=== PATIENT | female | born 1950 | race Caucasian/White ===

== ENCOUNTER 2017-02-09 13:35 | Emergency (ER) | payer MEDICARE, MEDICAID ==
[2017-02-09 14:51] LABS: Hematocrit 41 % (35-47); Hemoglobin 13.7 g/dl (12.0-16.0); Mean Corpuscular HGB Conc 33 g/dl (31-36); Mean Corpuscular Hemoglobin 30 pg (27-31); Mean Corpuscular Volume 89 fL (80-97); Mean Platelet Volume 9 um3 (7.4-10.4); Red Blood Count 4.64 10^6/ul (4.0-5.4); Red Cell Distribution Width 14 % (10.5-15); White Blood Count 6.3 10^3/ul (3.5-10.8)
[2017-02-09 15:12] LABS: Albumin 3.6 g/dL (3.2-5.2); Calcium 8.8 mg/dL (8.6-10.3); EGFR Non-African American 100.3 (>60); Globulin 3.2 g/dL (2-4); Potassium 3.9 mmol/L (3.5-5.0); Total Bilirubin 0.8 mg/dL (0.2-1.0); Total Protein 6.8 g/dL (6.4-8.9)
[2017-02-09 15:14] LABS: Troponin I 0.02 ng/mL (<0.04)
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
[2017-02-09 16:40] VITALS: BP 129/84
[2017-02-09] MEDS ORDERED: Iodixanol* (CONTRAST) 320 MG/ML 100 ML SDV IV ONE (16:47)
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
== END 2017-02-09 19:31 | disposition home or self-care (01) ==
LOC: ED 13:35
DX: R06.02 Shortness of breath (principal)
CPT/HCPCS: 36415; 71020; 71275; 80053; 83880; 84484; 85025; 85379; 87040; 93005; 99282; Q9967

== ENCOUNTER 2017-07-03 08:21 | Emergency (ER) | payer MEDICARE, MEDICAID ==
[2017-07-03] MEDS ORDERED: Aspirin Low Dose CHEW TAB* 81 MG PO ONE (08:34)
[2017-07-03 09:22] LABS: ABS Basophils 0 10^3/ul (0-0.2); ABS Eosinophils 0.3 10^3/ul (0-0.6); ABS Lymphocytes 2.5 10^3/ul (1.0-4.8); ABS Monocytes 0.6 10^3/ul (0-0.8); ABS Neutrophils 3.5 10^3/ul (1.5-7.7); ABS Nucleated RBC 0 10^3/ul; Eosinophil % 4.3 % (0-6); Hematocrit 42 % (35-47); Hemoglobin 13.9 g/dl (12.0-16.0); Lymphocyte % 36.4 % (25-47); Mean Corpuscular HGB Conc 34 g/dl (31-36); Mean Corpuscular Hemoglobin 30 pg (27-31); Mean Corpuscular Volume 88 fL (80-97); Mean Platelet Volume 9 um3 (7.4-10.4); Nucleated Red Blood Cells % 0; Platelet Count 213 10^3/ul (150-450); Red Blood Count 4.71 10^6/ul (4.0-5.4); Red Cell Distribution Width 14 % (10.5-15); White Blood Count 6.8 10^3/ul (3.5-10.8)
--- NOTE | 2017-07-03 09:59 | RAD ---
Indication: LEFT chest pain. Shortness of breath. Orthopnea. Comparison: February 09, 2017 CT pulmonary angiogram and chest radiograph. Technique: Sitting AP and lateral chest views. Report: Elevated lung volumes. Cardiomegaly. Prominent mildly ill-defined central pulmonary vasculature. Mild prominence of interstitial markings with subtle peripheral thickened intralobular septa. Grossly clear pleural spaces. 2 cm nodule at the lateral basal segment of the RIGHT lower lobe with suggestion of interval enlargement compared with the February 09, 2017 CT. Unremarkable mediastinal contours. IMPRESSION: 1. Mild pulmonary vascular congestion and interstitial edema. 2. Interval enlargement of solitary RIGHT basilar pulmonary nodule concerning for potential bronchogenic carcinoma. 3. Elevated lung volumes suggest potential obstructive lung disease.
[2017-07-03 10:02] LABS: EGFR Non-African American 91.5 (>60)
[2017-07-03] MEDS ORDERED: Ketorolac INJ* 30 MG/ML 1 ML VIAL IV PUSH ONE (10:34)
[2017-07-03 12:12] VITALS: BP 124/77
--- NOTE | 2017-07-04 18:35 | ED ---
Dwayne Pabon Angela, scribed for Renzo Monreal MD on 07/03/17 at 0850 . HPI Chest Pain - HPI Summary HPI Summary: This pt is a 66 y/o female, accompanied by her son, presenting to [facility] c/o left sided chest pain radiating to her back. Son is translating for the pt. Pt reports her pain began intermittently 2 weeks ago and 1 week ago her pain was more constant. She notes today her pain was worse. She reports cough. Denies fever, nausea, vomiting. - History of Current Complaint Chief Complaint: EDChestPainROMI Time Seen by Provider: 07/03/17 08:33 Hx Obtained From: Patient, Family/Care Transition Mgr - Son Onset/Duration: Started Days Ago, Still Present Timing: Lasting Days Current Severity: Moderate Pain Intensity: 6 Pain Scale Used: 0-10 Numeric Chest Pain Location: Left Anterior Chest Pain Radiates: Yes Chest Pain Radiates To:: Back Aggravating Factor(s): Nothing Alleviating Factor(s): Nothing Associated Signs and Symptoms: Positive: Cough. Negative: Fever, Chills, Nausea , Vomiting - Allergy/Home Medications Allergies/Adverse Reactions: Allergies Allergy/AdvReac Type Severity Reaction Status Date / Time hydrocortisone Allergy Mild Rash Verified 07/03/17 09:18 Home Medications: Home Medications Albuterol HFA INHALER* [Ventolin HFA Inhaler*] 2 puff INH Q4H PRN 07/03/17 [ History Confirmed 07/03/17] Atenolol TAB* [Tenormin TAB* 25 MG] 25 mg PO DAILY 07/03/17 [History Confirmed 07/03/17] Budesonide/Formote 160/4.5(NF) [Symbicort 160/4.5 (NF)] 1 puff INH BID PRN 07/03 [History Confirmed 07/03/17] Metoprolol Succinate XL TAB* [Toprol XL TAB*] 25 mg PO DAILY 07/03/17 [History Confirmed 07/03/17] traMADol TAB* [Ultram*] 50 mg PO Q8H PRN MDD 150mg 07/03/17 [History Confirmed 07/03/17] PMH/Surg Hx/FS Hx/Imm Hx Endocrine/Hematology History: Reports: Hx Diabetes - Borderline Cardiovascular History: Reports: Hx Hypercholesterolemia, Hx Hypertension Denies: Hx Congestive Heart Failure, Hx Myocardial Infarction Respiratory History: Reports: Other Respiratory Problems/Disorders - Being unable to tolerate layig flat without SOB - 1 year - Cancer History Cancer Type, Location and Year: Skin CA - Surgical History Surgery Procedure, Year, and Place: RT. SIDED FACIAL TUMOR REMOVED- BENIGN, TYROIDECTOMY Infectious Disease History: No Infectious Disease History: Denies: Traveled Outside the [place] in Last 30 Days - Family History Known Family History: Positive: Other - CHF, Gastric CA; NEGATIVE: PE - Social History Alcohol Use: None Substance Use Type: Reports: None Smoking Status (MU): Never Smoked Tobacco Review of Systems Negative: Fever Positive: Chest Pain Positive: Cough Negative: Vomiting, Nausea Musculoskeletal: Negative Skin: Negative Neurological: Negative All Other Systems Reviewed And Are Negative: Yes Physical Exam - Summary Physical Exam Summary: VITAL SIGNS: Reviewed. GENERAL: Patient is a well-developed and nourished female who is lying comfortable in the stretcher. Patient is not in any acute respiratory distress. HEAD AND FACE: No signs of trauma. No ecchymosis, hematomas or skull depressions. No sinus tenderness. EYES: PERRLA, EOMI x 2, No injected conjunctiva, no nystagmus. EARS: Hearing grossly intact. Ear canals and tympanic membranes are within normal limits. MOUTH: Oropharynx within normal limits. NECK: Supple, trachea is midline, no adenopathy, no JVD, no carotid bruit, no c- spine tenderness, neck with full ROM. CHEST: Symmetric, reproducible chest pain. LUNGS: Clear to auscultation bilaterally. No wheezing or crackles. CVS: Regular rate and rhythm, S1 and S2 present, no murmurs or gallops appreciated. ABDOMEN: Soft, non-tender. No signs of distention. No rebound no guarding, and no masses palpated. Bowel sounds are normal. EXTREMITIES: FROM in all major joints, no edema, no cyanosis or clubbing. NEURO: Alert and oriented x 3. No acute neurological deficits. Speech is normal and follows commands. SKIN: Dry and warm Triage Information Reviewed: Yes Vital Signs On Initial Exam: Initial Vitals Temp Pulse Resp BP Pulse Ox 98.4 F 73 18 162/93 93 07/03/17 08:22 07/03/17 08:22 07/03/17 08:22 07/03/17 08:22 07/03/17 08:22 Vital Signs Reviewed: Yes Diagnostics - Vital Signs Vital Signs Temp Pulse Resp BP Pulse Ox 07/03/17 08:22 98.4 F 73 18 162/93 93 - Laboratory Lab Results: Lab Results 07/03/17 07/03/17 07/03/17 Range/Units 08:55 08:55 08:55 WBC (3.5-10.8) 10^3/ul RBC (4.0-5.4) 10^6/ul Hgb (12.0-16.0) g/dl Hct (35-47) % MCV (80-97) fL MCH (27-31) pg MCHC (31-36) g/dl RDW (10.5-15) % Plt Count (150-450) 10^3/ul MPV (7.4-10.4) um3 Neut % (Auto) (38-83) % Lymph % (Auto) (25-47) % [place] % (Auto) (0-7) % Eos % (Auto) (0-6) % Baso % (Auto) (0-2) % Absolute Neuts (auto) (1.5-7.7) 10^3/ul Absolute Lymphs (auto) (1.0-4.8) 10^3/ul Absolute Monos (auto) (0-0.8) 10^3/ul Absolute Eos (auto) (0-0.6) 10^3/ul Absolute Basos (auto) (0-0.2) 10^3/ul Absolute Nucleated RBC 10^3/ul Nucleated RBC % APTT 31.6 (26.0-36.3) seconds Sodium 137 (133-145) mmol/L Potassium 3.5 (3.5-5.0) mmol/L Chloride 103 (101-111) mmol/L Carbon Dioxide 25 (22-32) mmol/L Anion Gap 9 (2-11) mmol/L BUN 13 (6-24) mg/dL Creatinine 0.65 (0.51-0.95) mg/dL Est GFR ( Amer) 117.6 (>60) Est GFR (Non-Af Amer) 91.5 (>60) BUN/Creatinine Ratio 20.0 (8-20) Glucose 163 H (70-100) mg/dL Lactic Acid (0.5-2.0) mmol/L Calcium 9.5 (8.6-10.3) mg/dL Magnesium 1.9 (1.9-2.7) mg/dL Total Bilirubin 0.70 (0.2-1.0) mg/dL AST 18 (13-39) U/L ALT 17 (7-52) U/L Alkaline Phosphatase 62 (34-104) U/L Total Creatine Kinase 35 (10-223) U/L CK-MB (CK-2) 0.8 (0.6-6.3) ng/mL Troponin I 0.01 (<0.04) ng/mL B-Natriuretic Peptide 11 ( - 100) pg/mL Total Protein 7.3 (6.4-8.9) g/dL Albumin 3.9 (3.2-5.2) g/dL Globulin 3.4 (2-4) g/dL Albumin/Globulin Ratio 1.1 (1-3) TSH (0.34-5.60) mcIU/mL 07/03/17 07/03/17 07/03/17 Range/Units 08:55 08:55 08:55 WBC 6.8 (3.5-10.8) 10^3/ul RBC 4.71 (4.0-5.4) 10^6/ul Hgb 13.9 (12.0-16.0) g/dl Hct 42 (35-47) % MCV 88 (80-97) fL MCH 30 (27-31) pg MCHC 34 (31-36) g/dl RDW 14 (10.5-15) % Plt Count 213 (150-450) 10^3/ul MPV 9 (7.4-10.4) um3 Neut % (Auto) 50.6 (38-83) % Lymph % (Auto) 36.4 (25-47) % [place] % (Auto) 8.1 H (0-7) % Eos % (Auto) 4.3 (0-6) % Baso % (Auto) 0.6 (0-2) % Absolute Neuts (auto) 3.5 (1.5-7.7) 10^3/ul Absolute Lymphs (auto) 2.5 (1.0-4.8) 10^3/ul Absolute Monos (auto) 0.6 (0-0.8) 10^3/ul Absolute Eos (auto) 0.3 (0-0.6) 10^3/ul Absolute Basos (auto) 0 (0-0.2) 10^3/ul Absolute Nucleated RBC 0 10^3/ul Nucleated RBC % 0 APTT (26.0-36.3) seconds Sodium (133-145) mmol/L Potassium (3.5-5.0) mmol/L Chloride (101-111) mmol/L Carbon Dioxide (22-32) mmol/L Anion Gap (2-11) mmol/L BUN (6-24) mg/dL Creatinine (0.51-0.95) mg/dL Est GFR ( Amer) (>60) Est GFR (Non-Af Amer) (>60) BUN/Creatinine Ratio (8-20) Glucose (70-100) mg/dL Lactic Acid 1.1 (0.5-2.0) mmol/L Calcium (8.6-10.3) mg/dL Magnesium (1.9-2.7) mg/dL Total Bilirubin (0.2-1.0) mg/dL AST (13-39) U/L ALT (7-52) U/L Alkaline Phosphatase (34-104) U/L Total Creatine Kinase (10-223) U/L CK-MB (CK-2) (0.6-6.3) ng/mL Troponin I (<0.04) ng/mL B-Natriuretic Peptide ( - 100) pg/mL Total Protein (6.4-8.9) g/dL Albumin (3.2-5.2) g/dL Globulin (2-4) g/dL Albumin/Globulin Ratio (1-3) TSH 2.90 (0.34-5.60) mcIU/mL 07/03/17 Range/Units 10:36 WBC (3.5-10.8) 10^3/ul RBC (4.0-5.4) 10^6/ul Hgb (12.0-16.0) g/dl Hct (35-47) % MCV (80-97) fL MCH (27-31) pg MCHC (31-36) g/dl RDW (10.5-15) % Plt Count (150-450) 10^3/ul MPV (7.4-10.4) um3 Neut % (Auto) (38-83) % Lymph % (Auto) (25-47) % [place] % (Auto) (0-7) % Eos % (Auto) (0-6) % Baso % (Auto) (0-2) % Absolute Neuts (auto) (1.5-7.7) 10^3/ul Absolute Lymphs (auto) (1.0-4.8) 10^3/ul Absolute Monos (auto) (0-0.8) 10^3/ul Absolute Eos (auto) (0-0.6) 10^3/ul Absolute Basos (auto) (0-0.2) 10^3/ul Absolute Nucleated RBC 10^3/ul Nucleated RBC % APTT (26.0-36.3) seconds Sodium (133-145) mmol/L Potassium (3.5-5.0) mmol/L Chloride (101-111) mmol/L Carbon Dioxide (22-32) mmol/L Anion Gap (2-11) mmol/L BUN (6-24) mg/dL Creatinine (0.51-0.95) mg/dL Est GFR ( Amer) (>60) Est GFR (Non-Af Amer) (>60) BUN/Creatinine Ratio (8-20) Glucose (70-100) mg/dL Lactic Acid (0.5-2.0) mmol/L Calcium (8.6-10.3) mg/dL Magnesium (1.9-2.7) mg/dL Total Bilirubin (0.2-1.0) mg/dL AST (13-39) U/L ALT (7-52) U/L Alkaline Phosphatase (34-104) U/L Total Creatine Kinase (10-223) U/L CK-MB (CK-2) (0.6-6.3) ng/mL Troponin I 0.00 (<0.04) ng/mL B-Natriuretic Peptide ( - 100) pg/mL Total Protein (6.4-8.9) g/dL Albumin (3.2-5.2) g/dL Globulin (2-4) g/dL Albumin/Globulin Ratio (1-3) TSH (0.34-5.60) mcIU/mL Result Diagrams: 07/03/17 08:55 07/03/17 08:55 Lab Statement: Any lab studies that have been ordered have been reviewed, and results considered in the medical decision making process. - Radiology Chest XR Xray Interpretation: Positive (See Comments) - IMPRESSION: 1. Mild pulmonary vascular congestion and interstitial edema. 2. Interval enlargement of solitary RIGHT basilar pulmonary nodule concerning for potential bronchogenic carcinoma. 3. Elevated lung volumes suggest potential obstructive lung disease. Dr. Monreal has reviewed this radiology report. Radiology Interpretation Completed By: Radiologist - EKG 08:42 Cardiac Rate: NL EKG Rhythm: Sinus Rhythm - at 78 bpm EKG Interpretation: No ST elevations. Re-Evaluation - Re-Evaluation First Eval Re-Evaluation Time: 12:09 Comment: I reviewed the lab and XR results with the pt and son. I explained the need to follow up with PCP for the pulmonary nodule seen today in XR. Chest Pain Course/Dx - Course Assessment/Plan: This pt is a 66 y/o female, accompanied by her son, presenting to [facility] c/o left sided chest pain radiating to her back. Son is translating for the pt. Pt reports her pain began intermittently 2 weeks ago and 1 week ago her pain was more constant. She notes today her pain was worse. She reports cough. Denies fever, nausea, vomiting. Test results without any significant abnormalities except for glucose of 163. Two troponins, 4 hours apart, are both negative. Chest XR: 1. Mild pulmonary vascular congestion and interstitial edema. 2. Interval enlargement of solitary RIGHT basilar pulmonary nodule concerning for potential bronchogenic carcinoma. 3. Elevated lung volumes suggest potential obstructive lung disease. EKG shows normal sinus rhythm without ST elevations. In the ED course the pt was given aspiring and toradol. After these medications the pt reports she is feeling better and her symptoms have resolved. No suspicion for PE since no hypoxia or tachycardia. Therefore the pt will be discharged to home with follow up from her PCP. I explained to the pt and son the need to follow up with her PCP for the pulmonary nodules seen in the chest XR today. Pt and son understand and agree. Pt is instructed to return to the ED for any worsening or new symptoms. Pt is hemodynamically stable, alert and oriented x3. - Chest Pain Differential Diagnosis/HQI/PQRI: Acute MN, ACS, Angina, CHF, Chest Wall, GI Disease, Lower Respiratory Infection - Diagnoses Provider Diagnoses: Atypical chest pain, Pulmonary nodule Discharge - Discharge Plan Condition: Stable Disposition: HOME Patient Education Materials: Chest Pain (ED), Pulmonary Nodules (ED) Referrals: Oneida Nieves MD [Primary Care Provider] - 3 Days Additional Instructions: Please follow up with your primary care provider in 3 days for the LUNG NODULE seen in your chest x-ray today. RETURN TO THE ED FOR ANY WORSENING SYMPTOMS. The documentation as recorded by the Dwayne benitez Angela accurately reflects the service I personally performed and the decisions made by Rah poon Walter, MD.
== END 2017-07-03 12:10 | disposition home or self-care (01) ==
LOC: ED 08:21
DX: R07.89 Other chest pain (principal); R91.1 Solitary pulmonary nodule; E78.00 Pure hypercholesterolemia, unspecified; I10 Essential (primary) hypertension; Z85.828 Personal history of other malignant neoplasm of skin
CPT/HCPCS: 36415; 71046; 80053; 82550; 82553; 83605; 83735; 83880; 84443; 84484; 85025; 85730; 93005; 96374; 99283; A9270-GY; J1885

== ENCOUNTER 2017-09-04 11:41 | Day surgery (SDC) | payer MEDICARE, MEDICAID ==
[~2017-09-04 11:41] MED LIST: Buffered Lidocaine 0.9% SYRIN* 5 ML/SYR SYRINGE INTRADERM ONE; Famotidine IV* 10 MG/ML 2 ML (20 mg) IV ONE
[2017-09-04] MEDS ORDERED: Famotidine IV* 10 MG/ML 2 ML (20 mg) ONE (12:02)
[2017-09-04] MEDS ORDERED: Buffered Lidocaine 0.9% SYRIN* 5 ML/SYR SYRINGE ONE (12:03)
[2017-09-04] MEDS ORDERED: fentaNYL* 50 MCG/ML 2 ML VIAL (100 MCG VIAL) IV PRN (13:05)
[2017-09-04] MEDS ORDERED: HYDROcodone/ACETAMIN 5-325 MG* 1 TAB PO PRN (13:05)
[2017-09-04] MEDS ORDERED: Ondansetron INJ* 2 MG/ML VIAL IV PRN (13:05)
[2017-09-04] MEDS ORDERED: Naloxone* 0.4 MG/ML 1 ML VIAL IV PRN (13:05)
[2017-09-04] MEDS ORDERED: oxyCODONE/Acetamin 5/325 MG* TAB PO PRN (13:05)
[2017-09-04] MEDS ORDERED: Propofol* 10 MG/ML 20 ML BTL IV PUSH ONE (13:14)
[2017-09-04] MEDS ORDERED: Mivacurium Chloride* 20 MG/10 ML VIAL IV ONE (13:14)
[2017-09-04] MEDS ORDERED: Midazolam* 1 MG/ML 5 ML VIAL (5 MG) ONE (13:14)
[2017-09-04] MEDS ORDERED: Lidocaine 2% PF * 5 ML VIAL ONE (13:14)
[2017-09-04] MEDS ORDERED: fentaNYL* 50 MCG/ML 2 ML VIAL (100 MCG VIAL) ONE ×2 (13:14→13:39)
[2017-09-04] MEDS ORDERED: Levalbuterol 0.63MG/3ML NEB* UNIT OF USE INH ONE ×2 (16:30→16:31)
[2017-09-04 16:59] VITALS: BP 164/95
--- NOTE | 2017-09-05 10:23 | PRO ---
BRONCHOSCOPY REPORT: DATE OF PROCEDURE: 09/04/17 - SDS SURGEON: Magda Claudio MD ANESTHESIA: General anesthesia. ANESTHESIOLOGIST: Dr. Luis. PROCEDURE PERFORMED: Endobronchial ultrasound-guided fine needle aspiration of station L4, R4, R10, R15 nodes. PREPROCEDURAL DIAGNOSIS: Recently diagnosed adenocarcinoma. INDICATION: Lung cancer staging. DESCRIPTION OF PROCEDURE: Informed consent was obtained from the patient prior to the procedure after all the risks and benefits were thoroughly explained. Appropriate time-out was agreed on by attending staff. The patient was lying supine on the operating table. A flexible Olympus bronchoscope was inserted through ET tube for airway inspection. No endobronchial lesions were noted. Thin secretions were noted and were suctioned out. Bronchoscope was then withdrawn and EBUS bronchoscope was inserted. The bronchoscope was then advanced into left main stem, L4 was localized and 4 passes were performed. Rapid on-site evaluation revealed lymphatic tissue with no malignant cells. R4 was then accessed with 4 passes. Both lymph nodes were very small measuring about 0.4 mm. Rapid on-site evaluation revealed lymphatic tissue, no malignant cells. R10 and R15 were then accessed with 4 passes. R15 was enlarged and measured 0.8 mm. Rapid on-site evaluation revealed lymphatic tissue, no malignant cells were noted. Rest of the specimen was placed in formalin.The patient tolerated the procedure well. Patient was extubated and seen in recovery in optimal condition. [id number]/CPS #: [id number] [facility]
== END 2017-09-04 17:05 | disposition home or self-care (01) ==
LOC: OR 11:41
PROVIDERS: ATTEND Internal Medicine
DX: C34.90 Malignant neoplasm of unspecified part of unspecified bronchus or lung (principal); I10 Essential (primary) hypertension; E11.9 Type 2 diabetes mellitus without complications; Z85.828 Personal history of other malignant neoplasm of skin; M19.90 Unspecified osteoarthritis, unspecified site; J45.909 Unspecified asthma, uncomplicated; K21.9 Gastro-esophageal reflux disease without esophagitis
CPT/HCPCS: 88172; 88173; 88177; 88305; J2250; J2704; J3010

== ENCOUNTER 2017-10-24 09:40 | Inpatient (IN) | payer MEDICARE, MEDICAID ==
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
[~2017-10-24 09:40] MED LIST changes: -Buffered Lidocaine 0.9% SYRIN* 5 ML/SYR SYRINGE INTRADERM ONE; +Levalbuterol 0.63MG/3ML NEB* UNIT OF USE INH ONE
[2017-10-24] MEDS ORDERED: Famotidine IV* 10 MG/ML 2 ML (20 mg) ONE (10:07)
[2017-10-24] MEDS ORDERED: Levalbuterol 0.63MG/3ML NEB* UNIT OF USE INH ONE ×2 (10:07→15:01)
[2017-10-24] MEDS ORDERED: Buffered Lidocaine 0.9% SYRIN* 5 ML/SYR SYRINGE ONE (10:07)
[2017-10-24] MEDS ORDERED: ceFAZolin 2 GM PREMIX (*) 2 GM/50 ML BAG IVPB ONE (10:08)
[2017-10-24] MEDS: Buffered Lidocaine 0.9% SYRIN* 5 ML/SYR SYRINGE INTRADERM ONE ×2 (10:47→17:07)
[2017-10-24] MEDS ORDERED: Dexamethasone IV* 4 MG/ML 1 ML (4 MG) ONE (10:49)
[2017-10-24] MEDS ORDERED: Bupivacaine 0.25% W/EPI* 10 ML SDV ONE (10:49)
[2017-10-24] MEDS ORDERED: Propofol* 10 MG/ML 20 ML BTL IV PUSH ONE (10:49)
[2017-10-24] MEDS ORDERED: Midazolam* 1 MG/ML 10 ML VIAL (10 MG) ONE (10:49)
[2017-10-24] MEDS ORDERED: Lidocaine 2% PF * 5 ML VIAL ONE (10:49)
[2017-10-24] MEDS ORDERED: Phenylephrine INJ* 10 MG/ML 1 ML VIAL (10 MG) ONE (10:49)
[2017-10-24] MEDS ORDERED: fentaNYL* 50 MCG/ML 2 ML VIAL (100 MCG VIAL) ONE ×2 (10:49→12:50)
[2017-10-24] MEDS ORDERED: KETAMINE HCL* 50 MG/ML 10 ML VIAL ONE (10:49)
[2017-10-24] MEDS ORDERED: Rocuronium* 10 MG/ML VIAL ONE (10:49)
[2017-10-24] MEDS ORDERED: Ondansetron ODT TAB* 4 MG ONE (10:49)
[2017-10-24] MEDS ORDERED: Heparin VIAL(*) 5000 UNITS/ML VIAL (FIVE THOUSAND) ONE (10:58)
[2017-10-24] MEDS ORDERED: Benzocaine/Butamben/Tetracain (CETACAINE - SINGLE USE) 5 gm TOPICAL ONE (11:40)
[2017-10-24] MEDS ORDERED: Bupivacaine 0.5% PF 10 ML VIAL INJ ONE (12:41)
[2017-10-24] MEDS ORDERED: HYDROmorphone INJ* 0.5 MG/0.5 ML SYRINGE ONE (14:16)
[2017-10-24] MEDS ORDERED: Ketorolac INJ* 30 MG/ML 1 ML VIAL ONE (14:19)
[2017-10-24] MEDS ORDERED: Levalbuterol 0.63MG/3ML NEB* UNIT OF USE INH PRN (14:23)
[2017-10-24] MEDS ORDERED: Ondansetron INJ* 2 MG/ML VIAL IV PRN ×3 (14:23→17:04)
[2017-10-24] MEDS ORDERED: DiMENhydriNATE IV* 50 MG/ML VIAL IV PUSH PRN (14:23)
[2017-10-24] MEDS ORDERED: Naloxone* 0.4 MG/ML 1 ML VIAL IV PRN (14:23)
[2017-10-24] MEDS ORDERED: HYDROmorphone INJ* 0.5 MG/0.5 ML SYRINGE IV PRN (14:23)
[2017-10-24] MEDS ORDERED: Acetaminophen IV 1GM/100ML * 1,000 MG/100 ML VIAL IVPB ONE (14:23)
[2017-10-24] MEDS ORDERED: fentaNYL* 50 MCG/ML 2 ML VIAL (100 MCG VIAL) IV PRN (14:23)
[2017-10-24] MEDS ORDERED: Acetaminophen TAB* 325 MG PO PRN (15:15)
[2017-10-24] MEDS ORDERED: Albuterol HFA INHALER* 8 gm MDI INH PRN (15:28)
[2017-10-24] MEDS ORDERED: Omeprazole CAP* 20 MG PO PRN (15:28)
[2017-10-24] MEDS ORDERED: Ketorolac INJ* 30 MG/ML 1 ML VIAL IV SCH (16:00)
--- NOTE | 2017-10-24 16:25 | RAD ---
INDICATION: Follow-up "chest surgery" COMPARISON: Most recent chest x-rays dated July 03, 2017 TECHNIQUE: Single AP portable view of the chest was obtained. FINDINGS: Image quality is compromised due to the relative inferiority of a portable chest x-ray. Postsurgical changes include skin guido overlying the right lateral chest and a chest tube overlying the right hemithorax with the tip terminating at the level of the right lung apex. The lung volumes are reduced bilaterally. There is a density obscuring the left lung base and left hemidiaphragm. There is no large pneumothorax or mediastinal shift. IMPRESSION: 1. Postsurgical changes as described above. 2. Density obscuring the left lung base and left hemidiaphragm consistent with either large pleural effusion or consolidation.
[2017-10-24] MEDS ORDERED: Ketorolac INJ* 15 MG/ML 1 ML VIAL IV PUSH PRN (17:07)
[2017-10-24] MEDS ORDERED: Dextrose 50% Syringe 50 ML* 25 GM/50 ML SYRINGE IV PUSH PRN (17:08)
[2017-10-24] MEDS: HYDROmorphone PCA* 20 MG/20 ML PCA.SYRING PCA SCH (17:16)
[2017-10-24] MEDS ORDERED: Atenolol TAB* 25 MG PO SCH (18:00)
[2017-10-24] MEDS: Heparin VIAL(*) 5000 UNITS/ML VIAL (FIVE THOUSAND) SUBCUT SCH (21:34)
[2017-10-24] MEDS: Montelukast Sodium TAB* 10 MG PO SCH (21:34)
[2017-10-24] MEDS: Docusate CAP* 100 MG PO SCH (21:34)
[2017-10-24] MEDS ORDERED: Heparin VIAL(*) 5000 UNITS/ML VIAL (FIVE THOUSAND) SUBCUT SCH (22:00)
--- NOTE | 2017-10-24 22:58 | CONS ---
CC: Dr. Oneida Nieves; Dr. Oscar* CONSULTATION REPORT: DATE OF CONSULT: 10/24/17 PRIMARY CARE PROVIDER: Dr. Oneida Nieves. ATTENDING PHYSICIAN WHILE IN THE HOSPITAL: Dr. Alex Mesa (report being dictated by Joe Garza NP). REQUESTING PHYSICIAN IN CONSULT: Dr. Oscar. REASON FOR MEDICAL CONSULTATION: Evaluation and medical management of comorbid medical problems. HISTORY OF PRESENT ILLNESS: Ms. Garcia is a 67-year-old female patient, who recently in the outpatient setting was diagnosed with lung CA. She sought care with Dr. Oscar, who felt that the patient would benefit from a thoracotomy and right lung lower lobe lobectomy, which she underwent today. She does carry a history of hypertension, diabetes, obesity, CVA in the past with no residual deficit, history of aortic and tricuspid insufficiencies, history of lung cancer, history of asthma, in addition to this, history of hyperlipidemia. She was evaluated in the ICU postoperatively. Her biggest complaint now is she is complaining of pain along the right side near the incision site where there are chest tubes in place. She said she feels a little short of breath. She denies having any nausea or abdominal pain. She said she feels thirsty. She denies any lightheadedness or dizziness. She says that her biggest complaint is pain on the right side where the surgery was performed. Because of her medical complexity, we were asked to evaluate in consult. PAST MEDICAL HISTORY: Significant for: 1. Hypertension. 2. Prediabetes, diet-controlled. 3. Obesity. 4. History of CVA. 5. Aortic insufficiency. 6. Tricuspid insufficiency. 7. History of lung cancer. 8. Asthma. 9. Hyperlipidemia. PAST SURGICAL HISTORY: 1. The patient has had tonsillectomy. 2. Lobectomy. HOME MEDICATIONS: Include: 1. Tramadol 50 mg every 4 hours. 2. Hydrochlorothiazide 12.5 mg p.o. daily as needed. 3. Omeprazole 20 mg p.o. daily as needed. 4. Nitro 0.3 mg sublingual q.5 minutes x3 p.r.n. chest pain. 5. Multivitamin 1 tablet daily. 6. Singulair 10 mg p.o. at bedtime. 7. Atenolol 25 mg at bedtime. 8. Aspirin 81 mg at bedtime. 9. Ventolin 2 puffs inhaled every 4 hours as needed. ALLERGIES TO MEDICATIONS: Include HYDROCORTISONE and TETANUS. FAMILY HISTORY: Mother's history was unknown. Father did have a history of esophageal cancer. SOCIAL HISTORY: She does not smoke. She does not drink. She lives alone. Her daughter lives in the same apartment building as her and a few doors down. Her surrogate decision maker is her daughter and her son, Elvin. REVIEW OF SYSTEMS: There is no documented fever. She is denying any significant weight change. There is no double vision. She denies having any ear discharge. She has no rhinorrhea. There is no sore throat. No thyroid enlargement. There is right-sided chest pain per my HPI. There is no orthopnea. She denies any nocturnal dyspnea. There is no abdominal pain. There is no nausea, no vomiting. There is no dysuria. There is no frequency. There is no seizure. No loss of consciousness. No pruritus and no skin ulcerations. Review of 14 systems was completed, all others negative. PHYSICAL EXAM: Vital Signs: Blood pressure 143/80 with a pulse of 73, respirations 16, O2 sat 95% on 4 L, temperature 98.4. General: At this time, Ms. Garcia is a 67-year-old female patient. She is sitting in the ICU bed. She does not appear to be in any acute distress. HEENT: Head: Atraumatic, normocephalic. Eyes: EOMs intact. Sclerae anicteric. Throat: Oral mucosa appears to be moist. No oropharyngeal erythema. Neck: Supple. Heart: Sounds S1, S2. Regular rate and rhythm. No murmurs, rubs, or gallops. Lungs: They were diminished on the right side, otherwise clear. No wheezes, rales, or rhonchi. Abdomen: Soft, flat, was nontender. Bowel sounds hypoactive. Extremities: Pulses 2+ throughout. She had 5/5 strength. No peripheral edema. Neurologically, she is awake. She is alert. She is oriented x3. She is drowsy, but again is appropriate. She had no gross focal deficits. Skin: Intact with the exception she has incision noted to the right chest wall with OLIVIA drains and chest tube, which is draining a serosanguineous fluid. Clean, dry , and intact. DIAGNOSTIC STUDIES/LAB DATA: Preoperatively, WBC 7.5, RBC of 4.61, hemoglobin of 13.9, hematocrit of 41, platelet count 190. Sodium 141, potassium of 4.1, chloride of 106, bicarb of 29, BUN 10, creatinine of 0.61, glucose of 113. AST 18, ALT 17. INR 0.91 that was preop. Postop chest x-ray is showing postsurgical changes as described densely obscuring the left lung base and left- sided hemidiaphragm consistent with either large pleural effusion or consolidation, no pneumothorax or mediastinal shift. She did have an EKG preoperatively showing sinus bradycardia with a PVC, no ST elevations or T-wave inversions with the exception of V1 and V2. Pathology showed lung adenocarcinoma. Old medical records reviewed. ASSESSMENT AND PLAN: Ms. Garcia is a 67-year-old female patient coming into the surgical service today for a right lower lobe lobectomy, which was performed by Dr. Oscar today. We were asked to evaluate and consult due to medical complexity. Recommendations at this point are: 1. Status post right lower lobe lobectomy. I will defer the management to Dr. Oscar and his team. 2. Hypertension. I recommend continuing with beta-keri. I would hold the hydrochlorothiazide. 3. Diabetes. Again, has prediabetes, normally controlled with diet; however, last fingerstick was 206, so I have ordered a sliding scale. I am checking an A1c. 4. History of cerebrovascular accident. Restart the aspirin tomorrow for secondary prevention. 5. History of aortic and tricuspid insufficiencies. At this point, can follow up with her primary oracle solutions architect. 6. History of lung cancer. Follow up with PCP. 7. History of asthma. P.r.n. albuterol has been ordered. 8. DVT prophylaxis: Defer to the primary team. 9. Code status: Full code. 10. Fluids, electrolytes and nutrition: I would recommend consistent carb diet. TIME SPENT: Time spent on the admission was 60 minutes, greater than half the time was spent bcbx-fb-same with the patient obtaining my history and physical, other half time was spent going over the plan of care with the patient and implementing plan of care. I did discuss the plan of care with my attending, Dr. Mesa, he is in agreement. JOE GARZA NP [id number]/[facility] #: [id number] NEVAEH
[2017-10-25] MEDS: Ketorolac INJ* 15 MG/ML 1 ML VIAL IV PUSH SCH ×4 (00:21→18:11)
[2017-10-25 03:07] LABS: ABS Basophils 0 10^3/ul (0-0.2); ABS Eosinophils 0 10^3/ul (0-0.6); ABS Lymphocytes 1.1 10^3/ul (1.0-4.8); ABS Neutrophils 11.9 10^3/ul (1.5-7.7); ABS Nucleated RBC 0 10^3/ul; Eosinophil % 0 % (0-6); Hematocrit 34 % (35-47); Hemoglobin 11.1 g/dl (12.0-16.0); Mean Corpuscular HGB Conc 33 g/dl (31-36); Mean Corpuscular Hemoglobin 30 pg (27-31); Mean Corpuscular Volume 89 fL (80-97); Mean Platelet Volume 9.1 um3 (7.4-10.4); Nucleated Red Blood Cells % 0.1; Platelet Count 192 10^3/ul (150-450); Red Blood Count 3.78 10^6/ul (4.00-5.40); Red Cell Distribution Width 14 % (10.5-15)
--- NOTE | 2017-10-25 03:10 | PN ---
Hospitalist Progress Note Date of Service: 10/25/17 RN reported pt complaining of right sided CP. CXR, troponins, and EKG ordered.
[2017-10-25 03:21] LABS: EGFR Non-African American 79.8 (>60)
[2017-10-25] MEDS ORDERED: NS 0.9% 500 ML* 500 ML IV ONE ×3 (04:16→15:29)
[2017-10-25] MEDS: Heparin VIAL(*) 5000 UNITS/ML VIAL (FIVE THOUSAND) SUBCUT SCH ×3 (05:49→21:56)
--- NOTE | 2017-10-25 06:37 | OP ---
CC: Dr. Oscar; Dr. Oneida Nieves; Dr. Marissa Stone; Dr. Magda Claudio; [facility] OPERATIVE REPORT: DATE OF OPERATION: 10/24/17 DATE OF : 52 SURGEON: Tung Oscar MD CHEMICAL DEPENDENCY NURSE: Sari Rodriges NP ANESTHESIOLOGIST: Dr. Maher. ANESTHESIA: General anesthetic, intercostal nerve block by the surgeon. PRE-OP DIAGNOSIS: Carcinoma of the right lower lobe of lung. POST-OP DIAGNOSIS: Carcinoma of the right lower lobe of lung. OPERATIVE PROCEDURE: Thoracotomy with right lower lobectomy and lymph node dissection. DESCRIPTION OF PROCEDURE: The patient was supine on the operating table after adequate double lumen intubation followed by bronchoscopy to confirm appropriate positioning of the tube. Arterial line wa s placed. Chandra catheter was placed. She was turned in the lateral decubitus position with the right chest upward. This had been previously marked for identification. She was appropriately padded and positioned and cushioned. An axillary roll was utilized, sand bag was utilized and she was appropri ately secured to the table. The right chest was prepped with antiseptic, draped in a sterile fashion . Approximately 20 cm incision was created and carried down to the muscle fascia, whereupon inferior and superior flaps were created and then the latissimus was entered along its anterior border and re flected posteriorly. The serratus was entered in the direction of its fibers. The 6th rib was ident ified and opened and the chest was entered. It was normal except for a palpable mass in the lower lo be. The inferior pulmonary ligament was taken off and inferior pulmonary lymph nodes retrieved and s ent for pathologic examination. Inferior pulmonary vein was stapled and ligated and divided in the us ual fashion. Middle lobe branch was left alone and there was a level 8 lymph node identified, which w as removed at this time. The fissure was entered and the pulmonary artery was identified, and the bennett perior segmental branch and the basilar branches were identified, clipped, ligated, and divided. The lower lobe bronchus was divided using a TIA 30 stapler of blue staple. This all created a good clos ure. 3-0 Vicryl suture was also placed on the bronchial stump to decrease leakage. Underwater test w as carried at 40 cm pressure and there was no air leak. Level 7 subcarinal nodes were dissected free and level 4 periazygous nodes were dissected free and these were each sent in formalin as well. Beba bates was in good condition. Intercostal nerve block was carried out over 6 levels using 0.25% Mar jadiel, a total of 20 mL and a 36-Welsh chest tube was placed through an inferior stab wound and up i nto the posterior chest. The ribs were approximated using #1 double looped PDS. The intercostal mus leonie was approximated with 3-0 Vicryl. The serratus closed with #1 Vicryl. Latissimus was tacked adam k down with #1 Vicryl. Adipose was reapproximated with 2-0 Vicryl. A OLIVIA drain was left in the subcu taneum and brought out through inferior stab wound, sutured to the skin with 3- 0 Prolene. The chest tube was sutured with 2-0 Prolene. Sterile dressings were utilized after staple closure of the skin . The patient was awakened and brought to recovery in good condition. There were no complications. Drain is Jd Nye and 36-Welsh chest tube. Sponge and instrument counts were correct. Estima sammi blood loss was 100 mL. No complications. [id number]/[facility] #: [id number]
--- NOTE | 2017-10-25 07:37 | RAD ---
INDICATION: Right-sided chest pain. COMPARISON: Comparison is made with a prior chest x-ray study from one day earlier. TECHNIQUE: A portable view of the chest was obtained. FINDINGS: Cardiac and mediastinal contours appear to be within normal limits. There is a chest tube present on the right side located medially, the catheter tip located toward the lung apex. There appears to be a small right apical pneumothorax measuring 2 mm from the lung apex which is unchanged. The lungs are underinflated. There are small infiltrates at both lung bases. IMPRESSION: 1. SMALL RIGHT APICAL PNEUMOTHORAX, UNCHANGED, CHEST TUBE IN PLACE. 2. SMALL BIBASILAR INFILTRATES, UNCHANGED.
--- NOTE | 2017-10-25 08:09 | PN ---
Progress Note - Progress Note Date of Service: 10/25/17 Note: POD#1 s/p RLL lobectomy Afeb, VS noted UO 400 ml OL[address] level 500 ml, sersang, no air leak Clementine po's no N/V Still has pain, but BANQUET STEWARDESS helps a lot. Hgb 11 lytes OK Color good, not diaphoretic appears comfortable lung good aeration bilat. Chest dressing w/ mod bloody drainage Impr: s/p lobectomy BP a little soft, cont IVF, cont to monitor in ICU d/c suction from chest tube incentive spirometry BP meds per hospitalist follow labs await path
--- NOTE | 2017-10-25 08:23 | PN ---
Subjective Date of Service: 10/25/17 Interval History: Patient seen and examined at bedside. Denies fever, chills, shortness of breath , N/V/D. Pt reports right sided chest discomfort and pain with deep breaths. Tele: Sinus rhythm, rate 70's Family History: Unchanged from Admission Social History: Unchanged from Admission Past Medical History: Unchanged from Admission Objective Active Medications: Acetaminophen (Tylenol Tab*) 650 mg PO Q4H PRN Reason: Pain Or Temperature > 101 F Albuterol (Ventolin Hfa Inhaler*) 2 puff INH Q4H PRN Reason: SOB/WHEEZING Aspirin (Aspirin 81 Mg Chew Tab*) 81 mg PO DAILY TEOFILO Atenolol (Tenormin Tab*) 25 mg PO QPM TEOFILO Dextrose (D50w Syringe 50 Ml*) 12.5 gm IV PUSH .FOR FS < 60 - SS PRN Reason: FS < 60 Docusate Sodium (Colace Cap*) 100 mg PO BID TEOFILO Heparin Sodium (Porcine) (Heparin Vial(*)) 5,000 units SUBCUT Q8HR TEOFILO Lactated Ringer's (Lactated Ringers 1000 Ml Bag*) 1,000 mls @ 100 mls/hr IV PER RATE TEOFILO Hydromorphone HCl (Dilaudid Graphic Arts Technician*) 20 mg in 20 mls @ 0 mls/hr EDUCATIONAL GUIDANCE COUNSELOR .Q24H TEOFILO; Protocol Sodium Chloride (Ns 0.9% 1000 Ml*) 1,000 mls @ 50 mls/hr IVPB .Q24H TEOFILO Insulin Human Lispro (Humalog*) 0 units SUBCUT AC TEOFILO; Protocol Ketorolac Tromethamine (Toradol Inj*) 15 mg IV PUSH Q6H PRN Stop: 10/26/17 17:06 Ketorolac Tromethamine (Toradol Inj*) 15 mg IV PUSH Q6HR TEOFILO Stop: 10/26/17 15:59 Montelukast Sodium (Singulair Tab*) 10 mg PO BEDTIME TEOFILO Omeprazole (Prilosec Cap*) 20 mg PO QAM PRN Reason: INDIGESTION Ondansetron HCl (Zofran Inj*) 4 mg IV Q4H PRN Reason: NAUSEA/VOMITING Oxycodone/Acetaminophen (Percocet 5/325 Tab*) 1 tab PO Q4H PRN Reason: PAIN Vital Signs - 8 hr 0710/25/17 10/25/17 00:36 01:00 01:46 Temperature Pulse Rate 71 70 Respiratory 16 17 Rate Blood Pressure 103/62 96/61 (mmHg) O2 Sat by Pulse 97 99 99 Oximetry 10/25/17 10/25/17 10/25/17 02:00 02:01 02:12 Temperature Pulse Rate 70 70 70 Respiratory 11 7 15 Rate Blood Pressure 90/63 93/63 95/55 (mmHg) O2 Sat by Pulse 99 99 98 Oximetry 10/25/17 10/25/17 10/25/17 02:24 02:56 03:00 Temperature Pulse Rate 68 69 70 Respiratory 15 14 14 Rate Blood Pressure 91/60 83/51 (mmHg) O2 Sat by Pulse 98 98 98 Oximetry 10/25/17 10/25/17 10/25/17 03:27 03:30 03:45 Temperature Pulse Rate 77 70 71 Respiratory 16 20 17 Rate Blood Pressure 84/55 90/59 79/51 (mmHg) O2 Sat by Pulse 98 98 99 Oximetry 10/25/17 10/25/17 10/25/17 03:53 04:00 04:01 Temperature 97.5 F Pulse Rate 70 71 Respiratory 16 18 Rate Blood Pressure 74/47 70/40 (mmHg) O2 Sat by Pulse 99 99 Oximetry 10/25/17 10/25/17 10/25/17 04:03 04:06 04:15 Temperature Pulse Rate 74 72 71 Respiratory 21 14 11 Rate Blood Pressure 73/53 81/51 72/46 (mmHg) O2 Sat by Pulse 99 98 98 Oximetry 10/25/17 10/25/17 10/25/17 04:30 04:45 05:00 Temperature Pulse Rate 72 71 70 Respiratory 29 21 20 Rate Blood Pressure 84/51 85/51 85/55 (mmHg) O2 Sat by Pulse 99 99 99 Oximetry 10/25/17 10/25/17 10/25/17 05:06 05:15 05:30 Temperature Pulse Rate 71 72 71 Respiratory 12 14 7 Rate Blood Pressure 78/53 78/52 88/52 (mmHg) O2 Sat by Pulse 99 98 98 Oximetry 10/25/17 10/25/17 10/25/17 05:45 06:00 06:15 Temperature Pulse Rate 71 70 72 Respiratory 13 14 19 Rate Blood Pressure 88/57 83/48 80/48 (mmHg) O2 Sat by Pulse 99 99 99 Oximetry 10/25/17 10/25/17 10/25/17 06:30 06:45 07:00 Temperature Pulse Rate 75 76 74 Respiratory 18 18 11 Rate Blood Pressure 94/53 84/56 83/52 (mmHg) O2 Sat by Pulse 98 97 98 Oximetry 10/25/17 10/25/17 10/25/17 07:15 07:25 07:30 Temperature 98 F Pulse Rate 74 76 Respiratory 13 23 Rate Blood Pressure 80/57 90/58 (mmHg) O2 Sat by Pulse 99 98 Oximetry 10/25/17 10/25/17 07:46 08:00 Temperature Pulse Rate 76 73 Respiratory 17 19 Rate Blood Pressure 85/56 79/52 (mmHg) O2 Sat by Pulse 98 98 Oximetry Oxygen Devices in Use Now: Nasal Cannula - 3L Appearance: NAD, sitting up in bed Ears/Nose/Mouth/Throat: Mucous Membranes Moist Respiratory: Symmetrical Chest Expansion and Respiratory Effort, Clear to Auscultation Cardiovascular: NL Sounds; No Murmurs; No JVD, RRR Abdominal: NL Sounds; No Tenderness; No Distention Extremities: No Edema Skin: No Rash or Ulcers Neurological: Alert and Oriented x 3, NL Muscle Strength and Tone Lines/Tubes/Other Access: Clean, Dry and Intact Chest Tube - patent, site benign , Clean, Dry and Intact Peripheral IV - site benign, Clean, Dry and Intact Other Access - OLIVIA drain to right side, draining bloody drainage Nutrition: Taking PO's Result Diagrams: 10/25/17 02:54 10/25/17 02:54 Microbiology and Other Data: Microbiology 10/24/17 16:20 Nasal Screen MRSA (PCR) - Final Nasal Mrsa Not Detected Assess/Plan/Problems-Billing Assessment: Ms. Hernandez is a 67 yo female with PMH significant for HTN, pre-DM, obesity , hx CVA, aortic and tricuspid valve insufficiency, asthma, HLD, and right lung CA who is status post a right lower lobectomy with Dr. Oscar. - Patient Problems (1) Lung cancer Code(s): C34.90 - MALIGNANT NEOPLASM OF UNSP PART OF UNSP BRONCHUS OR LUNG SNOMED Code(s): 541915158 Comment: - S/P right lower lobectomy, POD #1 - Management per General Surgery - Pt continues to have a chest tube in place - Continue pain management and bowel regimen (2) HTN (hypertension) Code(s): I10 - ESSENTIAL (PRIMARY) HYPERTENSION SNOMED Code(s): 46654242 Comment: - Hypotensive, SBP 80-90's and arterial BP 90-100's - Continue to hold HCTZ and continue atenolol with hold parameteres (3) Diabetes Code(s): E11.9 - TYPE 2 DIABETES MELLITUS WITHOUT COMPLICATIONS SNOMED Code(s) : 70317283 Comment: - Glucose 130-230's - HgA1C 7.3 - Continue Lispro SS (4) History of CVA (cerebrovascular accident) Code(s): Z86.73 - PRSNL HX OF TIA (TIA), AND CEREB INFRC W/O RESID DEFICITS SNOMED Code(s): 747471626 Comment: - Continue Aspirin (5) Asthma Code(s): J45.909 - UNSPECIFIED ASTHMA, UNCOMPLICATED SNOMED Code(s): 016099141 Comment: - No signs of acute exacerbation - Continue albuterol PRN (6) DVT prophylaxis Code(s): TYD8948 - SNOMED Code(s): 657719065 Comment: - SQ heparin (7) Full code status Code(s): Z78.9 - OTHER SPECIFIED HEALTH STATUS SNOMED Code(s): 347433707 Status and Disposition: Inpatient. Disposition per General Surgery.
[2017-10-25] MEDS: Aspirin 81 mg CHEW TAB* 81 MG TAB.CHEW PO SCH (08:46)
[2017-10-25] MEDS: Docusate CAP* 100 MG PO SCH ×2 (08:46→20:41)
[2017-10-25] MEDS: Insulin LISPRO* 1 UNITS UNIT SUBCUT SCH ×3 (08:46→18:12)
--- NOTE | 2017-10-25 09:45 | PN ---
Progress Note - Progress Note Date of Service: 10/25/17 SOAP: Subjective: Conchis is post op day 1 from a thoracotomy and RLL lobectomy. She reports doing well and her only complaint is difficulty/pain when taking a deep breath but otherwise she has no trouble breathing normally. She denies fevers, chills, nausea, and vomiting. She ate breakfast this morning but she has not passed flatus yet. Current Medications Acetaminophen (Tylenol Tab*) 650 mg PO Q4H PRN PRN Reason: Pain Or Temperature >101 F Albuterol (Ventolin Hfa Inhaler*) 2 puff INH Q4H PRN PRN Reason: SOB/WHEEZING Aspirin (Aspirin 81 Mg Chew Tab*) 81 mg PO DAILY [facility] Last Admin: 10/25/17 08:46 Dose: 81 mg Atenolol (Tenormin Tab*) 25 mg PO QPM [facility] Dextrose (D50w Syringe 50 Ml*) 12.5 gm IV PUSH .FOR FS < 60 - SS PRN PRN Reason: FS < 60 Docusate Sodium (Colace Cap*) 100 mg PO BID [facility] Last Admin: 10/25/17 08:46 Dose: 100 mg Heparin Sodium (Porcine) (Heparin Vial(*)) 5,000 units SUBCUT Q8HR [facility] Last Admin: 10/25/17 05:49 Dose: 5,000 units Lactated Ringer's (Lactated Ringers 1000 Ml Bag*) 1,000 mls @ 100 mls/hr IV PER RATE [facility] Last Admin: 10/25/17 03:04 Dose: 100 mls/hr Hydromorphone HCl (Dilaudid Wire Straightening Machine Operator*) 20 mg in 20 mls @ 0 mls/hr APPRENTICE COOK .Q24H [facility]; Protocol Last Admin: 10/24/17 17:16 Dose: 1 mls/hr Sodium Chloride (Ns 0.9% 1000 Ml*) 1,000 mls @ 50 mls/hr IVPB .Q24H [facility] Insulin Human Lispro (Humalog*) 0 units SUBCUT AC [facility]; Protocol Last Admin: 10/25/17 08:46 Dose: 2 units Ketorolac Tromethamine (Toradol Inj*) 15 mg IV PUSH Q6H PRN PRN Reason: . Stop: 10/26/17 17:06 Ketorolac Tromethamine (Toradol Inj*) 15 mg IV PUSH Q6HR [facility] Stop: 10/26/17 15:59 Last Admin: 10/25/17 05:48 Dose: 15 mg Montelukast Sodium (Singulair Tab*) 10 mg PO BEDTIME [facility] Last Admin: 10/24/17 21:34 Dose: 10 mg Omeprazole (Prilosec Cap*) 20 mg PO QAM PRN PRN Reason: INDIGESTION Ondansetron HCl (Zofran Inj*) 4 mg IV Q4H PRN PRN Reason: NAUSEA/VOMITING Oxycodone/Acetaminophen (Percocet 5/325 Tab*) 1 tab PO Q4H PRN PRN Reason: PAIN Objective: Vital Signs 10/25/17 10/25/17 10/25/17 01:46 02:00 02:01 Temperature Pulse Rate 70 70 70 Respiratory 17 11 7 Rate Blood Pressure 96/61 90/63 93/63 (mmHg) O2 Sat by Pulse 99 99 99 Oximetry 10/25/17 10/25/17 10/25/17 02:12 02:24 02:56 Temperature Pulse Rate 70 68 69 Respiratory 15 15 14 Rate Blood Pressure 95/55 91/60 83/51 (mmHg) O2 Sat by Pulse 98 98 98 Oximetry 10/25/17 10/25/17 10/25/17 03:00 03:27 03:30 Temperature Pulse Rate 70 77 70 Respiratory 14 16 20 Rate Blood Pressure 84/55 90/59 (mmHg) O2 Sat by Pulse 98 98 98 Oximetry 10/25/17 10/25/17 10/25/17 03:45 03:53 04:00 Temperature 97.5 F Pulse Rate 71 70 Respiratory 17 16 Rate Blood Pressure 79/51 74/47 (mmHg) O2 Sat by Pulse 99 99 Oximetry 10/25/17 10/25/17 10/25/17 04:01 04:03 04:06 Temperature Pulse Rate 71 74 72 Respiratory 18 21 14 Rate Blood Pressure 70/40 73/53 81/51 (mmHg) O2 Sat by Pulse 99 99 98 Oximetry 10/25/17 10/25/17 10/25/17 04:15 04:30 04:45 Temperature Pulse Rate 71 72 71 Respiratory 11 29 21 Rate Blood Pressure 72/46 84/51 85/51 (mmHg) O2 Sat by Pulse 98 99 99 Oximetry 10/25/17 10/25/1710/25/18 05:00 05:06 05:15 Temperature Pulse Rate 70 71 72 Respiratory 20 12 14 Rate Blood Pressure 85/55 78/53 78/52 (mmHg) O2 Sat by Pulse 99 99 98 Oximetry 10/25/17 10/25/17 10/25/17 05:30 05:45 06:00 Temperature Pulse Rate 71 71 70 Respiratory 7 13 14 Rate Blood Pressure 88/52 88/57 83/48 (mmHg) O2 Sat by Pulse 98 99 99 Oximetry 10/25/17 10/25/17 10/25/17 06:15 06:30 06:45 Temperature Pulse Rate 72 75 76 Respiratory 19 18 18 Rate Blood Pressure 80/48 94/53 84/56 (mmHg) O2 Sat by Pulse 99 98 97 Oximetry 10/25/17 10/25/17 10/25/17 07:00 07:15 07:25 Temperature 98 F Pulse Rate 74 74 Respiratory 11 13 Rate Blood Pressure 83/52 80/57 (mmHg) O2 Sat by Pulse 98 99 Oximetry 10/25/17 10/25/17 10/25/17 07:30 07:46 08:00 Temperature Pulse Rate 76 76 73 Respiratory 23 17 19 Rate Blood Pressure 90/58 85/56 79/52 (mmHg) O2 Sat by Pulse 98 98 98 Oximetry Intake & Output 10/24/17 10/25/17 10/25/17 22:59 06:59 14:59 Intake Total 2423 1713 480 Output Total 710 220 270 Balance 1713 1493 210 Weight 204 lb 2.369 oz 227 lb 15.327 oz Intake: IV Fluids 2363 1713 LR 2363 687 NS (0.9%) 1026 Oral 60 480 Output: OLIVIA #1 80 50 Chest Tube #1 35 200 Chandra 675 140 20 General: The patient appears well and in no acute distress. Heart: regular rate and rhythm lungs: clear to auscultation bilaterally. The dressing over the incision is bloody and at 9:20 when I saw the patient there was 550mls of bloody fluid in the drainage chest tube chamber. The OLIVIA drain had bloody fluid in it as well. Assessment: Conchis is status post RLL lobectomy who is doing well symptomatically. Her blood pressure is low (baseline hypertensive). Plan: Continue IV fluids to maintain a stable blood pressure and hold bp meds. Keep chest tube in place but discontinue suction. Begin incentive spirometry
[2017-10-25] MEDS: Atenolol TAB* 25 MG PO SCH (18:12)
[2017-10-25] MEDS: Montelukast Sodium TAB* 10 MG PO SCH (20:41)
[2017-10-26] MEDS: Ketorolac INJ* 15 MG/ML 1 ML VIAL IV PUSH SCH ×3 (00:32→12:10)
[2017-10-26] MEDS: Heparin VIAL(*) 5000 UNITS/ML VIAL (FIVE THOUSAND) SUBCUT SCH (05:34)
[2017-10-26 05:42] LABS: Hematocrit 23 % (35-47); Hemoglobin 7.6 g/dl (12.0-16.0); Mean Corpuscular HGB Conc 34 g/dl (31-36); Mean Corpuscular Hemoglobin 30 pg (27-31); Mean Corpuscular Volume 90 fL (80-97); Platelet Count 136 10^3/ul (150-450); Red Blood Count 2.51 10^6/ul (4.00-5.40); Red Cell Distribution Width 14 % (10.5-15); White Blood Count 7.9 10^3/ul (3.5-10.8)
[2017-10-26] MEDS: Aspirin 81 mg CHEW TAB* 81 MG TAB.CHEW PO SCH (08:40)
--- NOTE | 2017-10-26 08:51 | PN ---
Subjective Date of Service: 10/26/17 Interval History: Patient seen and examined at bedside. Denies fever, chills, shortness of breath , N/V/D. Pt has mild dizziness when going from laying to sitting/standing, this is a chronic issue per the Pt's son at bedside. Pt continues to have mild right sided chest pain secondary to her surgery. Pt's son is at bedside of interpretation as she speaks minimal Lao (speaks Tuvaluan) Tele: Sinus rhythm, rate 70-80's. Family History: Unchanged from Admission Social History: Unchanged from Admission Past Medical History: Unchanged from Admission Objective Active Medications: Acetaminophen (Tylenol Tab*) 650 mg PO Q4H PRN Reason: Pain Or Temperature > 101 F Albuterol (Ventolin Hfa Inhaler*) 2 puff INH Q4H PRN Reason: SOB/WHEEZING Aspirin (Aspirin 81 Mg Chew Tab*) 81 mg PO DAILY [facility] Atenolol (Tenormin Tab*) 25 mg PO QPM [facility] Dextrose (D50w Syringe 50 Ml*) 12.5 gm IV PUSH .FOR FS < 60 - SS PRN Reason: FS < 60 Docusate Sodium (Colace Cap*) 100 mg PO BID [facility] Lactated Ringer's (Lactated Ringers 1000 Ml Bag*) 1,000 mls @ 100 mls/hr IV PER RATE [facility] Hydromorphone HCl (Dilaudid Clinical Laboratory Director*) 20 mg in 20 mls @ 0 mls/hr CYTOLOGIST .Q24H [facility]; Protocol Sodium Chloride (Ns 0.9% 1000 Ml*) 1,000 mls @ 50 mls/hr IVPB .Q24H [facility] Insulin Human Lispro (Humalog*) 0 units SUBCUT AC [facility]; Protocol Ketorolac Tromethamine (Toradol Inj*) 15 mg IV PUSH Q6H PRN Stop: 10/26/17 17:06 Ketorolac Tromethamine (Toradol Inj*) 15 mg IV PUSH Q6HR [facility] Stop: 10/26/17 15:59 Montelukast Sodium (Singulair Tab*) 10 mg PO BEDTIME [facility] Omeprazole (Prilosec Cap*) 20 mg PO QAM PRN Reason: INDIGESTION Ondansetron HCl (Zofran Inj*) 4 mg IV Q4H PRN Reason: NAUSEA/VOMITING Oxycodone/Acetaminophen (Percocet 5/325 Tab*) 1 tab PO Q4H PRN Reason: PAIN Vital Signs - 8 hr 10/26/17 10/26/17 10/26/17 00:54 00:59 01:00 Temperature Pulse Rate 73 72 Respiratory 15 12 10 Rate Blood Pressure 87/54 86/50 (mmHg) O2 Sat by Pulse 96 96 Oximetry 10/26/17 10/26/17 10/26/17 01:15 01:21 01:30 Temperature Pulse Rate 72 71 73 Respiratory 9 9 10 Rate Blood Pressure 79/52 89/48 81/50 (mmHg) O2 Sat by Pulse 96 96 96 Oximetry 10/26/17 10/26/17 10/26/17 01:45 02:00 02:15 Temperature Pulse Rate 72 71 69 Respiratory 10 9 8 Rate Blood Pressure 90/50 90/48 86/49 (mmHg) O2 Sat by Pulse 96 95 97 Oximetry 10/26/17 10/26/17 10/26/17 02:23 02:30 02:45 Temperature Pulse Rate 71 69 Respiratory 10 11 9 Rate Blood Pressure 84/46 83/46 (mmHg) O2 Sat by Pulse 96 96 Oximetry 10/26/17 10/26/17 10/26/17 03:00 03:15 03:30 Temperature Pulse Rate 71 74 73 Respiratory 16 16 15 Rate Blood Pressure 79/42 94/50 89/48 (mmHg) O2 Sat by Pulse 97 96 95 Oximetry 10/26/17 10/26/17 10/26/17 03:45 04:00 04:20 Temperature 98.1 F Pulse Rate 74 77 Respiratory 21 21 20 Rate Blood Pressure 103/54 103/51 122/69 (mmHg) O2 Sat by Pulse 96 95 Oximetry 10/26/17 10/26/17 10/26/17 04:27 04:30 04:31 Temperature Pulse Rate Respiratory 20 19 Rate Blood Pressure 91/52 (mmHg) O2 Sat by Pulse 95 Oximetry 10/26/17 10/26/17 10/26/17 04:45 05:00 05:05 Temperature Pulse Rate Respiratory 15 12 12 Rate Blood Pressure 93/53 90/53 (mmHg) O2 Sat by Pulse Oximetry 10/26/17 10/26/17 10/26/17 05:15 05:30 05:40 Temperature Pulse Rate Respiratory 12 16 16 Rate Blood Pressure 95/54 96/59 (mmHg) O2 Sat by Pulse Oximetry 10/26/17 10/26/17 10/26/17 05:45 06:00 06:16 Temperature Pulse Rate Respiratory 14 13 26 Rate Blood Pressure 96/59 93/53 99/60 (mmHg) O2 Sat by Pulse Oximetry 10/26/17 08:00 Temperature 98.7 F Pulse Rate Respiratory Rate Blood Pressure (mmHg) O2 Sat by Pulse Oximetry Oxygen Devices in Use Now: Nasal Cannula - 2L Appearance: NAD, sitting up in bed eating breakfast Ears/Nose/Mouth/Throat: Mucous Membranes Moist Respiratory: Symmetrical Chest Expansion and Respiratory Effort, Clear to Auscultation Cardiovascular: NL Sounds; No Murmurs; No JVD, RRR Abdominal: NL Sounds; No Tenderness; No Distention Extremities: No Edema Skin: No Rash or Ulcers, - - Ecchymosis to right side. Dressing to right side with old bloody drainage, dry and intact. OLIVIA site benign Neurological: Alert and Oriented x 3, NL Muscle Strength and Tone Lines/Tubes/Other Access: Clean, Dry and Intact Chest Tube - site benign, Clean , Dry and Intact Peripheral IV - site benign, Clean, Dry and Intact Arterial Line - site benign, Clean, Dry and Intact Other Access - OLIVIA drain, site benign Nutrition: Taking PO's Result Diagrams: 10/26/17 13:40 10/26/17 05:30 Microbiology and Other Data: Microbiology 10/24/17 16:20 Nasal Screen MRSA (PCR) - Final Nasal Mrsa Not Detected Assess/Plan/Problems-Billing Assessment: Ms. Hernandez is a 67 yo female with PMH significant for HTN, pre-DM, obesity , hx CVA, aortic and tricuspid valve insufficiency, asthma, HLD, and right lung CA who is status post a right lower lobectomy with Dr. Oscar. - Patient Problems (1) Lung cancer Code(s): C34.90 - MALIGNANT NEOPLASM OF UNSP PART OF UNSP BRONCHUS OR LUNG SNOMED Code(s): 912646096 Comment: - S/P right lower lobectomy, POD #2 - Management per General Surgery - Pt continues to have a chest tube and OLIVIA drain in place - Continue pain management and bowel regimen (2) Anemia Code(s): D64.9 - ANEMIA, UNSPECIFIED SNOMED Code(s): 502161721 Comment: - Suspect acute blood loss anemia - Asymptomatic - Will recheck HH later today - Will consider transfusion if HH down later today and symptomatic (3) HTN (hypertension) Code(s): I10 - ESSENTIAL (PRIMARY) HYPERTENSION SNOMED Code(s): 64441743 Comment: - Hypotensive, SBP 90-120's and arterial BP 80-110's - Continue to hold HCTZ and continue atenolol with hold parameteres (4) Diabetes Code(s): E11.9 - TYPE 2 DIABETES MELLITUS WITHOUT COMPLICATIONS SNOMED Code(s) : 79617193 Comment: - Glucose 170-180's - HgA1C 7.3 - Continue Lispro SS (5) History of CVA (cerebrovascular accident) Code(s): Z86.73 - PRSNL HX OF TIA (TIA), AND CEREB INFRC W/O RESID DEFICITS SNOMED Code(s): 028656361 Comment: - Continue Aspirin (6) Asthma Code(s): J45.909 - UNSPECIFIED ASTHMA, UNCOMPLICATED SNOMED Code(s): 370865352 Comment: - No signs of acute exacerbation - Continue albuterol PRN (7) DVT prophylaxis Code(s): NEX4452 - SNOMED Code(s): 583150660 Comment: - Heparin D/C'd in setting of anemia - SCDs only per Surgery (8) Full code status Code(s): Z78.9 - OTHER SPECIFIED HEALTH STATUS SNOMED Code(s): 738620358 Status and Disposition: Inpatient. Disposition per General Surgery.
[2017-10-26] MEDS: Insulin LISPRO* 1 UNITS UNIT SUBCUT SCH ×3 (08:52→17:56)
[2017-10-26] MEDS: Docusate CAP* 100 MG PO SCH ×2 (08:53→20:35)
--- NOTE | 2017-10-26 09:04 | PN ---
Progress Note - Progress Note Date of Service: 10/26/17 SOAP: Subjective: Without complaint today although family not at bedside and patient does not speak [place] Appears comfortable, no respiratory issues Objective: Temp Pulse Resp BP Pulse Ox 98.7 F 77 26 99/60 95 10/26/17 08:00 10/26/17 04:00 10/26/17 06:16 10/26/17 06:16 10/26/17 04:31 Intake & Output 10/24/17 10/25/17 10/26/17 10/27/17 06:59 06:59 06:59 06:59 Intake Total 4186 4532 Output Total 930 1858 Balance 3256 2674 Weight 227 lb 15.327 oz 238 lb 12.17 oz Intake: IV Fluids 4126 1542 LR 3050 1542 NS (0.9%) 1026 NS 50ML, Cefazolin 2G 50 Oral 60 2990 Output: OLIVIA #1 80 110 Chest Tube #1 35 345 Urine 1075 Chandra 815 328 Chest tube 800 cc level(540 cc yesterday AM) No leak on water seal-- serosanguinous fluid in container. OLIVIA with some clot in tubing, small amount of sanguinous fluid in bulb PEX: Comfortable Lungs are clear-decreased breath sounds on right where dressing is. Large amount of ecchymosis and swelling along incision line chest wall. No active bleeding or drainage. Does not feel like hematoma. Cor is RRR Abd is soft and non-distended. Laboratory Results - last 24 hr 10/25/17 10/25/17 10/25/17 02:54 11:42 17:04 WBC RBC Hgb Hct MCV MCH MCHC RDW Plt Count MPV Sodium Potassium Chloride Carbon Dioxide Anion Gap BUN Creatinine Est GFR ( Amer) Est GFR (Non-Af Amer) BUN/Creatinine Ratio Glucose POC Glucose (mg/dL) 172 H 182 H Hemoglobin A1c 7.3 H Calcium 10/26/17 10/26/17 05:30 05:30 WBC 7.9 RBC 2.51 L Hgb 7.6 L Hct 23 L MCV 90 MCH 30 MCHC 34 RDW 14 Plt Count 136 L MPV 9.0 Sodium 134 L Potassium 4.0 Chloride 104 Carbon Dioxide 27 Anion Gap 3 BUN 23 Creatinine 0.77 Est GFR ( Amer) 90.8 Est GFR (Non-Af Amer) 75.0 BUN/Creatinine Ratio 29.9 H Glucose 171 H POC Glucose (mg/dL) Hemoglobin A1c Calcium 7.6 L Assessment: POD # 2 right thoracotomy Right lower lobe lobectomy H/H down-suspect blood loss in chest wall at site of incision-no active sign of hemorrhage-HR and BP are stable and renal function remains normal. Plan: Will repeat H/H at 1300 today-if Hgb lower will transfuse one unit PRBC Hold heparin for 24 hours D/C art line Increase po OOB/pulmonary toilet Keep in ICU for now Discussed with hospitalist
[2017-10-26 13:48] LABS: Hematocrit 24 % (35-47); Hemoglobin 8.1 g/dl (12.0-16.0)
[2017-10-26] MEDS: Atenolol TAB* 25 MG PO SCH (17:48)
[2017-10-26] MEDS: Montelukast Sodium TAB* 10 MG PO SCH (20:35)
[2017-10-27 06:07] LABS: ABS Basophils 0 10^3/ul (0-0.2); ABS Eosinophils 0.3 10^3/ul (0-0.6); ABS Lymphocytes 2.4 10^3/ul (1.0-4.8); ABS Monocytes 0.8 10^3/ul (0-0.8); ABS Neutrophils 4.3 10^3/ul (1.5-7.7); ABS Nucleated RBC 0 10^3/ul; Eosinophil % 3.6 % (0-6); Hematocrit 21 % (35-47); Lymphocyte % 30.7 % (25-47); Mean Corpuscular HGB Conc 34 g/dl (31-36); Mean Corpuscular Hemoglobin 30 pg (27-31); Mean Corpuscular Volume 89 fL (80-97); Mean Platelet Volume 8.7 um3 (7.4-10.4); Nucleated Red Blood Cells % 0; Platelet Count 137 10^3/ul (150-450); Red Cell Distribution Width 14 % (10.5-15); White Blood Count 7.7 10^3/ul (3.5-10.8)
[2017-10-27] MEDS: Insulin LISPRO* 1 UNITS UNIT SUBCUT SCH ×3 (09:07→17:47)
[2017-10-27] MEDS: Aspirin 81 mg CHEW TAB* 81 MG TAB.CHEW PO SCH (09:08)
[2017-10-27] MEDS: Docusate CAP* 100 MG PO SCH ×2 (09:08→22:11)
--- NOTE | 2017-10-27 09:51 | PN ---
Progress Note - Progress Note Date of Service: 10/27/17 SOAP: Subjective: She feels better this morning-her son and daughter are present OOB in chair Breathing well-pain is adequately controlled. Tolerating PO Objective: Temp Pulse Resp BP Pulse Ox 100.8 F 83 25 99/54 95 10/27/17 07:43 10/27/17 06:00 10/27/17 06:00 10/27/17 05:30 10/27/17 06:00 Intake & Output 10/25/17 10/26/17 10/27/17 10/28/17 06:59 06:59 06:59 06:59 Intake Total 4186 4532 1923 360 Output Total 930 1858 1480 Balance 3256 2674 443 360 Weight 227 lb 15.327 oz 238 lb 12.17 oz 227 lb 8.273 oz Intake: IV Fluids 4126 1542 373 LR 3050 1542 160 NS (0.9%) 1026 213 NS 50ML, Cefazolin 2G 50 Oral 60 2990 1550 360 Output: OLIVIA #1 80 110 Chest Tube #1 35 345 230 Urine 1075 1250 Chandra 815 328 Chest tube level 1070 cc-serosanguinous fluid--no air leak OLIVIA with minimal sanguinous output PEX: Comfortable Lungs on left clear Right dressing intact-large amount of ecchymosis around dressing and swelling, no obvious hematoma-no redness Decreased breath sounds at the base Abd is soft and slightly distended. Laboratory Results - last 24 hr 10/26/17 10/26/17 10/26/17 08:43 13:11 13:40 WBC RBC Hgb 8.1 L Hct 24 L MCV MCH MCHC RDW Plt Count MPV Neut % (Auto) Lymph % (Auto) [place] % (Auto) Eos % (Auto) Baso % (Auto) Absolute Neuts (auto) Absolute Lymphs (auto) Absolute Monos (auto) Absolute Eos (auto) Absolute Basos (auto) Absolute Nucleated RBC Nucleated RBC % Sodium Potassium Chloride Carbon Dioxide Anion Gap BUN Creatinine Est GFR ( Amer) Est GFR (Non-Af Amer) BUN/Creatinine Ratio Glucose POC Glucose (mg/dL) 167 H 145 H Calcium 10/26/17 10/27/17 10/27/17 17:47 05:55 05:55 WBC 7.7 RBC 2.30 L Hgb 7.0 L Hct 21 L MCV 89 MCH 30 MCHC 34 RDW 14 Plt Count 137 L MPV 8.7 Neut % (Auto) 55.3 Lymph % (Auto) 30.7 [place] % (Auto) 10.1 H Eos % (Auto) 3.6 Baso % (Auto) 0.3 Absolute Neuts (auto) 4.3 Absolute Lymphs (auto) 2.4 Absolute Monos (auto) 0.8 Absolute Eos (auto) 0.3 Absolute Basos (auto) 0 Absolute Nucleated RBC 0 Nucleated RBC % 0 Sodium 136 Potassium 4.0 Chloride 104 Carbon Dioxide 29 Anion Gap 3 BUN 15 Creatinine 0.54 Est GFR ( Amer) 136.7 Est GFR (Non-Af Amer) 113.0 BUN/Creatinine Ratio 27.8 H Glucose 150 H POC Glucose (mg/dL) 158 H Calcium 7.7 L Assessment: POD# 3 s/p right lower lobe lobectomy H/H down-no sign of active bleeding Plan: Will transfuse one unit of PRBC's today with Hgb at 7 Transfer to floor Continue chest tube and OLIVIA drainage Increase activity Recheck H/H in AM All above discussed with patient's son and daughter.
--- NOTE | 2017-10-27 10:53 | PN ---
Subjective Date of Service: 10/27/17 Interval History: Patient seen and examined at bedside. Denies fever, chills, shortness of breath , chest discomfort, N/V/D. Pt continues to have right sided pain secondary to surgery and a chest tube. Pain is mostly controlled. Tele: Sinus rhythm, rate 70-80's Family History: Unchanged from Admission Social History: Unchanged from Admission Past Medical History: Unchanged from Admission Objective Active Medications: Acetaminophen (Tylenol Tab*) 650 mg PO Q4H PRN Reason: Pain Or Temperature > 101 F Albuterol (Ventolin Hfa Inhaler*) 2 puff INH Q4H PRN Reason: SOB/WHEEZING Aspirin (Aspirin 81 Mg Chew Tab*) 81 mg PO DAILY [facility] Atenolol (Tenormin Tab*) 25 mg PO QPM [facility] Dextrose (D50w Syringe 50 Ml*) 12.5 gm IV PUSH .FOR FS < 60 - SS PRN Reason: FS < 60 Docusate Sodium (Colace Cap*) 100 mg PO BID [facility] Hydromorphone HCl (Dilaudid Roads Superintendent*) 20 mg in 20 mls @ 0 mls/hr SUPERVISOR [employer]ING [employer]ICATION .Q24H [facility]; Protocol Sodium Chloride (Ns 0.9% 1000 Ml*) 1,000 mls @ 50 mls/hr IVPB .Q24H [facility] Insulin Human Lispro (Humalog*) 0 units SUBCUT AC [facility]; Protocol Montelukast Sodium (Singulair Tab*) 10 mg PO BEDTIME [facility] Omeprazole (Prilosec Cap*) 20 mg PO QAM PRN Reason: INDIGESTION Ondansetron HCl (Zofran Inj*) 4 mg IV Q4H PRN Reason: NAUSEA/VOMITING Oxycodone/Acetaminophen (Percocet 5/325 Tab*) 1 tab PO Q4H PRN Reason: PAIN Vital Signs - 8 hr 10/27/17 10/27/17 10/27/17 03:00 03:47 04:00 Temperature 98.8 F Pulse Rate 94 80 Respiratory 20 14 16 Rate Blood Pressure 104/62 (mmHg) O2 Sat by Pulse 94 95 Oximetry 10/27/17 10/27/17 10/27/17 04:30 05:00 05:30 Temperature Pulse Rate 79 86 77 Respiratory 13 18 16 Rate Blood Pressure 99/59 108/61 99/54 (mmHg) O2 Sat by Pulse 96 96 97 Oximetry 10/27/17 10/27/17 10/27/17 05:40 06:00 07:43 Temperature 100.8 F Pulse Rate 83 Respiratory 26 25 Rate Blood Pressure (mmHg) O2 Sat by Pulse 95 Oximetry Oxygen Devices in Use Now: Nasal Cannula - 2L Appearance: NAD, laying in bed Ears/Nose/Mouth/Throat: Mucous Membranes Moist Respiratory: Clear to Auscultation - , diminished right upper lobe Cardiovascular: NL Sounds; No Murmurs; No JVD, RRR Extremities: - - Trace bilateral LE edema Skin: - - Dresssing to right side Neurological: Alert and Oriented x 3, NL Muscle Strength and Tone Lines/Tubes/Other Access: Clean, Dry and Intact Peripheral IV - site benign Nutrition: Taking PO's Result Diagrams: 10/27/17 05:55 10/27/17 05:55 Microbiology and Other Data: Microbiology 10/24/17 16:20 Nasal Screen MRSA (PCR) - Final Nasal Mrsa Not Detected Assess/Plan/Problems-Billing Assessment: Ms. Hernandez is a 67 yo female with PMH significant for HTN, pre-DM, obesity , hx CVA, aortic and tricuspid valve insufficiency, asthma, HLD, and right lung CA who is status post a right lower lobectomy with Dr. Oscar. - Patient Problems (1) Lung cancer Code(s): C34.90 - MALIGNANT NEOPLASM OF UNSP PART OF UNSP BRONCHUS OR LUNG SNOMED Code(s): 278936459 Comment: - S/P right lower lobectomy, POD #3 - Management per General Surgery - Pt continues to have a chest tube and OLIVIA drain in place - Continue pain management and bowel regimen (2) Anemia Code(s): D64.9 - ANEMIA, UNSPECIFIED SNOMED Code(s): 438345177 Comment: - Suspect acute blood loss anemia - Asymptomatic - HH continues to trend down - Plan for 1 unit RBCs today (3) HTN (hypertension) Code(s): I10 - ESSENTIAL (PRIMARY) HYPERTENSION SNOMED Code(s): 32673073 Comment: - Hypotensive, SBP 90-100's - Continue to hold HCTZ and continue atenolol with hold parameteres (4) Diabetes Code(s): E11.9 - TYPE 2 DIABETES MELLITUS WITHOUT COMPLICATIONS SNOMED Code(s) : 75892561 Comment: - Glucose 140-150's - HgA1C 7.3 - Continue Lispro SS (5) History of CVA (cerebrovascular accident) Code(s): Z86.73 - PRSNL HX OF TIA (TIA), AND CEREB INFRC W/O RESID DEFICITS SNOMED Code(s): 408248787 Comment: - Continue Aspirin (6) Asthma Code(s): J45.909 - UNSPECIFIED ASTHMA, UNCOMPLICATED SNOMED Code(s): 731918817 Comment: - No signs of acute exacerbation - Continue albuterol PRN (7) DVT prophylaxis Code(s): WRL6765 - SNOMED Code(s): 151001108 Comment: - Heparin D/C'd in setting of anemia - SCDs only per Surgery (8) Full code status Code(s): Z78.9 - OTHER SPECIFIED HEALTH STATUS SNOMED Code(s): 283012350 Status and Disposition: Inpatient. Disposition per General Surgery.
[2017-10-27] MEDS: HYDROmorphone PCA* 20 MG/20 ML PCA.SYRING PCA SCH (17:36)
[2017-10-27] MEDS: Atenolol TAB* 25 MG PO SCH (17:47)
[2017-10-27] MEDS: Montelukast Sodium TAB* 10 MG PO SCH (22:10)
[2017-10-27] MEDS: NS 0.9% 1000 ML* 1,000 ML IVPB SCH (22:25)
[2017-10-28 06:56] LABS: Hematocrit 24 % (35-47); Hemoglobin 8.1 g/dl (12.0-16.0); Mean Corpuscular HGB Conc 34 g/dl (31-36); Mean Corpuscular Hemoglobin 30 pg (27-31); Mean Corpuscular Volume 87 fL (80-97); Mean Platelet Volume 8.7 um3 (7.4-10.4); Platelet Count 156 10^3/ul (150-450); Red Blood Count 2.71 10^6/ul (4.00-5.40); Red Cell Distribution Width 15 % (10.5-15); White Blood Count 7.5 10^3/ul (3.5-10.8)
[2017-10-28] MEDS: Insulin LISPRO* 1 UNITS UNIT SUBCUT SCH ×3 (09:31→18:32)
[2017-10-28] MEDS: Aspirin 81 mg CHEW TAB* 81 MG TAB.CHEW PO SCH (09:32)
[2017-10-28] MEDS: Docusate CAP* 100 MG PO SCH ×2 (09:32→21:26)
--- NOTE | 2017-10-28 10:58 | PN ---
Progress Note - Progress Note Date of Service: 10/28/17 Note: POD#4 s/p RLL lobectomy Afeb, VS noted UO adeq. Clementine po's, no N/V Pain control OK CT level 1300, serous. No air leak OLIVIA clotted Right chest with large ecchymosis and hematoma. No infection. Breath sounds adequate aeration 3 Clips removed, wound prepped and probed sterilely. Large amt of clot evacuated. Irrigated w sterile saline. Re-dressed, Tab wraps placed. Impr: s/p lobectomy Chest wall bleed, hematoma evacuated H/H seems to have stablized after transfusion Resume DVT prophylaxis Await path Await decreased CT drainage.
[2017-10-28] MEDS: Heparin VIAL(*) 5000 UNITS/ML VIAL (FIVE THOUSAND) SUBCUT SCH ×2 (13:52→21:28)
--- NOTE | 2017-10-28 14:15 | PN ---
Subjective Date of Service: 10/28/17 Interval History: Patient seen and examined at bedside. Denies fever, chills, shortness of breath , chest discomfort, N/V/D. Pt states that she has some pain with breathing on her right chest and at surgical site. Pt states that pain is controlled. Family History: Unchanged from Admission Social History: Unchanged from Admission Past Medical History: Unchanged from Admission Objective Active Medications: Acetaminophen (Tylenol Tab*) 650 mg PO Q4H PRN Reason: Pain Or Temperature > 101 F Albuterol (Ventolin Hfa Inhaler*) 2 puff INH Q4H PRN Reason: SOB/WHEEZING Aspirin (Aspirin 81 Mg Chew Tab*) 81 mg PO DAILY [facility] Atenolol (Tenormin Tab*) 25 mg PO QPM [facility] Dextrose (D50w Syringe 50 Ml*) 12.5 gm IV PUSH .FOR FS < 60 - SS PRN Reason: FS < 60 Docusate Sodium (Colace Cap*) 100 mg PO BID [facility] Heparin Sodium (Porcine) (Heparin Vial(*)) 5,000 units SUBCUT Q8HR [facility] Hydromorphone HCl (Dilaudid Fuel Cell Builder*) 20 mg in 20 mls @ 0 mls/hr [employer]OR MAN .Q24H [facility]; Protocol Sodium Chloride (Ns 0.9% 1000 Ml*) 1,000 mls @ 50 mls/hr IVPB .Q24H [facility] Insulin Human Lispro (Humalog*) 0 units SUBCUT AC [facility]; Protocol Montelukast Sodium (Singulair Tab*) 10 mg PO BEDTIME [facility] Omeprazole (Prilosec Cap*) 20 mg PO QAM PRN Reason: INDIGESTION Ondansetron HCl (Zofran Inj*) 4 mg IV Q4H PRN Reason: NAUSEA/VOMITING Oxycodone/Acetaminophen (Percocet 5/325 Tab*) 1 tab PO Q4H PRN Reason: PAIN Vital Signs - 8 hr 10/28/17 10/28/17 10/28/17 07:00 07:43 08:00 Temperature 98.9 F Pulse Rate 88 Respiratory 16 20 18 Rate Blood Pressure 118/69 (mmHg) O2 Sat by Pulse 96 97 97 Oximetry 10/28/17 10/28/17 10/28/17 09:00 10:00 11:00 Temperature Pulse Rate Respiratory 18 18 18 Rate Blood Pressure (mmHg) O2 Sat by Pulse 97 96 96 Oximetry 10/28/17 10/28/17 11:30 11:34 Temperature 99.0 F Pulse Rate 81 Respiratory 18 16 Rate Blood Pressure 128/59 (mmHg) O2 Sat by Pulse 96 98 Oximetry Oxygen Devices in Use Now: Nasal Cannula - 2L Appearance: NAD, sitting up in bed Ears/Nose/Mouth/Throat: Mucous Membranes Moist Respiratory: Symmetrical Chest Expansion and Respiratory Effort, Clear to Auscultation Cardiovascular: NL Sounds; No Murmurs; No JVD, RRR Abdominal: NL Sounds; No Tenderness; No Distention Extremities: No Edema Skin: No Rash or Ulcers Neurological: Alert and Oriented x 3, NL Muscle Strength and Tone Lines/Tubes/Other Access: Clean, Dry and Intact Peripheral IV - site benign Nutrition: Taking PO's Result Diagrams: 10/28/17 06:46 10/27/17 05:55 Microbiology and Other Data: Microbiology 10/24/17 16:20 Nasal Screen MRSA (PCR) - Final Nasal Mrsa Not Detected Assess/Plan/Problems-Billing Assessment: Ms. Hernandez is a 67 yo female with PMH significant for HTN, pre-DM, obesity , hx CVA, aortic and tricuspid valve insufficiency, asthma, HLD, and right lung CA who is status post a right lower lobectomy with Dr. Oscar. - Patient Problems (1) Lung cancer Code(s): C34.90 - MALIGNANT NEOPLASM OF UNSP PART OF UNSP BRONCHUS OR LUNG SNOMED Code(s): 883706826 Comment: - S/P right lower lobectomy, POD #4 - Management per General Surgery - Pt continues to have a chest tube and OLIVIA drain in place - S/P bedside drainage of hematoma today - Continue pain management and bowel regimen (2) Anemia Code(s): D64.9 - ANEMIA, UNSPECIFIED SNOMED Code(s): 253771455 Comment: - Asymptomatic - Suspect acute blood loss anemia secondary to surgery and post-op hematoma - HH stable - Received 1 unit PRBCs 10/27 (3) HTN (hypertension) Code(s): I10 - ESSENTIAL (PRIMARY) HYPERTENSION SNOMED Code(s): 03684076 Comment: - Hypotensive, SBP 90-120's - Continue to hold HCTZ and continue atenolol with hold parameteres (4) Diabetes Code(s): E11.9 - TYPE 2 DIABETES MELLITUS WITHOUT COMPLICATIONS SNOMED Code(s) : 15042041 Comment: - Glucose 160-190's - HgA1C 7.3 - Diet controlled at home - Continue Lispro SS (5) History of CVA (cerebrovascular accident) Code(s): Z86.73 - PRSNL HX OF TIA (TIA), AND CEREB INFRC W/O RESID DEFICITS SNOMED Code(s): 217163583 Comment: - Continue Aspirin (6) Asthma Code(s): J45.909 - UNSPECIFIED ASTHMA, UNCOMPLICATED SNOMED Code(s): 825688346 Comment: - No signs of acute exacerbation - Continue albuterol PRN (7) DVT prophylaxis Code(s): EYO1741 - SNOMED Code(s): 293253953 Comment: - Heparin D/C'd in setting of anemia - SCDs only per Surgery (8) Full code status Code(s): Z78.9 - OTHER SPECIFIED HEALTH STATUS SNOMED Code(s): 408183954 Status and Disposition: Inpatient. Disposition per General Surgery.
[2017-10-28] MEDS: Atenolol TAB* 25 MG PO SCH (18:30)
[2017-10-28] MEDS: NS 0.9% 1000 ML* 1,000 ML IVPB SCH (20:07)
[2017-10-28] MEDS: Montelukast Sodium TAB* 10 MG PO SCH (21:26)
[2017-10-29] MEDS: Heparin VIAL(*) 5000 UNITS/ML VIAL (FIVE THOUSAND) SUBCUT SCH ×3 (05:30→21:42)
[2017-10-29 06:30] LABS: Hematocrit 23 % (35-47); Hemoglobin 7.8 g/dl (12.0-16.0); Mean Corpuscular HGB Conc 35 g/dl (31-36); Mean Corpuscular Hemoglobin 31 pg (27-31); Mean Corpuscular Volume 88 fL (80-97); Mean Platelet Volume 8.7 um3 (7.4-10.4); Platelet Count 178 10^3/ul (150-450); Red Blood Count 2.56 10^6/ul (4.00-5.40); Red Cell Distribution Width 15 % (10.5-15); White Blood Count 7.3 10^3/ul (3.5-10.8)
[2017-10-29] MEDS: Aspirin 81 mg CHEW TAB* 81 MG TAB.CHEW PO SCH (09:46)
[2017-10-29] MEDS: Docusate CAP* 100 MG PO SCH ×2 (09:46→21:41)
[2017-10-29] MEDS: Insulin LISPRO* 1 UNITS UNIT SUBCUT SCH ×3 (09:47→17:48)
[2017-10-29] MEDS ORDERED: Senna TAB PO ONE (10:04)
[2017-10-29] MEDS: oxyCODONE/Acetamin 5/325 MG* TAB PO PRN ×3 (12:04→21:42)
--- NOTE | 2017-10-29 12:06 | PN ---
Progress Note - Progress Note Date of Service: 10/29/17 Note: POD#5 s/p LLL lobectomy VS noted Voiding well Clementine po's, no N/V No BM Pain control OK CT level 1600 (300 since yest) Breathing OK, adeq aeration. 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 await decreased drainage from CT
[2017-10-29] MEDS: Magnesium Hydroxide LIQ* 30 ML UDC PO SCH ×2 (14:55→21:40)
--- NOTE | 2017-10-29 15:36 | PN ---
Subjective Date of Service: 10/29/17 Interval History: . Patients son is at bedside interpreting. She reports some pain at chest tube site but states its manageable. She denies CP or SOB. She denies fever or chills. Reports good appetite. Son thinks she is doing a little better. She has been ambulating to the bathroom and back. Family History: Unchanged from Admission Social History: Unchanged from Admission Past Medical History: Unchanged from Admission Objective Active Medications: Acetaminophen (Tylenol Tab*) 650 mg PO Q4H PRN PRN Reason: Pain Or Temperature >101 F Albuterol (Ventolin Hfa Inhaler*) 2 puff INH Q4H PRN PRN Reason: SOB/WHEEZING Aspirin (Aspirin 81 Mg Chew Tab*) 81 mg PO DAILY [facility] Last Admin: 10/29/17 09:46 Dose: 81 mg Atenolol (Tenormin Tab*) 25 mg PO QPM [facility] Last Admin: 10/28/17 18:30 Dose: 25 mg Dextrose (D50w Syringe 50 Ml*) 12.5 gm IV PUSH .FOR FS < 60 - SS PRN PRN Reason: FS < 60 Docusate Sodium (Colace Cap*) 100 mg PO BID [facility] Last Admin: 10/29/17 09:46 Dose: 100 mg Heparin Sodium (Porcine) (Heparin Vial(*)) 5,000 units SUBCUT Q8HR [facility] Last Admin: 10/29/17 14:54 Dose: 5,000 units Hydromorphone HCl (Dilaudid Inj*) 0.5 mg IV SLOW PU Q1H PRN PRN Reason: PAIN Sodium Chloride (Ns 0.9% 1000 Ml*) 1,000 mls @ 50 mls/hr IVPB .Q24H [facility] Last Admin: 10/28/17 20:07 Dose: 50 mls/hr Insulin Human Lispro (Humalog*) 0 units SUBCUT AC [facility]; Protocol Last Admin: 10/29/17 13:03 Dose: Not Given Magnesium Hydroxide (Milk Of Magnesia Liq*) 30 ml PO BID [facility] Last Admin: 10/29/17 14:55 Dose: 30 ml Montelukast Sodium (Singulair Tab*) 10 mg PO BEDTIME [facility] Last Admin: 10/28/17 21:26 Dose: 10 mg Omeprazole (Prilosec Cap*) 20 mg PO QAM PRN PRN Reason: INDIGESTION Ondansetron HCl (Zofran Inj*) 4 mg IV Q4H PRN PRN Reason: NAUSEA/VOMITING Last Admin: 10/25/17 12:08 Dose: 4 mg Oxycodone/Acetaminophen (Percocet 5/325 Tab*) 1 tab PO Q4H PRN PRN Reason: PAIN Last Admin: 10/29/17 12:04 Dose: 1 tab Vital Signs - 8 hr 10/29/17 10/29/17 10/29/17 07:42 08:00 09:00 Temperature 98.2 F Pulse Rate 70 Respiratory 18 18 18 Rate Blood Pressure 130/65 (mmHg) O2 Sat by Pulse 98 96 Oximetry 10/29/17 10/29/17 10/29/17 11:00 11:50 12:04 Temperature 98 F Pulse Rate Respiratory 18 17 18 Rate Blood Pressure 118/57 (mmHg) O2 Sat by Pulse 96 98 Oximetry 10/29/17 14:56 Temperature Pulse Rate Respiratory 18 Rate Blood Pressure (mmHg) O2 Sat by Pulse Oximetry Oxygen Devices in Use Now: None Appearance: obese 67 yo female sitting up in bed in NAD, A+O x3 Eyes: No Scleral Icterus, PERRLA Ears/Nose/Mouth/Throat: Clear Oropharnyx, Mucous Membranes Moist Neck: NL Appearance and Movements; NL JVP Respiratory: Symmetrical Chest Expansion and Respiratory Effort, Clear to Auscultation, - - right-sided chest tube intact draininag serosangeous fluid Abdominal: NL Sounds; No Tenderness; No Distention Lymphatic: No Cervical Adenopathy Extremities: No Clubbing, Cyanosis Skin: No Nodules or Sclerosis Neurological: Alert and Oriented x 3, NL Sensation, NL Muscle Strength and Tone Lines/Tubes/Other Access: Clean, Dry and Intact Peripheral IV Result Diagrams: 10/29/17 05:47 10/27/17 05:55 Microbiology and Other Data: Microbiology 10/24/17 16:20 Nasal Screen MRSA (PCR) - Final Nasal Mrsa Not Detected Assess/Plan/Problems-Billing Assessment: Ms. Hernandez is a 67 yo female with PMH significant for HTN, pre-DM, obesity , hx CVA, aortic and tricuspid valve insufficiency, asthma, HLD, and right lung CA who is status post a right lower lobectomy with Dr. Oscar. - Patient Problems (1) Lung cancer Comment: - S/P right lower lobectomy, POD #5 - Management per General Surgery - Pt continues to have a chest tube - plan to await decreased drainage from CT - Continue pain management and bowel regimen (2) Anemia Comment: - Asymptomatic - Suspect acute blood loss anemia secondary to surgery and post-op hematoma - HH stable - Received 1 unit PRBCs 10/27 (3) Diabetes Code(s): E11.9 - TYPE 2 DIABETES MELLITUS WITHOUT COMPLICATIONS Comment: - Glucose 160-170's - HgA1C 7.3 - Diet controlled at home - Continue Lispro SS - add on lantus QHS (4) HTN (hypertension) Comment: - Hypotensive, SBP 90-120's - Continue to hold HCTZ and continue atenolol with hold parameteres (5) Asthma Comment: - No signs of acute exacerbation - Continue albuterol PRN (6) History of CVA (cerebrovascular accident) Comment: - Continue Aspirin (7) DVT prophylaxis Comment: - Heparin D/C'd in setting of anemia - SCDs only per Surgery (8) Full code status Status and Disposition: Inpatient. Disposition per General Surgery.
--- NOTE | 2017-10-29 16:38 | PN ---
Progress Note - Progress Note Date of Service: 10/29/17 SOAP: Subjective: Conchis is post op day 5 status post a left lower lobe lobectomy. Complains of 7/ 10 pain that is worse with movement but says that the Percocet is helping. She is eating and drinking well and today was able to walk today to go to the bathroom and back to bed and complained of some dizziness that resolved after getting back into bed. Denies fever, chills, nausea and vomiting. She has not yet passed flatus or had a bowel movement. Objective: Vital Signs - 8 hr 10/29/17 10/29/17 10/29/17 09:00 11:00 11:34 Temperature 98.0 F Pulse Rate 70 Respiratory 18 18 17 Rate Blood Pressure 118/57 (mmHg) O2 Sat by Pulse 96 96 98 Oximetry 10/29/17 10/29/17 10/29/17 11:50 12:04 14:56 Temperature 98 F Pulse Rate Respiratory 17 18 18 Rate Blood Pressure 118/57 (mmHg) O2 Sat by Pulse 98 Oximetry 10/29/17 10/29/17 15:12 16:12 Temperature 97.6 F Pulse Rate 68 Respiratory 16 18 Rate Blood Pressure 122/57 (mmHg) O2 Sat by Pulse 94 Oximetry Intake & Output 10/29/17 10/29/17 10/29/17 06:59 14:59 22:59 Intake Total 340 705 Output Total 2195 1552 Balance -0346 -241 Intake: Oral 340 705 Output: Chest Tube #1 1545 52 Urine 650 1500 Other: Estimated Void Large # Voids 1 At 4:22pm the chest tube level was 1650ml Heart: regular rate and rhythm Lungs: clear to auscultation bilaterally There is ecchymosis surrounding the incision site. Assessment: Status post LLL lobectomy the patient is improving. Plan: Continue to leave CT in place. Continue with percocet to manage pain and bowel stimulation to facilitate bowel movement.
[2017-10-29] MEDS: Atenolol TAB* 25 MG PO SCH (17:47)
[2017-10-29] MEDS: Insulin GLARGINE(*) 1 UNITS UNIT SUBCUT SCH (21:41)
[2017-10-29] MEDS: Montelukast Sodium TAB* 10 MG PO SCH (21:42)
[2017-10-30] MEDS: Heparin VIAL(*) 5000 UNITS/ML VIAL (FIVE THOUSAND) SUBCUT SCH ×3 (05:52→21:00)
[2017-10-30] MEDS: oxyCODONE/Acetamin 5/325 MG* TAB PO PRN ×4 (05:56→19:26)
[2017-10-30 06:16] LABS: EGFR Non-African American 115.4 (>60)
--- NOTE | 2017-10-30 07:57 | PN ---
Progress Note - Progress Note Date of Service: 10/30/17 Note: POD#6 s/p lobectomy Afeb, VS OK voiding well, passed BM Clementine po's Pain control OK w/ oral meds Chest tube level 1830 (230 ml past day.) No air leak Incis with large ecchymosis, small drainage, no infection Lungs clear Impr: s/p lobectomy path noted await decreased drainage check CXR
[2017-10-30] MEDS: Magnesium Hydroxide LIQ* 30 ML UDC PO SCH ×2 (08:59→19:45)
[2017-10-30] MEDS: Docusate CAP* 100 MG PO SCH ×2 (09:04→20:31)
[2017-10-30] MEDS: Aspirin 81 mg CHEW TAB* 81 MG TAB.CHEW PO SCH (09:04)
[2017-10-30] MEDS: Insulin LISPRO* 1 UNITS UNIT SUBCUT SCH ×3 (09:04→17:34)
--- NOTE | 2017-10-30 12:43 | RAD ---
HISTORY: post lobectomy COMPARISONS: October 25, 2017 VIEWS: 4: Frontal dual-energy and lateral views of the chest. FINDINGS: CARDIOMEDIASTINAL SILHOUETTE: The cardiomediastinal silhouette is normal. SANJAY: The sanjay are normal. PLEURA: The costophrenic angles are sharp. No pleural abnormalities are noted. There is no appreciable residual pneumothorax. LUNG PARENCHYMA: The lungs are clear. ABDOMEN: The upper abdomen is clear. There is no subphrenic gas. 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 There is post surgical change to the soft tissues of the right chest. OTHER: A right-sided chest tube is noted. IMPRESSION: RIGHT-SIDED CHEST TUBE. NO APPRECIABLE RESIDUAL PNEUMOTHORAX.
--- NOTE | 2017-10-30 15:12 | PN ---
Subjective Date of Service: 10/30/17 Interval History: reports pain is manageable. no fever or chills. denies SOB. good appetite Family History: Unchanged from Admission Social History: Unchanged from Admission Past Medical History: Unchanged from Admission Objective Active Medications: Acetaminophen (Tylenol Tab*) 650 mg PO Q4H PRN PRN Reason: Pain Or Temperature >101 F Albuterol (Ventolin Hfa Inhaler*) 2 puff INH Q4H PRN PRN Reason: SOB/WHEEZING Aspirin (Aspirin 81 Mg Chew Tab*) 81 mg PO DAILY [facility] Last Admin: 10/30/17 09:04 Dose: 81 mg Atenolol (Tenormin Tab*) 25 mg PO QPM [facility] Last Admin: 10/29/17 17:47 Dose: 25 mg Dextrose (D50w Syringe 50 Ml*) 12.5 gm IV PUSH .FOR FS < 60 - SS PRN PRN Reason: FS < 60 Docusate Sodium (Colace Cap*) 100 mg PO BID [facility] Last Admin: 10/30/17 09:04 Dose: 100 mg Heparin Sodium (Porcine) (Heparin Vial(*)) 5,000 units SUBCUT Q8HR [facility] Last Admin: 10/30/17 14:06 Dose: 5,000 units Hydromorphone HCl (Dilaudid Inj*) 0.5 mg IV SLOW PU Q1H PRN PRN Reason: PAIN Sodium Chloride (Ns 0.9% 1000 Ml*) 1,000 mls @ 50 mls/hr IVPB .Q24H [facility] Last Admin: 10/28/17 20:07 Dose: 50 mls/hr Insulin Glargine (Lantus(*)) 5 units SUBCUT Q24H [facility] Last Admin: 10/29/17 21:41 Dose: 5 units Insulin Human Lispro (Humalog*) 0 units SUBCUT AC [facility]; Protocol Last Admin: 10/30/17 12:48 Dose: 2 units Magnesium Hydroxide (Milk Of Magnesia Liq*) 30 ml PO BID [facility] Last Admin: 10/30/17 08:59 Dose: Not Given Montelukast Sodium (Singulair Tab*) 10 mg PO BEDTIME [facility] Last Admin: 10/29/17 21:42 Dose: 10 mg Omeprazole (Prilosec Cap*) 20 mg PO QAM PRN PRN Reason: INDIGESTION Ondansetron HCl (Zofran Inj*) 4 mg IV Q4H PRN PRN Reason: NAUSEA/VOMITING Last Admin: 10/25/17 12:08 Dose: 4 mg Oxycodone/Acetaminophen (Percocet 5/325 Tab*) 1 tab PO Q4H PRN PRN Reason: PAIN Last Admin: 10/30/17 14:35 Dose: 1 tab Vital Signs - 8 hr 10/30/17 10/30/17 10/30/17 07:24 08:00 09:06 Temperature 97.7 F Pulse Rate 62 Respiratory 18 18 18 Rate Blood Pressure 114/59 (mmHg) O2 Sat by Pulse 98 Oximetry 10/30/17 10/30/17 10/30/17 10:00 11:42 12:56 Temperature 97.8 F Pulse Rate 68 Respiratory 18 16 18 Rate Blood Pressure 106/53 (mmHg) O2 Sat by Pulse 98 Oximetry 10/30/17 14:35 Temperature Pulse Rate Respiratory 20 Rate Blood Pressure (mmHg) O2 Sat by Pulse Oximetry Oxygen Devices in Use Now: Nasal Cannula Appearance: obese female sitting up in bed in NAD, A+Ox3, does not speak yemeni Eyes: No Scleral Icterus, PERRLA Ears/Nose/Mouth/Throat: NL Teeth, Lips, Gums, Mucous Membranes Moist Respiratory: Symmetrical Chest Expansion and Respiratory Effort, Clear to Auscultation, - - right CT intact - minimal drainage - light pink - dry blood noted on dressing Cardiovascular: NL Sounds; No Murmurs; No JVD, RRR, No Edema Abdominal: NL Sounds; No Tenderness; No Distention, - - obese Extremities: No Edema, No Clubbing, Cyanosis Skin: No Rash or Ulcers, No Nodules or Sclerosis Neurological: Alert and Oriented x 3, NL Sensation, NL Muscle Strength and Tone Lines/Tubes/Other Access: Clean, Dry and Intact Peripheral IV Nutrition: Taking PO's Result Diagrams: 10/29/17 05:47 10/30/17 05:42 Microbiology and Other Data: Microbiology 10/24/17 16:20 Nasal Screen MRSA (PCR) - Final Nasal Mrsa Not Detected Assess/Plan/Problems-Billing Assessment: Ms. Hernandez is a 67 yo female with PMH significant for HTN, pre-DM, obesity , hx CVA, aortic and tricuspid valve insufficiency, asthma, HLD, and right lung CA who is status post a right lower lobectomy with Dr. Oscar. - Patient Problems (1) Lung cancer Comment: - S/P right lower lobectomy, POD #6 - Management per General Surgery - Pt continues to have a chest tube - plan to await decreased drainage from CT per surgery, plan to pull when < 200 mls - Continue pain management and bowel regimen - per pt and her son her lung ca has increases in size (2) Anemia Comment: - Asymptomatic - Suspect acute blood loss anemia secondary to surgery and post-op hematoma - HH stable - Received 1 unit PRBCs 10/27 (3) Diabetes Code(s): E11.9 - TYPE 2 DIABETES MELLITUS WITHOUT COMPLICATIONS Comment: - Glucose 160-170's - HgA1C 7.3 - Diet controlled at home - Continue Lispro SS - add on lantus QHS (4) HTN (hypertension) Comment: - Hypotensive, SBP 90-120's - Continue to hold HCTZ and continue atenolol with hold parameteres (5) Asthma Comment: - No signs of acute exacerbation - Continue albuterol PRN (6) History of CVA (cerebrovascular accident) Comment: - Continue Aspirin (7) DVT prophylaxis Comment: - Heparin D/C'd in setting of anemia - SCDs only per Surgery (8) Full code status Status and Disposition: Inpatient. Disposition per General Surgery.
--- NOTE | 2017-10-30 16:21 | PN ---
Progress Note - Progress Note Date of Service: 10/30/17 SOAP: Subjective: Conchis is post op day 6 status post a RLL lobectomy. She denies fevers, chills, nausea, and vomiting. She is eating, drinking, and voiding well. She complains of 7/10 pain even after administration of Percocet. The pain gets worse when she walks and is located on her right side near the incision site. Today she ambulated twice- once to the bathroom and once down the hernandez and back. She is inquiring when her drain will be able to come out as it is uncomfortable/ annoying. Objective: Vital Signs - 8 hr 10/30/17 10/30/17 10/30/17 09:06 10:00 11:42 Temperature 97.8 F Pulse Rate 68 Respiratory 18 18 16 Rate Blood Pressure 106/53 (mmHg) O2 Sat by Pulse 98 Oximetry 10/30/17 10/30/17 10/30/17 12:56 14:35 15:29 Temperature 98.0 F Pulse Rate 72 Respiratory 18 20 24 Rate Blood Pressure 110/60 (mmHg) O2 Sat by Pulse 99 Oximetry Intake & Output 10/30/17 10/30/17 10/30/17 06:59 14:59 22:59 Intake Total 500 600 Output Total 60 835 Balance 440 -235 Intake: Oral 500 600 Output: Chest Tube #1 60 135 Urine 700 Other: Estimated Void Large Date of Last Bowel 10/30/17 Movement # Bowel Movements 1 1 Estimated Stool Amount Large Medium # Voids 1 CT was about 1930ml at 3:51pm heart: RRR lungs: clear to auscultation bilaterally dressing not checked at this time because of the patient's pain Assessment: Status post RLL lobectomy the patient continues to have 7/10 pain and is slowly increasing ambulation. Plan: Continue to increase ambulation efforts. Remove tube when less than 200ml in 24 hours. Continue pain control and incentive spirometry
[2017-10-30] MEDS: Atenolol TAB* 25 MG PO SCH (17:34)
[2017-10-30] MEDS: Montelukast Sodium TAB* 10 MG PO SCH (20:30)
[2017-10-30] MEDS: Insulin GLARGINE(*) 1 UNITS UNIT SUBCUT SCH (20:31)
[2017-10-30] MEDS ORDERED: Magnesium Hydroxide LIQ* 30 ML UDC PO PRN (23:00)
[2017-10-31] MEDS: oxyCODONE/Acetamin 5/325 MG* TAB PO PRN ×4 (03:24→22:55)
[2017-10-31 05:29] LABS: ABS Basophils 0 10^3/ul (0-0.2); ABS Eosinophils 0.6 10^3/ul (0-0.6); ABS Lymphocytes 1.6 10^3/ul (1.0-4.8); ABS Monocytes 0.7 10^3/ul (0-0.8); ABS Neutrophils 4.7 10^3/ul (1.5-7.7); ABS Nucleated RBC 0 10^3/ul; Eosinophil % 7.8 % (0-6); Hematocrit 25 % (35-47); Hemoglobin 8.5 g/dl (12.0-16.0); Lymphocyte % 21.5 % (25-47); Mean Corpuscular HGB Conc 34 g/dl (31-36); Mean Corpuscular Hemoglobin 30 pg (27-31); Mean Corpuscular Volume 89 fL (80-97); Nucleated Red Blood Cells % 0.1; Platelet Count 215 10^3/ul (150-450); Red Blood Count 2.83 10^6/ul (4.00-5.40); Red Cell Distribution Width 15 % (10.5-15); White Blood Count 7.7 10^3/ul (3.5-10.8)
[2017-10-31] MEDS: Heparin VIAL(*) 5000 UNITS/ML VIAL (FIVE THOUSAND) SUBCUT SCH ×3 (05:42→21:09)
[2017-10-31 05:43] LABS: EGFR Non-African American 126.4 (>60)
[2017-10-31] MEDS: Docusate CAP* 100 MG PO SCH ×2 (07:16→21:08)
[2017-10-31] MEDS: Aspirin 81 mg CHEW TAB* 81 MG TAB.CHEW PO SCH (07:16)
--- NOTE | 2017-10-31 08:40 | PN ---
Progress Note - Progress Note Date of Service: 10/31/17 Note: POD#7 s/p lobectomy Afeb, VS noted UO large ty po's CT level 2130 (300 ml /24h), No air leak Still requiring pain medicine Lungs clear, good aeration Incis w/ bruising, no sign of infection, no further drainage Impr: s/p lobectomy await decreased drainage cont pain meds DVT prophylaxis Onc consult H/H stable
[2017-10-31] MEDS: Insulin LISPRO* 1 UNITS UNIT SUBCUT SCH ×3 (08:48→17:54)
[2017-10-31] MEDS: HYDROmorphone INJ* 0.5 MG/0.5 ML SYRINGE IV SLOW PU PRN (10:07)
--- NOTE | 2017-10-31 13:46 | PN ---
Subjective Date of Service: 10/31/17 Interval History: Pt reports she didnt sleep well last night. She reports pain at CT site but no worse than it has been. She feels that the pain medication is helping currently. She denies SOB/CP. No fever or chills. Reports good appetite. feels steady on her feet Children at bedside to translate. Family History: Unchanged from Admission Social History: Unchanged from Admission Past Medical History: Unchanged from Admission Objective Active Medications: Acetaminophen (Tylenol Tab*) 650 mg PO Q4H PRN PRN Reason: Pain Or Temperature >101 F Albuterol (Ventolin Hfa Inhaler*) 2 puff INH Q4H PRN PRN Reason: SOB/WHEEZING Aspirin (Aspirin 81 Mg Chew Tab*) 81 mg PO DAILY [facility] Last Admin: 10/31/17 07:16 Dose: 81 mg Atenolol (Tenormin Tab*) 25 mg PO QPM [facility] Last Admin: 10/30/17 17:34 Dose: 25 mg Dextrose (D50w Syringe 50 Ml*) 12.5 gm IV PUSH .FOR FS < 60 - SS PRN PRN Reason: FS < 60 Docusate Sodium (Colace Cap*) 100 mg PO BID [facility] Last Admin: 10/31/17 07:16 Dose: 100 mg Heparin Sodium (Porcine) (Heparin Vial(*)) 5,000 units SUBCUT Q8HR [facility] Last Admin: 10/31/17 05:42 Dose: 5,000 units Hydromorphone HCl (Dilaudid Inj*) 0.5 mg IV SLOW PU Q1H PRN PRN Reason: PAIN Last Admin: 10/31/17 10:07 Dose: 0.5 mg Insulin Glargine (Lantus(*)) 5 units SUBCUT Q24H [facility] Last Admin: 10/30/17 20:31 Dose: 5 units Insulin Human Lispro (Humalog*) 0 units SUBCUT AC [facility]; Protocol Last Admin: 10/31/17 12:48 Dose: 1 units Magnesium Hydroxide (Milk Of Magnesia Liq*) 30 ml PO BID PRN PRN Reason: CONSTIPATION Montelukast Sodium (Singulair Tab*) 10 mg PO BEDTIME [facility] Last Admin: 10/30/17 20:30 Dose: 10 mg Omeprazole (Prilosec Cap*) 20 mg PO QAM PRN PRN Reason: INDIGESTION Ondansetron HCl (Zofran Inj*) 4 mg IV Q4H PRN PRN Reason: NAUSEA/VOMITING Last Admin: 10/25/17 12:08 Dose: 4 mg Oxycodone/Acetaminophen (Percocet 5/325 Tab*) 1 tab PO Q4H PRN PRN Reason: PAIN Last Admin: 10/31/17 07:16 Dose: 1 tab Vital Signs - 8 hr 10/31/17 10/31/17 10/31/17 05:44 07:08 07:16 Temperature 99.0 F Pulse Rate 68 Respiratory 20 18 16 Rate Blood Pressure 140/66 (mmHg) O2 Sat by Pulse 97 Oximetry 10/31/17 10/31/17 10/31/17 09:16 10:07 11:07 Temperature Pulse Rate Respiratory 16 16 16 Rate Blood Pressure (mmHg) O2 Sat by Pulse Oximetry 10/31/17 11:13 Temperature 98.6 F Pulse Rate 71 Respiratory 16 Rate Blood Pressure 112/60 (mmHg) O2 Sat by Pulse 96 Oximetry Oxygen Devices in Use Now: Nasal Cannula Appearance: obese 67 yo female laying in bed in NAD, A+O x3 Eyes: No Scleral Icterus, PERRLA Ears/Nose/Mouth/Throat: NL Teeth, Lips, Gums, Mucous Membranes Moist Neck: NL Appearance and Movements; NL JVP Respiratory: Symmetrical Chest Expansion and Respiratory Effort, Clear to Auscultation Cardiovascular: NL Sounds; No Murmurs; No JVD, RRR, No Edema Abdominal: NL Sounds; No Tenderness; No Distention, - - obese Skin: - - right CT intact - small amount of dried bloody drainage on dressing Neurological: Alert and Oriented x 3, NL Sensation, NL Gait, NL Muscle Strength and Tone Lines/Tubes/Other Access: Clean, Dry and Intact Chest Tube Nutrition: Taking PO's Result Diagrams: 10/31/17 05:07 10/31/17 05:07 Microbiology and Other Data: Microbiology 10/24/17 16:20 Nasal Screen MRSA (PCR) - Final Nasal Mrsa Not Detected Assess/Plan/Problems-Billing Assessment: Ms. Hernandez is a 67 yo female with PMH significant for HTN, pre-DM, obesity , hx CVA, aortic and tricuspid valve insufficiency, asthma, HLD, and right lung CA who is status post a right lower lobectomy with Dr. Oscar. - Patient Problems (1) Lung cancer Comment: - S/P right lower lobectomy, POD #7 - Management per General Surgery - Pt continues to have a chest tube - plan to await decreased drainage from CT per surgery, plan to pull when < 200 mls - Continue pain management and bowel regimen - Path report showing - metastatic invasive adenocarcinoma - Dr. Newell is her primary oncologist. (2) Anemia Comment: - Asymptomatic - Suspect acute blood loss anemia secondary to surgery and post-op hematoma - HH stable - Received 1 unit PRBCs 10/27 (3) Diabetes Code(s): E11.9 - TYPE 2 DIABETES MELLITUS WITHOUT COMPLICATIONS Comment: - HgA1C 7.3 - Diet controlled at home - Continue Lispro SS - add on lantus QHS 10/30 - continue to monitor - blood sugars improving (4) HTN (hypertension) Comment: - BPs improving - Continue to hold HCTZ and continue atenolol with hold parameteres (5) Asthma Comment: - No signs of acute exacerbation - Continue albuterol PRN (6) History of CVA (cerebrovascular accident) Comment: - Continue Aspirin (7) DVT prophylaxis Comment: - Heparin SQ (8) Full code status Status and Disposition: Inpatient. Disposition per General Surgery.
[2017-10-31] MEDS: Atenolol TAB* 25 MG PO SCH (17:54)
[2017-10-31] MEDS: Montelukast Sodium TAB* 10 MG PO SCH (21:08)
[2017-10-31] MEDS: Insulin GLARGINE(*) 1 UNITS UNIT SUBCUT SCH (21:10)
[2017-10-31] MEDS ORDERED: Morphine VIAL* 4 MG/ML VIAL (1 ml vial) IV ONE (23:38)
[2017-11-01] MEDS ORDERED: Morphine VIAL* 4 MG/ML VIAL (1 ml vial) IV PRN (04:24)
[2017-11-01] MEDS: oxyCODONE/Acetamin 5/325 MG* TAB PO PRN ×4 (04:45→21:22)
[2017-11-01] MEDS ORDERED: Morphine VIAL* 4 MG/ML VIAL (1 ml vial) IV SCH (05:00)
[2017-11-01] MEDS: Heparin VIAL(*) 5000 UNITS/ML VIAL (FIVE THOUSAND) SUBCUT SCH ×3 (05:39→21:26)
[2017-11-01] MEDS ORDERED: Lidocaine 2% VISCOUS* 15 ML UDC PO ONE (09:10)
[2017-11-01] MEDS ORDERED: Al Hydrox/Mg Hydrox/Simet LIQ* 30 ML UDC PO ONE (09:10)
[2017-11-01] MEDS: HYDROmorphone INJ* 0.5 MG/0.5 ML SYRINGE IV SLOW PU PRN ×2 (09:23→19:43)
--- NOTE | 2017-11-01 09:33 | PN ---
Subjective Date of Service: 11/01/17 Interval History: Pt reports she didnt sleep well last night d/t right sided pain at the CT site as well as chest pain starting in her midsternal/epigastric area radiating to her right shoulder/back. She reports mild SOB but states that is not new. No diaphoresis/nausea. Daughter at bedside to translate Family History: Unchanged from Admission Social History: Unchanged from Admission Past Medical History: Unchanged from Admission Objective Active Medications: Acetaminophen (Tylenol Tab*) 650 mg PO Q4H PRN PRN Reason: Pain Or Temperature >101 F Albuterol (Ventolin Hfa Inhaler*) 2 puff INH Q4H PRN PRN Reason: SOB/WHEEZING Aspirin (Aspirin 81 Mg Chew Tab*) 81 mg PO DAILY [facility] Last Admin: 10/31/17 07:16 Dose: 81 mg Atenolol (Tenormin Tab*) 25 mg PO QPM [facility] Last Admin: 10/31/17 17:54 Dose: 25 mg Dextrose (D50w Syringe 50 Ml*) 12.5 gm IV PUSH .FOR FS < 60 - SS PRN PRN Reason: FS < 60 Docusate Sodium (Colace Cap*) 100 mg PO BID [facility] Last Admin: 10/31/17 21:08 Dose: 100 mg Heparin Sodium (Porcine) (Heparin Vial(*)) 5,000 units SUBCUT Q8HR [facility] Last Admin: 11/01/17 05:39 Dose: 5,000 units Hydromorphone HCl (Dilaudid Inj*) 0.5 mg IV SLOW PU Q1H PRN PRN Reason: PAIN Last Admin: 10/31/17 10:07 Dose: 0.5 mg Insulin Glargine (Lantus(*)) 5 units SUBCUT Q24H [facility] Last Admin: 10/31/17 21:10 Dose: 5 units Insulin Human Lispro (Humalog*) 0 units SUBCUT AC [facility]; Protocol Last Admin: 10/31/17 17:54 Dose: 2 units Magnesium Hydroxide (Milk Of Magnesia Liq*) 30 ml PO BID PRN PRN Reason: CONSTIPATION Montelukast Sodium (Singulair Tab*) 10 mg PO BEDTIME [facility] Last Admin: 10/31/17 21:08 Dose: 10 mg Morphine Sulfate (Morphine Vial*) 1 mg IV Q2H PRN PRN Reason: pain Last Admin: 11/01/17 06:24 Dose: 1 mg Omeprazole (Prilosec Cap*) 20 mg PO 0730 TEOFILO Omeprazole (Prilosec Cap*) 20 mg PO ONCE ONE Stop: 11/01/17 10:01 Ondansetron HCl (Zofran Inj*) 4 mg IV Q4H PRN PRN Reason: NAUSEA/VOMITING Last Admin: 10/25/17 12:08 Dose: 4 mg Oxycodone/Acetaminophen (Percocet 5/325 Tab*) 1 tab PO Q4H PRN PRN Reason: PAIN Last Admin: 11/01/17 04:45 Dose: 1 tab Vital Signs - 8 hr 11/01/17 11/01/17 11/01/17 02:10 02:14 03:56 Temperature 97.8 F Pulse Rate 69 Respiratory 16 16 22 Rate Blood Pressure 120/67 (mmHg) O2 Sat by Pulse 98 Oximetry 11/01/17 11/01/17 11/01/17 04:20 04:45 05:34 Temperature Pulse Rate Respiratory 18 16 16 Rate Blood Pressure (mmHg) O2 Sat by Pulse Oximetry 11/01/17 11/01/17 11/01/17 06:24 07:25 08:10 Temperature 97.8 F Pulse Rate 57 Respiratory 18 18 18 Rate Blood Pressure 128/56 (mmHg) O2 Sat by Pulse 98 Oximetry 11/01/17 08:11 Temperature Pulse Rate Respiratory 18 Rate Blood Pressure (mmHg) O2 Sat by Pulse Oximetry Oxygen Devices in Use Now: Nasal Cannula Appearance: A+O x3 67 yo female appears in mild discomfort Eyes: No Scleral Icterus, PERRLA Ears/Nose/Mouth/Throat: NL Teeth, Lips, Gums, Mucous Membranes Moist Neck: NL Appearance and Movements; NL JVP Respiratory: Symmetrical Chest Expansion and Respiratory Effort Cardiovascular: NL Sounds; No Murmurs; No JVD, RRR, No Edema, - - reproducible chest wall pain Abdominal: - - obese, epigastric tenderness Neurological: Alert and Oriented x 3, NL Sensation, NL Muscle Strength and Tone Lines/Tubes/Other Access: Clean, Dry and Intact Chest Tube, Clean, Dry and Intact Peripheral IV Nutrition: Taking PO's Result Diagrams: 10/31/17 05:07 10/31/17 05:07 Microbiology and Other Data: Microbiology 10/24/17 16:20 Nasal Screen MRSA (PCR) - Final Nasal Mrsa Not Detected Assess/Plan/Problems-Billing Assessment: Ms. Hernandez is a 67 yo female with PMH significant for HTN, pre-DM, obesity , hx CVA, aortic and tricuspid valve insufficiency, asthma, HLD, and right lung CA who is status post a right lower lobectomy with Dr. Oscar. - Patient Problems (1) Lung cancer Comment: - S/P right lower lobectomy, POD #8 - Management per General Surgery - Plan to DC CT this am - Continue pain management and bowel regimen - Path report showing - metastatic invasive adenocarcinoma - Dr. Newell is her primary oncologist. (2) Chest pain Comment: - unclear etiology. It is possible it is secondary to the Chest Tube and nerve irritation, she is also noted to have reproducible chest wall pain and epigastric tenderness. Plan to give GI cocktail, switch her PPI to scheduled ( it was only PRN as she takes at home), obtain Troponin and EKG now (3) Anemia Comment: - Asymptomatic - Suspect acute blood loss anemia secondary to surgery and post-op hematoma - HH stable - Received 1 unit PRBCs 10/27 (4) Diabetes Code(s): E11.9 - TYPE 2 DIABETES MELLITUS WITHOUT COMPLICATIONS Comment: - HgA1C 7.3 - Diet controlled at home - Continue Lispro SS - add on lantus QHS 10/30 - continue to monitor - blood sugars improving (5) HTN (hypertension) Comment: - BPs improving - Continue to hold HCTZ and continue atenolol with hold parameteres (6) Asthma Comment: - No signs of acute exacerbation - Continue albuterol PRN (7) History of CVA (cerebrovascular accident) Comment: - Continue Aspirin (8) DVT prophylaxis Comment: - Heparin SQ (9) Full code status Status and Disposition: Inpatient. Disposition per General Surgery.
[2017-11-01] MEDS: Docusate CAP* 100 MG PO SCH ×2 (09:58→21:23)
[2017-11-01] MEDS: Aspirin 81 mg CHEW TAB* 81 MG TAB.CHEW PO SCH (09:58)
[2017-11-01] MEDS: Insulin LISPRO* 1 UNITS UNIT SUBCUT SCH ×3 (09:59→17:16)
--- NOTE | 2017-11-01 09:59 | PN ---
Progress Note - Progress Note Date of Service: 11/01/17 Note: POD#8 s/p lobectomy Afeb, VS noted Ty po's, No N/V Voiding CT level 2320 (200 ml), no air leak C/O central chest pain today Chest ecchymosis subsiding slowly, no new drainage, no collection, no sign of infection aerates well, no sign of dermatomal nature of pain Impr: s/p lobectomy, T2N2 disease CT D/C'd; ty well. chest pain w/u, I disc, w/ A. Martinez, hospitalist oncol consult Home when able
[2017-11-01] MEDS ORDERED: Omeprazole CAP* 20 MG PO ONE (10:00)
[2017-11-01] MEDS: Atenolol TAB* 25 MG PO SCH (17:15)
[2017-11-01] MEDS: Insulin GLARGINE(*) 1 UNITS UNIT SUBCUT SCH (21:23)
[2017-11-01] MEDS: Montelukast Sodium TAB* 10 MG PO SCH (21:23)
[2017-11-02] MEDS: oxyCODONE/Acetamin 5/325 MG* TAB PO PRN (04:14)
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
[2017-11-02] MEDS: Heparin VIAL(*) 5000 UNITS/ML VIAL (FIVE THOUSAND) SUBCUT SCH (05:37)
[2017-11-02] MEDS ORDERED: Omeprazole CAP* 20 MG PO SCH (07:30)
[2017-11-02] MEDS ORDERED: oxyCODONE/Acetamin 5/325 MG* TAB PO PRN (09:52)
--- NOTE | 2017-11-02 09:58 | PN ---
Progress Note - Progress Note Date of Service: 11/02/17 Note: Surgery Ms. Garcia reports she has some shortness of breath, but says it is no different than yesterday. She is having some pain at the incision and CT site. Vital Signs 11/01/17 11/01/17 11/01/17 10:46 10:48 11:39 Temperature 98.3 F Pulse Rate 70 Respiratory 18 18 16 Rate Blood Pressure 122/67 (mmHg) O2 Sat by Pulse 95 Oximetry 11/01/17 11/01/17 11/01/17 13:20 15:35 17:16 Temperature 98.1 F Pulse Rate 71 Respiratory 18 18 16 Rate Blood Pressure 123/62 (mmHg) O2 Sat by Pulse 96 Oximetry 11/01/17 11/01/17 11/01/17 19:15 19:20 19:43 Temperature 98.3 F Pulse Rate 71 Respiratory 18 16 16 Rate Blood Pressure 120/61 (mmHg) O2 Sat by Pulse 94 Oximetry 11/01/17 11/01/17 11/01/17 19:46 21:22 23:46 Temperature 98.2 F Pulse Rate 72 Respiratory 16 16 16 Rate Blood Pressure 129/62 (mmHg) O2 Sat by Pulse 92 Oximetry 11/01/17 11/02/17 11/02/17 23:53 04:10 04:14 Temperature 98.9 F Pulse Rate 71 Respiratory 16 18 20 Rate Blood Pressure 122/59 (mmHg) O2 Sat by Pulse 94 Oximetry 11/02/17 11/02/17 06:20 07:35 Temperature 98.0 F Pulse Rate 66 Respiratory 18 16 Rate Blood Pressure 139/66 (mmHg) O2 Sat by Pulse 96 Oximetry lungs: coarse R>L chest: right breast with extensive ecchymosis incision: clean and dry; guido intact CT site: some min. fib.exudate, no signs infection Intake & Output 11/01/17 11/02/17 11/02/17 22:59 06:59 14:59 Intake Total 420 850 Balance 420 850 Intake: Oral 420 850 Other: Estimated Void Small Medium # Voids 1 3 Laboratory Results - last 24 hr 11/01/17 11/01/17 11/01/17 09:50 11:32 16:37 POC Glucose (mg/dL) 148 H 150 H Troponin I 0.00 07/14/18 07:48 POC Glucose (mg/dL) 139 H Troponin I A/P: Surgically doing well, I spent some time with pt. and family member who translated reviewing activities and limitations upon discharge. She has asked for pain medicine. She had no further questions and feels ready for discharge. Await input from Dr. Giraldo to decide about discharge.
[2017-11-02] MEDS ORDERED: oxyCODONE/Acetamin 5/325 MG* TAB ONE (10:08)
[2017-11-02] MEDS: Aspirin 81 mg CHEW TAB* 81 MG TAB.CHEW PO SCH (10:23)
[2017-11-02] MEDS: Docusate CAP* 100 MG PO SCH (10:23)
[2017-11-02] MEDS: Insulin LISPRO* 1 UNITS UNIT SUBCUT SCH ×2 (10:24→13:52)
[2017-11-02 10:54] LABS: ABS Basophils 0.1 10^3/ul (0-0.2); ABS Eosinophils 0.6 10^3/ul (0-0.6); ABS Lymphocytes 2.3 10^3/ul (1.0-4.8); ABS Monocytes 0.6 10^3/ul (0-0.8); ABS Neutrophils 4.5 10^3/ul (1.5-7.7); ABS Nucleated RBC 0 10^3/ul; Eosinophil % 7.7 % (0-6); Hematocrit 28 % (35-47); Hemoglobin 9.3 g/dl (12.0-16.0); Mean Corpuscular HGB Conc 33 g/dl (31-36); Mean Corpuscular Hemoglobin 30 pg (27-31); Mean Corpuscular Volume 90 fL (80-97); Mean Platelet Volume 7.7 um3 (7.4-10.4); Nucleated Red Blood Cells % 0; Platelet Count 290 10^3/ul (150-450); Red Blood Count 3.11 10^6/ul (4.00-5.40); Red Cell Distribution Width 15 % (10.5-15)
[2017-11-02 12:03] VITALS: BP 105/62
[2017-11-02] MEDS ORDERED: Magnesium Oxide TAB* 400 MG PO STA (13:13)
--- NOTE | 2017-11-02 13:19 | PN ---
Subjective Date of Service: 11/02/17 Interval History: Pt seen and examined. Meds and labs reviewed. Discussed case with Dr. Ingram this AM. Please see discussion below ROS: Denied REDD/dizziness, F/C, N/V, CP, SOB, increased cough, sputum production , abd pain, diarrhea, constipation, dysuria, myalgias, arthralgias, throat pain , and new skin lesions. The rest of the 14 point ROS are unremarkable. Pt's son at bedside to translate. PHYSICAL EXAM: GEN APPEARANCE: Awake, not in acute distress, Obese elderly HEENT: NC/AT, PERRLA, moist oral mucosa, (-) throat erythema NECK: Soft, supple, (-) cervical LAD, (-)JVD HEART: S1S2 WNL, RRR, No MRG CHEST: CTA, BL, GAE, No W/R/R ABD: Soft, ND/NT, NABS 4x Q EXT: No C/C/E SKIN: Warm to touch PSYCH: No active psychosis, hallucinations, depression, SI/HI Family History: Unchanged from Admission Social History: Unchanged from Admission Past Medical History: Unchanged from Admission Objective Active Medications: Acetaminophen (Tylenol Tab*) 650 mg PO Q4H PRN PRN Reason: Pain Or Temperature >101 F Albuterol (Ventolin Hfa Inhaler*) 2 puff INH Q4H PRN PRN Reason: SOB/WHEEZING Aspirin (Aspirin 81 Mg Chew Tab*) 81 mg PO DAILY [facility] Last Admin: 11/02/17 10:23 Dose: 81 mg Atenolol (Tenormin Tab*) 25 mg PO QPM [facility] Last Admin: 11/01/17 17:15 Dose: 25 mg Dextrose (D50w Syringe 50 Ml*) 12.5 gm IV PUSH .FOR FS < 60 - SS PRN PRN Reason: FS < 60 Docusate Sodium (Colace Cap*) 100 mg PO BID [facility] Last Admin: 11/02/17 10:23 Dose: 100 mg Heparin Sodium (Porcine) (Heparin Vial(*)) 5,000 units SUBCUT Q8HR [facility] Last Admin: 11/02/17 05:37 Dose: 5,000 units Hydromorphone HCl (Dilaudid Inj*) 0.5 mg IV SLOW PU Q1H PRN PRN Reason: PAIN Last Admin: 11/01/17 19:43 Dose: 0.5 mg Insulin Glargine (Lantus(*)) 5 units SUBCUT Q24H [facility] Last Admin: 11/01/17 21:23 Dose: 5 units Insulin Human Lispro (Humalog*) 0 units SUBCUT AC [facility]; Protocol Last Admin: 11/02/17 10:24 Dose: 1 units Magnesium Hydroxide (Milk Of Magnesia Liq*) 30 ml PO BID PRN PRN Reason: CONSTIPATION Magnesium Oxide (Magox 400 Tab*) 400 mg PO ONCE STA Stop: 11/02/17 13:14 Montelukast Sodium (Singulair Tab*) 10 mg PO BEDTIME [facility] Last Admin: 11/01/17 21:23 Dose: 10 mg Morphine Sulfate (Morphine Vial*) 1 mg IV Q2H PRN PRN Reason: pain Last Admin: 11/01/17 06:24 Dose: 1 mg Omeprazole (Prilosec Cap*) 20 mg PO 0730 [facility] Last Admin: 11/02/17 07:48 Dose: 20 mg Ondansetron HCl (Zofran Inj*) 4 mg IV Q4H PRN PRN Reason: NAUSEA/VOMITING Last Admin: 10/25/17 12:08 Dose: 4 mg Oxycodone/Acetaminophen (Percocet 5/325 Tab*) 1 tab PO Q4H PRN PRN Reason: PAIN Last Admin: 11/02/17 04:14 Dose: 1 tab Oxycodone/Acetaminophen (Percocet 5/325 Tab*) 2 tab PO Q4H PRN PRN Reason: PAIN Last Admin: 11/02/17 10:22 Dose: 2 tab Vital Signs - 8 hr 11/02/17 11/02/17 11/02/17 06:20 07:35 08:00 Temperature 98.0 F Pulse Rate 66 Respiratory 18 16 18 Rate Blood Pressure 139/66 (mmHg) O2 Sat by Pulse 96 Oximetry 11/02/17 11/02/17 10:22 11:48 Temperature 98.3 F Pulse Rate 62 Respiratory 18 16 Rate Blood Pressure 105/62 (mmHg) O2 Sat by Pulse 96 Oximetry Oxygen Devices in Use Now: Nasal Cannula Result Diagrams: 11/02/17 10:48 11/02/17 10:48 Microbiology and Other Data: Microbiology 10/24/17 16:20 Nasal Screen MRSA (PCR) - Final Nasal Mrsa Not Detected Assess/Plan/Problems-Billing Assessment: Ms. Hernandez is a 67 yo female with PMH significant for HTN, pre-DM, obesity , hx CVA, aortic and tricuspid valve insufficiency, asthma, HLD, and right lung CA who is status post a right lower lobectomy with Dr. Oscar. - Patient Problems (1) Lung cancer Current Visit: Yes Status: Acute Code(s): C34.90 - MALIGNANT NEOPLASM OF UNSP PART OF UNSP BRONCHUS OR LUNG SNOMED Code(s): 858009169 Comment: - S/P right lower lobectomy, POD #9 - Management per General Surgery - Continue pain management and bowel regimen - Path report showing - metastatic invasive adenocarcinoma - Dr. Newell is her primary oncologist. (2) Chest pain Current Visit: Yes Status: Acute Code(s): R07.9 - CHEST PAIN, UNSPECIFIED SNOMED Code(s): 11568624 Comment: - Resolved and repeat troponins after 24 hours from its initial draw was normal -EKG done yesterday showed no changes in ST segments -Pt clarified that pain was right parasternal and improved after CT was removed -Requested by Dr. Hayes to send some PRN pain meds to pharmacy---this was done , however, pt will need to ask PCP for refills on Saturday if subsequent pain meds needed (3) Anemia Current Visit: Yes Status: Acute Code(s): D64.9 - ANEMIA, UNSPECIFIED SNOMED Code(s): 174960404 Comment: - Asymptomatic - Suspect acute blood loss anemia secondary to surgery and post-op hematoma - HH stable - Received 1 unit PRBCs 10/27 (4) Diabetes Current Visit: Yes Status: Chronic Code(s): E11.9 - TYPE 2 DIABETES MELLITUS WITHOUT COMPLICATIONS SNOMED Code(s): 60438022 Comment: - HgA1C 7.3 - Diet controlled at home - Continue Lispro SS - add on lantus QHS 10/30 - continue to monitor - blood sugars improving (5) HTN (hypertension) Current Visit: No Status: Chronic Code(s): I10 - ESSENTIAL (PRIMARY) HYPERTENSION SNOMED Code(s): 19223827 Comment: - BPs improving - Continue to hold HCTZ and continue atenolol with hold parameteres (6) Asthma Current Visit: No Status: Chronic Code(s): J45.909 - UNSPECIFIED ASTHMA, UNCOMPLICATED SNOMED Code(s): 184985092 Comment: - No signs of acute exacerbation - Continue albuterol PRN (7) History of CVA (cerebrovascular accident) Current Visit: No Status: Chronic Code(s): Z86.73 - PRSNL HX OF TIA (TIA), AND CEREB INFRC W/O RESID DEFICITS SNOMED Code(s): 711391995 Comment: - Continue Aspirin (8) DVT prophylaxis Current Visit: Yes Status: Acute Code(s): WXY5153 - SNOMED Code(s): 667799842 Comment: - Defer with Sx on D/C Status and Disposition: Pt does not have any active ACS nor any medical condition at this time. Right parasternal CP is likely due to CT and has since resolved without any recurrence. Troponins and EKG were unremarkable. Discussed with Dr. Hayes and will defer on planned D/C today.
== END 2017-11-02 14:30 | disposition home health service (06) | DRG 164 ==
LOC: AA 09:40 → ICU 16:38 → SSU 10-27 09:41
PROVIDERS: ADMIT Surgery; ATTEND Student in an Organized Health Care Education/Training Program
PROC: 0BTF0ZZ Resection of Right Lower Lung Lobe, Open Approach (ICD-10-PCS; 2017-10-24)
PROC: 07B70ZZ Excision of Thorax Lymphatic, Open Approach (ICD-10-PCS; 2017-10-24)
PROC: 30233N1 Transfusion of Nonautologous Red Blood Cells into Peripheral Vein, Percutaneous Approach (ICD-10-PCS; principal; 2017-10-28)
PROC: 0JC60ZZ Extirpation of Matter from Chest Subcutaneous Tissue and Fascia, Open Approach (ICD-10-PCS; 2017-10-28)
DX: C34.31 Malignant neoplasm of lower lobe, right bronchus or lung (principal); Z68.41 Body mass index [BMI] 40.0-44.9, adult; L76.32 Postprocedural hematoma of skin and subcutaneous tissue following other procedure; C77.1 Secondary and unspecified malignant neoplasm of intrathoracic lymph nodes; I10 Essential (primary) hypertension; E11.9 Type 2 diabetes mellitus without complications; E66.9 Obesity, unspecified; E78.5 Hyperlipidemia, unspecified; I08.3 Combined rheumatic disorders of mitral, aortic and tricuspid valves; J45.909 Unspecified asthma, uncomplicated; K21.9 Gastro-esophageal reflux disease without esophagitis; M19.90 Unspecified osteoarthritis, unspecified site; G89.29 Other chronic pain; I95.9 Hypotension, unspecified; Y92.234 Operating room of hospital as the place of occurrence of the external cause; D64.9 Anemia, unspecified; Y83.6 Removal of other organ (partial) (total) as the cause of abnormal reaction of the patient, or of later complication, without mention of misadventure at the time of the procedure; R07.89 Other chest pain; Z86.73 Personal history of transient ischemic attack (TIA), and cerebral infarction without residual deficits; Z85.828 Personal history of other malignant neoplasm of skin; Z88.7 Allergy status to serum and vaccine; Z88.8 Allergy status to other drugs, medicaments and biological substances; Z80.9 Family history of malignant neoplasm, unspecified; Z82.49 Family history of ischemic heart disease and other diseases of the circulatory system; Z92.21 Personal history of antineoplastic chemotherapy; Z92.3 Personal history of irradiation; Z80.0 Family history of malignant neoplasm of digestive organs; Z87.820 Personal history of traumatic brain injury
CPT/HCPCS: 36415; 71045; 71046; 80048; 80053; 83036; 83735; 84100; 84484; 85014; 85018; 85025; 85027; 86850; 86900; 86901; 86922; 87641; 88305; 88309; 93005; 94640; 99223; A9270-GY; C1776; J0690; J1100; J1170; J1644; J1885; J2250; J2270; J2405; J2704; J3010; P9040

== ENCOUNTER 2017-11-06 13:54 | Inpatient (IN) | payer MEDICARE ==
--- NOTE | 2017-11-06 14:28 | ED ---
HPI Febrile Illness - HPI Summary HPI Summary: This is Lea benitez, documenting for attending Ramin Pineda MD. This patient is a 67 year old F presenting to [facility] accompanied by her son, who is translating for her, with a chief complaint of fever and SOB for the past three days. Report nausea yesterday. SOB aggravated by supine position. He states the fever has been manageable for the past three days, but today is elevated. Patient was given Advil at 0600 and again at 1000 with oxycodone. Patient had right lower lung lobectomy roughly two weeks ago due to lung cancer. Son reports she will start chemotherapy in a couple weeks since cancer has metastasized. He states that the saw Dr. Oscar yesterday who drained the incision area. Patient reports current pain at incision site. - History of Current Complaint Chief Complaint: EDFever Time Seen by Provider: 11/06/17 14:20 Hx Obtained From: Patient Onset/Duration: Started Days Ago Timing: Constant Initial Severity: Mild Current Severity: Moderate Pain Intensity: 4 Pain Scale Used: 0-10 Numeric Associated Signs and Symptoms: Nausea, Recent Surgery, SOB - Additional Pertinent History Primary Care Physician: [id number] - Allergy/Home Medications Allergies/Adverse Reactions: Allergies Allergy/AdvReac Type Severity Reaction Status Date / Time hydrocortisone Allergy Mild Rash Verified 11/06/17 16:02 oxycodone Allergy See Comment Verified 11/06/17 16:02 tetanus immune globulin Allergy See Comment Verified 11/06/17 16:02 Tetanus Vaccines and Toxoid Allergy See Comment Verified 11/06/17 16:02 Home Medications: Home Medications Aspirin EC TAB* [Ecotrin EC Low Dose 81 MG*] 81 mg PO QPM 11/06/17 [History Confirmed 11/06/17] Atenolol TAB* [Tenormin TAB* 25 MG] 25 mg PO QPM 11/06/17 [History Confirmed ] Hydrochlorothiazide TAB* [Hydrodiuril TAB*] 12.5 mg PO QAM PRN 11/06/17 [ History Confirmed 11/06/17] Multivitamins/Minerals TAB* [Theragran/minerals TAB*] 1 tab PO QAM 11/06/17 [ History Confirmed 11/06/17] Nitroglycerin TAB 0.3 MG* 0.3 mg SL Q5M PRN 11/06/17 [History Confirmed 11/06/17 ] PMH/Surg Hx/FS Hx/Imm Hx Endocrine/Hematology History: Reports: Hx Diabetes Denies: Hx Thyroid Disease Cardiovascular History: Reports: Hx Angina, Hx Hypercholesterolemia, Hx Hypertension, Hx Valvular Heart Disease - WAS NOTED BY IN [facility] Other Cardiovascular Problems/Disorders - aortic, trisucpid, mitral insuficiancy Denies: Hx Congestive Heart Failure, Hx Myocardial Infarction, Hx Pacemaker/ ICD Respiratory History: Reports: Hx Asthma - USES AN INHALER, Other Respiratory Problems/Disorders - Being unable to tolerate layig flat without SOB - 1 year Denies: Hx Sleep Apnea GI History: Reports: Hx Gastroesophageal Reflux Disease - on medication Denies: Hx Ulcer, Other GI Disorders History: Denies: Hx Renal Disease, Other Problems/Disorders Musculoskeletal History: Reports: Hx Arthritis - GENERAL, Other Musculoskeletal History - L Shoulder injury Sensory History: Reports: Hx Contacts or Glasses Denies: Hx Hearing Aid Opthamlomology History: Reports: Hx Contacts or Glasses Neurological History: Reports: Hx Migraine, Other Neuro Impairments/Disorders - 2012 & 2014 Psychiatric History: Denies: Hx Panic Disorder - Cancer History Cancer Type, Location and Year: skin - Surgical History Surgery Procedure, Year, and Place: RT. SIDED FACIAL TUMOR REMOVED- BENIGN, TYROIDECTOMY Hx Anesthesia Reactions: No - denies per daughter Infectious Disease History: No Infectious Disease History: Denies: Hx Clostridium Difficile, Hx Hepatitis, Hx Human Immunodeficiency Virus (HIV), Hx of Known/Suspected MRSA, Hx Shingles, Hx Tuberculosis, History Other Infectious Disease, Traveled Outside the [place] in Last 30 Days - Family History Known Family History: Positive: Other - CHF, Gastric CA; NEGATIVE: PE - Social History Alcohol Use: None Substance Use Type: Reports: None Smoking Status (MU): Never Smoked Tobacco Have You Smoked in the Last Year: No Review of Systems Positive: Fever Positive: Shortness Of Breath Positive: Nausea Positive: Myalgia - pain at incision site of R lower lobectomy All Other Systems Reviewed And Are Negative: Yes Physical Exam - Summary Physical Exam Summary: Appearance: ill-appearing, Well-nourished Skin: Warm Eyes: Normal ENT: Normal Neck: Supple, nontender Respiratory: Clear to auscultation Cardiovascular: Regular rate, regular rhythm. Normal S1, S2. Abdomen: Soft, nontender Musculoskeletal: Strength/ROM Intact Right mid axilla horizontal surgical site size 5cm; site appears clean with no discharge Neurological: Normal, A&Ox3 Psychiatric: Normal General: No acute distress Triage Information Reviewed: Yes Vital Signs On Initial Exam: Initial Vitals Temp Pulse Resp BP Pulse Ox 103 F 110 24 150/74 95 11/06/17 13:58 11/06/17 13:58 11/06/17 13:58 11/06/17 13:58 11/06/17 13:58 Vital Signs Reviewed: Yes Diagnostics - Vital Signs Vital Signs Temp Pulse Resp BP Pulse Ox 11/06/17 14:17 106 33 149/82 93 11/06/17 14:14 113 92 11/06/17 13:58 103 F 110 24 150/74 95 - Laboratory Result Diagrams: 11/08/17 04:58 11/08/17 04:58 Lab Statement: Any lab studies that have been ordered have been reviewed, and results considered in the medical decision making process. - Radiology CXR Radiology Interpretation Completed By: Radiologist - PLEUROPARENCHYMAL SCARRING. NO ACTIVE CARDIOPULMONARY DISEASE. ED Physician has reviewed this report. - CT Chest CTA CT Interpretation Completed By: Radiologist - 1. FILLING DEFECTS OF THE SEGMENTAL BRANCHES OF THE LEFT LOWER LOBE CONSISTENT WITH PULMONARY BLEBS. 2. SMALL LOCULATED RIGHT PLEURAL EFFUSION VERSUS LOBULATED PLEURAL THICKENING. 3. RIGHT HILAR LYMPHADENOPATHY. 4. FLUID WITH A SMALL AMOUNT OF GAS ALONG THE RIGHT CHEST WALL, LIKELY POSTSURGICAL GIVEN THE HISTORY OF RECENT RIGHT-SIDED CHEST TUBE, THOUGH EARLY ABSCESS MAY GIVE A SIMILAR APPEARANCE IN THE CORRECT CLINICAL SETTING. PRELIMINARY FINDINGS WERE DISCUSSED WITH DR. PINEDA IN THE EMERGENCY DEPARTMENT AT APPROXIMATELY 3:35 PM ON NOVEMBER 06, 2017. ED Physician has reviewed this report. - Additional Comments Diagnostic Additional Comments: An Abdomen US reveals: SMALL RIGHT SUBPLEURAL EFFUSION. NORMAL GALLBLADDER. as per radiologist. Course/Dx - Course Course Of Treatment: CTA chest- Left small subsegmental PE, Pt has loculated pleural effusion under surgical site on CTA per radiologist. Given pt's febrile state, new PE and possible infectious collection in right lung(recent surgical/ chest tube site) will admit pt under surgeon Dr Moy for IV abx and anticoagulation - Diagnoses Provider Diagnoses: Pulmonary embolus, left, Loculated pleural effusion, Fever - Provider Notifications Discussed Care Of Patient With: Apolinar Gutierrez - oncology Time Discussed With Above Provider: 15:37 Instructed by Provider To: Admit As Inpatient Discharge - Sign-Out/Discharge Documenting (check all that apply): Patient Departure - Discharge Plan Condition: Stable Disposition: ADMITTED TO [facility] - Billing Disposition and Condition Condition: STABLE Disposition: Admitted to [facility] Consult Consult: At 04:26, Dr. Moy, agrees to admit this patient, instead of Dr. Gutierrez.
[2017-11-06] MEDS ORDERED: Ibuprofen TAB* 400 MG PO ONE (14:36)
[2017-11-06] MEDS ORDERED: Cefepime(*) 1 GM in NS 0.9% 50 ML* 50 ML IVPB ONE (14:38)
[2017-11-06 14:40] LABS: ABS Basophils 0.1 10^3/ul (0-0.2); ABS Eosinophils 0.1 10^3/ul (0-0.6); ABS Lymphocytes 1.2 10^3/ul (1.0-4.8); ABS Monocytes 1.2 10^3/ul (0-0.8); ABS Neutrophils 14.8 10^3/ul (1.5-7.7); ABS Nucleated RBC 0 10^3/ul; Eosinophil % 0.3 % (0-6); Hematocrit 28 % (35-47); Hemoglobin 9.1 g/dl (12.0-16.0); Lymphocyte % 7.2 % (25-47); Mean Corpuscular HGB Conc 33 g/dl (31-36); Mean Corpuscular Hemoglobin 29 pg (27-31); Mean Corpuscular Volume 89 fL (80-97); Mean Platelet Volume 7.9 um3 (7.4-10.4); Nucleated Red Blood Cells % 0.1; Platelet Count 376 10^3/ul (150-450); Red Blood Count 3.17 10^6/ul (4.00-5.40); Red Cell Distribution Width 15 % (10.5-15); White Blood Count 17.3 10^3/ul (3.5-10.8)
[2017-11-06] MEDS ORDERED: NS 0.9% 1000 ML* 1,000 ML IV SCH (14:45)
[2017-11-06 14:49] LABS: EGFR Non-African American 71.8 (>60)
[2017-11-06] MEDS ORDERED: Cefepime 1 GM in Dextrose(*) 1 GM/50 ML BAG IV ONE (15:00)
[2017-11-06] MEDS ORDERED: Iodixanol* (CONTRAST) 320 MG/ML 100 ML SDV IV ONE (15:05)
--- NOTE | 2017-11-06 15:06 | RAD ---
HISTORY: fever COMPARISONS: October 31, 2015 VIEWS: 2: Frontal and lateral views of the chest. FINDINGS: CARDIOMEDIASTINAL SILHOUETTE: The cardiomediastinal silhouette is normal. SANJAY: The sanjay are normal. PLEURA: The costophrenic angles are sharp. No pleural abnormalities are noted. LUNG PARENCHYMA: There is linear opacification lung bases bilaterally. This is stable from previous examinations, suggestive of pleuroparenchymal scarring. ABDOMEN: The upper abdomen is clear. There is no subphrenic gas. BONES AND SOFT TISSUES: No bone or soft tissue abnormalities are noted. OTHER: None. IMPRESSION: PLEUROPARENCHYMAL SCARRING. NO ACTIVE CARDIOPULMONARY DISEASE.
--- OUTSIDE RECORDS SUMMARY | 2017-11-06 15:15 | XMS REPORT ---
:1950 External Reference #:[id number] Author Organization [facility] Address [address] [place] [address] [place] [address] Phone [phone] Care Team Providers Name Role Phone Oneida Nieves MD Primary Care Physician Unavailable Payers Type Date Identification Numbers Payment Provider Subscriber Commercial Effective: Policy Number: [id number] [employer] Conchis Garcia 2008 Medicaid Expires: 2016 PayID: [id number] [address] [address] [place] [address] Medigap Part B Policy Number: [id number] Medicare Conchis Garcia PayID: [id number] [address] [place] [address] Medigap Part B Policy Number: [id number] Medicaid Conchis Garcia Group Name: 1 1 [address] PayID: [id number] [place] [address] Problems Description No Information Family History Date Family Member(s) Problem(s) Comments General Cancer General Heart Disease Father Cancer Father due to Cancer () - Throat Mother Heart Disease Mother due to cardiac issues, specifics () unknown Siblings 4 Social History Type Date Description Comments Marital Status Lives With Alone Occupation Disabled Cigarette Use Never Smoked Cigarettes ETOH Use Denies alcohol use Smoking Patient has never smoked Recreational Drug Use Denies Drug Use Daily Caffeine Consumes on average 1 cup of hot tea per day Exercise Type/Frequency Exercises rarely Allergies, Adverse Reactions, Alerts Date Description Reaction Status Severity Comments 07/12/2014 Tetanus Immune Globulin active 07/12/2014 Tetanus Toxoids active redness,swelling, hives 08/21/2016 Cortizone Injection Anaphylaxis active Severe per pt Medications Medication Date Status Form Strength Qnty SIG Indications Ordering Provider Hydrocodone-Acetami 11/05 Active Tablets 5-325mg 20tab 1 by C34.31 Tung florez s mouth Schwed, every 4 M.D. hours prn. Percocet 11/04 Active Tablets 7.5-325mg 10tab Take 1 Doreen s Tab PO B. 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 Tramadol HCL Active Tablets 50mg four Unknown /0000 times a day as needed Atenolol Active Tablets 25mg 1 by Unknown /0000 mouth every day Omeprazole Active Capsules 20mg 1 by Unknown /0000 DR mouth every day Aspirin Adult Low Active Tablets 81mg 1 by Unknown Dose /0000 DR mouth every day Multivitamin Adult Active Tablets 1 by Unknown /0000 mouth every day Nitrostat Active Tablets 0.3mg dissolve Unknown /0000 Sub 1 tablet under the tongue every 5 minutes up to 3 doses as needed replace every 12 months Ventolin HFA Active Aerosol 108(90Bas 2 puffs Unknown /0000 e) by mouth mcg/Act four times a day as needed Hydrochlorothiazide Active Tablets 12.5mg 1 by Unknown /0000 mouth every day Pulmicort Flexhaler Active Aerosol 180mcg/Ac 2 puffs Unknown /0000 t twice daily Vitamin C 09/02 Hx Capsules 1 by mouth - every day 08/07 Hyoscyamine Sulfate Hx Tablets 0.125mg by mouth /0000 three - times a 08/19 day needed Ibuprofen Hx Tablets 600mg prn Unknown /0000 - 08/07 Vitamin D-1000 Hx Tablets 1000Unit 2 by Unknown Maximum Strength /0000 mouth - every day 08/19 Nitroglycerin Hx Patches 0.4mg/HR place one Unknown /0000 24HR patch in - the 08/19 and remove at night after 12 hours Symbicort 00/00 Hx Aerosol 160-4.5mc 2 puff Unknown /0000 g/Act twice a day Medications Administered in Office Medication Date Status Form Strength Qnty SIG Indications Ordering Provider Inj, Administered Injection You DPepe Regadenoson, 017 Christine Mullins 0.1 MG Technetium TC Administered Injection You DPepe 99M 017 Christine Mullins Tetrofosmin, Per Unit Dose Up To 40 Millicuries Vital Signs Date Vital Result Comment 11/05/2017 Heart Rate 60 /min BP Systolic 120 mmHg BP Diastolic 86 mmHg Respiratory Rate 16 /min Body Temperature 99.4 F 10/09/2017 Height 62 inches 5'2" Weight 207.00 lb Heart Rate 78 /min BP Systolic Sitting 140 mmHg BP Diastolic Sitting 86 mmHg Respiratory Rate 18 /min Body Temperature 97.8 F BMI (Body Mass Index) 37.9 kg/m2 09/27/2017 Height 62 inches 5'2" Weight 207.00 lb Heart Rate 80 /min BP Systolic 130 mmHg BP Diastolic 88 mmHg Respiratory Rate 16 /min Body Temperature 97.6 F BMI (Body Mass Index) 37.9 kg/m2 09/13/2017 Height 62 inches 5'2" Weight 208.38 lb Heart Rate 92 /min BP Systolic Sitting 128 mmHg Lue large cuff BP Diastolic Sitting 80 mmHg Lue large cuff Respiratory Rate 26 /min O2 % BldC Oximetry 94 % On Ra BMI (Body Mass Index) 38.1 kg/m2 08/23/2017 Height 62 inches 5'2" Weight 210.00 lb Heart Rate 70 /min BP Systolic Sitting 138 mmHg Lue large cuff BP Diastolic Sitting 98 mmHg Lue large cuff Respiratory Rate 20 /min O2 % BldC Oximetry 95 % BMI (Body Mass Index) 38.4 kg/m2 08/08/2017 Height 62 inches 5'2" Weight 208.00 lb Heart Rate 72 /min BP Systolic Sitting 122 mmHg BP Diastolic Sitting 78 mmHg Respiratory Rate 14 /min O2 % BldC Oximetry 93 % BMI (Body Mass Index) 38.0 kg/m2 Neck Circumference in inches 15.5 09/03/2016 Height 62 inches 5'2" Weight 203.75 lb w/o shoes Heart Rate 80 /min BP Systolic Sitting 130 mmHg LA lrg cuff BP Diastolic Sitting 84 mmHg LA lrg cuff BMI (Body Mass Index) 37.3 kg/m2 Ejection Fraction 55% - 60% echo 08/23/16 08/20/2016 Height 62 inches 5'2" Weight 205.00 lb with shoes Heart Rate 70 /min BP Systolic Sitting 130 mmHg LA lrg cuff BP Diastolic Sitting 82 mmHg LA lrg cuff BMI (Body Mass Index) 37.5 kg/m2 Ejection Fraction 55% - 65% 09/08/08 echo 07/12/2014 Height 62 inches 5'2" Weight 190.00 lb Heart Rate 69 /min BP Systolic 140 mmHg BP Diastolic 93 mmHg BMI (Body Mass Index) 34.7 kg/m2 Results Test Date Test Result H/L Range Note CBC Auto Diff 10/09/2017 White Blood Count 7.5 10^3/uL 3.5-10.8 Red Blood Count 4.61 10^6/uL 4.00-5.40 Hemoglobin 13.9 g/dL 12.0-16.0 Hematocrit 41 % 35-47 Mean Corpuscular Volume 89 fL 80-97 Mean Corpuscular Hemoglobin 30 pg 27-31 Mean Corpuscular HGB Conc 34 g/dL 31-36 Red Cell Distribution Width 14 % 10.5-15 Platelet Count 190 10^3/uL 150-450 Mean Platelet Volume 8.9 um3 7.4-10.4 Abs Neutrophils 3.9 10^3/uL 1.5-7.7 Abs Lymphocytes 2.7 10^3/uL 1.0-4.8 Abs Monocytes 0.6 10^3/uL 0-0.8 Abs Eosinophils 0.3 10^3/uL 0-0.6 Abs Basophils 0 10^3/uL 0-0.2 Abs Nucleated RBC 0 10^3/uL Granulocyte % 51.7 % 38-83 Lymphocyte % 36.4 % 25-47 Monocyte % 8.0 % High 0-7 Eosinophil % 3.4 % 0-6 Basophil % 0.5 % 0-2 Nucleated Red Blood Cells % 0 Basic Metabolic Panel 10/09/2017 Sodium 141 mmol/L 135-145 Potassium 4.1 mmol/L 3.5-5.0 Chloride 106 mmol/L 101-111 Co2 Carbon Dioxide 29 mmol/L 22-32 Anion Gap 6 mmol/L 2-11 Glucose 113 mg/dL High 70-100 Blood Urea Nitrogen 10 mg/dL 6-24 Creatinine 0.61 mg/dL 0.51-0.95 BUN/Creatinine Ratio 16.4 8-20 Calcium 9.3 mg/dL 8.6-10.3 Egfr Non- 98.1 >60 Egfr 118.7 >60 1 Type & Screen 10/09/2017 Patient Blood Type A Positive Antibody Screen NEGATIVE Laboratory test 09/04/2017 Cytology Non-Diamond Sizer SEE RESULT BELOW 2 finding Laboratory test 08/28/2017 Point of Care 139 mg/dL High 70-100 3 finding Glucose Laboratory test 08/20/2017 Cytology Non-Diamond Sizer SEE RESULT BELOW 4 finding Lung Cancer Targeted 08/20/2017 LNGPR Result FUSION IDENTIFIE 5 Gene Panel Summary <SEE NOTE> LNGPR Result See Comment 6 LNGPR Interpretation See Comment 7 LNGPR Additional Information See Comment 8 LNGPR Specimen Cells LNGPR Tissue Id [id number] LNGPR Released By See Comment 9 Platelet Count 08/20/2017 Platelet Count 200 10^3/uL 150-450 Mean Platelet Volume 9.0 um3 7.4-10.4 Inr/Protime 08/20/2017 Inr 0.91 0.77-1.02 Laboratory test finding 08/20/2017 Partial Thrombo Time 31.6 seconds 26.0 -36.3 PTT Platelet Count 08/09/2017 Platelet Count 241 10^3/uL 150-450 Mean Platelet Volume 9.2 um3 7.4-10.4 Inr/Protime 08/09/2017 Inr 0.95 0.77-1.02 1 Because ethnic data is not always readily available, this report includes an eGFR for both -Americans and non- Americans. The National Kidney Disease Education Program (NKDEP) does not endorse the use of the MDRD equation for patients that are not between the ages of 18 and 70, are , have extremes of body size, muscle mass, or nutritional status, or are non- or non-. According to the National Kidney Foundation, irrespective of diagnosis, the stage of the disease is based on the level of kidney function: Stage Description GFR(mL/min/1.73 m(2)) 1 Kidney damage with normal or decreased GFR 90 2 Kidney damage with mild decrease in GFR 60-89 3 Moderate decrease in GFR 30-59 4 Severe decrease in GFR 15-29 5 Kidney failure <15 (or dialysis) 2 SEE RESULT BELOW Name: CONCHIS GARCIA : [address]: Magda Claudio MD Acct: [id number] Unit: [id number] AGE: 67 Location: OR Re09/04/17 SEX: F Status: [facility] SPEC: [id number] BECCA: 09/04/17-[address]: Magda Claudio MD REQ: [id number] RECD: 09/04/17-1620 STATUS: SOUT _ ORDERED: FNA-IMG GUID BX/4, CY ADEQ-ADDL P/7, LEVEL 4/4, CYTO ADEQ-1ST P/4 FINAL DIAGNOSIS 1. Lymph node, L4, Endobronchial ultrasound-guided fine needle aspiration: --Benign bronchial epithelium and lymphoid tissue. --No evidence of metastatic malignancy identified. 2. Lymph node, R4, Endobronchial ultrasound-guided fine needle aspiration: --Benign bronchial epithelium and lymphoid tissue. --No evidence of metastatic malignancy identified. 3. Lymph node, R10, Endobronchial ultrasound-guided fine needle aspiration: --Benign bronchial epithelium and lymphoid tissue. --No evidence of metastatic malignancy identified. 4. Lymph node, R15, Endobronchial ultrasound-guided fine needle aspiration: --Benign bronchial epithelium and lymphoid tissue. --No evidence of metastatic malignancy identified. For parts 1-4, a cell block was prepared in the evaluation of this specimen. Smears and cell block reveal similar findings. #1. LYMPH NODE - L4, ENDOBRONCHIAL US GUIDED FINE NEEDLE ASPIRATION, #2. LYMPH NODE - R4, ENDOBRONCHIAL US GUIDED FINE NEEDLE ASPIRATION, #3. LYMPH NODE - R10, ENDOBRONCHIAL US GUIDED FINE NEEDLE ASPIRATION, #4. LYMPH NODE - R15, ENDOBRONCHIAL US GUIDED FINE NEEDLE ASPIRATION CONTINUED ON NEXT PAGE DEPARTMENT OF PATHOLOGY, [address] [place] [address] Jeramy De Guzman M.D. Director [facility] # [id number] RUN DATE: 09/05/17 [facility] LAB LIVE PAGE 2 Patient: CONCHIS GARCIA [id number] (Continued) CLINICAL HISTORY (Continued) CLINICAL HISTORY Recently dx with lung adenocarcinoma. 1. L4 lymph node. 2. R4 lymph node. 3. R10 lymph node. 4. R15 lymph node. IMMEDIATE INTERPRETATION 1. Pass 1-3 inadequate, pass 4-adequate. 2. Pass 1-adequate, pass 2-inadequate. 3. Pass 1 2-inadequate, pass 3-adequate. 4. Pass 1 4-inadequate, pass 2, 3 5-adequate. 1. GROSS DESCRIPTION 1. Endobronchial ultrasound-guided fine needle aspiration x 4 passes, 7 alcohol fixed slides and needle rinse in formalin for cell block. 2. Endobronchial ultrasound-guided fine needle aspiration x 2 passes, 5 alcohol fixed slides and needle rinse in formalin for cell block. 3. Endobronchial ultrasound-guided fine needle aspiration x 3 passes, 10 alcohol fixed slides, 2 air dried slides and needle rinse in formalin for cell block. 4. Endobronchial ultrasound-guided fine needle aspiration x 5 passes, 14 alcohol fixed slides and needle rinse in formalin for cell block. Signed by and Reported on: Jennifer Davis MD 09/05/17 1544 END OF REPORT DEPARTMENT OF PATHOLOGY, [address] [place] [address] Jeramy De Guzman M.D. Director [facility] # [id number] 3 Hand Expansion Envelope Maker: [id number] 4 SEE RESULT BELOW Name: CONCHIS GARCIA : [address]: Magda Claudio MD Acct: [id number] Unit: [id number] AGE: 67 Location: SP Re08/20/17 SEX: F Status: REG REF SPEC: [id number] BECCA: 08/20/[address] [facility] [address]: Magda Claudio MD REQ: [id number] RECD: 08/20/172 STATUS: ANIL OSBORNE DR: Brayden Mckeon MD _ ORDERED: FNA-IMG GUID BX, LEVEL 4, CYTO ADEQ-1ST P, IMMUNO-FIRST, IMMUNO- ADDL/4, IMMUNO-QUANT Lung Panel with Rearrangement Tumor has been performed at [place], [place]. The testing reveals: Received: 23 Aug 2017 10:37 Reported: 04 Sep 2017 16:30 Result Summary: FUSION IDENTIFIED Result: Provided diagnosis: Lung adenocarcinoma The following fusion was identified: EML4-ALK No additional reportable alterations were identified within the tested genes. Interpretation: See note [1] below. ASSOCIATIONS BETWEEN ALK REARRANGEMENTS AND LUNG CANCER Approximately 5% of patients with non-small cell lung cancer (NSCLC) harbor a somatic EML4-ALK fusion (1). Fusions involving EML4-ALK result in constitutive activation of the ALK oncogene. Current data suggests that NSCLC patients with this gene fusion may respond to ALK tyrosine kinase inhibitor therapies (e.g. Crizotinib or Alectinib) (2,3). REFERENCES 1. [email or web address] 2. N Engl J Med. 2009Feb 16;363(18):1693-703 (PMID 67579491) 3. J Clin Oncol. 2015 Mar 14 (PMID 97770527) ADDITIONAL INFORMATION Microscopic examination was performed by a pathologist to identify areas of tumor for enrichment by macrodissection. Next generation sequencing was performed to test for the presence of a mutation within targeted regions of the following genes: EGFR , BRAF, KRAS, HRAS, NRAS, ALK, ERBB2, and MET (exon 14 skipping mutations only). Next generation sequencing was performed to test for the presence of a rearrangement/fusion involving the ALK, RET, ROS1 or NTRK1 genes. CONTINUED ON NEXT PAGE DEPARTMENT OF PATHOLOGY, [address] [place] [address] Jeramy De Guzman M.D. Director [facility] # [id number] RUN DATE: 09/05/17 [facility] LAB LIVE PAGE 2 Patient: CONCHIS GARCIA [id number] (Continued) ADDENDUM (Continued) Mutation nomenclature is based on build GRCh37 (hg19). Rearrangement nomenclature is based on a custom reference sequence using GRCh37 (hg19). For details about gene reference transcripts (GenBank accession numbers) and additional information about this test, see [email or web address] (Test ID LNGPR). CLINICAL CORRELATIONS Test results should be interpreted in context of clinical findings, tumor sampling, histopathology, and other laboratory data. If results obtained do not match other clinical or laboratory findings, please contact the laboratory for possible interpretation. Misinterpretation of results may occur if the information provided is inaccurate or incomplete. This test cannot differentiate between somatic and germline alterations. Additional testing may be necessary to clarify the significance of results if there is a potential hereditary risk. The presence or absence of a mutation or fusion may not be predictive of response to therapy in all patients. TECHNICAL LIMITATIONS This test does not detect large insertions, deletions, or duplications or genomic copy number variants (such as amplification). This assay has been shown to detect >99% of single base substitutions and >99 % of deletions/insertions (up to 50 bp) at >5% allele frequency, respectively. A negative (wild type) result does not rule out the presence of a mutation or rearrangement resulting in a targeted fusion that may be present but below the limits of detection of this assay. The analytical sensitivity of this assay is 5% with a minimum coverage of 100X for mutations and 5% with a minimum of 30 targeted fusion reads for fusions. Rare polymorphisms may be present that could lead to false negative or false positive results. Additional Information: CLINICAL TRIALS Possible clinical trials of benefit for this patient can befound at the following sites: 1) ClinicalTrials.gov: www.clinicaltrials.gov/ct2/search/advanced 2) [facility]: www.[facility]/research/clinical-trials/ 3) National Cancer Langtry: www.cancer.gov/clinicaltrials/search Specimen: Cells CONTINUED ON NEXT PAGE DEPARTMENT OF PATHOLOGY, [address] [place] [address] Jeramy De Guzman M.D. Director [facility] # [id number] RUN DATE: 09/05/17 [facility] LAB LIVE PAGE 3 Patient: CONCHIS GARCIA [id number] (Continued) ADDENDUM (Continued) Tissue ID: [id number] Released By: Dimitri Jimenez, Ph.D. [id number] Laboratory Notes: 1. This test was developed and its performance characteristics determined by [facility] in a manner consistent with CLIA requirements. This test has not been cleared or approved by the U.S. Food and Drug Administration. [address] [address] Addendum Signed (signature on file) Jennifer Davis MD 0934 Addendum: The following immunochemical stains were performed with appropriate controls on formalin fixed cell block material CK7 positive CK20 weak focal positive TTF-1 strong positive Napsin A positive PDL 1 negative (0+ tumor, less than 10% lymphocytes ALK strong positive Gene sequencing studies for additional genetic abnormalities on air dried material is pending and will be reported in a separate addendum. Addendum Signed (signature on file) Jeramy De Guzman MD 1032 FINAL DIAGNOSIS Lung, right lower lobe, ultrasound-guided fine needle aspiration: -- Adenocarcinoma, well to moderately CONTINUED ON NEXT PAGE DEPARTMENT OF PATHOLOGY, [address] [place] [address] Jeramy De Guzman M.D. Director [facility] # [id number] RUN DATE: 09/05/17 [facility] LAB LIVE PAGE 4 Patient: CONCHIS GARCIA [id number] (Continued) FINAL DIAGNOSIS (Continued) differentiated; see comment. COMMENT: Immunohistochemical stains and molecular studies are pending and the results will be reported in addenda. Dr. De Guzman reviewed this case in intradepartmental consultation and agrees with the diagnosis. LUNG RIGHT - US GUIDED RIGHT LUNG FINE NEEDLE ASPIRATION CLINICAL HISTORY Right lower lobe lung nodule. IMMEDIATE INTERPRETATION Pass 1, and 2-adequate GROSS DESCRIPTION Ultrasound guided, fine needle aspiration x 2 passes with 1 Alcohol fixed slide(s), 6 Air dried slide(s) and needle rinse in formalin for cell block. Signed by and Reported on: Jennifer Davis MD 08/21/17 1109 END OF REPORT DEPARTMENT OF PATHOLOGY, [address] [place] [address] Jeramy De Guzman M.D. Director [facility] # [id number] 5 FUSION IDENTIFIED 6 Provided diagnosis: Lung adenocarcinoma The following fusion was identified: EML4-ALK No additional reportable alterations were identified within the tested genes. 7 ASSOCIATIONS BETWEEN ALK REARRANGEMENTS AND LUNG CANCER Approximately 5% of patients with non-small cell lung cancer (NSCLC) harbor a somatic EML4-ALK fusion (1). Fusions involving EML4-ALK result in constitutive activation of the ALK oncogene. Current data suggests that NSCLC patients with this gene fusion may respond to ALK tyrosine kinase inhibitor therapies (e.g. Crizotinib or Alectinib) (2,3). REFERENCES 1. [email or web address] 2. N Engl J Med. 2010 Feb 16;363(18):1693-703 (PMID 58580161) 3. J Clin Oncol. 2015 Mar 14 (PMID 20358578) ADDITIONAL INFORMATION Microscopic examination was performed by a pathologist to identify areas of tumor for enrichment by macrodissection. Next generation sequencing was performed to test for the presence of a mutation within targeted regions of the following genes: EGFR, BRAF, KRAS, HRAS, NRAS, ALK, ERBB2, and MET (exon 14 skipping mutations only). Next generation sequencing was performed to test for the presence of a rearrangement/fusion involving the ALK, RET, ROS1 or NTRK1 genes. Mutation nomenclature is based on build GRCh37 (hg19). Rearrangement nomenclature is based on a custom reference sequence using GRCh37 (hg19). For details about gene reference transcripts (GenBank accession numbers) and additional information about this test, see [email or web address] (Test ID LNGPR). CLINICAL CORRELATIONS Test results should be interpreted in context of clinical findings, tumor sampling, histopathology, and other laboratory data. If results obtained do not match other clinical or laboratory findings, please contact the laboratory for possible interpretation. Misinterpretation of results may occur if the information provided is inaccurate or incomplete. This test cannot differentiate between somatic and germline alterations. Additional testing may be necessary to clarify the significance of results if there is a potential hereditary risk. The presence or absence of a mutation or fusion may not be predictive of response to therapy in all patients. TECHNICAL LIMITATIONS This test does not detect large insertions, deletions, or duplications or genomic copy number variants (such as amplification). This assay has been shown to detect >99% of single base substitutions and >99% of deletions/insertions (up to 50 bp) at >5% allele frequency, respectively. A negative (wild type) result does not rule out the presence of a mutation or rearrangement resulting in a targeted fusion that may be present but below the limits of detection of this assay. The analytical sensitivity of this assay is 5% with a minimum coverage of 100X for mutations and 5% with a minimum of 30 targeted fusion reads for fusions. Rare polymorphisms may be present that could lead to false negative or false positive results. TEST CLASSIFICATION This test was developed and its performance characteristics determined by [facility] in a manner consistent with CLIA requirements. This test has not been cleared or approved by the U.S. Food and Drug Administration. 8 CLINICAL TRIALS Possible clinical trials of benefit for this patient can be found at the following sites: 1) ClinicalTrials.gov: www.clinicaltrials.gov/ct2/search/advanced 2) [facility]: www.[facility]/research/clinical-trials/ 3) National Cancer Langtry: www.cancer.gov/clinicaltrials/search 9 RESULT: Dimitri Jimenez, Ph.D. [phone] Test Performed by: [address] [address] Procedures Date CPT Code Description Status 10/24/2017 29545 Lymphadenectomy Thoracic Regional Completed 10/24/2017 19295 Lymphadenectomy Thoracic Regional Completed 10/24/2017 54226 Tube,Thoracostomy,Incl Water S Completed 10/24/2017 51566 Remove Lung, Lobectomy Completed 10/24/2017 92807 Remove Lung, Lobectomy Completed 10/24/2017 11843 bronchoscopy (hospital service) Completed 09/20/2017 65622 Diffusing Capacity Completed 09/20/2017 54185 Plethysmography Determination Lung Volumes & Per Airway Completed Resist 09/20/2017 96812 Pulmonary Function><Bronchodil Completed 09/04/2017 57201 Endobronchial Ultrasound=>3 Completed 08/30/2016 82754 Stress Test Completed 08/30/2016 36324 Myocardial Perfusion Imaging Tomographic (Spect) Completed Multiple Studies 08/23/2016 83918 ECHO Transthoracic, Real-Time 2D With Doppler And Color Completed Flow 08/20/2016 97230 EKG Tracing & Interpretation Completed Encounters Type Date Location Provider CPT E/M Dx Office Visit 09/27/2017 [facility], [address] C34.90 10:00a Health Science Specialist M.Salud Office Visit 09/13/2017 [facility] [place] [address] C34.90 11:45a [facility] E66.09 Office Visit 08/23/2017 7:15a [facility] [place] [address] [facility] Office Visit 08/08/2017 8:30a [facility] [place] [address] [facility] J98.4 E66.09 Z68.38 Office Visit 09/03/2016 1:00p [facility] Mukulmarielena Stone, [address] I10 M.DPepe E66.9 I35.1 I34.0 Office Visit 08/20/2016 10:20a [facility] Mukulmarielena Stone, [address]1885 R07.9 M.D. I10 E66.9 R60.9 Z86.73 E11.9 R94.31 Z68.37 Office Visit 07/12/2014 10:00a [facility], [address]76 715.16 C.MVel King Office Visit 09/08/2008 2:30a [facility], Adarsh Leblanc [address]84 786.50 Hospitalists Christine Office Visit 09/07/2008 3:30a [facility], Adarsh Leblanc [address]23 786.50 Hospitalists Christine Plan of Care Future Appointment(s):11/12/2017 10:15 am - Tung Oscar M.D. at [facility]11/05/2017 - Tung Oscar M.D.C34.31 Malignant neoplasm of lower lobe, right bronchus or lungNew Medication:Hydrocodone-Acetaminophen 5- 325 mgNew Labs:Wound Culture/SensiFollow up:7-10 days
--- OUTSIDE RECORDS SUMMARY | 2017-11-06 15:15 | XMS REPORT ---
:1950 External Reference #:[id number] Author Organization [facility] Address [address] [place] [address] [place] [address] Phone [phone] Care Team Providers Name Role Phone Oneida Nieves MD Primary Care Physician Unavailable Payers Type Date Identification Numbers Payment Provider Subscriber Commercial Effective: Policy Number: [id number] [employer] Conchis Garcia 2008 Medicaid Expires: 2016 PayID: [id number] [address] [address] [place] [address] Medigap Part B Policy Number: [id number] Medicare Conchis Garcia PayID: [id number] [address] [place] [address] Medigap Part B Policy Number: [id number] Medicaid Conchis Garcia Group Name: 1 1 [address] PayID: [id number] [place] [address] Problems Description No Information Family History Date [...] Form Strength Qnty SIG Indications Ordering Provider Tramadol HCL Active Tablets 50mg four Unknown [...] Hyoscyamine Sulfate Hx Tablets 0.125mg by mouth Unknown /0000 three - times a 08/19 day needed Ibuprofen Hx Tablets 600mg prn /0000 - 08/07 Vitamin D-1000 Hx Tablets 1000Unit 2 by Unknown Maximum Strength /0000 mouth - every day 08/19 Nitroglycerin Hx Patches 0.4mg/HR place one Unknown /0000 24HR patch in - the 08/19 and remove at night after 12 hours Symbicort Hx Aerosol 160-4.5mc 2 puff Unknown /0000 g/Act twice a day Medications Administered in Office Medication Date Status Form Strength Qnty SIG Indications Ordering Provider Inj, Administered Injection Frankie Mays M.D. 0.1 MG Technetium TC Administered Injection You Ace 017 Christine Mullins Tetrofosmin, Per Unit Dose Up To 40 Millicuries Vital Signs Date Vital Result Comment 10/09/2017 Height 62 inches 5'2" Weight 207.00 [...] Test Date Test Result H/L Range Note Laboratory test 09/04/2017 Cytology Non-Low Pressure Boiler Operator SEE RESULT BELOW 1 finding Laboratory test 08/28/2017 Point of Care 139 mg/dL High 70-100 2 finding Glucose Laboratory test 08/20/2017 Cytology Non-Low Pressure Boiler Operator SEE RESULT BELOW 3 finding Lung Cancer Targeted 08/20/2017 LNGPR Result FUSION IDENTIFIE 4 Gene Panel Summary <SEE NOTE> LNGPR Result See Comment 5 LNGPR Interpretation See Comment 6 LNGPR Additional Information See Comment 7 LNGPR Specimen Cells LNGPR Tissue Id [id number] LNGPR Released By See Comment 8 Platelet Count 08/20/2017 Platelet Count 200 10^3/uL 150-450 Mean Platelet Volume 9.0 um3 7.4-10.4 Inr/Protime 08/20/2017 Inr 0.91 0.77-1.02 Laboratory test finding 08/20/2017 Partial Thrombo Time 31.6 seconds 26.0 -36.3 PTT Platelet Count 08/09/2017 Platelet Count 241 10^3/uL 150-450 Mean Platelet Volume 9.2 um3 7.4-10.4 Inr/Protime 08/09/2017 Inr 0.95 0.77-1.02 1 SEE RESULT BELOW Name: CONCHIS GARCIA : [address]: Magda Claudio MD Acct: [id number] Unit: [id number] AGE: 67 Location: OR Re09/04/17 SEX: F Status: [facility] SPEC: [id number] BECCA: 09/04/17-1350 [facility] DR: Magda Claudio MD REQ: [id number] RECD: 09/04/17-1621 STATUS: SOUT _ ORDERED: FNA-IMG GUID BX/4, [...] CONTINUED ON NEXT PAGE DEPARTMENT OF PATHOLOGY, [address] [place] [address] Jeramy De Guzman M.D. Director [place] # [id number] RUN DATE: 09/05/17 [facility] LAB LIVE PAGE 2 Patient: CONCHIS GARCIA [id number] (Continued) CLINICAL HISTORY (Continued) CLINICAL HISTORY Recently [...] 1544 END OF REPORT DEPARTMENT OF PATHOLOGY, [address] [place] [address] Jeramy De Guzman M.D. Director [place] # [id number] 2 Marine Welder: [id number] 3 SEE RESULT BELOW Name: CONCHIS GARCIA : [address]: Magda Claudio MD Acct: [id number] Unit: [id number] AGE: 67 Location: Re08/20/17 SEX: F Status: REG REF SPEC: [id number] BECCA: 08/20/17-1320 [facility] DR: Magda Claudio MD REQ: [id number] RECD: 08/20/173017 STATUS: ANIL OSBORNE DR: Brayden Mckeon MD _ ORDERED: FNA-IMG GUID BX, LEVEL 4, CYTO ADEQ-1ST P, IMMUNO-FIRST, IMMUNO- ADDL/4, IMMUNO-QUANT Lung Panel with Rearrangement Tumor has been performed at [facility], [place], [place]. The testing reveals: Received: 23 Aug [...] N Engl J Med. 2009Feb 16;363(18):1693-703 (PMID 25818432) 3. J Clin Oncol. 2015 Mar 14 (PMID 31370605) ADDITIONAL INFORMATION Microscopic examination was performed by [...] CONTINUED ON NEXT PAGE DEPARTMENT OF PATHOLOGY, [address] [place] [address] Jeramy De Guzman M.D. Director [facility] # [id number] RUN DATE: 09/05/17 [facility] LAB LIVE PAGE 2 Patient: CONCHIS GARCIA [id number] (Continued) ADDENDUM (Continued) Mutation nomenclature is based on build GRCh37 (hg19). Rearrangement nomenclature is based on a custom reference sequence using GRCh37 (hg19). For details about gene reference transcripts (GenBank accession numbers) and additional information about this test, see [email or web address] (Test ID LNGPR). CLINICAL CORRELATIONS Test results [...] the following sites: 1) ClinicalTrials.gov: www.clinicaltrials.gov/ct2/search/advanced 2) [facility]: www.[facility]/research/clinical-trials/ 3) National Cancer [place]: www.cancer.gov/clinicaltrials/search Specimen: Cells CONTINUED ON NEXT PAGE DEPARTMENT OF PATHOLOGY, [address] [place] [address] Jeramy De Guzman M.D. Director [place] # [id number] RUN DATE: 09/05/17 [facility] LAB LIVE PAGE 3 Patient: JOHNCONCHIS [id number] (Continued) ADDENDUM (Continued) Tissue ID: [id number] Released By: Dimitri Jimenez, Ph.D. [id number] Laboratory Notes: 1. This test was developed and its performance characteristics determined by [facility] in a manner consistent with CLIA requirements. This test has not been cleared or approved by the U.S. Food and Drug Administration. [facility] - [address] [address] Addendum Signed (signature on file) Jennifer Davis [...] CONTINUED ON NEXT PAGE DEPARTMENT OF PATHOLOGY, [address] [place] [address] Jeramy De Guzman M.D. Director CLIA # [id number] RUN DATE: 09/05/17 [facility] LAB LIVE PAGE 4 Patient: CONCHIS GARCIA [id number] (Continued) FINAL DIAGNOSIS (Continued) differentiated; see comment. [...] 1109 END OF REPORT DEPARTMENT OF PATHOLOGY, [address] [place] [address] Jeramy De Guzman M.D. Director [facility] # [id number] 4 FUSION IDENTIFIED 5 Provided diagnosis: Lung adenocarcinoma The following fusion was identified: EML4-ALK No additional reportable alterations were identified within the tested genes. 6 ASSOCIATIONS BETWEEN ALK REARRANGEMENTS AND LUNG CANCER [...] N Engl J Med. 2009Feb 16;363(18):1693-703 (PMID 20189355) 3. J Clin Oncol. 2015 Mar 14 (PMID 05147456) ADDITIONAL INFORMATION Microscopic examination was performed by [...] and additional information about this test, see www.[email or web address] (Test ID LNGPR). CLINICAL CORRELATIONS Test results [...] developed and its performance characteristics determined by [facility] in a manner consistent with CLIA requirements. This test has not been cleared or approved by the U.S. Food and Drug Administration. 7 CLINICAL TRIALS Possible clinical trials of benefit for this patient can be found at the following sites: 1) ClinicalTrials.gov: www.clinicaltrials.gov/ct2/search/advanced 2) [facility]: www.[facility]/research/clinical-trials/ 3) National Cancer [place]: www.cancer.gov/clinicaltrials/search 8 RESULT: Dimitri Jimenez, Ph.D. [id number] Test Performed by: [address] [address] Procedures Date CPT Code Description Status 09/20/2017 16983 Diffusing Capacity Completed 09/20/2017 91788 Plethysmography Determination Lung Volumes & Per Airway Completed Resist 09/20/2017 25975 Pulmonary Function><Bronchodil Completed 09/04/2017 40471 Endobronchial Ultrasound=>3 Completed 08/30/2016 68244 Stress Test Completed 08/30/2016 57744 Myocardial Perfusion Imaging Tomographic (Spect) Completed Multiple Studies 08/23/2016 70654 ECHO Transthoracic, Real-Time 2D With Doppler And Color Completed Flow 08/20/2016 66557 EKG Tracing & Interpretation Completed Encounters Type Date Location Provider CPT E/M Dx Office Visit 09/27/2017 [facility], [address] C34.90 10:00a Ganga King Office Visit 09/13/2017 [facility] [address] C34.90 11:45a [facility] It Network Architect E66.09 Office Visit 08/23/2017 7:15a [facility] [place] [address] C34.90 [facility] Architect Office Visit 08/08/2017 8:30a [facility] [address] R05 [facility] [address] J98.4 E66.09 Z68.38 Office Visit 09/03/2016 1:00p [facility] Marissa Stone, [address] I10 M.D. E66.9 I35.1 I34.0 Office Visit 08/20/2016 10:20a [facility] Marissa Stone, [address] R07.9 M.D. I10 E66.9 R60.9 Z86.73 E11.9 R94.31 Z68.37 Office Visit 07/12/2014 10:00a [facility], [address] 715.16 CVeronica King Office Visit 09/08/2008 2:30a [facility], Adarsh Leblanc, [address] 786.50 Hospitalists Christine Office Visit 09/07/2008 3:30a [facility], Adarsh Leblanc, [address] 786.50 Hospitalists Christine Plan of Care Future Appointment(s):10/24/2017 12:30 pm - Doreen Rodriges NP at [facility] [address]10/24/2017 12:30 pm - Tung Oscar M.D. at [facility] [address]10/09/2017 - Doreen Rodriges, NPC34.90 Malignant neoplasm of unsp part of unsp bronchus or lungFollow up:AFTER DISCH FROM [facility].818 Encounter for other preprocedural examination
--- OUTSIDE RECORDS SUMMARY | 2017-11-06 15:15 | XMS REPORT ---
:1950 External Reference #:[id number] Author Organization [facility] Address [address] [place] [address] [place] [address] Phone [phone] Care Team Providers Name Role Phone Oneida Nieves MD Primary Care Physician Unavailable Payers Type Date Identification Numbers Payment Provider Subscriber Commercial Effective: Policy Number: [id number] [employer] Conchis Garcia 2008 Medicaid Expires: 2016 PayID: [id number] [address] [address] [place] [address] Medigap Part B Policy Number: [id number] Medicare Conchis Garcia PayID: [id number] [address] [place] [address] Medigap Part B Policy Number: [id number] Medicaid Conchis Garcia Group Name: 1 1 [address] PayID: [id number] [place] [address] Problems Description No Information Family History Date [...] Antibody Screen NEGATIVE Laboratory test 09/04/2017 Cytology Non-Hospital Wellness Coordinator SEE RESULT BELOW 2 finding Laboratory test 08/28/2017 Point of Care 139 mg/dL High 70-100 3 finding Glucose Laboratory test 08/20/2017 Cytology Non-Hospital Wellness Coordinator SEE RESULT BELOW 4 finding Lung Cancer Targeted 08/20/2017 LNGPR Result FUSION IDENTIFIE 5 Gene Panel Summary <SEE NOTE> LNGPR Result See Comment 6 LNGPR Interpretation See Comment 7 LNGPR Additional Information See Comment 8 LNGPR Specimen Cells LNGPR Tissue Id [id number] LNGPR Released By See Comment 9 Platelet [...] [address]: Magda Claudio MD Acct: [id number] Unit: [id number] AGE: 67 Location: OR Re09/04/17 SEX: F Status: [facility] SPEC: [id number] BECCA: 09/04/17-[address]: Magda Claudio MD REQ: [id number] RECD: 09/04/17-1621 STATUS: SOUT _ ORDERED: FNA-IMG [...] CONTINUED ON NEXT PAGE DEPARTMENT OF PATHOLOGY, [address] [place] [address] Jeramy De Guzman M.D. Director [place] # [id number] RUN DATE: 09/05/17 [facility] LAB LIVE PAGE 2 Patient: CONCHIS GARCIA [id number] (Continued) CLINICAL HISTORY (Continued) CLINICAL HISTORY Recently [...] and Reported on: Jennifer Davis MD 09/05/17 0080 END OF REPORT DEPARTMENT OF PATHOLOGY, [address] [place] [address] Jeramy De Guzman M.D. Director [facility] # [id number] 3 Manager Fleet: [id number] 4 SEE RESULT BELOW Name: CONCHIS GARCIA : [address]: Magda Claudio MD Acct: [id number] Unit: [id number] AGE: 67 Location: Re08/20/17 SEX: F Status: REG REF SPEC: [id number] BECCA: 08/20/17-[address]: Magda Claudio MD REQ: [id number] RECD: 08/20/17-4948 STATUS: ANIL OSBORNE DR: Brayden Mckeon MD _ ORDERED: FNA-IMG GUID BX, LEVEL 4, CYTO ADEQ-1ST P, IMMUNO-FIRST, IMMUNO- ADDL/4, IMMUNO-QUANT Lung Panel with Rearrangement Tumor has been performed at [place], [place]. The testing reveals: Received: 23 Aug [...] N Engl J Med. 2009Feb 16;363(18):1693-703 (PMID 14885014) 3. J Clin Oncol. 2015 Mar 14 (PMID 16865010) ADDITIONAL INFORMATION Microscopic examination was performed by [...] CONTINUED ON NEXT PAGE DEPARTMENT OF PATHOLOGY, [address] [place] [address] Jeramy De Guzman M.D. Director [facility] # [id number] RUN DATE: 09/05/17 [facility] LAB LIVE PAGE 2 Patient: CONCHIS GARCIA [id number] (Continued) ADDENDUM (Continued) Mutation nomenclature is based on build GRCh37 (hg19). Rearrangement nomenclature is based on a custom reference sequence using GRCh37 (hg19). For details about gene reference transcripts (GenBank accession numbers) and additional information about this test, see www.north country [email or web address].[employer]heuresavant (Test ID LNGPR). CLINICAL CORRELATIONS Test results [...] the following sites: 1) ClinicalTrials.gov: www.clinicaltrials.gov/ct2/search/advanced 2) [facility]: www.[place].[facility]/research/clinical-trials/ 3) National Cancer [place]: www.cancer.gov/clinicaltrials/search Specimen: Cells CONTINUED ON NEXT PAGE DEPARTMENT OF PATHOLOGY, [address] [place] [address] Jeramy De Guzman M.D. Director [facility] # [id number] RUN DATE: 09/05/17 [facility] LAB LIVE PAGE 3 Patient: CONCHIS GARCIA [id number] (Continued) ADDENDUM (Continued) Tissue ID: [id number] Released By: Dimitri Jimenez, Ph.D. [id number] Laboratory Notes: 1. This test was developed and its performance characteristics determined by [facility] in a manner consistent with CLIA requirements. This test has not been cleared or approved by the U.S. Food and Drug Administration. [address] [address] Addendum Signed (signature on file) Jennifer Davis [...] CONTINUED ON NEXT PAGE DEPARTMENT OF PATHOLOGY, [address] [place] [address] Jeramy De Guzman M.D. Director [facility] # [id number] RUN DATE: 09/05/17 [facility] LAB LIVE PAGE 4 Patient: CONCHIS GARCIA [id number] (Continued) FINAL DIAGNOSIS (Continued) differentiated; see comment. [...] 1109 END OF REPORT DEPARTMENT OF PATHOLOGY, [address] [place] [address] Jeramy De Guzman M.D. Director [facility] # [id number] 5 FUSION IDENTIFIED 6 Provided diagnosis: Lung [...] cancer.anisha.ac.uk/cancergenome/[email or web address]/[email or web address]/ 2. N Engl J Med. 2009Feb 16;363(80):7395-852 (PMID 56721893) 3. J Clin Oncol. 2015 Mar 14 (PMID 29006199) ADDITIONAL INFORMATION Microscopic examination was performed by [...] and additional information about this test, see www.[email or web address] [email or web address].[employer]heuresavant (Test ID LNGPR). CLINICAL CORRELATIONS Test results [...] developed and its performance characteristics determined by [facility] in a manner consistent with CLIA requirements. This test has not been cleared or approved by the U.S. Food and Drug Administration. 8 CLINICAL TRIALS Possible clinical trials of benefit for this patient can be found at the following sites: 1) ClinicalTrials.gov: www.clinicaltrials.gov/ct2/search/advanced 2) [facility]: www.[facility]/research/clinical-trials/ 3) National Cancer [place]: www.cancer.gov/clinicaltrials/search 9 RESULT: Dimitri Jimenez, Ph.D. [phone] Test Performed by: [address] [address] Procedures Date CPT Code Description Status 09/20/2017 92961 Diffusing Capacity Completed 09/20/2017 92568 Plethysmography Determination Lung Volumes & Per Airway Completed Resist 09/20/2017 45234 Pulmonary Function><Bronchodil Completed 09/04/2017 36881 Endobronchial Ultrasound=>3 Completed 08/30/2016 05682 Stress Test Completed 08/30/2016 32887 Myocardial Perfusion Imaging Tomographic (Spect) Completed Multiple Studies 08/23/2016 87018 ECHO Transthoracic, Real-Time 2D With Doppler And Color Completed Flow 08/20/2016 69917 EKG Tracing & Interpretation Completed Encounters Type Date Location Provider CPT E/M Dx Office Visit 09/27/2017 [facility], [address] C34.90 10:00a Ganga M.Salud Office Visit 09/13/2017 [facility] [place] [address] C34.90 11:45a [facility] Home Service Advisor E66.09 Office Visit 08/23/2017 7:15a [facility] [place] [address] C34.90 [facility] Home Service Advisor Office Visit 08/08/2017 8:30a [facility] [place] [address] R05 [facility] J98.4 E66.09 Z68.38 Office Visit 09/03/2016 1:00p [facility] M[facility] Jennifer, [address] I10 M.D. E66.9 I35.1 I34.0 Office Visit 08/20/2016 10:20a [facility] MookiePepe Garciastasmartha, [address] R07.9 M.D. I10 E66.9 R60.9 Z86.73 E11.9 R94.31 Z68.37 Office Visit 07/12/2014 10:00a [facility] Luc[facility], [address] 715.16 C.M.APepe King Office Visit 09/08/2008 2:30a [facility] Adarsh Leblanc, [address] 786.50 Hospitalists MShaw Office Visit 09/07/2008 3:30a [facility], Adarsh Leblanc, [address] 786.50 Hospitalists MPepeDPepe Plan of Care Future Appointment(s):10/24/2017 12:30 pm - Doreen Rodriges NP at [facility]10/24/2017 12:30 pm - Tung Oscar M.D. at [facility]10/09/2017 - Doreen Rodriges, NPC34.90 Malignant neoplasm of unsp part of unsp bronchus or lungFollow up:AFTER DISCH FROM [facility].818 Encounter for other preprocedural examination
--- OUTSIDE RECORDS SUMMARY | 2017-11-06 15:15 | XMS REPORT ---
:1950 External Reference #:[id number] Author Organization [facility] Address [address] [place] [address] [place] [address] Phone [phone] Care Team Providers Name Role Phone Oneida Nieves MD Primary Care Physician Unavailable Payers Type Date Identification Numbers Payment Provider Subscriber Commercial Effective: Policy Number: [id number] [employer] Conchis Garcia 2008 Medicaid Expires: 2016 PayID: [id number] [address] [address] [place] [address] Medigap Part B Policy Number: [id number] Medicare Conchis Garcia PayID: [id number] [address] [place] [address] Medigap Part B Policy Number: [id number] Medicaid Conchis Garcia Group Name: 1 1 [address] PayID: [id number] [place] [address] Problems Description No Information Family History Date [...] Antibody Screen NEGATIVE Laboratory test 09/04/2017 Cytology Non-Citrix Lead SEE RESULT BELOW 2 finding Laboratory test 08/28/2017 Point of Care 139 mg/dL High 70-100 3 finding Glucose Laboratory test 08/20/2017 Cytology Non-Citrix Lead SEE RESULT BELOW 4 finding Lung Cancer Targeted 08/20/2017 LNGPR Result FUSION IDENTIFIE 5 Gene Panel Summary <SEE NOTE> LNGPR Result See Comment 6 LNGPR Interpretation See Comment 7 LNGPR Additional Information See Comment 8 LNGPR Specimen Cells LNGPR Tissue Id [id number] LNGPR Released By See Comment 9 Platelet [...] [address]: Magda Claudio MD Acct: [id number] Unit: [id number] AGE: 67 Location: OR Re09/04/17 SEX: F Status: DEP [facility] SPEC: [id number] BECCA: 09/04/17-[address]: Magda Claudio MD REQ: [id number] RECD: 09/04/17-1621 STATUS: SOUT _ ORDERED: FNA-IMG [...] CONTINUED ON NEXT PAGE DEPARTMENT OF PATHOLOGY, [address] [place] [address] Jeramy De Guzman M.D. Director [facility] # [id number] RUN DATE: 09/05/17 [facility] LAB LIVE PAGE 2 Patient: CONCHIS GARCIA [id number] (Continued) CLINICAL HISTORY (Continued) CLINICAL HISTORY Recently [...] and Reported on: Jennifer Davis MD 09/05/17 0487 END OF REPORT DEPARTMENT OF PATHOLOGY, [address] [place] [address] Jeramy De Guzman M.D. Director [facility] # [id number] 3 Dialysis Biomed Technician: [id number] SEE RESULT BELOW Name: CONCHIS GARCIA : [address]: Magda Claudio MD Acct: [id number] Unit: [id number] AGE: 67 Location: Re08/20/17 SEX: F Status: REG REF SPEC: [id number] BECCA: 08/20/17-[address]: Magda Claudio MD REQ: [id number] RECD: 08/20/17-8118 STATUS: ANIL OSBORNE DR: Brayden Mckeon MD _ ORDERED: FNA-IMG GUID BX, LEVEL 4, CYTO ADEQ-1ST P, IMMUNO-FIRST, IMMUNO- ADDL/4, IMMUNO-QUANT Lung Panel with Rearrangement Tumor has been performed at [place], [place]. The testing reveals: Received: 23 Aug [...] N Engl J Med. 2009Feb 16;363(18):1693-703 (PMID [id number]) 3. J Clin Oncol. 2015 Mar 14 (PMID [id number]) ADDITIONAL INFORMATION Microscopic examination was performed by [...] CONTINUED ON NEXT PAGE DEPARTMENT OF PATHOLOGY, [address] [place] [address] Jeramy De Guzman M.D. Director [facility] # [id number] RUN DATE: 09/05/17 [facility] LAB LIVE PAGE 2 Patient: CONCHIS GARCIA [id number] (Continued) ADDENDUM (Continued) Mutation nomenclature is based on build GRCh37 (hg19). Rearrangement nomenclature is based on a custom reference sequence using GRCh37 (hg19). For details about gene reference transcripts (GenBank accession numbers) and additional information about this test, see [email or web address] [email or web address] (Test ID LNGPR). CLINICAL CORRELATIONS Test results [...] the following sites: 1) ClinicalTrials.gov: www.clinicaltrials.gov/ct2/search/advanced 2) [facility]: www.[email or web address]/research/clinical-trials/ 3) [facility] [place]: www.cancer.gov/clinicaltrials/search Specimen: Cells CONTINUED ON NEXT PAGE DEPARTMENT OF PATHOLOGY, [address] [place] [address] Jeramy De Guzman M.D. Director [facility] # [id number] RUN DATE: 09/05/17 [facility] LAB LIVE PAGE 3 Patient: CONCHIS GARCIA [id number] (Continued) ADDENDUM (Continued) Tissue ID: [id number] Released By: Dimitri Jimenez, Ph.D. [id number] Laboratory Notes: 1. This test was developed and its performance characteristics determined by [facility] in a manner consistent with CLIA requirements. This test has not been cleared or approved by the U.S. Food and Drug Administration. [address] [address] Addendum Signed (signature on file) Jennifer Davis [...] separate addendum. 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 Director [facility] # [id number] RUN DATE: 09/05/17 [facility] LAB LIVE PAGE 4 Patient: CONCHIS GARCIA [id number] (Continued) FINAL DIAGNOSIS (Continued) differentiated; see comment. [...] 1109 END OF REPORT DEPARTMENT OF PATHOLOGY, [address] [place] [address] Jeramy De Guzman M.D. Director [facility] # [id number] 5 FUSION IDENTIFIED 6 Provided diagnosis: Lung [...] [email or web address]/ 2. N Engl J Med. 2009Feb 16;363(26):1081-421 (PMID [id number]) 3. J Clin Oncol. 2015 Mar 14 (PMID [id number]) ADDITIONAL INFORMATION Microscopic examination was performed by [...] and additional information about this test, see www.[email or web address] (Test ID LNGPR). CLINICAL CORRELATIONS Test results [...] developed and its performance characteristics determined by [facility] in a manner consistent with CLIA requirements. This test has not been cleared or approved by the U.S. Food and Drug Administration. 8 CLINICAL TRIALS Possible clinical trials of benefit for this patient can be found at the following sites: 1) ClinicalTrials.gov: www.clinicaltrials.gov/ct2/search/advanced 2) [facility]: www.[facility]/research/clinical-trials/ 3) [facility] [place]: www.cancer.gov/clinicaltrials/search 9 RESULT: Dimitri Jimenez, Ph.D. [phone] Test Performed by: [address] [address] Procedures Date CPT Code Description Status 09/20/2017 49605 Diffusing Capacity Completed 09/20/2017 20853 Plethysmography Determination Lung Volumes & Per Airway Completed Resist 09/20/2017 19055 Pulmonary Function><Bronchodil Completed 09/04/2017 88487 Endobronchial Ultrasound=>3 Completed 08/30/2016 84920 Stress Test Completed 08/30/2016 74292 Myocardial Perfusion Imaging Tomographic (Spect) Completed Multiple Studies 08/23/2016 75587 ECHO Transthoracic, Real-Time 2D With Doppler And Color Completed Flow 08/20/2016 51430 EKG Tracing & Interpretation Completed Encounters Type Date Location Provider CPT E/M Dx Office Visit 09/27/2017 [facility], [address] C34.90 10:00a [facility] M.Salud Office Visit 09/13/2017 [facility] [place] [address] C34.90 11:45a [facility] E66.09 Office Visit 08/23/2017 7:15a [facility] [place] [address] C34.90 [facility] Office Visit 08/08/2017 8:30a [facility] [place] [address] R05 [facility] J98.4 E66.09 Z68.38 Office Visit 09/03/2016 1:00p [facility] Mukulmarielena Stone, [address] I10 M.D. E66.9 I35.1 I34.0 Office Visit 08/20/2016 10:20a [facility] Mukulmarielena Stone, [address]001 R07.9 M.D. I10 E66.9 R60.9 Z86.73 E11.9 R94.31 Z68.37 Office Visit 07/12/2014 10:00a [facility], [address] 715.16 C.M.APepe King Office Visit 09/08/2008 2:30a [facility], Adarsh Leblanc, [address] 786.50 Hospitalists M.D. Office Visit 09/07/2008 3:30a [facility], Adarsh Leblanc, [address] 786.50 Hospitalists M.DPepe Plan of Care 10/09/2017 - Doreen Rodriges, NPC34.90 Malignant neoplasm of unsp part of unsp bronchus or lungFollow up:AFTER DISCH FROM [facility]01.818 Encounter for other preprocedural examination
[2017-11-06] MEDS ORDERED: Enoxaparin(*) 100 MG/ML SYR SUBCUT ONE (15:37)
--- NOTE | 2017-11-06 15:41 | RAD ---
HISTORY: R/O PE, fever, chills, shortness of breath COMPARISONS: July 11, 2017 TECHNIQUE: Multiple contiguous axial CT scans of the chest were obtained after the administration of nonionic intravenous contrast, timed to the pulmonary arterial phase of contrast enhancement.. Coronal and sagittal multiplanar reformations are also submitted for review. FINDINGS: Evaluation is limited by suboptimal contrast opacification. The study is considered borderline but diagnostic for the detection of pulmonary embolism. NECK AND THYROID: The lower neck and thyroid are unremarkable. CHEST WALL: There is no lower cervical, axillary, or supraclavicular lymphadenopathy by size criteria. HEART AND PERICARDIUM: The heart is unremarkable. AORTA AND PULMONARY VASCULATURE: There are filling defects to the pulmonary arterial segmental branches to the left lower lobe. MEDIASTINUM: There is no mediastinal lymphadenopathy by size criteria. SANJAY: There are mildly enlarged right hilar lymph nodes measuring up to 1.3 cm in short axis. AIRWAY AND ESOPHAGUS: The airway is unremarkable, without endobronchial filling defect. The esophagus is grossly normal. LUNG PARENCHYMA: The lungs are clear. PLEURA: There is a small, loculated right pleural effusion versus lobulated pleural thickening. UPPER ABDOMEN: The upper abdomen is unremarkable. BONES AND SOFT TISSUES: Mild degenerative changes are noted. There is a free-flowing fluid collection with small amount of gas along the right chest wall measuring approximately 7.9 x 2.9 x 10 cm in size. There is no well-defined wall or appreciable enhancement. OTHER: None. IMPRESSION: 1. FILLING DEFECTS OF THE SEGMENTAL BRANCHES OF THE LEFT LOWER LOBE CONSISTENT WITH PULMONARY BLEBS. 2. SMALL LOCULATED RIGHT PLEURAL EFFUSION VERSUS LOBULATED PLEURAL THICKENING. 3. RIGHT HILAR LYMPHADENOPATHY. 4. FLUID WITH A SMALL AMOUNT OF GAS ALONG THE RIGHT CHEST WALL, LIKELY POSTSURGICAL GIVEN THE HISTORY OF RECENT RIGHT-SIDED CHEST TUBE, THOUGH EARLY ABSCESS MAY GIVE A SIMILAR APPEARANCE IN THE CORRECT CLINICAL SETTING. PRELIMINARY FINDINGS WERE DISCUSSED WITH DR. PINEDA IN THE EMERGENCY DEPARTMENT AT APPROXIMATELY 3:35 PM ON NOVEMBER 06, 2017.
--- NOTE | 2017-11-06 16:14 | RAD ---
INDICATION: Fever. Pain. COMPARISON: CTA chest same day TECHNIQUE: Longitudinal and transverse scans of the right upper quadrant were obtained. Doppler interrogation of the hepatic and portal venous system was performed. FINDINGS: Liver: The liver is normal in size and echogenicity. There are no focal masses. The liver measures 17.3 cm in cephalocaudal dimension. Vessels: There is normal hepatic and portal venous flow. Bile ducts: There is no evidence of intrahepatic or extrahepatic ductal dilatation. The common duct measures 0.4 cm. Gallbladder: The sonographic appearance of the gallbladder is normal. There is no evidence of cholelithiasis, thickening of the gallbladder wall, or pericholecystic fluid. Pancreas: The visualized pancreas appears normal Right kidney: The right kidney is normal in size and echogenicity. There are no masses or calculi. There is no evidence of hydronephrosis. The right kidney measures 10.3 x 5.3 x 4.5 cm. IVC and aorta: The aorta and superior vena cava appear normal. Fluid: There is no ascites. Other: Small right subpleural effusion. IMPRESSION: SMALL RIGHT SUBPLEURAL EFFUSION. NORMAL GALLBLADDER.
[2017-11-06] MEDS ORDERED: Piperacillin/Tazobac ADVAN(*) 3.375 GM in NS 0.9% 100 ML* 100 ML IVPB ONE (16:47)
[2017-11-06] MEDS ORDERED: Vancomycin(*) 1,500 MG in NS 0.9% 250 ML* 250 ML IVPB ONE (16:47)
[2017-11-06] MEDS ORDERED: Acetaminophen TAB* 325 MG PO ONE (16:48)
[2017-11-06] MEDS ORDERED: NS 0.9% 1000 ML* 1,000 ML IV ONE (16:49)
[2017-11-06] MEDS ORDERED: Piperacillin/Tazobac (*) 3.375 GM BAG ONE (16:53)
[2017-11-06] MEDS ORDERED: NS 0.9% 250 ML* 250 ML ONE (17:04)
[2017-11-06] MEDS ORDERED: Dextrose 50% Syringe 50 ML* 25 GM/50 ML SYRINGE IV PUSH PRN (17:18)
[2017-11-06] MEDS ORDERED: Ondansetron INJ* 2 MG/ML VIAL IV PRN (17:21)
--- NOTE | 2017-11-06 17:46 | HP ---
History of Present Illness - History of Present Illness Reason for Visit: fever History of Present Illness: 67F with htn, hld, dm, recent diagnosis of metastic lung ca s/p wedge resection presents with fever. The patient had her surgery 13 days ago. She was discharged and over the past several days she had fever. She went to her surgeons office where they drained an abscess at the surgical site of the chest tube. The then came to the emergency room today with fever and shortness of breath. A CT scan was done showing a small loculated pleural effusion on the right vs pleural thickening, possible early abscess at the surgical site, and small left sided pulmonary embolism. The patient was given lovenox and antibiotics. She was admitted to the ICU for monitoring. - Past Medical History Cardiac: HTN, Hyperlipidemia ROOFER GYPSUM: CVA Heme/Onc: Cancer Endocrine: Diabetes - Past Family History Family History: Cancer - Past Social History Smoke: No Alcohol: None Drugs: None Lives: With Family Domestic Violence: Negative Review of Systems - Review of Systems Constitutional: Positive: Fever, Chills Eyes: Positive: Pain ENT: Negative: Throat Pain, Throat Swelling Respiratory: Positive: Shortness of Breath, SOB with Excertion. Negative: Hemoptysis, Wheezing Cardiovascular: Positive: Palpitations. Negative: Chest Pain Gastrointestinal: Negative: Nausea, Vomiting, Abdominal Pain Genitourinary: Negative: Dysuria, Frequency Musculoskeletal: Positive: Back Pain. Negative: Neck Pain, Shoulder Pain Skin: Positive: Bruising Neurological: Negative: Weakness, Numbness - Medications/Allergies Allergies/Adverse Reactions: Allergies Allergy/AdvReac Type Severity Reaction Status Date / Time hydrocortisone Allergy Mild Rash Verified 11/06/17 16:02 oxycodone Allergy See Comment Verified 11/06/17 16:02 tetanus immune globulin Allergy See Comment Verified 11/06/17 16:02 Tetanus Vaccines and Toxoid Allergy See Comment Verified 11/06/17 16:02 Medications: Current Medications Acetaminophen (Tylenol Tab*) 650 mg PO Q6H PRN PRN Reason: FEVER Dextrose (D50w Syringe 50 Ml*) 12.5 gm IV PUSH .FOR FS < 60 - SS PRN PRN Reason: FS < 60 Enoxaparin Sodium (Lovenox(*)) 100 mg SUBCUT Q12H TEOFILO Vancomycin HCl 1,500 mg/ (Sodium Chloride) 250 mls @ 166.667 mls/hr IVPB ONCE ONE Stop: 11/06/17 18:16 Sodium Chloride (Ns 0.9% 1000 Ml*) 1,000 mls @ 1,000 mls/hr IV ED ONCE ONE Stop: 11/06/17 17:48 Last Admin: 11/06/17 17:02 Dose: 1,000 mls/hr Piperacillin Sod/Tazobactam (Sod 3.375 gm/ Sodium Chloride) 100 mls @ 25 mls/ hr IVPB Q8H COUNT INCLUDES THE [facility] Insulin Human Lispro (Humalog*) 0 units SUBCUT ACHS COUNT INCLUDES THE [facility]; Protocol Morphine Sulfate (Morphine Vial*) 2 mg IV Q4H PRN PRN Reason: SEVERE PAIN Ondansetron HCl (Zofran Inj*) 4 mg IV Q4H PRN PRN Reason: NAUSEA/VOMITING Pharmacy Consult (Zosyn Per Pharmacy*) 1 note FOLLOW UP .ZOSYN PER PHARMACY COUNT INCLUDES THE [facility] Pharmacy Consult (Vancomycin Per Pharmacy*) 1 note FOLLOW UP .VANC PER PHARMACY COUNT INCLUDES THE [facility] Exam - Exam Vital Signs: Vital Signs (72 hours) 11/06/17 11/06/17 11/06/17 13:58 14:14 14:17 Temperature 103 F Pulse Rate 110 113 106 Respiratory 24 33 Rate Blood Pressure 150/74 149/82 (mmHg) O2 Sat by Pulse 95 92 93 Oximetry 11/06/17 11/06/17 11/06/17 14:58 15:00 15:30 Temperature Pulse Rate 102 101 101 Respiratory 27 31 28 Rate Blood Pressure 138/93 130/69 (mmHg) O2 Sat by Pulse 92 92 92 Oximetry 11/06/17 11/06/17 11/06/17 15:48 16:00 16:19 Temperature Pulse Rate 99 97 104 Respiratory 21 36 29 Rate Blood Pressure 107/45 135/87 (mmHg) O2 Sat by Pulse 90 92 88 Oximetry 11/06/17 11/06/17 11/06/17 16:48 17:05 17:08 Temperature 103.9 F 103.9 F Pulse Rate 122 123 Respiratory 41 26 Rate Blood Pressure 157/104 157/104 (mmHg) O2 Sat by Pulse 100 100 Oximetry 11/06/17 17:25 Temperature 103.1 F Pulse Rate 112 Respiratory 34 Rate Blood Pressure 133/66 (mmHg) O2 Sat by Pulse 98 Oximetry General: Alert, Oriented x3, No acute distress HEENT: Atraumatic, PERRLA Lungs: Clear to auscultation - tenderness on right in mid axillary line, + bruising, no drainage, Other Cardiovascular: Regular rate, Normal S1 Abdomen: Normal bowel sounds, Soft, No tenderness Extremities: No clubbing, No cyanosis Skin: No rashes Neurological: Normal gait, Normal speech Psych/Mental Status: Mental status NL Assessment/Plan - Assessment/Plan Assessment: 67F with htn, hld, dm, recent diagnosis of lung cancer s/p resection presents with sepsis 2/2 wound infection and pulmonary embolism Plan: Neuro - - pain control CV - tachy, h/o diastolic dysfunction - 2/2 sepsis and PE - iv hydration - bp stable - start home antihypertensives as needed - repeat tte Pulm - PE - secondary to recent surgery/immobilization and malignancy - lovenox 100mg sq q12 - oxygenation ok on 2L nasal cannula - check LE dopplers for residual clot ID - sepsis - 2/2 wound infection - vanc/zosyn dosed by pharmacy - f/u cultures - serial lactates - iv hydration - surgery consult to evaluate need for abscess drainage GI - diet as tolerated Renal - monitor lytes Heme - lung cancer - to f/u outpatient with oncology Endo - dm - check fs, niss Lines - piv ppx - gi/dvt Full Code Admit to ICU Critical Care Time: 50 mins
[2017-11-06] MEDS ORDERED: Vancomycin per Pharmacy* NOTE FOLLOW UP SCH (18:00)
[2017-11-06] MEDS ORDERED: Zosyn per Pharmacy* NOTE FOLLOW UP SCH (18:00)
[2017-11-06] MEDS ORDERED: Insulin LISPRO* 1 UNITS UNIT SUBCUT SCH (21:00)
[2017-11-06] MEDS: ZOSYN 3.375 GM Q8H per EXTENDED INFUSION IVPB SCH ×2 (21:33)
--- NOTE | 2017-11-06 23:38 | CONS ---
CC: Dr. Oneida Nieves, [facility] * CONSULTATION REPORT: DATE OF CONSULT: 11/06/17 REFERRING PROVIDER: Ryan Cain DO, seat covers trimmer. REASON FOR ADMISSION: Sepsis, status post right lower lobe lobectomy. HISTORY OF PRESENT ILLNESS: Ms. Conchis Garcia is a 67-year-old woman who 13 days ago underwent an elective thoracotomy with right lower lobectomy and lymph node dissection. Pathology at this time returned as a stage IIIA non- small cell lung cancer. Postoperatively, her course was marked by a hematoma in the right chest wall at the operative site requiring drainage and transfusion of 1 unit of packed red blood cells. She otherwise did well and was discharged home this past Saturday after having the chest tube and OLIVIA drains removed. She was seen in the office by Dr. Oscar yesterday for followup. During the initial hospitalization, the wound had been opened and hematoma drained and cultures were taken of the open wound yesterday with some drainage of some serosanguineous fluid. Gram stain today has shown gram-positive cocci, cultures pending. Last night according to her son, she had a fever up to 102.5 with some shaking chills, but this resolved this morning. However, she developed fever once again later this morning and was feeling ill and was told to report to the emergency room. In the emergency room, she was noted to have a temperature of 103 and was tachycardic and tachypneic. Her blood pressure was slightly elevated. Laboratory workup included a white blood cell count of 17,000 with hemoglobin of 9. Electrolytes and BUN and creatinine were within normal limits. Lactic acid was 1.1. She had a blood sugar of 199. She underwent a chest x-ray, which essentially was relatively unremarkable; however, a chest CT scan was also obtained. I did review these images. This shows some filling defects in the segmental branch of the left lower lobe consistent with a new pulmonary embolism. There was a small loculated right pleural effusion and also some concern about fluid in the right lateral chest wall at the incision site with concern for possible fluid collection. An ultrasound of her gallbladder was unremarkable. In the emergency room, she was seen by both the hospitalist and the seat covers trimmer service and when she developed rigors with shaking chills, tachycardia and tachypnea, she was subsequently admitted to the intensive care unit after the sepsis protocol was instituted. PAST MEDICAL HISTORY: 1. Hypertension. 2. Prediabetes. 3. Obesity. 4. History of CVA. 5. Aortic and tricuspid insufficiency. 6. Lung cancer. 7. Asthma. 8. Hyperlipidemia. PAST SURGICAL HISTORY: 1. Lobectomy as per above. 2. Tonsillectomy. MEDICATIONS: Medicines on admission include: 1. Tramadol. 2. Percocet. 3. Omeprazole. 4. Nitroglycerin. 5. Singulair. 6. HydroDIURIL. 7. Tenormin. 8. Low-dose aspirin. 9. Ventolin inhaler. ALLERGIES: To HYDROCORTISONE, OXYCODONE, and TETANUS. SOCIAL HISTORY: She lives with her family. She does not use tobacco or alcohol. REVIEW OF SYSTEMS: Difficult to obtain due to the patient does not speak Indonesian. PHYSICAL EXAM: Temperature of 103, heart rate 112, blood pressure 133/66, oxygen saturation is 98%. In general, she is a well-developed elderly female, who appears to be comfortable, awake and alert and quite pleasant. She is in no acute distress. HEENT: Her sclerae are anicteric. The oral mucosa is slightly dry. Lungs: With diminished breath sounds in both bases, but no rhonchi or wheezing. Heart: Regular rate and rhythm, but slightly rapid. There was healing right lateral thoracotomy incision with opening towards the anterior portion with some healthy granulation tissue. There is minimal amount of ecchymosis, but there is no evidence of erythema, warmth, or fluctuance. She is minimally tender along the incision line. There is no odor. Her abdomen is soft and nondistended. She has no tenderness, rebound, or guarding. IMPRESSION: 1. Sepsis, status post right thoracotomy with lower lobe lobectomy for stage III lung cancer 13 days ago. Source at present is unknown, although Gram stain from the drainage from the open wound yesterday shows gram-positive cocci. Chest x-ray and CT scan showed no evidence of obvious pneumonia. Blood cultures and urine cultures are pending. Obvious other source is the postoperative wound. 2. New-onset left pulmonary embolism. She was started on therapeutic Lovenox and this will be continued. She will be continued on her oxygen and lower extremity ultrasound study will be performed tomorrow. 3. Multiple medical problems as above. PLAN: 1. The patient has been admitted to the intensive care unit on the seat covers trimmer service. 2. Broad-spectrum antibiotics including Zosyn and vancomycin have been instituted. 3. Cultures have been taken. 4. She is following the sepsis protocol with aggressive IV fluid resuscitation. 5. CT scan will be reviewed with Dr. Oscar. Decision will be made regarding possible further drainage or opening of the surgical wound to rule out infection , although clinically this does not appear to be a significant abscess at this point. [id number]/[facility] #: [id number] [facility]ITALTr[facility]
[2017-11-07] MEDS: Vancomycin(*) 1,000 MG in NS 0.9% 250 ML* 250 ML IVPB SCH ×2 (02:50→10:33)
[2017-11-07] MEDS: Morphine VIAL* 4 MG/ML VIAL (1 ml vial) IV PRN ×5 (03:52→17:14)
[2017-11-07] MEDS ORDERED: Albuterol 2.5 MG/3 ML NEB.SOL* (0.083%) INH PRN (04:26)
--- NOTE | 2017-11-07 04:28 | PN ---
Progress Note - Progress Note Date of Service: 11/07/17 Note: Paged for SOB - on exam, patient tachypneic, poor aeration with b/l expiratory wheezes. No c/o CP. Spoke with sonElvin on speaker phone to help translate. Plan: Duoneb, solumedrol, CXR, High flow - if no improvement with these measures, will contact gear technician. Improved after high flow and treatments.
[2017-11-07] MEDS ORDERED: methylPREDNISolone 125 MG* 2 ML VIAL IV ONE (04:29)
[2017-11-07] MEDS: Albuterol/Ipratropium NEB.SOL* Albuterol 2.5 MG/Ipratropium 0.5 MG 3 ML INH PRN (04:36)
[2017-11-07 05:15] LABS: ABS Basophils 0.1 10^3/ul (0-0.2); ABS Eosinophils 0.1 10^3/ul (0-0.6); ABS Lymphocytes 1.8 10^3/ul (1.0-4.8); ABS Monocytes 1.2 10^3/ul (0-0.8); ABS Neutrophils 15.6 10^3/ul (1.5-7.7); ABS Nucleated RBC 0 10^3/ul; Eosinophil % 0.3 % (0-6); Hematocrit 27 % (35-47); Hemoglobin 8.8 g/dl (12.0-16.0); Lymphocyte % 9.5 % (25-47); Mean Corpuscular HGB Conc 33 g/dl (31-36); Mean Corpuscular Hemoglobin 29 pg (27-31); Mean Corpuscular Volume 90 fL (80-97); Nucleated Red Blood Cells % 0; Platelet Count 360 10^3/ul (150-450); Red Blood Count 2.98 10^6/ul (4.00-5.40); Red Cell Distribution Width 16 % (10.5-15); White Blood Count 18.7 10^3/ul (3.5-10.8)
[2017-11-07 05:24] LABS: INR 1.18 (0.77-1.02)
[2017-11-07 05:33] LABS: EGFR Non-African American 79.8 (>60)
[2017-11-07] MEDS ORDERED: Furosemide IV* 10 MG/ML VIAL (40 MG) IV ONE (05:33)
[2017-11-07] MEDS: ZOSYN 3.375 GM Q8H per EXTENDED INFUSION IVPB SCH ×6 (05:43→21:51)
[2017-11-07] MEDS: Enoxaparin(*) 100 MG/ML SYR SUBCUT SCH ×2 (05:47→17:14)
[2017-11-07] MEDS: Acetaminophen TAB* 325 MG PO PRN (06:04)
[2017-11-07 07:22] LABS: Urine Appearance Cloudy; Urine Blood 2+ (Negative); Urine Color Yellow; Urine Ketones Trace (Negative); Urine Protein 1+(30 mg/dL) (Negative); Urine Red Blood Cell 2+(6-10/hpf) (Absent); Urine Specific Gravity 1.015 (1.010-1.030); Urine Urobilinogen Negative (Negative); Urine White Blood Cell 3+(>20/hpf) (Absent)
[2017-11-07] MEDS: Insulin LISPRO* 1 UNITS UNIT SUBCUT SCH ×3 (08:13→17:36)
[2017-11-07] MEDS: Potassium Chlor TAB* 20 MEQ TAB.ER PO SCH ×2 (08:15→12:17)
--- NOTE | 2017-11-07 08:22 | PN ---
Date of Service: 11/07/17 Critical Care Services: 67F with htn, hld, dm, recent diagnosis of lung cancer s/p resection presents with sepsis 2/2 wound infection and pulmonary embolism. 11/07: Pre-monae blood cultures with gram neg bacilli. Overnight patient with some wheezing and respiratory distress. Started on nebulizers by hospitalist. Vital Signs: Temp Pulse Resp BP SpO2 FiO2 98.3 F 90 20 117/65 96 30 11/07/17 07:54 11/07/17 07:00 11/07/17 07:35 11/07/17 07:00 11/07/17 07:00 11/07 07:35 Physical Exam: General: Alert, Oriented x3, No acute distress HEENT: Atraumatic, PERRLA Lungs: Clear to auscultation - tenderness on right in mid axillary line, + bruising, no drainage, Other Cardiovascular: Regular rate, Normal S1 Abdomen: Normal bowel sounds, Soft, No tenderness Extremities: No clubbing, No cyanosis Skin: No rashes Neurological: Normal gait, Normal speech Psych/Mental Status: Mental status NL Fluid Balance (Past 24 Hours): I= O= Net Intake & Output 11/05/17 11/06/17 11/07/17 11/08/17 06:59 06:59 06:59 06:59 Intake Total 2309 Output Total 1000 800 Balance 1309 -800 Weight 96 kg Intake: IV Fluids 636 NS (0.9%) 136 IVPB 633 ABX - VANCOMYCIN 504 ABX - ZOSYN 129 Oral 1040 Output: Urine 1000 800 Labs: Laboratory Results - last 24 hr 11/06/17 11/06/17 11/06/17 14:20 14:20 15:00 WBC 17.3 H RBC 3.17 L Hgb 9.1 L Hct 28 L MCV 89 MCH 29 MCHC 33 RDW 15 Plt Count 376 MPV 7.9 Neut % (Auto) 85.5 H Lymph % (Auto) 7.2 L Young % (Auto) 6.7 Eos % (Auto) 0.3 Baso % (Auto) 0.3 Absolute Neuts (auto) 14.8 H Absolute Lymphs (auto) 1.2 Absolute Monos (auto) 1.2 H Absolute Eos (auto) 0.1 Absolute Basos (auto) 0.1 Absolute Nucleated RBC 0 Nucleated RBC % 0.1 INR (Anticoag Therapy) APTT Sodium 134 L Potassium 3.7 Chloride 101 Carbon Dioxide 24 Anion Gap 9 BUN 16 Creatinine 0.80 Est GFR ( Amer) 86.8 Est GFR (Non-Af Amer) 71.8 BUN/Creatinine Ratio 20.0 Glucose 162 H POC Glucose (mg/dL) Lactic Acid Calcium 8.6 Magnesium Total Bilirubin 1.30 H AST 22 ALT 27 Alkaline Phosphatase 132 H B-Natriuretic Peptide 154 H Total Protein 6.9 Albumin 3.2 Globulin 3.7 Albumin/Globulin Ratio 0.9 L Urine Color Urine Appearance Urine pH Ur Specific [place] Urine Protein Urine Ketones Urine Blood Urine Nitrate Urine Bilirubin Urine Urobilinogen Ur Leukocyte Esterase Urine WBC (Auto) Urine RBC (Auto) Ur Squamous Epith Cells Urine Bacteria Urine Glucose Blood Type Antibody Screen 11/06/17 11/06/17 11/07/17 17:37 17:50 05:00 WBC RBC Hgb Hct MCV MCH MCHC RDW Plt Count MPV Neut % (Auto) Lymph % (Auto) Young % (Auto) Eos % (Auto) Baso % (Auto) Absolute Neuts (auto) Absolute Lymphs (auto) Absolute Monos (auto) Absolute Eos (auto) Absolute Basos (auto) Absolute Nucleated RBC Nucleated RBC % INR (Anticoag Therapy) 1.18 H APTT 32.1 Sodium Potassium Chloride Carbon Dioxide Anion Gap BUN Creatinine Est GFR ( Amer) Est GFR (Non-Af Amer) BUN/Creatinine Ratio Glucose POC Glucose (mg/dL) 199 H Lactic Acid 1.1 Calcium Magnesium Total Bilirubin AST ALT Alkaline Phosphatase B-Natriuretic Peptide Total Protein Albumin Globulin Albumin/Globulin Ratio Urine Color Urine Appearance Urine pH Ur Specific [place] Urine Protein Urine Ketones Urine Blood Urine Nitrate Urine Bilirubin Urine Urobilinogen Ur Leukocyte Esterase Urine WBC (Auto) Urine RBC (Auto) Ur Squamous Epith Cells Urine Bacteria Urine Glucose Blood Type Antibody Screen 11/07/17 11/07/17 11/07/17 05:00 05:00 05:00 WBC 18.7 H RBC 2.98 L Hgb 8.8 L Hct 27 L MCV 90 MCH 29 MCHC 33 RDW 16 H Plt Count 360 MPV 8.0 Neut % (Auto) 83.7 H Lymph % (Auto) 9.5 L Young % (Auto) 6.2 Eos % (Auto) 0.3 Baso % (Auto) 0.3 Absolute Neuts (auto) 15.6 H Absolute Lymphs (auto) 1.8 Absolute Monos (auto) 1.2 H Absolute Eos (auto) 0.1 Absolute Basos (auto) 0.1 Absolute Nucleated RBC 0 Nucleated RBC % 0 INR (Anticoag Therapy) APTT Sodium 138 Potassium 3.4 L Chloride 106 Carbon Dioxide 22 Anion Gap 10 BUN 16 Creatinine 0.73 Est GFR ( Amer) 96.5 Est GFR (Non-Af Amer) 79.8 BUN/Creatinine Ratio 21.9 H Glucose 141 H POC Glucose (mg/dL) Lactic Acid Calcium 7.8 L Magnesium 1.8 L Total Bilirubin 1.40 H AST 29 ALT 28 Alkaline Phosphatase 125 H B-Natriuretic Peptide Total Protein 6.3 L Albumin 2.9 L Globulin 3.4 Albumin/Globulin Ratio 0.9 L Urine Color Urine Appearance Urine pH Ur Specific [place] Urine Protein Urine Ketones Urine Blood Urine Nitrate Urine Bilirubin Urine Urobilinogen Ur Leukocyte Esterase Urine WBC (Auto) Urine RBC (Auto) Ur Squamous Epith Cells Urine Bacteria Urine Glucose Blood Type A Positive Antibody Screen Negative 11/07/17 06:56 WBC RBC Hgb Hct MCV MCH MCHC RDW Plt Count MPV Neut % (Auto) Lymph % (Auto) Young % (Auto) Eos % (Auto) Baso % (Auto) Absolute Neuts (auto) Absolute Lymphs (auto) Absolute Monos (auto) Absolute Eos (auto) Absolute Basos (auto) Absolute Nucleated RBC Nucleated RBC % INR (Anticoag Therapy) APTT Sodium Potassium Chloride Carbon Dioxide Anion Gap BUN Creatinine Est GFR ( Amer) Est GFR (Non-Af Amer) BUN/Creatinine Ratio Glucose POC Glucose (mg/dL) Lactic Acid Calcium Magnesium Total Bilirubin AST ALT Alkaline Phosphatase B-Natriuretic Peptide Total Protein Albumin Globulin Albumin/Globulin Ratio Urine Color Yellow Urine Appearance Cloudy Urine pH 5.0 Ur Specific [place] 1.015 Urine Protein 1+(30 mg/dl) A Urine Ketones Trace A Urine Blood 2+ A Urine Nitrate Negative Urine Bilirubin Negative Urine Urobilinogen Negative Ur Leukocyte Esterase 3+ A Urine WBC (Auto) 3+(>20/hpf) A Urine RBC (Auto) 2+(6-10/hpf) A Ur Squamous Epith Cells Present A Urine Bacteria 1+ A Urine Glucose Negative Blood Type Antibody Screen Studies: CTA Chest 11/06/17 IMPRESSION: 1. FILLING DEFECTS OF THE SEGMENTAL BRANCHES OF THE LEFT LOWER LOBE CONSISTENT WITH PULMONARY BLEBS. 2. SMALL LOCULATED RIGHT PLEURAL EFFUSION VERSUS LOBULATED PLEURAL THICKENING. 3. RIGHT HILAR LYMPHADENOPATHY. 4. FLUID WITH A SMALL AMOUNT OF GAS ALONG THE RIGHT CHEST WALL, LIKELY POSTSURGICAL GIVEN THE HISTORY OF RECENT RIGHT-SIDED CHEST TUBE, THOUGH EARLY ABSCESS MAY GIVE A SIMILAR APPEARANCE IN THE CORRECT CLINICAL SETTING. Abd Sono 11/06/17 IMPRESSION: SMALL RIGHT SUBPLEURAL EFFUSION. NORMAL GALLBLADDER. CXR 11/06/17 IMPRESSION: PLEUROPARENCHYMAL SCARRING. NO ACTIVE CARDIOPULMONARY DISEASE. Impression: 67F with htn, hld, dm, recent diagnosis of lung cancer s/p resection presents with sepsis 2/2 wound infection and pulmonary embolism. GNR bacteremia. Wheezing overnight. Plan: Neuro - - pain control CV - diastolic dysfuntion - tte ordered - bp stable - hr improved - restart home anti-hypertensives prn Pulm - PE, asthma? - secondary to recent surgery/immobilization and malignancy - check LE dopplers done and read pending - lovenox 100mg sq q12 - switched to HFNC last night, will wean back to nasal cannula today - no wheezing on exam today - c/w with duoneb q4 prn - hold steroids for now ID - sepsis, GNR bacteremia - 2/2 wound infection - vanc/zosyn dosed by pharmacy - f/u cultures - serial lactates - iv hydration - surgery consult to evaluate need for abscess drainage GI - diet as tolerated Renal - monitor lytes Heme - lung cancer - to f/u outpatient with oncology Endo - dm - check fs, niss Lines - piv ppx - gi/dvt Full Code Critical Care Time: 40 minutes
--- NOTE | 2017-11-07 08:41 | RAD ---
HISTORY: eval for dvt, pulmonary embolism COMPARISONS: None relevant TECHNIQUE: Multiple transverse and longitudinal ultrasound images were obtained of the bilateral lower extremities from the level of the common femoral vein inferiorly through to the infrapopliteal veins using grayscale, color Doppler, and spectral Doppler imaging with and without compression and with augmentation. FINDINGS: VEINS: The venous system of the bilateral lower extremities is compressible throughout its course, with normal flow on color Doppler imaging and normal response to augmentation on spectral Doppler imaging. SOFT TISSUES: Unremarkable. OTHER FINDINGS: None. IMPRESSION: NO RIGHT LOWER EXTREMITY DEEP VEIN THROMBOSIS. NO LEFT LOWER EXTREMITY DEEP VEIN THROMBOSIS R0
--- NOTE | 2017-11-07 09:11 | RAD ---
HISTORY: Shortness of breath COMPARISONS: November 06, 2017 at 2:58 PM VIEWS: 1: frontal portable view of the chest at 4:33 AM FINDINGS: LINES AND TUBES: None. CARDIOMEDIASTINAL SILHOUETTE: The cardiomediastinal silhouette is normal for portable technique. PLEURA: The costophrenic angles are sharp. No pleural abnormalities are noted. LUNG PARENCHYMA: There is stable linear opacification of the right lung base. ABDOMEN: The upper abdomen is clear. There is no subphrenic gas. BONES AND SOFT TISSUES: No bone or soft tissue abnormalities are noted. IMPRESSION: STABLE LINEAR OPACIFICATION OF THE RIGHT LUNG BASE. NO ACTIVE CARDIOPULMONARY DISEASE.
[2017-11-07] MEDS ORDERED: Perflutren Lipid Microsphere* 3 ML VIAL ONE (10:06)
--- NOTE | 2017-11-07 11:31 | ECHO ---
Patient: ELENA LOPEZ [facility] Rec#: [id number] : 1950 Date: 11/07/2017 Age: 67y Height: 157 cm / 61.8 in Weight: 95.3 kg / 210.0 lbs Sex: F BSA: 1.95 Room#: [facility]-9 Admit Date#: 11/06/2017 Type: Inpatient Referring: Ryan Cain DO Reading: Jeffrey Cole MD Citizenship Teacher: Stacy Ortega RDCS CC: Oneida Nieves Transthoracic Echocardiogram Indication: Congestive heart failure. BP: 140/65 HR: 71 Rhythm: NSR with PVCs Findings History: HTN, HLD, metastatic lung cancer s/p resection, pleural effusion. Technical Comments: The study is technically limited due to poor apical windows. Completed at 1105. Left Ventricle: The left ventricular chamber size is normal.There is borderline concentric LV hypertrophy. There is normal left ventricular systolic function. The estimated ejection fraction is 55-60%. Abnormal left ventricular diastolic function is observed. Abnormal left ventricular diastolic filling is observed, consistent with impaired relaxation. Left Atrium: The left atrium is mildly dilated. Right Ventricle: Moderator Band present. The right ventricular cavity size is normal. The right ventricular global systolic function is normal. Right Atrium: The right atrium appears normal. Aortic Valve: The aortic valve is trileaflet. The aortic valve leaflets are mildly thickened. There is a trace of aortic regurgitation. There is no evidence of aortic stenosis. Mitral Valve: There is mitral annular calcification. The mitral valve leaflets are mildly thickened. There is a trace of mitral regurgitation. There is no evidence of mitral stenosis. Tricuspid Valve: The tricuspid valve structure is not well visualized. The tricuspid valve leaflets are normal. There is trace tricuspid regurgitation. Unable to estimate the right ventricular systolic pressure. There is no tricuspid stenosis. Pulmonic Valve: The pulmonic valve appears normal. There is a trace pulmonic regurgitation. There is no pulmonic stenosis. Pericardium: There is no significant pericardial effusion. A pericardial fat pad is visualized. Aorta: There is no dilatation of the ascending aorta. There is no dilatation of the aortic arch. The aortic root is normal in size. Venous: The inferior vena cava appears normal in size. There is a greater than 50% respiratory change in the inferior vena cava dimension. Contrast: Definity was used to optimize study. Intravenous contrast was used to enhance endocardial border definition. Conclusions Borderline concentric left ventricular hypertrophy is observed. There is normal left ventricular systolic function. The estimated ejection fraction is 55-60%. Abnormal left ventricular diastolic filling is observed, consistent with impaired relaxation. The left atrium is mildly dilated. No significant valvular disease: There is a trace of aortic regurgitation. There is a trace of mitral regurgitation. There is trace tricuspid regurgitation. There is a trace pulmonic regurgitation. There is no signifcant change compared to report of study from 09/08/2008 Measurements Name Value Normal Range RVIDd (AP) 2D 2.9 cm (0.9 - 2.6) RVDdMajor (2D) 4.8 cm (2.2 - 4.4) RAd ISD 4CH 5.5 cm (3.4 - 4.9) RA (A4C)W 5.4 cm (2.9 - 4.6) IVSd (2D) 1 cm (0.6 - 1) LVPWd (2D) 1 cm (0.6 - 1) LVIDd (2D) 5.4 cm (3.6 - 5.4) LVIDs (2D) 3.3 cm - LV FS (2D) 20 % (25 - 45) Aortic Annulus 2.3 cm (1.4 - 2.6) Ao root diameter (2D) 3.4 cm (2.1 - 3.5) Ascending Ao 3.1 cm (2.1 - 3.4) Aortic arch 2.9 cm (1.8 - 3.4) LA dimension (AP) 2D 3.4 cm (2.3 - 3.8) LAd ISD 4CH 5.3 cm (2.9 - 5.3) LA ISD 4CH W 4.8 cm (2.5 - 4.5) Name Value Normal Range LA ESV BP (A/L) index 36 ml/m2 - Name Value Normal Range MV E-wave Vmax 0.81 m/sec - MV deceleration time 317 msec - MV A-wave Vmax 1 m/sec - MV E:A ratio 0.8 ratio - LV septal e' Vmax 0.08 m/sec - LV lateral e' Vmax 0.09 m/sec - LV E:e' septal ratio 10 ratio - LV E:e' lateral ratio 8.89 ratio - Name Value Normal Range AV Vmax 1.5 m/sec - AV VTI 30.6 cm - AV peak gradient 9 mmHg - AV mean gradient 5 mmHg - LVOT Vmax 1.1 m/sec - LVOT VTI 22.2 cm - LVOT peak gradient 5 mmHg - LVOT mean gradient 2 mmHg - GEETHA Vmax 0.9 m/sec - Name Value Normal Range IVC diameter 1.9 cm - Name Value Normal Range PV Vmax 1 m/sec - PV peak gradient 4 mmHg -
--- NOTE | 2017-11-07 15:32 | PN ---
Progress Note - Progress Note Date of Service: 11/07/17 Note: S/P lobectomy with sepsis likely secondary to wound infection. Fever down, VS noted Clementine po's, uo large Minimal pain No dyspnea Color good, seems comfortable Lungs w/ adeq aeration Incis w/ ecchymosis, no signif fluid collection, no erythema Wound C&S GPC Blood C&S GNR On Vanco and Zosyn pending cultures Likely wound infection, however microbiology divergent so far. Will cont to monitor incis Follow labs
[2017-11-07] MEDS ORDERED: Docusate CAP* 100 MG PO PRN (17:28)
[2017-11-07] MEDS ORDERED: Insulin GLARGINE(*) 1 UNITS UNIT ONE (17:34)
[2017-11-07] MEDS ORDERED: Insulin GLARGINE(*) 1 UNITS UNIT SUBCUT SCH (18:00)
[2017-11-07] MEDS ORDERED: Vancomycin Trough Check NOTE FOLLOW UP ONE (18:30)
[2017-11-07] MEDS ORDERED: Vancomycin(*) 1,250 MG in NS 0.9% 250 ML* 250 ML IVPB SCH (19:33)
[2017-11-07] MEDS: Montelukast Sodium TAB* 10 MG PO SCH (20:11)
[2017-11-07] MEDS: Vancomycin(*) 1,250 MG in NS 0.9% 250 ML* 250 ML IVPB SCH (20:11)
[2017-11-07] MEDS: Senna TAB PO SCH (20:11)
[2017-11-07] MEDS ORDERED: Insulin LISPRO* 1 UNITS UNIT SUBCUT ONE (22:00)
[2017-11-07] MEDS ORDERED: Dextrose 50% Syringe 50 ML* 25 GM/50 ML SYRINGE IV PUSH PRN (22:00)
[2017-11-07] MEDS: traMADol TAB* 50 MG PO PRN (23:48)
[2017-11-08] MEDS: Albuterol/Ipratropium NEB.SOL* Albuterol 2.5 MG/Ipratropium 0.5 MG 3 ML INH PRN ×2 (01:59→23:56)
[2017-11-08] MEDS: Vancomycin(*) 1,250 MG in NS 0.9% 250 ML* 250 ML IVPB SCH ×3 (04:21→21:36)
[2017-11-08 05:08] LABS: ABS Basophils 0 10^3/ul (0-0.2); ABS Eosinophils 0 10^3/ul (0-0.6); ABS Lymphocytes 0.5 10^3/ul (1.0-4.8); ABS Monocytes 0.9 10^3/ul (0-0.8); ABS Neutrophils 13.9 10^3/ul (1.5-7.7); ABS Nucleated RBC 0 10^3/ul; Eosinophil % 0 % (0-6); Hematocrit 23 % (35-47); Hemoglobin 7.6 g/dl (12.0-16.0); Lymphocyte % 3.5 % (25-47); Mean Corpuscular HGB Conc 33 g/dl (31-36); Mean Corpuscular Hemoglobin 29 pg (27-31); Mean Corpuscular Volume 89 fL (80-97); Mean Platelet Volume 8.1 um3 (7.4-10.4); Nucleated Red Blood Cells % 0; Platelet Count 331 10^3/ul (150-450); Red Blood Count 2.61 10^6/ul (4.00-5.40); Red Cell Distribution Width 16 % (10.5-15); White Blood Count 15.3 10^3/ul (3.5-10.8)
[2017-11-08 05:26] LABS: EGFR Non-African American 79.8 (>60)
[2017-11-08] MEDS: ZOSYN 3.375 GM Q8H per EXTENDED INFUSION IVPB SCH ×6 (05:46→22:18)
[2017-11-08] MEDS: Enoxaparin(*) 100 MG/ML SYR SUBCUT SCH ×2 (05:46→18:22)
--- NOTE | 2017-11-08 08:24 | PN ---
Date of Service: 11/08/17 Critical Care Services: 67F with htn, hld, dm, recent diagnosis of lung cancer s/p resection presents with sepsis 2/2 wound infection and pulmonary embolism. 11/07: Pre-monae blood cultures with gram neg bacilli. Overnight patient with some wheezing and respiratory distress. Started on nebulizers by hospitalist. 11/08: No further respiratory complaints. Vitalsigns stable overnight. Surgery performed drained wound and sent for culture this morning. Overall patient much improved. Vital Signs: Temp Pulse Resp BP SpO2 FiO2 98.3 F 73 21 135/64 99 30 11/08/17 07:47 11/08/17 07:00 11/08/17 07:00 11/08/17 07:00 11/08/17 07:00 11/07 07:35 Physical Exam: General: Alert, Oriented x3, No acute distress HEENT: Atraumatic, PERRLA Lungs: Clear to auscultation - tenderness on right in mid axillary line, + bruising, no drainage, Other Cardiovascular: Regular rate, Normal S1 Abdomen: Normal bowel sounds, Soft, No tenderness Extremities: No clubbing, No cyanosis Skin: No rashes Neurological: Normal gait, Normal speech Psych/Mental Status: Mental status NL Fluid Balance (Past 24 Hours): I= O= Net Intake & Output 11/06/17 11/07/17 11/08/17 11/09/17 06:59 06:59 06:59 06:59 Intake Total 2309 2669 100 Output Total 1000 2200 Balance 1309 469 100 Weight 96 kg 98.1 kg Intake: IV Fluids 636 389 ABX - VANCOMYCIN 255 NS (0.9%) 136 134 IVPB 633 800 ABX - VANCOMYCIN 504 ABX - ZOSYN 129 NS (0.9%) 800 Oral 1040 1480 100 Output: Urine 1000 2200 Other: Estimated Void Large # Voids 1 Labs: Laboratory Results - last 24 hr 11/07/17 11/07/17 11/07/17 08:06 12:12 18:10 WBC RBC Hgb Hct MCV MCH MCHC RDW Plt Count MPV Neut % (Auto) Lymph % (Auto) [place] % (Auto) Eos % (Auto) Baso % (Auto) Absolute Neuts (auto) Absolute Lymphs (auto) Absolute Monos (auto) Absolute Eos (auto) Absolute Basos (auto) Absolute Nucleated RBC Nucleated RBC % Sodium Potassium Chloride Carbon Dioxide Anion Gap BUN Creatinine Est GFR ( Amer) Est GFR (Non-Af Amer) BUN/Creatinine Ratio Glucose POC Glucose (mg/dL) 226 H 329 H Calcium Magnesium Vancomycin Trough 13.5 11/07/17 11/08/17 11/08/17 21:17 04:58 04:58 WBC 15.3 H RBC 2.61 L Hgb 7.6 L Hct 23 L MCV 89 MCH 29 MCHC 33 RDW 16 H Plt Count 331 MPV 8.1 Neut % (Auto) 90.8 H Lymph % (Auto) 3.5 L [place] % (Auto) 5.6 Eos % (Auto) 0 Baso % (Auto) 0.1 Absolute Neuts (auto) 13.9 H Absolute Lymphs (auto) 0.5 L Absolute Monos (auto) 0.9 H Absolute Eos (auto) 0 Absolute Basos (auto) 0 Absolute Nucleated RBC 0 Nucleated RBC % 0 Sodium 136 Potassium 3.7 Chloride 106 Carbon Dioxide 22 Anion Gap 8 BUN 24 Creatinine 0.73 Est GFR ( Amer) 96.5 Est GFR (Non-Af Amer) 79.8 BUN/Creatinine Ratio 32.9 H Glucose 242 H POC Glucose (mg/dL) 302 H Calcium 7.8 L Magnesium 2.0 Vancomycin Trough Studies: CTA Chest 11/06/17 IMPRESSION: 1. FILLING DEFECTS OF THE SEGMENTAL BRANCHES OF THE LEFT LOWER LOBE CONSISTENT WITH PULMONARY BLEBS. 2. SMALL LOCULATED RIGHT PLEURAL EFFUSION VERSUS LOBULATED PLEURAL THICKENING. 3. RIGHT HILAR LYMPHADENOPATHY. 4. FLUID WITH A SMALL AMOUNT OF GAS ALONG THE RIGHT CHEST WALL, LIKELY POSTSURGICAL GIVEN THE HISTORY OF RECENT RIGHT-SIDED CHEST TUBE, THOUGH EARLY ABSCESS MAY GIVE A SIMILAR APPEARANCE IN THE CORRECT CLINICAL SETTING. Abd Sono 11/06/17 IMPRESSION: SMALL RIGHT SUBPLEURAL EFFUSION. NORMAL GALLBLADDER. CXR 11/06/17 IMPRESSION: PLEUROPARENCHYMAL SCARRING. NO ACTIVE CARDIOPULMONARY DISEASE. Impression: 67F with htn, hld, dm, recent diagnosis of lung cancer s/p resection presents with sepsis 2/2 wound infection and pulmonary embolism. GNR bacteremia. Plan: Neuro - - pain control CV - diastolic dysfuntion - tte with normal ef, diastolic dysfunction - bp stable - hr improved - restart home anti-hypertensives prn Pulm - PE, asthma? - secondary to recent surgery/immobilization and malignancy - check LE dopplers done and read pending - lovenox 100mg sq q12 - no wheezing on exam today - c/w with duoneb q4 prn - hold steroids for now ID - sepsis, GNR bacteremia, GPC from wound culture as outpatient - / wound infection - vanc/zosyn dosed by pharmacy - f/u cultures - lactate negative - wound drained and sent for culture this am - repeat blood cultures send today - surgery following GI - diet as tolerated Renal - monitor lytes Heme - lung cancer, anemia - to f/u outpatient with oncology - hgb drifting down, no overt evidence of bleeding - type and screen active - will continue to monitor - hold off on transfusion at this time Endo - dm - check fs, niss - started lantus 10units last night Lines - piv ppx - gi/dvt Full Code Stable for transfer to Floor Critical Care Time: 45 mins
[2017-11-08] MEDS: Multivitamins/Minerals TAB PO SCH (12:11)
[2017-11-08] MEDS: Insulin LISPRO* 1 UNITS UNIT SUBCUT SCH ×3 (12:11→18:19)
[2017-11-08] MEDS: Aspirin EC TAB* 81 MG TAB.EC PO SCH (12:12)
--- NOTE | 2017-11-08 14:05 | PN ---
Progress Note - Progress Note Date of Service: 11/08/17 Note: Seen earlier today--0720. Here for bacteremia s/p lobectomy Afebrile, VS noted UO large, ty po's Denies pain Color good, does not appear ill Chest incision with build-up of fluid again Approx 100 ml bloody serous fluid drained. C&S sent again Breathing easy, unlabored On Zosyn and Vanco Blood and urine growing E coli Chest wound staph epi Cont anti-coag cont abx
[2017-11-08] MEDS: traMADol TAB* 50 MG PO PRN (15:51)
[2017-11-08] MEDS: Insulin GLARGINE(*) 1 UNITS UNIT SUBCUT SCH (18:21)
[2017-11-08] MEDS: Vancomycin(*) 1,000 MG in NS 0.9% 250 ML* 250 ML IVPB SCH (18:23)
[2017-11-08] MEDS: Senna TAB PO SCH (21:02)
[2017-11-08] MEDS: Montelukast Sodium TAB* 10 MG PO SCH (21:02)
[2017-11-09] MEDS: traMADol TAB* 50 MG PO PRN (05:00)
[2017-11-09] MEDS: Vancomycin(*) 1,250 MG in NS 0.9% 250 ML* 250 ML IVPB SCH (05:19)
[2017-11-09] MEDS: ZOSYN 3.375 GM Q8H per EXTENDED INFUSION IVPB SCH ×2 (05:20)
[2017-11-09 05:33] LABS: ABS Basophils 0 10^3/ul (0-0.2); ABS Eosinophils 0 10^3/ul (0-0.6); ABS Lymphocytes 1.3 10^3/ul (1.0-4.8); ABS Monocytes 0.9 10^3/ul (0-0.8); ABS Neutrophils 7.7 10^3/ul (1.5-7.7); ABS Nucleated RBC 0 10^3/ul; Eosinophil % 0.2 % (0-6); Hematocrit 25 % (35-47); Hemoglobin 8.4 g/dl (12.0-16.0); Lymphocyte % 12.9 % (25-47); Mean Corpuscular HGB Conc 33 g/dl (31-36); Mean Corpuscular Hemoglobin 29 pg (27-31); Mean Corpuscular Volume 88 fL (80-97); Mean Platelet Volume 8.1 um3 (7.4-10.4); Nucleated Red Blood Cells % 0; Platelet Count 366 10^3/ul (150-450); Red Blood Count 2.85 10^6/ul (4.00-5.40); Red Cell Distribution Width 16 % (10.5-15); White Blood Count 9.9 10^3/ul (3.5-10.8)
[2017-11-09] MEDS: Enoxaparin(*) 100 MG/ML SYR SUBCUT SCH ×2 (05:33→17:59)
[2017-11-09 05:49] LABS: EGFR Non-African American 60.3 (>60)
[2017-11-09] MEDS: Acetaminophen TAB* 325 MG PO PRN ×3 (08:01→22:28)
[2017-11-09] MEDS: Multivitamins/Minerals TAB PO SCH (08:02)
[2017-11-09] MEDS: Aspirin EC TAB* 81 MG TAB.EC PO SCH (08:02)
[2017-11-09] MEDS: Morphine VIAL* 4 MG/ML VIAL (1 ml vial) IV PRN (08:09)
[2017-11-09] MEDS: Insulin LISPRO* 1 UNITS UNIT SUBCUT SCH ×3 (08:23→16:47)
--- NOTE | 2017-11-09 08:28 | PN ---
Progress Note - Progress Note Date of Service: 11/09/17 Note: Infection s/p lobectomy, PE Afeb, VS noted Clementine po's, voiding, + BM More uncomfortable this AM Breathing easy, no dyspnea, aeration good Incis no infection, ecchymosis decreasing Final microbiology pending, but at present, seems to be E coli urosepsis. Will add motrin for additional pain relief Discussed with Dr Darin garcia Zosyn changed to ceftriaxone for better E coli coverage (Blood C&S yest still positive.)
[2017-11-09] MEDS ORDERED: cefTRIAXone(*) 1 GM in NS 0.9% 50 ML* 50 ML IVPB SCH (09:00)
[2017-11-09] MEDS: Ibuprofen TAB* 600 MG PO SCH ×2 (09:23→16:00)
[2017-11-09] MEDS: Meropenem 1 GM PREMIX(*) 1 GM/50 ML BAG IV SCH ×2 (10:32→18:03)
--- NOTE | 2017-11-09 10:59 | PN ---
Subjective Date of Service: 11/09/17 Interval History: Pt had an episode of wheezing last night , now resolved. Feels well. Used her son on the phone for translation. Objective Active Medications: Acetaminophen (Tylenol Tab*) 650 mg PO Q6H PRN PRN Reason: FEVER Last Admin: 11/09/17 08:01 Dose: 650 mg Albuterol (Ventolin 2.5 Mg/3 Ml Neb.Jessenia*) 2.5 mg INH Q2H PRN PRN Reason: SOB/WHEEZING Albuterol/Ipratropium (Duoneb (Albuterol 2.5 Mg/Ipratropium 0.5 Mg)) 1 neb INH Q4H PRN PRN Reason: SOB/WHEEZING Last Admin: 11/08/17 23:56 Dose: 1 neb Aspirin (Aspirin Ec Tab*) 81 mg PO DAILY REPLACED BY [facility] Last Admin: 11/09/17 08:02 Dose: 81 mg Dextrose (D50w Syringe 50 Ml*) 12.5 gm IV PUSH .FOR FS < 60 - SS PRN PRN Reason: FS < 60 Docusate Sodium (Colace Cap*) 100 mg PO BID PRN PRN Reason: CONSTIPATION Enoxaparin Sodium (Lovenox(*)) 100 mg SUBCUT Q12H REPLACED BY [facility] Last Admin: 11/09/17 05:33 Dose: 100 mg Meropenem (Merrem 1 Gm Premix(*)) 1 gm in 50 mls @ 100 mls/hr IV Q8H REPLACED BY [facility] Last Admin: 11/09/17 10:32 Dose: 100 mls/hr Ibuprofen (Motrin Tab*) 600 mg PO Q8H REPLACED BY [facility] Stop: 11/11/17 07:59 Last Admin: 11/09/17 09:23 Dose: 600 mg Insulin Glargine (Lantus(*)) 20 units SUBCUT Q24H REPLACED BY [facility] Last Admin: 11/08/17 18:21 Dose: 20 units Insulin Human Lispro (Humalog*) 0 units SUBCUT [facility]; Protocol Last Admin: 11/09/17 08:23 Dose: Not Given Montelukast Sodium (Singulair Tab*) 10 mg PO BEDTIME REPLACED BY [facility] Last Admin: 11/08/17 21:02 Dose: 10 mg Morphine Sulfate (Morphine Vial*) 2 mg IV Q4H PRN PRN Reason: SEVERE PAIN Last Admin: 11/09/17 08:09 Dose: 2 mg Multivitamins/Minerals (Theragran/Minerals Tab*) 1 tab PO DAILY [facility] Last Admin: 11/09/17 08:02 Dose: 1 tab Ondansetron HCl (Zofran Inj*) 4 mg IV Q4H PRN PRN Reason: NAUSEA/VOMITING Senna (Senokot Tab*) 1 tab PO BEDTIME [facility] Last Admin: 11/08/17 21:02 Dose: 1 tab Tramadol HCl (Ultram*) 50 mg PO Q6H PRN PRN Reason: PAIN Last Admin: 11/09/17 05:00 Dose: 50 mg Vital Signs - 8 hr 11/09/17 11/09/17 11/09/17 03:08 05:00 07:06 Temperature 99.4 F 98.1 F Pulse Rate 95 85 Respiratory 16 28 18 Rate Blood Pressure 148/68 145/66 (mmHg) O2 Sat by Pulse 92 92 Oximetry 11/09/17 11/09/17 11/09/17 08:09 08:24 09:26 Temperature Pulse Rate Respiratory 16 16 16 Rate Blood Pressure (mmHg) O2 Sat by Pulse Oximetry Oxygen Devices in Use Now: None Appearance: 67 yo f in nAD, aAOx3 Eyes: No Scleral Icterus, PERRLA Ears/Nose/Mouth/Throat: NL Teeth, Lips, Gums, Mucous Membranes Moist Neck: NL Appearance and Movements; NL JVP, Trachea Midline Respiratory: Symmetrical Chest Expansion and Respiratory Effort, - - crackles at b/l bases Cardiovascular: NL Sounds; No Murmurs; No JVD, RRR Abdominal: NL Sounds; No Tenderness; No Distention Lymphatic: No Cervical Adenopathy Extremities: No Clubbing, Cyanosis, - - trase pedal edema b/l Skin: No Nodules or Sclerosis, - - R breast ecchymosis, R chest incision under the breast with no dehiscence Neurological: Alert and Oriented x 3, NL Muscle Strength and Tone Result Diagrams: 11/09/17 05:19 11/09/17 05:19 Microbiology and Other Data: Microbiology 11/08/17 05:40 Aerobic Blood Culture - Preliminary Blood Venous Escherichia Coli Anaerobic Blood Culture - Preliminary Escherichia Coli 11/07/17 06:56 Urine Culture - Final Urine Esbl Escherichia Coli Normal Priti 11/06/17 15:00 Aerobic Blood Culture - Preliminary Blood Venous No Growth Day 2 Anaerobic Blood Culture - Preliminary Escherichia Coli 11/06/17 14:20 Aerobic Blood Culture - Preliminary Blood Venous Escherichia Coli Anaerobic Blood Culture - Preliminary No Growth Day 2 11/08/17 04:58 Aerobic Blood Culture - Preliminary Blood Venous No Growth Day 1 Anaerobic Blood Culture - Preliminary No Growth Day 1 11/08/17 07:25 Gram Stain - Final Chest Assess/Plan/Problems-Billing Assessment: 67 yo f with h/o CVA, DM(diet controlled), adenoca of lung resected on 10/24/[address] Oscar (10/11 LN positive, no mets), readmitted 13 days after surgery with fever and R chest pos op hematoma. Pt had post op chest wall hematoma evacuated as outpatient - Patient Problems (1) Sepsis Comment: Pt was septic at admission. UTI related U cx and blood Cx positive foe ESBL E Coli Repeat blood cx from 11/08/17 still positive d/c Vanc/Zosyn. Start meropenem repeat blood cx on 11/10/17 Renal US ordered (2) Pulmonary emboli Comment: in left lung. due to h/o cancer will cont Lovenox and d/w oncology, but likely pt will need to sty on lovenox at d/c (3) Lung cancer Comment: S/P right lower lobectomy on 10/25/27 Management per General Surgery Path report showing - metastatic invasive adenocarcinoma - Dr. Newell is her primary oncologist. (4) Diabetes Comment: - HgA1C 7.3 - Diet controlled at home - Continue Lispro SS and lantus (5) DVT prophylaxis Comment: Lovenox Status and Disposition: inpatient
[2017-11-09] MEDS ORDERED: Vancomycin Trough Check NOTE FOLLOW UP ONE (11:30)
--- NOTE | 2017-11-09 16:48 | RAD ---
Indication: Urinary tract infection. Sepsis. Assess for hydronephrosis. Comparison: November 06, 2017 RIGHT upper quadrant ultrasound. August 28, 2017 PET/CT. Technique: Renal ultrasound. Report: 11.5 x 4.9 x 5.8 cm RIGHT kidney. 11.7 x 6.4 x 10.0 cm LEFT kidney. No conspicuous stones or hydronephrosis. Normal bilateral renal cortical echogenicity. 6.8 x 6.5 x 5.9 cm sharply circumscribed simple cortical exophytic cyst at the anterolateral midpole of the LEFT kidney distorts the LEFT renal contour. No compelling suspicious focal lesion of the LEFT kidney based on correlation with recent PET/CT. IMPRESSION: #. Negative for obstructive uropathy. #. Large benign morphology cyst at the midpole the LEFT kidney without significant change.
[2017-11-09] MEDS: Insulin GLARGINE(*) 1 UNITS UNIT SUBCUT SCH (17:58)
[2017-11-09] MEDS: Senna TAB PO SCH (22:29)
[2017-11-09] MEDS: Montelukast Sodium TAB* 10 MG PO SCH (22:29)
[2017-11-10] MEDS: Meropenem 1 GM PREMIX(*) 1 GM/50 ML BAG IV SCH ×5 (02:00→20:16)
[2017-11-10] MEDS: Ibuprofen TAB* 600 MG PO SCH ×3 (02:19→16:41)
[2017-11-10 06:11] LABS: ABS Basophils 0 10^3/ul (0-0.2); ABS Eosinophils 0.1 10^3/ul (0-0.6); ABS Lymphocytes 1.1 10^3/ul (1.0-4.8); ABS Monocytes 0.4 10^3/ul (0-0.8); ABS Neutrophils 2.9 10^3/ul (1.5-7.7); ABS Nucleated RBC 0 10^3/ul; Eosinophil % 2.9 % (0-6); Hematocrit 25 % (35-47); Hemoglobin 8.3 g/dl (12.0-16.0); Lymphocyte % 24.4 % (25-47); Mean Corpuscular HGB Conc 33 g/dl (31-36); Mean Corpuscular Hemoglobin 29 pg (27-31); Mean Corpuscular Volume 88 fL (80-97); Mean Platelet Volume 7.6 um3 (7.4-10.4); Nucleated Red Blood Cells % 0.1; Platelet Count 364 10^3/ul (150-450); Red Blood Count 2.85 10^6/ul (4.00-5.40); Red Cell Distribution Width 16 % (10.5-15); White Blood Count 4.6 10^3/ul (3.5-10.8)
[2017-11-10 06:30] LABS: EGFR Non-African American 78.5 (>60)
[2017-11-10] MEDS: Enoxaparin(*) 100 MG/ML SYR SUBCUT SCH ×2 (07:15→17:48)
[2017-11-10] MEDS: Insulin LISPRO* 1 UNITS UNIT SUBCUT SCH ×3 (07:49→16:47)
[2017-11-10] MEDS: Aspirin EC TAB* 81 MG TAB.EC PO SCH (09:57)
[2017-11-10] MEDS: Multivitamins/Minerals TAB PO SCH (09:57)
[2017-11-10] MEDS: traMADol TAB* 50 MG PO PRN (09:57)
--- NOTE | 2017-11-10 10:49 | PN ---
Subjective Date of Service: 11/10/17 Interval History: pt had difficult to clear cough in AM. now no SPOB, cough resolved Objective Active Medications: Acetaminophen (Tylenol Tab*) 650 mg PO Q6H PRN PRN Reason: FEVER Last Admin: 11/09/17 22:28 Dose: 650 mg Albuterol (Ventolin 2.5 Mg/3 Ml Neb.Jessenia*) 2.5 mg INH Q2H PRN PRN Reason: SOB/WHEEZING Albuterol/Ipratropium (Duoneb (Albuterol 2.5 Mg/Ipratropium 0.5 Mg)) 1 neb INH Q4H PRN PRN Reason: SOB/WHEEZING Last Admin: 11/08/17 23:56 Dose: 1 neb Aspirin (Aspirin Ec Tab*) 81 mg PO DAILY [facility] Last Admin: 11/10/17 09:57 Dose: 81 mg Dextrose (D50w Syringe 50 Ml*) 12.5 gm IV PUSH .FOR FS < 60 - SS PRN PRN Reason: FS < 60 Docusate Sodium (Colace Cap*) 100 mg PO BID PRN PRN Reason: CONSTIPATION Enoxaparin Sodium (Lovenox(*)) 100 mg SUBCUT Q12H [facility] Last Admin: 11/10/17 07:15 Dose: 100 mg Meropenem (Merrem 1 Gm Premix(*)) 1 gm in 50 mls @ 100 mls/hr IV Q8H [facility] Last Admin: 11/10/17 10:05 Dose: 100 mls/hr Ibuprofen (Motrin Tab*) 600 mg PO Q8H [facility] Stop: 11/11/17 07:59 Last Admin: 11/10/17 07:49 Dose: 600 mg Insulin Glargine (Lantus(*)) 15 units SUBCUT Q24H [facility] Insulin Human Lispro (Humalog*) 0 units SUBCUT AC [facility]; Protocol Last Admin: 11/10/17 07:49 Dose: Not Given Montelukast Sodium (Singulair Tab*) 10 mg PO BEDTIME [facility] Last Admin: 11/09/17 22:29 Dose: 10 mg Morphine Sulfate (Morphine Vial*) 2 mg IV Q4H PRN PRN Reason: SEVERE PAIN Last Admin: 11/09/17 08:09 Dose: 2 mg Multivitamins/Minerals (Theragran/Minerals Tab*) 1 tab PO DAILY [facility] Last Admin: 11/10/17 09:57 Dose: 1 tab Ondansetron HCl (Zofran Inj*) 4 mg IV Q4H PRN PRN Reason: NAUSEA/VOMITING Senna (Senokot Tab*) 1 tab PO BEDTIME [facility] Last Admin: 11/09/17 22:29 Dose: Not Given Tramadol HCl (Ultram*) 50 mg PO Q6H PRN PRN Reason: PAIN Last Admin: 11/10/17 09:57 Dose: 50 mg Vital Signs - 8 hr 11/10/17 11/10/17 11/10/17 03:15 07:27 08:00 Temperature 99.9 F 98.7 F Pulse Rate 75 71 Respiratory 16 18 18 Rate Blood Pressure 147/67 137/68 (mmHg) O2 Sat by Pulse 93 92 Oximetry 11/10/17 09:57 Temperature Pulse Rate Respiratory 18 Rate Blood Pressure (mmHg) O2 Sat by Pulse Oximetry Oxygen Devices in Use Now: None Appearance: 67 yo F in nAD, aAOx3 Eyes: No Scleral Icterus, PERRLA Ears/Nose/Mouth/Throat: NL Teeth, Lips, Gums, Mucous Membranes Moist Neck: NL Appearance and Movements; NL JVP, Trachea Midline Respiratory: Symmetrical Chest Expansion and Respiratory Effort, - - crackles at b/l bases Cardiovascular: NL Sounds; No Murmurs; No JVD, RRR Abdominal: NL Sounds; No Tenderness; No Distention, No Hepatosplenomegaly, - - surgical incision in R chest with ecchymosis in R breast Extremities: No Clubbing, Cyanosis, - - trace pedal edema b/l Skin: No Nodules or Sclerosis Neurological: Alert and Oriented x 3, NL Muscle Strength and Tone Result Diagrams: 11/10/17 05:36 11/10/17 05:39 Microbiology and Other Data: Microbiology 11/08/17 05:40 Aerobic Blood Culture - Preliminary Blood Venous Escherichia Coli Anaerobic Blood Culture - Preliminary Escherichia Coli 11/07/17 06:56 Urine Culture - Final Urine Esbl Escherichia Coli Normal Priti 11/06/17 15:00 Aerobic Blood Culture - Preliminary Blood Venous No Growth Day 2 Anaerobic Blood Culture - Preliminary Escherichia Coli 11/06/17 14:20 Aerobic Blood Culture - Preliminary Blood Venous Escherichia Coli Anaerobic Blood Culture - Preliminary No Growth Day 2 11/08/17 04:58 Aerobic Blood Culture - Preliminary Blood Venous No Growth Day 1 Anaerobic Blood Culture - Preliminary No Growth Day 1 11/08/17 07:25 Gram Stain - Final Chest Assess/Plan/Problems-Billing Assessment: 67 yo f with h/o CVA, DM(diet controlled), adenoca of lung resected on 10/24/[address] Oscar (10/11 LN positive, no mets), readmitted 13 days after surgery with fever and R chest pos op hematoma. Pt had post op chest wall hematoma evacuated as outpatient - Patient Problems (1) Sepsis Comment: Pt was septic at admission. UTI related U cx and blood Cx positive for ESBL E Coli Repeat blood cx from 11/08/17 still positive d/c Vanc/Zosyn. Started meropenem on 11/09/17. Previoulsy on Vanc /Zosyn and blood cx still positive . repeat blood cx on 11/10/17 Renal US shows no marked abnormalities (large benign appearing cyst noted) (2) Pulmonary emboli Comment: in left lung. due to h/o cancer will cont Lovenox and d/w oncology, but likely pt will need to stay on lovenox at d/c (3) Lung cancer Comment: S/P right lower lobectomy on 10/25/27 Management per General Surgery Path report showing - metastatic invasive adenocarcinoma - Dr. Newell is her primary oncologist. (4) Diabetes Comment: - HgA1C 7.3 - Diet controlled at home - Continue Lispro SS and lantus (5) Anemia Comment: Asymptomatic Suspect acute blood loss anemia secondary to surgery and post-op hematoma HH stable Received 1 unit PRBCs 10/27 stool heme - on 11/09/17 (6) DVT prophylaxis Comment: Lovenox Status and Disposition: inpatient
--- NOTE | 2017-11-10 11:21 | PN ---
Progress Note - Progress Note Date of Service: 11/10/17 SOAP: Subjective: pt seen and examined. walked hernandez together. some cough-nonproductive with deep inspiration some chest and R breast pain Objective: Temp Pulse Resp BP Pulse Ox 98.7 F 71 18 137/68 92 11/10/17 07:27 11/10/17 07:27 11/10/17 09:57 11/10/17 07:27 11/10/17 07:27 Intake & Output 11/09/17 11/10/17 11/10/17 22:59 06:59 14:59 Intake Total 251 360 620 Output Total 200 0 0 Balance 51 360 620 lungs clear at apices; decrea at Right base ecchymosis without erythema along anterior incision and breast wound opened more and packed with moist gauze no IV access Laboratory Last Values WBC 4.6 10^3/ul (3.5-10.8) 11/10/17 05:36 RBC 2.85 10^6/ul (4.00-5.40) L 11/10/17 05:36 Hgb 8.3 g/dl (12.0-16.0) L 11/10/17 05:36 Hct 25 % (35-47) L 11/10/17 05:36 MCV 88 fL (80-97) 11/10/17 05:36 MCH 29 pg (27-31) 11/10/17 05:36 MCHC 33 g/dl (31-36) 11/10/17 05:36 RDW 16 % (10.5-15) H 11/10/17 05:36 Plt Count 364 10^3/ul (150-450) 11/10/17 05:36 MPV 7.6 um3 (7.4-10.4) 11/10/17 05:36 Neut % (Auto) 63.3 % (38-83) 11/10/17 05:36 Lymph % (Auto) 24.4 % (25-47) L 11/10/17 05:36 Pine % (Auto) 8.7 % (0-7) H 11/10/17 05:36 Eos % (Auto) 2.9 % (0-6) 11/10/17 05:36 Baso % (Auto) 0.7 % (0-2) 11/10/17 05:36 Absolute Neuts (auto) 2.9 10^3/ul (1.5-7.7) 11/10/17 05:36 Absolute Lymphs (auto) 1.1 10^3/ul (1.0-4.8) 11/10/17 05:36 Absolute Monos (auto) 0.4 10^3/ul (0-0.8) 11/10/17 05:36 Absolute Eos (auto) 0.1 10^3/ul (0-0.6) 11/10/17 05:36 Absolute Basos (auto) 0 10^3/ul (0-0.2) 11/10/17 05:36 Absolute Nucleated RBC 0 10^3/ul 11/10/17 05:36 Nucleated RBC % 0.1 11/10/17 05:36 Sickle Cell Screen Negative (Negative) 11/06/17 17:37 INR (Anticoag Therapy) 1.18 (0.77-1.02) H 11/07/17 05:00 APTT 32.1 seconds (26.0-36.3) 11/07/17 05:00 Sodium 141 mmol/L (135-145) 11/10/17 05:39 Potassium 3.3 mmol/L (3.5-5.0) L 11/10/17 05:39 Chloride 110 mmol/L (101-111) 11/10/17 05:39 Carbon Dioxide 25 mmol/L (22-32) 11/10/17 05:39 Anion Gap 6 mmol/L (2-11) 11/10/17 05:39 BUN 11 mg/dL (6-24) 11/10/17 05:39 Creatinine 0.74 mg/dL (0.51-0.95) 11/10/17 05:39 Est GFR ( Amer) 95.0 (>60) 11/10/17 05:39 Est GFR (Non-Af Amer) 78.5 (>60) 11/10/17 05:39 BUN/Creatinine Ratio 14.9 (8-20) 11/10/17 05:39 Glucose 78 mg/dL (70-100) 11/10/17 05:39 POC Glucose (mg/dL) 77 mg/dL (70-100) 11/10/17 07:48 Lactic Acid 1.1 mmol/L (0.5-2.0) 11/06/17 17:37 Calcium 7.9 mg/dL (8.6-10.3) L 11/10/17 05:39 Magnesium 2.0 mg/dL (1.9-2.7) 11/09/17 05:19 Total Bilirubin 1.40 mg/dL (0.2-1.0) H 11/07/17 05:00 AST 29 U/L (13-39) 11/07/17 05:00 ALT 28 U/L (7-52) 11/07/17 05:00 Alkaline Phosphatase 125 U/L (34-104) H 11/07/17 05:00 B-Natriuretic Peptide 154 pg/mL (-100) H 11/06/17 15:00 Total Protein 6.3 g/dL (6.4-8.9) L 11/07/17 05:00 Albumin 2.9 g/dL (3.2-5.2) L 11/07/17 05:00 Globulin 3.4 g/dL (2-4) 11/07/17 05:00 Albumin/Globulin Ratio 0.9 (1-3) L 11/07/17 05:00 Urine Color Yellow 11/07/17 06:56 Urine Appearance Cloudy 11/07/17 06:56 Urine pH 5.0 (5-9) 11/07/17 06:56 Ur Specific [place] 1.015 (1.010-1.030) 11/07/17 06:56 Urine Protein 1+(30 mg/dl) (Negative) A 11/07/17 06:56 Urine Ketones Trace (Negative) A 11/07/17 06:56 Urine Blood 2+ (Negative) A 11/07/17 06:56 Urine Nitrate Negative (Negative) 11/07/17 06:56 Urine Bilirubin Negative (Negative) 11/07/17 06:56 Urine Urobilinogen Negative (Negative) 11/07/17 06:56 Ur Leukocyte Esterase 3+ (Negative) A 11/07/17 06:56 Urine WBC (Auto) 3+(>20/hpf) (Absent) A 11/07/17 06:56 Urine RBC (Auto) 2+(6-10/hpf) (Absent) A 11/07/17 06:56 Ur Squamous Epith Cells Present (Absent) A 11/07/17 06:56 Urine Bacteria 1+ (Absent) A 11/07/17 06:56 Urine Glucose Negative (Negative) 11/07/17 06:56 Vancomycin Trough 24.5 mcg/mL 11/09/17 11:36 Blood Type A Positive 11/07/17 05:00 Antibody Screen Negative 11/07/17 05:00 Assessment: sepsis/ bacteremia resolving possibly 2ary to UTI; PE cough open wound Plan: abx- PICC line? wound care aliax
[2017-11-10] MEDS: Albuterol/Ipratropium NEB.SOL* Albuterol 2.5 MG/Ipratropium 0.5 MG 3 ML INH PRN (16:29)
[2017-11-10] MEDS ORDERED: Ondansetron TAB* 4 MG ONE (17:12)
[2017-11-10] MEDS: Ondansetron TAB* 4 MG PO PRN (17:15)
[2017-11-10] MEDS ORDERED: Insulin GLARGINE(*) 1 UNITS UNIT SUBCUT SCH (18:00)
[2017-11-10] MEDS: Senna TAB PO SCH (20:47)
[2017-11-10] MEDS: Acetaminophen TAB* 325 MG PO PRN (20:52)
[2017-11-10] MEDS: Montelukast Sodium TAB* 10 MG PO SCH (20:52)
[2017-11-11] MEDS: Ibuprofen TAB* 600 MG PO SCH (00:09)
[2017-11-11] MEDS: Meropenem 1 GM PREMIX(*) 1 GM/50 ML BAG IV SCH ×3 (04:32→19:54)
[2017-11-11] MEDS: Enoxaparin(*) 100 MG/ML SYR SUBCUT SCH ×2 (05:19→18:43)
[2017-11-11] MEDS ORDERED: Furosemide IV* 10 MG/ML 2 ML VIAL (20 MG) IV ONE (08:08)
--- NOTE | 2017-11-11 08:13 | PN ---
Subjective Date of Service: 11/11/17 Interval History: For the past 3 night pt had been SOB at night. Today "a little better". Yesterday PM she was coughing so ernesto she vomited. c/o pain at the incision site in R chest Objective Active Medications: Acetaminophen (Tylenol Tab*) 650 mg PO Q6H PRN PRN Reason: FEVER Last Admin: 11/10/17 20:52 Dose: 650 mg Albuterol (Ventolin 2.5 Mg/3 Ml Neb.Jessenia*) 2.5 mg INH Q2H PRN PRN Reason: SOB/WHEEZING Albuterol/Ipratropium (Duoneb (Albuterol 2.5 Mg/Ipratropium 0.5 Mg)) 1 neb INH Q4H PRN PRN Reason: SOB/WHEEZING Last Admin: 11/10/17 16:29 Dose: 1 neb Aspirin (Aspirin Ec Tab*) 81 mg PO DAILY [facility] Last Admin: 11/10/17 09:57 Dose: 81 mg Dextrose (D50w Syringe 50 Ml*) 12.5 gm IV PUSH .FOR FS < 60 - SS PRN PRN Reason: FS < 60 Docusate Sodium (Colace Cap*) 100 mg PO BID PRN PRN Reason: CONSTIPATION Enoxaparin Sodium (Lovenox(*)) 100 mg SUBCUT Q12H [facility] Last Admin: 11/11/17 05:19 Dose: 100 mg Meropenem (Merrem 1 Gm Premix(*)) 1 gm in 50 mls @ 100 mls/hr IV 0400,1200, 2000 [facility] Last Admin: 11/11/17 04:32 Dose: 100 mls/hr Insulin Glargine (Lantus(*)) 10 units SUBCUT Q24H [facility] Insulin Human Lispro (Humalog*) 0 units SUBCUT AC [facility]; Protocol Last Admin: 11/10/17 16:47 Dose: Not Given Montelukast Sodium (Singulair Tab*) 10 mg PO BEDTIME [facility] Last Admin: 11/10/17 20:52 Dose: 10 mg Morphine Sulfate (Morphine Vial*) 2 mg IV Q4H PRN PRN Reason: SEVERE PAIN Last Admin: 11/09/17 08:09 Dose: 2 mg Multivitamins/Minerals (Theragran/Minerals Tab*) 1 tab PO DAILY [facility] Last Admin: 11/10/17 09:57 Dose: 1 tab Ondansetron HCl (Zofran Inj*) 4 mg IV Q4H PRN PRN Reason: NAUSEA/VOMITING Ondansetron HCl (Zofran Tab*) 4 mg PO Q6H PRN PRN Reason: NAUSEA Last Admin: 11/10/17 17:15 Dose: 4 mg Senna (Senokot Tab*) 1 tab PO BEDTIME [facility] Last Admin: 11/10/17 20:47 Dose: Not Given Tramadol HCl (Ultram*) 50 mg PO Q6H PRN PRN Reason: PAIN Last Admin: 11/10/17 09:57 Dose: 50 mg Oxygen Devices in Use Now: None Appearance: 67 yo F in nAD, aAOx3 Eyes: No Scleral Icterus, PERRLA Ears/Nose/Mouth/Throat: NL Teeth, Lips, Gums, Mucous Membranes Moist Neck: NL Appearance and Movements; NL JVP Respiratory: Symmetrical Chest Expansion and Respiratory Effort, - - carckles b/ l bases Cardiovascular: NL Sounds; No Murmurs; No JVD, RRR Abdominal: NL Sounds; No Tenderness; No Distention, No Hepatosplenomegaly Lymphatic: No Cervical Adenopathy Extremities: No Clubbing, Cyanosis, - - trace pedal edema b/l Skin: No Rash or Ulcers, - - R chest wound s/p throracotomy not uncovered from surgical dressings Neurological: Alert and Oriented x 3, NL Muscle Strength and Tone Result Diagrams: 11/10/17 05:36 11/10/17 05:39 Microbiology and Other Data: Microbiology 11/08/17 05:40 Aerobic Blood Culture - Preliminary Blood Venous Escherichia Coli Anaerobic Blood Culture - Preliminary Escherichia Coli 11/07/17 06:56 Urine Culture - Final Urine Esbl Escherichia Coli Normal Priti 11/06/17 15:00 Aerobic Blood Culture - Preliminary Blood Venous No Growth Day 2 Anaerobic Blood Culture - Preliminary Escherichia Coli 11/06/17 14:20 Aerobic Blood Culture - Preliminary Blood Venous Escherichia Coli Anaerobic Blood Culture - Preliminary No Growth Day 2 11/08/17 04:58 Aerobic Blood Culture - Preliminary Blood Venous No Growth Day 1 Anaerobic Blood Culture - Preliminary No Growth Day 1 11/08/17 07:25 Gram Stain - Final Chest Assess/Plan/Problems-Billing Assessment: 67 yo f with h/o CVA, DM(diet controlled), adenoca of lung resected on 10/24/[address] Oscar (10/11 LN positive, no mets), readmitted 13 days after surgery with fever and R chest pos op hematoma. Pt had post op chest wall hematoma evacuated as outpatient - Patient Problems (1) Sepsis Comment: Pt was septic at admission. UTI related. Will ask for ID consult today U cx and blood Cx positive for ESBL E Coli Repeat blood cx from 11/08/17 still positive, but on 11/10/17 blood cx negative so far. Temp of 100.2 on 11/10/17 amador. Started meropenem on 11/09/17. Previously on Vanc /Zosyn and blood cx still positive . Renal US shows no marked abnormalities (large benign appearing cyst noted) (2) Pulmonary emboli Comment: in left lung. due to h/o cancer will cont Lovenox and d/w oncology, but likely pt will need to stay on lovenox at d/c (3) Lung cancer Comment: S/P right lower lobectomy on 10/25/27 Management per General Surgery Path report showing - metastatic invasive adenocarcinoma - Dr. Newell is her primary oncologist. (4) Diabetes Comment: - HgA1C 7.3 - Diet controlled at home - Continue Lispro SS and lantus (5) PND (paroxysmal nocturnal dyspnea) Comment: due to mild fluid overload-pt received siginificant amount of IVF with antibiotics and tx. will tx with a dose of Lasix 20 mg IV (6) Anemia Comment: Asymptomatic Suspect acute blood loss anemia secondary to surgery and post-op hematoma HH stable Received 1 unit PRBCs 10/27 stool heme - on 11/09/17 (7) DVT prophylaxis Comment: Lovenox Status and Disposition: inpatient
[2017-11-11] MEDS ORDERED: Potassium Chlor TAB* 20 MEQ TAB.ER PO ONE (08:16)
[2017-11-11] MEDS: Insulin LISPRO* 1 UNITS UNIT SUBCUT SCH ×3 (08:23→17:25)
[2017-11-11] MEDS: Aspirin EC TAB* 81 MG TAB.EC PO SCH (08:23)
[2017-11-11] MEDS: Multivitamins/Minerals TAB PO SCH (08:24)
--- NOTE | 2017-11-11 10:08 | PN ---
Progress Note - Progress Note Date of Service: 11/11/17 SOAP: Subjective: []Remains very SOB but did walk with PT today. Pain in chest, managed. She is eating well. No active bleeding Vital Signs Temp Pulse Resp BP Pulse Ox 98.7 F 69 27 128/61 90 11/10/17 22:54 11/10/17 22:54 11/10/17 22:54 11/10/17 22:54 11/10/17 22:54 HEENT - pale, no thrush Decreased BS, crackles on right, no wheezing. Chest wall lesion packed, serosanguinous fluid. RRR S1S2 +BS, obese, NT Ext: Tr edema Objective: [] Vital Signs Temp Pulse Resp BP Pulse Ox 98.7 F 69 27 128/61 90 11/10/17 22:54 11/10/17 22:54 11/10/17 22:54 11/10/17 22:54 11/10/17 22:54 Pathology: T2, N2 with 3 Level VII nodes positive. Assessment: []67 year old female with resected stage III lung cancer on 10/24/17. Now readmission with multiple complications. She has chest wall hematoma now drained, PE currently on Lovenox and sepsis and UTI with ESBL E. Coli. Plan: []1. Lung cancer. She has N2 disease at surgery in single station. Will be candidate for adjuvant chemotherapy once improves from current complications. She has long risk of relapse of > 50% but any adjuvant therapy will be pending full recovery from surgery. 2. PE. Will check Lovenox level but in meantime decrease to 90 sq bid. Will discharge on Lovenox but ultimately change to an oral agent. 3. E. Coli, ID consult pending. 4. Anemia. Transfuse for Hgb <8.0 and will check Iron and B12.
[2017-11-11] MEDS: traMADol TAB* 50 MG PO PRN ×2 (11:06→18:41)
--- NOTE | 2017-11-11 11:40 | PN ---
Progress Note - Progress Note Date of Service: 11/11/17 Note: Urosepsis s/p lobectomy Tm 100 VS noted Clementine po's, No N/V, appetite weak, BM OK Still using pain meds with relief Chest wound clean, no infection. Ecchymosis decreasing. Small drainage. Abx per Hosp/ID Anticoag per Hosp/Onc. Change chest dressing daily Disch per medicine
[2017-11-11] MEDS ORDERED: Enoxaparin(*) 100 MG/ML SYR SUBCUT SCH (12:00)
--- NOTE | 2017-11-11 12:27 | CONS ---
CONSULTATION REPORT: DATE OF CONSULT: 11/11/17 REQUESTING PHYSICIAN: Dr. Webster. CONSULTING SERVICE: Infectious Disease. REASON FOR CONSULT: ESBL producing E. coli infection. IMPRESSION: 1. Cystitis, Chandra catheter associated, complicated by bacteremia, which was persistent for about two days despite appropriate antibiotic therapy. Renal ultrasound showed no more complicated source of urinary tract infection including no hydronephrosis and no stone disease. She has no joint synovitis. No spine tenderness. No prosthetic material present to suggest alternative source of persistence. She did have a recent thoracotomy with right lower lobectomy and lymph node dissection, which was complicated by hematoma. The CT imaging here showed small right side pleural collection. The wound does not show erythema or purulent drainage. I think it is less likely related to the surgical site. 2. Pulmonary embolism. RECOMMENDATION: Agree with meropenem. She has had four days of effective antibiotic therapy. We will plan on another one or two days depending her clinical course here and then switch her to ciprofloxacin to complete a two- week course. HISTORY OF PRESENT ILLNESS: This is a 67-year-old woman with lung cancer, recent lobectomy as described above, which was complicated by hematoma, which was evacuated. Couple of days later, she developed fevers and dyspnea. She was admitted to the ICU. The CT scan showed small loculated effusion on the right versus pleural thickening and pulmonary embolism. She was started on broad- spectrum antibiotics and Lovenox, initially with vanco and cefepime, then vanco and Zosyn. Her blood cultures came back 2/4 bottles of ESBL producing E. coli. Followup blood cultures on the 11/08/17, 2/4 bottles ESBL E. coli. Followup cultures on the 11/10/17, are 4/4 no growth. Culture of the right chest surgical site, which is open is no growth. She had not noticed any urinary frequency or dysuria before she came to the hospital. Her main complaint was that she has had fever for few days before she came in with decreased appetite. Here she has been followed by the surgeon, who are packing the wound. She had ultrasound of her kidney, which was unremarkable. She had a CT of her chest, which showed pulmonary embolism with small loculated collection on the right adjacent to the wound. Abdominal ultrasound showed normal gallbladder. PAST MEDICAL HISTORY: 1. Hypertension. 2. Hyperlipidemia. 3. Diabetes. 4. Lung cancer, status post lobectomy and lymph node dissection October 2017. 5. History of stroke. MEDICATIONS: 1. Tylenol. 2. Albuterol as needed. 3. Docusate as needed. 4. Enoxaparin. 5. Insulin glargine. 6. Meropenem 1 g every 8 hours. 7. Singulair. 8. Zofran. 9. Tramadol. FAMILY HISTORY: No recurrent infections or tuberculosis. SOCIAL HISTORY: She lives in [place]. She is originally from [place], came to [place] 10 years ago. Nonsmoker. No injection of drugs. REVIEW OF SYSTEMS: All negative to a 14-point review of systems except as noted above in the history of present illness. PHYSICAL EXAM: Vital Signs: Temperature 37, heart rate 70, respiratory rate 20 , blood pressure 128/61, oxygen saturation 90% on room air. In general, she is awake, not in distress. Neurologic: She is oriented x3. Follows all commands. Moves all of her extremities. HEENT: There is no conjunctival hemorrhage. Oropharynx without lesions. Neck: Supple without mash. Lymph Nodes: There is no cervical, supraclavicular, inguinal, axillary, or epitrochlear lymphadenopathy. Heart is regular rate and rhythm without murmurs, rubs, or gallops. Lungs: Decreased breath sounds in bilateral bases without wheezes or rales. Chest: There is a right chest open incision with clean packing materials. No surrounding erythema. The right breast has ecchymosis. Abdomen: Soft, nontender, nondistended. There are bowel sounds present. Skin : There is no rash or splinter hemorrhage. Musculoskeletal: No spine tenderness to palpation. No joint synovitis. LABORATORY DATA: White blood cell count 4, down from 18; hemoglobin 8; platelets 364. Creatinine is 0.7. Please see impressions and recommendations as outlined above, which I have discussed with Dr. Webster and Dr. Newell. Thanks for asking me to see Ms. Garcia in consultation. [id number]/CPS #: [id number] MTDD
[2017-11-11] MEDS ORDERED: Insulin GLARGINE(*) 1 UNITS UNIT SUBCUT SCH (18:00)
[2017-11-11] MEDS: Acetaminophen TAB* 325 MG PO PRN (19:51)
[2017-11-11] MEDS: Montelukast Sodium TAB* 10 MG PO SCH (19:52)
[2017-11-11] MEDS: Senna TAB PO SCH (20:01)
[2017-11-12] MEDS: traMADol TAB* 50 MG PO PRN ×3 (04:12→20:56)
[2017-11-12] MEDS: Meropenem 1 GM PREMIX(*) 1 GM/50 ML BAG IV SCH ×3 (04:14→20:55)
[2017-11-12 05:14] LABS: Hematocrit 26 % (35-47); Hemoglobin 8.7 g/dl (12.0-16.0); Mean Corpuscular HGB Conc 34 g/dl (31-36); Mean Corpuscular Hemoglobin 29 pg (27-31); Mean Corpuscular Volume 87 fL (80-97); Mean Platelet Volume 7.6 um3 (7.4-10.4); Platelet Count 385 10^3/ul (150-450); Red Blood Count 2.96 10^6/ul (4.00-5.40); Red Cell Distribution Width 16 % (10.5-15); White Blood Count 10.5 10^3/ul (3.5-10.8)
[2017-11-12 05:33] LABS: EGFR Non-African American 66.9 (>60)
[2017-11-12 05:43] LABS: ABS Basophils 0 10^3/ul (0-0.2); ABS Eosinophils 0.5 10^3/ul (0-0.6); ABS Lymphocytes 2.6 10^3/ul (1.0-4.8); ABS Monocytes 1.7 10^3/ul (0-0.8); ABS Neutrophils 5.7 10^3/ul (1.5-7.7); ABS Nucleated RBC 0 10^3/ul; Eosinophil % 4.5 % (0-6); Lymphocyte % 24.7 % (25-47); Nucleated Red Blood Cells % 0
[2017-11-12] MEDS: Enoxaparin(*) 100 MG/ML SYR SUBCUT SCH ×2 (05:47→17:20)
[2017-11-12] MEDS: Ondansetron TAB* 4 MG PO PRN (07:36)
[2017-11-12] MEDS: Aspirin EC TAB* 81 MG TAB.EC PO SCH (07:38)
[2017-11-12] MEDS: Multivitamins/Minerals TAB PO SCH (07:39)
[2017-11-12] MEDS: Insulin LISPRO* 1 UNITS UNIT SUBCUT SCH ×3 (07:46→17:32)
[2017-11-12] MEDS ORDERED: Potassium Chlor TAB* 20 MEQ TAB.ER PO ONE (08:00)
[2017-11-12] MEDS: Magnesium Oxide TAB* 400 MG PO SCH (08:43)
--- NOTE | 2017-11-12 08:44 | PN ---
Subjective Date of Service: 11/12/17 Interval History: Pt still occasionally coughs-nonproductive. And gets DUARTE. Max temp 100.1 She stated that she feels "a little better every day". Spoke with pt's son who is concerned that pt is too weak to go home and both pt and son requested eval for STR/PMRU Objective Active Medications: Acetaminophen (Tylenol Tab*) 650 mg PO Q6H PRN PRN Reason: FEVER Last Admin: 11/11/17 19:51 Dose: 650 mg Albuterol (Ventolin 2.5 Mg/3 Ml Neb.Jessenia*) 2.5 mg INH Q2H PRN PRN Reason: SOB/WHEEZING Albuterol/Ipratropium (Duoneb (Albuterol 2.5 Mg/Ipratropium 0.5 Mg)) 1 neb INH Q4H PRN PRN Reason: SOB/WHEEZING Last Admin: 11/10/17 16:29 Dose: 1 neb Aspirin (Aspirin Ec Tab*) 81 mg PO DAILY [facility] Last Admin: 11/12/17 07:38 Dose: 81 mg Dextrose (D50w Syringe 50 Ml*) 12.5 gm IV PUSH .FOR FS < 60 - SS PRN PRN Reason: FS < 60 Docusate Sodium (Colace Cap*) 100 mg PO BID PRN PRN Reason: CONSTIPATION Enoxaparin Sodium (Lovenox(*)) 90 mg SUBCUT 0600,1800 [facility] Last Admin: 11/12/17 05:47 Dose: 90 mg Heparin Sodium (Porcine) (Heparin Flush Picc/Ml/Cvc(*)) 1 ml FLUSH 0600,1800 [facility]; Protocol Last Admin: 11/12/17 04:59 Dose: 1 ml Meropenem (Merrem 1 Gm Premix(*)) 1 gm in 50 mls @ 100 mls/hr IV 0400,1200, 2000 [facility] Last Admin: 11/12/17 04:14 Dose: 100 mls/hr Insulin Glargine (Lantus(*)) 10 units SUBCUT Q24H [facility] Last Admin: 11/11/17 18:42 Dose: 10 units Insulin Human Lispro (Humalog*) 0 units SUBCUT AC [facility]; Protocol Last Admin: 11/12/17 07:46 Dose: Not Given Magnesium Oxide (Magox 400 Tab*) 800 mg PO DAILY [facility] Montelukast Sodium (Singulair Tab*) 10 mg PO BEDTIME [facility] Last Admin: 11/11/17 19:52 Dose: 10 mg Morphine Sulfate (Morphine Vial*) 2 mg IV Q4H PRN PRN Reason: SEVERE PAIN Last Admin: 11/09/17 08:09 Dose: 2 mg Multivitamins/Minerals (Theragran/Minerals Tab*) 1 tab PO DAILY [facility] Last Admin: 11/12/17 07:39 Dose: 1 tab Ondansetron HCl (Zofran Inj*) 4 mg IV Q4H PRN PRN Reason: NAUSEA/VOMITING Ondansetron HCl (Zofran Tab*) 4 mg PO Q6H PRN PRN Reason: NAUSEA Last Admin: 11/12/17 07:36 Dose: 4 mg Senna (Senokot Tab*) 1 tab PO BEDTIME [facility] Last Admin: 11/11/17 20:01 Dose: Not Given Tramadol HCl (Ultram*) 50 mg PO Q6H PRN PRN Reason: PAIN Last Admin: 11/12/17 04:12 Dose: 50 mg Vital Signs - 8 hr 11/12/17 11/12/17 11/12/17 03:13 04:12 05:01 Temperature 98.3 F Pulse Rate 61 71 Respiratory 16 17 Rate Blood Pressure 146/74 (mmHg) O2 Sat by Pulse 91 94 Oximetry 11/12/17 06:13 Temperature Pulse Rate Respiratory 16 Rate Blood Pressure (mmHg) O2 Sat by Pulse Oximetry Oxygen Devices in Use Now: None Appearance: 67 yo F in nAD, aAOx3 Eyes: No Scleral Icterus, PERRLA Ears/Nose/Mouth/Throat: NL Teeth, Lips, Gums, Mucous Membranes Moist Neck: NL Appearance and Movements; NL JVP, Trachea Midline Respiratory: Symmetrical Chest Expansion and Respiratory Effort, - - scant crackles at b/l bases Cardiovascular: NL Sounds; No Murmurs; No JVD, RRR Abdominal: NL Sounds; No Tenderness; No Distention Lymphatic: No Cervical Adenopathy Extremities: No Clubbing, Cyanosis, - - trace pedal edema b/l Skin: No Nodules or Sclerosis, - - R chest incision wth area of dehiscence at 3 cm packed, draining serous fluid.Ecchymosis of R breast noted Neurological: Alert and Oriented x 3, NL Muscle Strength and Tone Result Diagrams: 11/12/17 05:00 11/12/17 05:00 Microbiology and Other Data: Microbiology 11/08/17 05:40 Aerobic Blood Culture - Preliminary Blood Venous Escherichia Coli Anaerobic Blood Culture - Preliminary Escherichia Coli 11/07/17 06:56 Urine Culture - Final Urine Esbl Escherichia Coli Normal Priti 11/06/17 15:00 Aerobic Blood Culture - Preliminary Blood Venous No Growth Day 2 Anaerobic Blood Culture - Preliminary Escherichia Coli 11/06/17 14:20 Aerobic Blood Culture - Preliminary Blood Venous Escherichia Coli Anaerobic Blood Culture - Preliminary No Growth Day 2 11/08/17 04:58 Aerobic Blood Culture - Preliminary Blood Venous No Growth Day 1 Anaerobic Blood Culture - Preliminary No Growth Day 1 11/08/17 07:25 Gram Stain - Final Chest Assess/Plan/Problems-Billing Assessment: 67 yo f with h/o CVA, DM(diet controlled), adenoca of lung resected on 10/24/[address] Oscar (10/11 LN positive, no mets), readmitted 13 days after surgery with fever and R chest post op hematoma. Pt had post op chest wall hematoma evacuated as outpatient - Patient Problems (1) Sepsis Comment: Pt was septic at admission. UTI related. appreciate ID consult .Meropenem x one day, then Cipro PO x 2 weeks. U cx and blood Cx positive for ESBL E Coli Temp of 100.1 on 11/11/17 amador. Started meropenem on 11/09/17. Previously on Vanc /Zosyn and blood cx still positive . Renal US shows no marked abnormalities (large benign appearing cyst noted) (2) Pulmonary emboli Comment: in left lung. due to h/o cancer will cont Lovenox at d/c as d/w oncology (3) Lung cancer Comment: S/P right lower lobectomy on 10/25/27 Management per General Surgery Path report showing - metastatic invasive adenocarcinoma - Dr. Newell is her primary oncologist. (4) Diabetes Comment: - HgA1C 7.3 - Diet controlled at home - Continue Lispro SS , will stop Lantus and monitor. May need metformin to be started at d/c (5) PND (paroxysmal nocturnal dyspnea) Comment: due to mild fluid overload-pt received siginificant amount of IVF with antibiotics and tx. Tx with a dose of Lasix 20 mg IV on 11/11/17 (6) Anemia Comment: Asymptomatic Suspect acute blood loss anemia secondary to surgery and post-op hematoma HH stable. Oncology recommendations appreciated-transfuse for Hb <8 Received 1 unit PRBCs 10/27 stool heme - on 11/09/17 (7) DVT prophylaxis Comment: Lovenox Status and Disposition: inpatient. Pt and family concerned that pt is too weak to go home. PMRU/STR eval ongoing
--- NOTE | 2017-11-12 10:48 | PN ---
Progress Note - Progress Note Date of Service: 11/12/17 Note: Surgery progress S: states pain is 4/10. See also hospitalist Darin note. O: Right chest wound clean; measures ~ 4.5 x 2 x 2.5 cm depth. Saline moistened packing (4x4) replaced w/ dry dsg cover. Clementine well. A/P: s/p R thoracotomy w/ lobectomy; readmission for urosepsis; PE cont local wound care (may need to downsize packing to 1/2" plain) poss tx to PMRU or SNF for short term rehab abx per ID
[2017-11-12] MEDS: Montelukast Sodium TAB* 10 MG PO SCH (20:57)
[2017-11-12] MEDS: Senna TAB PO SCH (20:57)
[2017-11-13] MEDS: Meropenem 1 GM PREMIX(*) 1 GM/50 ML BAG IV SCH (04:41)
[2017-11-13] MEDS: Enoxaparin(*) 100 MG/ML SYR SUBCUT SCH ×2 (05:17→17:50)
[2017-11-13] MEDS: Albuterol/Ipratropium NEB.SOL* Albuterol 2.5 MG/Ipratropium 0.5 MG 3 ML INH PRN (05:48)
[2017-11-13] MEDS: traMADol TAB* 50 MG PO PRN ×3 (08:41→20:48)
[2017-11-13] MEDS: Magnesium Oxide TAB* 400 MG PO SCH (08:41)
[2017-11-13] MEDS: Multivitamins/Minerals TAB PO SCH (08:41)
[2017-11-13] MEDS: Insulin LISPRO* 1 UNITS UNIT SUBCUT SCH ×4 (08:41→17:51)
[2017-11-13] MEDS: Aspirin EC TAB* 81 MG TAB.EC PO SCH (08:41)
--- NOTE | 2017-11-13 13:52 | PN ---
Subjective Date of Service: 11/13/17 Interval History: Pt is feeling ok. She rates her pain 4/10. Nursing just completed her dressing change prior to my evaluation of the patient. She denies any other complaints. The patient's family is considering STR before going home. Objective Active Medications: Acetaminophen (Tylenol Tab*) 650 mg PO Q6H PRN PRN Reason: FEVER Last Admin: 11/11/17 19:51 Dose: 650 mg Albuterol (Ventolin 2.5 Mg/3 Ml Neb.Jessenia*) 2.5 mg INH Q2H PRN PRN Reason: SOB/WHEEZING Last Admin: 11/12/17 19:15 Dose: 2.5 mg Albuterol/Ipratropium (Duoneb (Albuterol 2.5 Mg/Ipratropium 0.5 Mg)) 1 neb INH Q4H PRN PRN Reason: SOB/WHEEZING Last Admin: 11/13/17 05:48 Dose: 1 neb Aspirin (Aspirin Ec Tab*) [address] [facility] Last Admin: 11/13/17 08:41 Dose: 81 mg Ciprofloxacin (Cipro Tab*) [address] [facility] Dextrose (D50w Syringe 50 Ml*) 12.5 gm IV PUSH .FOR FS < 60 - SS PRN PRN Reason: FS < 60 Docusate Sodium (Colace Cap*) 100 mg PO BID PRN PRN Reason: CONSTIPATION Enoxaparin Sodium (Lovenox(*)) 90 mg SUBCUT 0600,1800 [facility] Last Admin: 11/13/17 05:17 Dose: 90 mg Heparin Sodium (Porcine) (Heparin Flush Picc/Ml/Cvc(*)) 1 ml FLUSH 0600,1800 [facility]; Protocol Last Admin: 11/13/17 05:16 Dose: 1 ml Insulin Human Lispro (Humalog*) [address] [facility]; Protocol Last Admin: 11/13/17 12:16 Dose: Not Given Magnesium Oxide (Magox 400 Tab*) [address] [facility] Last Admin: 11/13/17 08:41 Dose: 800 mg Montelukast Sodium (Singulair Tab*) [address] [facility] Last Admin: 11/12/17 20:57 Dose: 10 mg Morphine Sulfate (Morphine Vial*) 2 mg IV Q4H PRN PRN Reason: SEVERE PAIN Last Admin: 11/09/17 08:09 Dose: 2 mg Multivitamins/Minerals (Theragran/Minerals Tab*) 1 tab PO DAILY [facility] Last Admin: 11/13/17 08:41 Dose: 1 tab Ondansetron HCl (Zofran Inj*) 4 mg IV Q4H PRN PRN Reason: NAUSEA/VOMITING Ondansetron HCl (Zofran Tab*) 4 mg PO Q6H PRN PRN Reason: NAUSEA Last Admin: 11/12/17 07:36 Dose: 4 mg Senna (Senokot Tab*) 1 tab PO BEDTIME [facility] Last Admin: 11/12/17 20:57 Dose: 1 tab Tramadol HCl (Ultram*) 50 mg PO Q6H PRN PRN Reason: PAIN Last Admin: 11/13/17 08:41 Dose: 50 mg Vital Signs - 8 hr 11/13/17 11/13/17 11/13/17 05:50 07:32 08:32 Temperature Pulse Rate 85 86 83 Respiratory 20 18 Rate Blood Pressure 128/62 (mmHg) O2 Sat by Pulse 94 88 96 Oximetry 11/13/17 11/13/17 11/13/17 08:41 10:47 11:27 Temperature 98.1 F Pulse Rate 75 Respiratory 16 16 16 Rate Blood Pressure 123/64 (mmHg) O2 Sat by Pulse 95 Oximetry Oxygen Devices in Use Now: None Appearance: Middle aged obese (class II obesity) female, sitting up in bed, NAD Eyes: No Scleral Icterus Ears/Nose/Mouth/Throat: Mucous Membranes Moist Respiratory: Symmetrical Chest Expansion and Respiratory Effort, Clear to Auscultation - slight decrease in breath sounds R base, - - Skin torn from tape over chest tube/wound site. Per nursing wound without significant drainage, some eschar noted within the wound Cardiovascular: NL Sounds; No Murmurs; No JVD, RRR, No Edema Abdominal: NL Sounds; No Tenderness; No Distention Extremities: No Clubbing, Cyanosis Skin: No Nodules or Sclerosis Neurological: Alert and Oriented x 3 Result Diagrams: 11/12/17 05:00 11/12/17 05:00 Microbiology and Other Data: Microbiology 11/08/17 05:40 Aerobic Blood Culture - Preliminary Blood Venous Escherichia Coli Anaerobic Blood Culture - Preliminary Escherichia Coli 11/07/17 06:56 Urine Culture - Final Urine Esbl Escherichia Coli Normal Priti 11/06/17 15:00 Aerobic Blood Culture - Preliminary Blood Venous No Growth Day 2 Anaerobic Blood Culture - Preliminary Escherichia Coli 11/06/17 14:20 Aerobic Blood Culture - Preliminary Blood Venous Escherichia Coli Anaerobic Blood Culture - Preliminary No Growth Day 2 11/08/17 04:58 Aerobic Blood Culture - Preliminary Blood Venous No Growth Day 1 Anaerobic Blood Culture - Preliminary No Growth Day 1 11/08/17 07:25 Gram Stain - Final Chest Assess/Plan/Problems-Billing Ms Garcia is a 67 yo F with h/o CVA, DM(diet controlled), adenocarcinoma of lung resected on 10/24/[address] Oscar (10/11 LN positive, no mets), readmitted 13 days after surgery with fever and R chest post op hematoma. - Patient Problems (1) Pulmonary emboli Current Visit: Yes Status: Acute Code(s): I26.99 - OTHER PULMONARY EMBOLISM WITHOUT ACUTE COR PULMONALE SNOMED Code(s): 64272020 Comment: Related to underlying malignancy. Continue with lovenox 90mg SQ BID. (2) Sepsis Current Visit: Yes Status: Acute Comment: Pt was septic on admission secondary to ESBL Ecoli UTI. She was febrile, tachycardic, tachypnic, marked leukocytosis and mildly elevated bilirubin on admission. No normalized. Continue cipro 500mg BID x 2 weeks. (3) Anemia Current Visit: Yes Status: Acute Code(s): D64.9 - ANEMIA, UNSPECIFIED SNOMED Code(s): 362879423 Comment: Asymptomatic-H/H improving with conservative management. (4) HTN (hypertension) Current Visit: Yes Status: Chronic Code(s): I10 - ESSENTIAL (PRIMARY) HYPERTENSION SNOMED Code(s): 02246638 Comment: BP under good control. Will resume atenolol. Continue to hold HCTZ for now. (5) Diabetes Current Visit: Yes Status: Chronic Code(s): E11.9 - TYPE 2 DIABETES MELLITUS WITHOUT COMPLICATIONS SNOMED Code(s): 80521937 Comment: Type II DM-diet controlled. A1c mildly elevated at 7.3%. Will discuss starting metformin for optimal blood sugar control. (6) Lung cancer Current Visit: Yes Status: Acute Code(s): C34.90 - MALIGNANT NEOPLASM OF UNSP PART OF UNSP BRONCHUS OR LUNG SNOMED Code(s): 321991382 Comment: S/P right lower lobectomy on 10/25/27. Path report showing - metastatic invasive adenocarcinoma - Dr. Newell is her primary oncologist. (7) Full code status Current Visit: Yes Status: Acute Code(s): Z78.9 - OTHER SPECIFIED HEALTH STATUS SNOMED Code(s): 863755270 Status and Disposition: .
[2017-11-13] MEDS: Ciprofloxacin TAB* 500 MG PO SCH (20:49)
[2017-11-13] MEDS: Montelukast Sodium TAB* 10 MG PO SCH (20:49)
[2017-11-13] MEDS: Senna TAB PO SCH (20:49)
[2017-11-14] MEDS: traMADol TAB* 50 MG PO PRN (03:47)
[2017-11-14] MEDS: Enoxaparin(*) 100 MG/ML SYR SUBCUT SCH (05:45)
[2017-11-14] MEDS: Insulin LISPRO* 1 UNITS UNIT SUBCUT SCH ×2 (07:54→12:49)
[2017-11-14] MEDS: Multivitamins/Minerals TAB PO SCH (08:19)
[2017-11-14] MEDS: Magnesium Oxide TAB* 400 MG PO SCH (08:19)
[2017-11-14] MEDS: Aspirin EC TAB* 81 MG TAB.EC PO SCH (08:19)
[2017-11-14] MEDS: Ciprofloxacin TAB* 500 MG PO SCH (08:19)
--- NOTE | 2017-11-14 10:18 | PN ---
Subjective Date of Service: 11/14/17 Interval History: Pt is feeling well. She does c/o pain in her R upper arm where the midline is. She denies any significant pain in the R chest wall. No SOB. She is ready to go home. Objective Active Medications: Acetaminophen (Tylenol Tab*) 650 mg PO Q6H PRN PRN Reason: FEVER Last Admin: 11/11/17 19:51 Dose: 650 mg Albuterol (Ventolin 2.5 Mg/3 Ml Neb.Jessenia*) 2.5 mg INH Q2H PRN PRN Reason: SOB/WHEEZING Last Admin: 11/12/17 19:15 Dose: 2.5 mg Albuterol/Ipratropium (Duoneb (Albuterol 2.5 Mg/Ipratropium 0.5 Mg)) 1 neb INH Q4H PRN PRN Reason: SOB/WHEEZING Last Admin: 11/13/17 05:48 Dose: 1 neb Aspirin (Aspirin Ec Tab*) 81 mg PO DAILY [facility] Last Admin: 11/14/17 08:19 Dose: 81 mg Ciprofloxacin (Cipro Tab*) 500 mg PO Q12HR [facility] Last Admin: 11/14/17 08:19 Dose: 500 mg Dextrose (D50w Syringe 50 Ml*) 12.5 gm IV PUSH .FOR FS < 60 - SS PRN PRN Reason: FS < 60 Docusate Sodium (Colace Cap*) 100 mg PO BID PRN PRN Reason: CONSTIPATION Last Admin: 11/13/17 17:51 Dose: 100 mg Enoxaparin Sodium (Lovenox(*)) 90 mg SUBCUT 0600,1800 [facility] Last Admin: 11/14/17 05:45 Dose: 90 mg Heparin Sodium (Porcine) (Heparin Flush Picc/Ml/Cvc(*)) 1 ml FLUSH 0600,1800 [facility]; Protocol Last Admin: 11/14/17 05:46 Dose: 1 ml Insulin Human Lispro (Humalog*) 0 units SUBCUT [facility]; Protocol Last Admin: 11/14/17 07:54 Dose: Not Given Magnesium Oxide (Magox 400 Tab*) 800 mg PO DAILY [facility] Last Admin: 11/14/17 08:19 Dose: 800 mg Montelukast Sodium (Singulair Tab*) 10 mg PO BEDTIME [facility] Last Admin: 11/13/17 20:49 Dose: 10 mg Morphine Sulfate (Morphine Vial*) 2 mg IV Q4H PRN PRN Reason: SEVERE PAIN Last Admin: 11/09/17 08:09 Dose: 2 mg Multivitamins/Minerals (Theragran/Minerals Tab*) 1 tab PO DAILY [facility] Last Admin: 11/14/17 08:19 Dose: 1 tab Ondansetron HCl (Zofran Inj*) 4 mg IV Q4H PRN PRN Reason: NAUSEA/VOMITING Ondansetron HCl (Zofran Tab*) 4 mg PO Q6H PRN PRN Reason: NAUSEA Last Admin: 11/12/17 07:36 Dose: 4 mg Senna (Senokot Tab*) 1 tab PO BEDTIME [facility] Last Admin: 11/13/17 20:49 Dose: 1 tab Tramadol HCl (Ultram*) 50 mg PO Q6H PRN PRN Reason: PAIN Last Admin: 11/14/17 03:47 Dose: 50 mg Vital Signs - 8 hr 11/14/17 11/14/17 11/14/17 03:09 03:47 05:46 Temperature 98.2 F Pulse Rate 65 Respiratory 16 14 16 Rate Blood Pressure 128/73 (mmHg) O2 Sat by Pulse 94 Oximetry 11/14/17 11/14/17 11/14/17 07:47 07:51 07:52 Temperature 97.6 F 97.6 F Pulse Rate 71 71 Respiratory 18 20 18 Rate Blood Pressure 149/74 149/74 (mmHg) O2 Sat by Pulse 97 97 Oximetry Oxygen Devices in Use Now: None Appearance: Middle aged obese female sitting up in bed, NAD Eyes: No Scleral Icterus Ears/Nose/Mouth/Throat: Mucous Membranes Moist Respiratory: Symmetrical Chest Expansion and Respiratory Effort, Clear to Auscultation, - - R lateral chest wall wound not inspected Cardiovascular: NL Sounds; No Murmurs; No JVD, RRR, No Edema Abdominal: NL Sounds; No Tenderness; No Distention Extremities: No Clubbing, Cyanosis Skin: No Nodules or Sclerosis, - - blisters noted around midline dressing Neurological: Alert and Oriented x 3 Result Diagrams: 11/12/17 05:00 11/12/17 05:00 Microbiology and Other Data: Microbiology 11/08/17 05:40 Aerobic Blood Culture - Preliminary Blood Venous Escherichia Coli Anaerobic Blood Culture - Preliminary Escherichia Coli 11/07/17 06:56 Urine Culture - Final Urine Esbl Escherichia Coli Normal Priti 11/06/17 15:00 Aerobic Blood Culture - Preliminary Blood Venous No Growth Day 2 Anaerobic Blood Culture - Preliminary Escherichia Coli 11/06/17 14:20 Aerobic Blood Culture - Preliminary Blood Venous Escherichia Coli Anaerobic Blood Culture - Preliminary No Growth Day 2 11/08/17 04:58 Aerobic Blood Culture - Preliminary Blood Venous No Growth Day 1 Anaerobic Blood Culture - Preliminary No Growth Day 1 11/08/17 07:25 Gram Stain - Final Chest Assess/Plan/Problems-Billing Ms Garcia is a 67 yo F with h/o CVA, DM(diet controlled), adenocarcinoma of lung resected on 10/24/[address] Oscar (10/11 LN positive, no mets), readmitted 13 days after surgery with fever and R chest post op hematoma. - Patient Problems (1) Pulmonary emboli Current Visit: Yes Status: Acute Code(s): I26.99 - OTHER PULMONARY EMBOLISM WITHOUT ACUTE COR PULMONALE SNOMED Code(s): 85766721 Comment: Related to underlying malignancy. Continue with lovenox 90mg SQ BID. Will need oncology appt. (2) Sepsis Current Visit: Yes Status: Acute Comment: Pt was septic on admission secondary to ESBL Ecoli UTI. She was febrile, tachycardic, tachypnic, marked leukocytosis and mildly elevated bilirubin on admission. No normalized. Continue cipro 500mg BID x 2 weeks. (3) Chest wall hematoma Current Visit: Yes Status: Acute Code(s): S20.219A - CONTUSION OF UNSPECIFIED FRONT WALL OF THORAX, INIT ENCNTR SNOMED Code(s): 837036943 Comment: Pt found to have chest wall hematoma at prior CT site. Hematoma addressed by surgery with I&D. No signs of infection. She has an open wound that needs to be packed daily. Follow up with Dr. Oscar 11/19 at 11:15. (4) Anemia Current Visit: Yes Status: Acute Code(s): D64.9 - ANEMIA, UNSPECIFIED SNOMED Code(s): 550834746 Comment: Asymptomatic-H/H improving with conservative management. Monitor intermittently as outpatient. (5) HTN (hypertension) Current Visit: Yes Status: Chronic Code(s): I10 - ESSENTIAL (PRIMARY) HYPERTENSION SNOMED Code(s): 34464822 Comment: BP up some today. Add back HCTZ. (6) Diabetes Current Visit: Yes Status: Chronic Code(s): E11.9 - TYPE 2 DIABETES MELLITUS WITHOUT COMPLICATIONS SNOMED Code(s): 80047067 Comment: Type II DM-diet controlled. A1c mildly elevated at 7.3%. Will need to discuss with PCP about starting metformin (will try to talk to pt when family is here but currently due to language barrier will hold on the conversation). (7) Lung cancer Current Visit: Yes Status: Acute Code(s): C34.90 - MALIGNANT NEOPLASM OF UNSP PART OF UNSP BRONCHUS OR LUNG SNOMED Code(s): 010399912 Comment: S/P right lower lobectomy on 10/25/27. Path report showing - metastatic invasive adenocarcinoma - Dr. Newell is her primary oncologist. (8) Full code status Current Visit: Yes Status: Acute Code(s): Z78.9 - OTHER SPECIFIED HEALTH STATUS SNOMED Code(s): 579396604 Status and Disposition: d/c home today
--- NOTE | 2017-11-14 10:37 | PN ---
Progress Note - Progress Note Date of Service: 11/14/17 SOAP: Subjective:Surgical progress s/p R thoracotomy with lobectomy;readmission for urosepsis and PE minimal pain;feeling better;wants to go home [] Objective:afeb;R chest wound clean,measures [id number],no erythema;irrigated and repacked with 1/2"plain nugauze and covered with dry 4x4's [] Assessment:stable from surgical standpoint [] Plan:Disch home today by Dr Palmer;family will learn wound care and VNS will be involved;followup in our office Saturday11/19/17 for recheck wound []
[2017-11-14 11:53] VITALS: BP 124/65
--- NOTE | 2017-11-16 05:48 | DS ---
CC: Dr. Nieves; Dr. Oscar; Dr. Newell * DISCHARGE SUMMARY: DATE OF ADMISSION: 11/06/17 DATE OF DISCHARGE: 11/14/17 PRIMARY CARE PROVIDER: Dr. Nieves. SURGEON: Dr. Oscar. ONCOLOGIST: Dr. Newell. PRINCIPAL DIAGNOSES: 1. Sepsis secondary to ESBL E. coli urinary tract infection. 2. Right chest wall hematoma, status post I and D. 3. Left-sided pulmonary emboli. 4. Anemia. DISCHARGE MEDICATIONS: 1. Tramadol 50 mg p.o. q.4 hours p.r.n. pain. 2. Hydrochlorothiazide 12.5 mg p.o. daily p.r.n. elevated blood pressure. 3. Omeprazole 20 mg p.o. daily p.r.n. GERD. 4. Nitroglycerin 0.3 mg SL q.5 minutes p.r.n. chest pain. 5. Multivitamin 1 tab p.o. daily. 6. Singulair 10 mg p.o. q.h.s. 7. Atenolol 25 mg p.o. q.h.s. 8. Aspirin 81 mg p.o. q.h.s. 9. Albuterol 2 puffs inhale q.4 hours p.r.n. shortness of breath. 10. Lovenox 90 mg subcutaneous twice daily. 11. Cipro 500 mg p.o. q.12 hours x14 days. HOSPITAL COURSE: Ms. Garcia is a 67-year-old female, who was recently diagnosed with lung cancer and underwent wedge resection and presents back to the emergency room with complaints of fever. The patient's surgery was approximately 13 days ago. There was concern for abscess at the surgical site of the chest tube previously. Due to fever and shortness of breath, the patient was referred to the emergency room. A CT scan was done, which showed a small loculated pleural effusion on the right and possible early abscess of the chest tube site as well as a small left-sided pulmonary embolism. The patient was admitted to the intensive care unit for monitoring. She was started on Lovenox. In terms of the pulmonary embolism, the patient has done quite well from a respiratory standpoint. She has not required any supplemental oxygen. The patient has been recommended to remain on Lovenox 90 mg subcutaneous twice daily. Heparin Anti-XA level 0.97 was obtained on 11/11/17, which indicates good therapeutic range. The patient has been told how to give herself the Lovenox injections. The patient will need to follow up with Dr. Newell to determine if she can switch over to an oral anticoagulant in the near future. Ultimately, it was determined that the patient was likely septic on admission secondary to an ESBL E. coli urinary tract infection. The patient was seen in consultation by Dr. Park on 11/11/17, who recommended treating the patient with initially meropenem, but then she was subsequently switched to ciprofloxacin. The patient will have 14 more days of ciprofloxacin. The patient's urinary tract infection was Chandra catheter-associated. Additionally, the patient was bacteremic with the ESBL E. coli. Blood cultures cleared on . The patient was also identified to have a right chest wall hematoma. It was thought that this could possibly an abscess, however, it is felt to be more likely hematoma. Culture from this was negative. The patient does have a persistent wound therapy area, this is being packed with a small amount of half - inch packing gauze. The patient is tolerating the packing without any difficulty. The patient's family will be shown how to pack the wound prior to discharge. The patient will need to follow up with Dr. Oscar on 11/19/17, at 11:15 a.m. The patient does also have a history of diet-controlled diabetes. The patient' s hemoglobin A1c was mildly elevated at 7.3%. The patient should be considered for initiation of metformin. I have not started this during the hospitalization , however, discussion can occur between the patient and her primary care provider to determine if metformin would be a good fit. The patient will follow up with Dr. Newell on 11/21/17 at 03:40 p.m. to discuss her lung cancer and treatment moving forward. FOLLOWUP CONCERNS: The patient is being discharged home today, 11/14/17. ACTIVITY LEVEL: As tolerated. DIET: Diabetic. CONDITION ON DISCHARGE: Stable. TIME SPENT: Forty minutes were spent discharging this patient. Please see the complete medical record for further details of this prolonged and complex hospitalization. [id number]/[facility] #: [id number] MTDD
== END 2017-11-14 14:40 | disposition home health service (06) | DRG 871 ==
LOC: ED 13:54 → ICU 17:13 → SSU 11-08 08:30
PROVIDERS: ADMIT Internal Medicine; ATTEND Hospitalist
DX: A41.51 Sepsis due to Escherichia coli [E. coli] (principal); I26.99 Other pulmonary embolism without acute cor pulmonale; N39.0 Urinary tract infection, site not specified; C34.90 Malignant neoplasm of unspecified part of unspecified bronchus or lung; E89.0 Postprocedural hypothyroidism; E78.00 Pure hypercholesterolemia, unspecified; I10 Essential (primary) hypertension; I08.3 Combined rheumatic disorders of mitral, aortic and tricuspid valves; J45.909 Unspecified asthma, uncomplicated; K21.9 Gastro-esophageal reflux disease without esophagitis; M19.90 Unspecified osteoarthritis, unspecified site; G43.909 Migraine, unspecified, not intractable, without status migrainosus; E11.9 Type 2 diabetes mellitus without complications; D64.9 Anemia, unspecified; R06.00 Dyspnea, unspecified; E78.5 Hyperlipidemia, unspecified; E66.9 Obesity, unspecified; Z68.37 Body mass index [BMI] 37.0-37.9, adult; Z86.73 Personal history of transient ischemic attack (TIA), and cerebral infarction without residual deficits; Z88.6 Allergy status to analgesic agent; Z88.7 Allergy status to serum and vaccine; Z88.8 Allergy status to other drugs, medicaments and biological substances; Z85.828 Personal history of other malignant neoplasm of skin; Z90.2 Acquired absence of lung [part of]; Z79.82 Long term (current) use of aspirin; Z79.01 Long term (current) use of anticoagulants
CPT/HCPCS: 36415; 71045; 71046; 71275; 76705; 76775; 80048; 80053; 80202; 81003; 81015; 82272; 82607; 82728; 82947; 83540; 83550; 83605; 83735; 83880; 85025; 85520; 85610; 85660; 85730; 86850; 86900; 86901; 87040; 87070; 87077; 87086; 87186; 87205; 93005; 93306; 93970; 94640; 99285; A9270-GY; C8929; G8978-GP-CI; G8978-GP-CJ; G8979-GP-CH; G8979-GP-CI; G8980-GP-CI; G8987-GO-CI; G8988-GO-CI; G8989-GO-CI; J0692; J0696; J1650; J1940; J2185; J2270; J2543; J2930; J3370; Q9967

== ENCOUNTER → 2018-07-01 16:19 | Emergency (ER) | payer MEDICARE, MEDICAID ==
[~2018-07-01 16:19] MED LIST changes: -Famotidine IV* 10 MG/ML 2 ML (20 mg) IV ONE; +HYDROcodone/ACETAMIN 5-325 MG* 1 TAB PO ONE; -Levalbuterol 0.63MG/3ML NEB* UNIT OF USE INH ONE
--- NOTE | 2018-07-01 17:15 | ED ---
Lower Extremity - HPI Summary HPI Summary: Patient complains of sudden onset of swelling and pain to left calf and left knee starting yesterday. Patient states she cannot walk due to pain. Denies trauma, fever, cough, sore throat, CP, SOB, N/V/D, abdominal pain, change in urine, change in BM. History of lung cancer with lung surgery October 2017. History of DVT same leg. States she stopped blood thinners 3 months ago. 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 Of Injury: Unknown Onset of Pain: Hours Onset/Duration: Hours Severity Initially: Severe Severity Currently: Severe Pain Intensity: 9 Pain Scale Used: 0-10 Numeric Timing: Constant Location: Is Discrete @ Character Of Pain: Sharp Associated Signs And Symptoms: Positive: Swelling, Knee Pain Aggravating Factor(s): Standing, Ambulation, Weight Bearing Alleviating Factor(s): Rest Able to Bear Weight: No - Risk Factors DVT Risk Factors: Prior DVT, Malignancy - Allergies/Home Medications Allergies/Adverse Reactions: Allergies Allergy/AdvReac Type Severity Reaction Status Date / Time hydrocortisone Allergy Mild Rash Verified 11/06/17 16:02 oxycodone Allergy See Comment Verified 11/06/17 16:02 tetanus immune globulin Allergy See Comment Verified 11/06/17 16:02 Tetanus Vaccines and Toxoid Allergy See Comment Verified 11/06/17 16:02 PMH/Surg Hx/FS Hx/Imm Hx Endocrine/Hematology History: Reports: Hx Diabetes Denies: Hx Thyroid Disease Cardiovascular History: Reports: Hx Angina, Hx Hypercholesterolemia, Hx Hypertension, Hx Valvular Heart Disease - WAS NOTED BY IN THE [facility], Other Cardiovascular Problems/Disorders - aortic, trisucpid, mitral insuficiancy Denies: Hx Congestive Heart Failure, Hx Myocardial Infarction, Hx Pacemaker/ ICD Respiratory History: Reports: Hx Asthma - USES AN INHALER, Other Respiratory Problems/Disorders - Being unable to tolerate layig flat without SOB - 1 year Denies: Hx Sleep Apnea GI History: Reports: Hx Gastroesophageal Reflux Disease - on medication Denies: Hx Ulcer, Other GI Disorders History: Denies: Hx Renal Disease, Other Problems/Disorders Musculoskeletal History: Reports: Hx Arthritis - GENERAL, Other Musculoskeletal History - L Shoulder injury Sensory History: Reports: Hx Contacts or Glasses Denies: Hx Hearing Aid Opthamlomology History: Reports: Hx Contacts or Glasses Neurological History: Reports: Hx Migraine, Other Neuro Impairments/Disorders - 2013 & 2014 Psychiatric History: Denies: Hx Panic Disorder - Cancer History Cancer Type, Location and Year: lung - Surgical History Surgery Procedure, Year, and Place: RT. SIDED FACIAL TUMOR REMOVED- BENIGN, TYROIDECTOMY. rt lung lower lobe sx Hx Anesthesia Reactions: No - denies per daughter Infectious Disease History: No Infectious Disease History: Denies: Hx Clostridium Difficile, Hx Hepatitis, Hx Human Immunodeficiency Virus (HIV), Hx of Known/Suspected MRSA, Hx Shingles, Hx Tuberculosis, History Other Infectious Disease, Traveled Outside the [place] in Last 30 Days - Family History Known Family History: Positive: Other - CHF, Gastric CA; NEGATIVE: PE - Social History Alcohol Use: None Substance Use Type: Reports: None Smoking Status (MU): Never Smoked Tobacco Have You Smoked in the Last Year: No Review of Systems Constitutional: Negative Eyes: Negative ENT: Negative Cardiovascular: Negative Respiratory: Negative Gastrointestinal: Negative Genitourinary: Negative Musculoskeletal: Other Skin: Negative Neurological: Negative Psychological: Normal All Other Systems Reviewed And Are Negative: Yes Physical Exam - Summary Physical Exam Summary: Minimal swelling to left lower extremity. No erythema, ecchymosis, deformity or wound noted. Tenderness to palpation of left calf and left knee. PMS intact distally. Triage Information Reviewed: Yes Vital Signs On Initial Exam: Initial Vitals Temp Pulse Resp BP Pulse Ox 98.1 F 87 17 147/77 94 07/01/18 16:50 07/01/18 16:50 07/01/18 16:50 07/01/18 16:50 07/01/18 16:50 Vital Signs Reviewed: Yes Appearance: Positive: Well-Appearing Skin: Positive: Warm Head/Face: Positive: Normal Head/Face Inspection Eyes: Positive: Normal Neck: Positive: Supple Respiratory/Lung Sounds: Positive: Clear to Auscultation Cardiovascular: Positive: Normal Abdomen Description: Positive: Nontender Musculoskeletal: Positive: Normal Neurological: Positive: Normal Psychiatric: Positive: Normal AVPU Assessment: Alert - [place] Coma Scale Best Eye Response: 4 - Spontaneous Best Motor Response: 6 - Obeys Commands Best Verbal Response: 5 - Oriented Coma Scale Total: 15 Diagnostics - Vital Signs Vital Signs Temp Pulse Resp BP Pulse Ox 07/01/18 16:50 98.1 F 87 17 147/77 94 - Laboratory Lab Statement: Any lab studies that have been ordered have been reviewed, and results considered in the medical decision making process. Lower Extremity Course/Dx - Course Course Of Treatment: Patient complains of sudden onset of swelling and pain to left calf and left knee starting yesterday. Patient states she cannot walk due to pain. Denies trauma, fever, cough, sore throat, CP, SOB, N/V/D, abdominal pain, change in urine, change in BM. History of lung cancer with lung surgery October 2017. History of DVT same leg. States she stopped blood thinners 3 months ago. Medical history is asthma, HTN, lung cancer. Physical exam:Minimal swelling to left lower extremity. No erythema, ecchymosis, deformity or wound noted. Tenderness to palpation of left calf and left knee. PMS intact distally. Vital signs within normal limits. Ultrasound negative for DVT. X- ray left knee negative for acute process. - Diagnoses Provider Diagnoses: Left leg pain Discharge - Sign-Out/Discharge Documenting (check all that apply): Patient Departure Patient Received Moderate/Deep Sedation with Procedure: No - Discharge Plan Condition: Stable Disposition: HOME Patient Education Materials: Leg Pain (ED) Referrals: No Primary Care ANUJA Rojas [Medical Doctor] - Benji Dumont MD [Medical Doctor] - Additional Instructions: Ibuprofen and rest for left knee pain. If pain does not improve in 4-5 days follow-up with orthopedics Dr. Dumont for further evaluation. Return to the ED for any new or worsening symptoms. - Billing Disposition and Condition Condition: STABLE Disposition: Home
--- OUTSIDE RECORDS SUMMARY | 2018-07-01 17:22 | XMS REPORT | Continuity of Care Document ---
:1950 External Reference #:[id number] Author Name Jessica Arce Care Team Providers Name Role Phone Ila Raygoza M.D. Primary Care Physician Unavailable Payers Date Identification Numbers Payment Provider Subscriber Policy Number: [id number] Medicare Conchis Garcia PayID: [id number] [address] [place] [address] Policy Number: [id number] Medicaid Conchis Garcia Group Name: 1 1 [address] PayID: [id number] Advance Directives Description No Information Available Problems Date Description Provider Status Onset: 10/24/2017 Essential hypertension Catracho Garza NPili Active Onset: 10/24/2017 Asthma without status Catracho Garza NPili Active asthmaticus Onset: 10/25/2017 Anemia Stacy Pearson NP Active Onset: 10/25/2017 Malignant tumor of bronchus Stacy Pearson NP Active Onset: 10/25/2017 Type 2 diabetes mellitus Stacy Pearson NP Active Onset: 10/26/2017 Malignant neoplasm of lower Stacy Pearson NP Active lobe, bronchus or lung Onset: 11/02/2017 Chronic obstructive lung Emiliano Aaron Giraldo MD Active disease Onset: 11/02/2017 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 Active Onset: 11/11/2017 Acute cor pulmonale Karyn Webster M.D. Active Onset: 11/13/2017 Sepsis due to Escherichia coli Nancy Palmer D.O. Active [E. coli] Onset: 11/13/2017 Pulmonary embolism Nancy Palmer D.O. Active Onset: 11/14/2017 Contusion of chest Nancy Palmer D.O. Active Family History Date Family Member(s) Observation Comments General Cancer General Heart Disease Father Cancer Father due to Cancer () - Throat Mother Heart Disease Mother due to cardiac issues, specifics () unknown Siblings 4 Social History Type Date Description Comments Sex Unknown Marital Status Lives With Alone 2nd floor apartment. daughter lives 5 minutes away. has alert necklace at home but doesn'tg always use it. 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 [employer] Tobacco Use Start: Unknown Never Smoked Cigarettes Smoking Status Reviewed: 07/01/18 Never Smoked Cigarettes ETOH Use Denies alcohol use Tobacco Use Start: Unknown Patient has never smoked Recreational Drug Use Denies Drug Use Exercise Type/Frequency Exercises rarely Allergies, Adverse Reactions, Alerts Date Description Reaction Status Severity Comments 07/12/2014 Tetanus Immune Globulin Active 07/12/2014 Tetanus Toxoids Active redness,swelling, hives 08/21/2016 Cortizone Injection Anaphylaxis Active Severe per pt Medications Medication Date Status Form Strength Qnty SIG Indications Ordering Provider Omeprazole 07/02/19 Active Capsules 40mg 90cap take [address] bettencourt capsule MD Idalmis by mouth once a day Aerochamber Plus 06/03/19 Active Misc 1unit use with J45.901 Ila 19 s inhaler MD Idalmis as directed Losartan 06/03/19 Active Tablets 50mg 30tab 1 by I10 Ila Potassium 19 s mouth MD Idalmis every day Flovent HFA 06/03/19 Active Aerosol 110mcg/Ac 12gm 2 J45.901 Ila 19 t inhalati MD Idalmis on twice a day, rinse mouth out after each use Cetirizine HCL 04/04/20 Active Tablets 10mg 30tab 1 by J30.9 Ila 18 s mouth MD Idalmis every day Flonase Allergy 04/04/20 Active Suspension 50mcg/Act 9.900 2 sprays J30.9 Ila Relief 18 ml in each MD Idalmis nostril at bedtime Azelastine HCL 04/04/20 Active Solution 137mcg/Sp 30ml 2 sprays J30.9 Ila (Nasal) 18 ray in each MD Idalmis nostril 2x/day Nystatin 02/19/20 Active Ointment [id number] 15gm apply to B37.2 Ila 18 t/GM affected MD Idalmis area bid for 7 days Tramadol HCL 02/19/20 Active Tablets 50mg 90tab 1 po R07.82 Ila 18 s every MD Idalmis 6-8 hours as needed for pain Multivitamin Active Tablets 1 by Unknown Adult 00 mouth every day Nitrostat Active Tablets 0.3mg dissolve Unknown 00 Sub 1 tablet under the tongue every 5 minutes up to 3 doses as needed replace every 12 months Ventolin HFA Active Aerosol 108(90Bas 2 puffs Unknown 00 e) by mouth mcg/Act four times a day as needed Hydrochlorothiaz Active Tablets 12.5mg 1 by Unknown sohan 00 mouth every day Montelukast Active Tablets 10mg 1 by Unknown Sodium 00 mouth every day Nortriptyline 04/04/20 Hx Capsules 10mg 30cap one po M54.12 Ila HCL 18 - s at MD Idalmis 06/03/19 bedtime 19 Losartan 02/19/20 Hx Tablets 25mg 30tab 1 by I10 Ila Potassium 18 - s mouth MD Idalmis 06/03/19 daily 19 Ketorolac 02/19/20 Hx Gel 2% 120gm apply to M25.571 Ila Tromethamine 18 - right MD Idalmis 02/19/20 ankle 18 four times a day as needed for pain Diclofenac 02/19/20 Hx Gel 1% 200gm apply to M25.571 Ila Sodium 18 - R ankle MD Idalmis 07/02/19 four 19 times a day as needed for pain Tramadol HCL 11/20/19 Hx Tablets 50mg 30tab 1 po q 8 C34.31 Tung Mcclellan 18 - s hr Schwed, 02/19/20 M.D. 18 Hydrocodone-Acet 11/06/19 Hx Tablets 5-325mg 20tab 1 by C34.31 Tung Mcclellan aminophen 18 - s mouth Schwed, Unknown every 4 M.D. hours prn. Percocet 11/05/19 Hx Tablets 7.5-325mg 10tab Take 1 Doreen 18 - s Tab PO B. Unknown 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, Pain HAND BENDER Vitamin C 09/03/19 Hx Capsules 1 by Unknown 17 - mouth 08/08/19 every 18 day Tramadol HCL Hx Tablets 50mg four Unknown 00 - times a Unknown day as needed Atenolol Hx Tablets 25mg 1 by Unknown 00 - mouth 02/19/20 every 18 day Hyoscyamine Hx Tablets 0.125mg by mouth Unknown Sulfate 00 - three 08/20/19 times a 17 day as needed Ibuprofen Hx Tablets 600mg prn Unknown 00 - 08/08/19 18 Omeprazole Hx Capsules 20mg 1 by Unknown 00 - DR mouth 07/02/19 every 19 day Aspirin Adult Hx Tablets DR 81mg 1 by Unknown Low Dose 00 - mouth 12/20/19 every 18 day Vitamin D-1000 Hx Tablets 1000Unit 2 by Unknown Maximum Strength 00 - mouth 08/20/19 every 17 day Nitroglycerin Hx Patches 0.4mg/HR place Unknown 00 - 24HR one 08/20/19 patch in 17 the morning and remove at night after 12 hours Symbicort Hx Aerosol 160-4.5mc 2 puff Unknown 00 - g/Act twice a Unknown day Pulmicort Hx Aerosol 180mcg/Ac 2 puffs J45.901 Unknown Flexhaler 00 - t twice 06/03/19 daily 19 Eliquis Hx Tablets 5mg Take 1 Unknown 00 - Tablet 02/19/20 By Mouth 18 Two Times Daily Amoxicillin Hx Tablets 500mg t q 8 Unknown 00 - hrs for 06/03/19 7 days 19 Medications Administered in Office Medication Date Status Form Strength Qnty SIG Indications Ordering Provider Inj, Administered Injection You DPepe Regadenoson, 017 Christine Mullins 0.1 MG Technetium TC Administered Injection You DPepe 99M 017 Christine Mullins Tetrofosmin, Per Unit Dose Up To 40 Millicuries Immunizations Description No Information Available Vital Signs Date Vital Result Comment 07/01/2018 3:24pm Height 62 inches 5'2" Weight 202.12 lb Heart Rate 100 /min BP Systolic 148 mmHg BP Diastolic 92 mmHg Body Temperature 98.0 F O2 % BldC Oximetry 93 % BMI (Body Mass Index) 37.0 kg/m2 07/01/2018 2:59pm Height 62 inches 5'2" 06/03/2018 8:48am Height 62 inches 5'2" Weight 211.25 lb Heart Rate 63 /min BP Systolic 178 mmHg BP Diastolic 95 mmHg Body Temperature 97.7 F O2 % BldC Oximetry 93 % BMI (Body Mass Index) 38.6 kg/m2 04/04/2018 4:05pm Height 62 inches 5'2" Weight 207.00 lb Heart Rate 83 /min BP Systolic 124 mmHg BP Diastolic 90 mmHg Body Temperature 99.3 F O2 % BldC Oximetry 95 % BMI (Body Mass Index) 37.9 kg/m2 02/18/2018 9:47am Height 62 inches 5'2" Weight 208.50 lb Heart Rate 76 /min BP Systolic 164 mmHg BP Diastolic 90 mmHg Body Temperature 98.4 F O2 % BldC Oximetry 93 % BMI (Body Mass Index) 38.1 kg/m2 12/20/2017 8:38am Heart Rate 72 /min Respiratory Rate 18 /min Body Temperature 97.8 F 12/06/2017 2:38pm Heart Rate 78 /min Respiratory Rate 18 /min Body Temperature 99.6 F 11/27/2017 9:39am Heart Rate 74 /min BP Systolic 122 mmHg BP Diastolic 80 mmHg Respiratory Rate 18 /min Body Temperature 98.2 F 11/19/2017 11:13am Heart Rate 62 /min Respiratory Rate 18 /min Body Temperature 98.3 F 11/05/2017 10:29am Heart Rate 60 /min BP Systolic 120 mmHg BP Diastolic 86 mmHg Respiratory Rate 16 /min Body Temperature 99.4 F 10/09/2017 1:01pm Height 62 inches 5'2" Weight 207.00 lb Heart Rate 78 /min BP Systolic Sitting 140 mmHg BP Diastolic Sitting 86 mmHg Respiratory Rate 18 /min Body Temperature 97.8 F BMI (Body Mass Index) 37.9 kg/m2 09/27/2017 10:04am Height 62 inches 5'2" Weight 207.00 lb Heart Rate 80 /min BP Systolic 130 mmHg BP Diastolic 88 mmHg Respiratory Rate 16 /min Body Temperature 97.6 F BMI (Body Mass Index) 37.9 kg/m2 09/13/2017 11:22am Height 62 inches 5'2" Weight 208.38 lb Heart Rate 92 /min BP Systolic Sitting 128 mmHg Lue large cuff BP Diastolic Sitting 80 mmHg Lue large cuff Respiratory Rate 26 /min O2 % BldC Oximetry 94 % On Ra BMI (Body Mass Index) 38.1 kg/m2 08/23/2017 7:03am Height 62 inches 5'2" Weight 210.00 lb Heart Rate 70 /min BP Systolic Sitting 138 mmHg Lue large cuff BP Diastolic Sitting 98 mmHg Lue large cuff Respiratory Rate 20 /min O2 % BldC Oximetry 95 % BMI (Body Mass Index) 38.4 kg/m2 08/08/2017 8:20am Height 62 inches 5'2" Weight 208.00 lb Heart Rate 72 /min BP Systolic Sitting 122 mmHg BP Diastolic Sitting 78 mmHg Respiratory Rate 14 /min O2 % BldC Oximetry 93 % BMI (Body Mass Index) 38.0 kg/m2 Neck Circumference in inches 15.5 09/03/2016 12:34pm Height 62 inches 5'2" Weight 203.75 lb w/o shoes Heart Rate 80 /min BP Systolic Sitting 130 mmHg LA lrg cuff BP Diastolic Sitting 84 mmHg LA lrg cuff BMI (Body Mass Index) 37.3 kg/m2 Ejection Fraction 55% - 60% echo 08/23/16 08/20/2016 9:45am Height 62 inches 5'2" Weight 205.00 lb with shoes Heart Rate 70 /min BP Systolic Sitting 130 mmHg LA lrg cuff BP Diastolic Sitting 82 mmHg LA lrg cuff BMI (Body Mass Index) 37.5 kg/m2 Ejection Fraction 55% - 65% 09/08/08 echo 07/12/2014 10:25am Height 62 inches 5'2" Weight 190.00 lb Heart Rate 69 /min BP Systolic 140 mmHg BP Diastolic 93 mmHg BMI (Body Mass Index) 34.7 kg/m2 Results Test Date Facility Test Result H/L Range Note Order 06/12/2018 [facility] In-House Nebulizer <pending> 1 Treatment Laboratory test 06/03/2018 [facility] In House Hemoglobin A1c 7.2 High 5-7 finding Wound 11/05/2017 [facility] Wound/Misc SEE RESULT 2 Culture/Sensi [address] [place] [address] Stain [phone] Type & Screen 10/09/2017 [facility] Patient Blood A Positive [address] [place] [address] [phone] Antibody Screen NEGATIVE Basic Metabolic Panel 10/09/2017 [facility] Sodium 141 mmol/L N 135-[address] [place] [address] [phone] Potassium 4.1 mmol/L N 3.5-5.0 Chloride 106 mmol/L N 101-111 Co2 Carbon Dioxide 29 mmol/L N 22-32 Anion Gap 6 mmol/L N 2-11 Glucose 113 mg/dL High 70-100 Blood Urea Nitrogen 10 mg/dL N 6-24 Creatinine 0.61 mg/dL N 0.51-0.95 BUN/Creatinine Ratio 16.4 N 8-20 Calcium 9.3 mg/dL N 8.6-10.3 Egfr Non- 98.1 >60 Egfr 118.7 >60 3 CBC Auto Diff 10/09/2017 [facility] White Blood 7.5 10^3/uL N 3.5-10.[address] [place] [address] [phone] Red Blood Count 4.61 10^6/uL N 4.00-5.40 Hemoglobin 13.9 g/dL N 12.0-16.0 Hematocrit 41 % N 35-47 Mean Corpuscular Volume 89 fL N 80-97 Mean Corpuscular Hemoglobin 30 pg N 27-31 Mean Corpuscular HGB Conc 34 g/dL N 31-36 Red Cell Distribution Width 14 % N 10.5-15 Platelet Count 190 10^3/uL N 150-450 Mean Platelet Volume 8.9 um3 N 7.4-10.4 Abs Neutrophils 3.9 10^3/uL N 1.5-7.7 Abs Lymphocytes 2.7 10^3/uL N 1.0-4.8 Abs Monocytes 0.6 10^3/uL N 0-0.8 Abs Eosinophils 0.3 10^3/uL N 0-0.6 Abs Basophils 0 10^3/uL N 0-0.2 Abs Nucleated RBC 0 10^3/uL Granulocyte % 51.7 % N 38-83 Lymphocyte % 36.4 % N 25-47 Monocyte % 8.0 % High 0-7 Eosinophil % 3.4 % N 0-6 Basophil % 0.5 % N 0-2 Nucleated Red Blood Cells % 0 Laboratory test 09/04/2017 [facility] Cytology SEE RESULT [address] [employer] [place] [address] [phone] Laboratory test 08/28/2017 [facility] Point of Care 139 mg/dL High 70-[address] Glucose 0 [place], [place] [address] [phone] Laboratory test 08/20/2017 [facility] Cytology SEE RESULT [address] Non-Correspondence [employer] Teacher [place], [place] [address] [phone] Lung Cancer 08/20/2017 [facility] LNGPR Result FUSION [address] Summary IDENTIFIE <[place] [address] NOTE> [phone] LNGPR Result See Comment 8 LNGPR Interpretation See Comment 9 LNGPR Additional Information See Comment 10 LNGPR Specimen Cells LNGPR Tissue Id [id number] LNGPR Released By See Comment 11 Platelet Count 08/20/2017 [facility] Platelet Count 200 10^3/uL N 150-[address] [place], [place] [address] [phone] Mean Platelet Volume 9.0 um3 N 7.4-10.4 Inr/Protime 08/20/2017 [facility] Inr 0.91 N 0.77-1.[address] [place] [address] [phone] Laboratory test 08/20/2017 [facility] Partial 31.6 seconds N 26.0-36.[address] [place] [address] PTT [phone] Platelet Count 08/09/2017 [facility] Platelet 241 10^3/uL N 150-[address] [place] [address] [phone] Mean Platelet Volume 9.2 um3 N 7.4-10.4 Inr/Protime 08/09/2017 [facility] Inr 0.95 N 0.77-1.[address] [place] [address] [phone] 1 Patient's lungs were opened up and she could breath easier. 2 SEE RESULT BELOW Name: CONCHIS GARCIA : [address]: Tung Oscar MD Acct: [id number] Unit: [id number] AGE: 67 Location: [facility] Re11/05/17 SEX: F Status: REG REF SPEC: [id number] BECCA: 11/05/17-[address] [facility] [address]: Tung Oscar MD REQ: [id number] RECD: 11/05/17-1257 STATUS: COMP _ SOURCE: CHEST SPDESC: ORDERED: Culture Stain COMMENTS: [id number] Specimen Description right chest Procedure Result Reported Site Wound/Misc Gram Stain Final 11/06/17- 732 ML 2+ Neutrophils 1+ Epithelial Cells 1+ Gram Positive Cocci Intracellular Wound/Misc Culture Final 11/09/17- 1219 ML Organism 1 STAPHYLOCOCCUS EPIDERMIDIS Quantity 1+ Organism 2 NORMAL KIKI Quantity 1+ 1. STAPHYLOCOCCUS EPIDERMIDIS M.I.C. RX --------- ------ Penicillin >=0.5 R Clindamycin >=8 R Erythromycin >=8 R Gentamicin <=0.5 S Linezolid 1 S Oxacillin >=4 R * Quinupristin/Dalfopristin <=0.25 S Rifampin <=0.5 S Tetracycline <=1 S Doxycycline - Deduced S * Minocycline - Deduced S Tigecycline 0.25 S Vancomycin 1 S CONTINUED ON NEXT PAGE DEPARTMENT OF PATHOLOGY, [address] [place] [address] Jeramy De Guzman M.D. Director [place] # [id number] Patient: CONCHIS GARCIA [id number] (Continued) Specimen: [id number] Collected: 11/05/17-113 Received: 11/05/17-1257 (Continued) Procedure Result Reported Site Wound/Misc Culture Final (continued) 11/09/17- 1219 1. STAPHYLOCOCCUS EPIDERMIDIS (continued) M.I.C. RX --------- ------ Imipenem-Deduced R * Ampicillin/Sulbactam-Deduced R Cefazolin-Deduced R * These antibiotics are not available in the [facility] Formulary Contact the Microbiology Department for any additional antibiotic reporting. * ML - Main Lab . END OF REPORT DEPARTMENT OF PATHOLOGY, [address] [place] [address] Jeramy De Guzman M.D. Director [facility] # [id number] 3 Because ethnic data is not always readily [...] 15-29 5 Kidney failure <15 (or dialysis) 4 SEE RESULT BELOW Name: CONCHIS GARCIA : [address]: Magda Claudio MD Acct: [id number] Unit: [id number] AGE: 67 Location: [place] Re09/04/17 SEX: F Status: STEPHANIE HERNANDEZ SPEC: [id number] BECCA: 09/04/17-[address]: Magda Claudio MD REQ: [id number] RECD: 09/04/17 STATUS: SOUT _ ORDERED: FNA-IMG GUID BX/4, [...] CONTINUED ON NEXT PAGE DEPARTMENT OF PATHOLOGY, [address] [place] [address] Jeramy De Guzman M.D. Director [facility] # [id number] RUN DATE: 09/05/17 [facility] LAB LIVE PAGE 2 Patient: CONCHIS GARCIA [id number] (Continued) CLINICAL HISTORY (Continued) CLINICAL HISTORY Recently [...] 1544 END OF REPORT DEPARTMENT OF PATHOLOGY, [address] [place] [address] Jeramy De Guzman M.D. Director [place] # [id number] 5 Automobile Inspector: [id number] 6 SEE RESULT BELOW Name: CONCHIS GARCIA : [address]: Magda Claudio MD Acct: [id number] Unit: [id number] AGE: 67 Location: Re08/20/17 SEX: F Status: REG REF SPEC: [id number] BECCA: 08/20/17-[address]: Magda Claudio MD REQ: [id number] RECD: 08/20/172 STATUS: ANIL OSBORNE DR: Brayden Mckeon MD _ ORDERED: FNA-IMG GUID BX, LEVEL 4, CYTO ADEQ-1ST P, IMMUNO-FIRST, IMMUNO- ADDL/4, IMMUNO-QUANT Lung Panel with Rearrangement Tumor has been performed at [place], [place]. The testing reveals: Received: 23 Aug [...] [email or web address]/ 2. N Engl J Med. 2009Feb 16;363(18):6759-591 (PMID [id number]) 3. J Clin Oncol. 2015 Mar 14 (PMID 16118848) ADDITIONAL INFORMATION Microscopic examination was performed by [...] CONTINUED ON NEXT PAGE DEPARTMENT OF PATHOLOGY, [address] [place] [address] Jeramy De Guzman M.D. Director [facility] # [id number] RUN DATE: 09/05/17 [facility] LAB LIVE PAGE 2 Patient: CONCHIS GARCIA [id number] (Continued) ADDENDUM (Continued) Mutation nomenclature is based on build GRCh37 (hg19). Rearrangement nomenclature is based on a custom reference sequence using GRCh37 (hg19). For details about gene reference transcripts (GenBank accession numbers) and additional information about this test, see [email or web address] (Test ID LNGPR). CLINICAL CORRELATIONS Test results [...] the following sites: 1) ClinicalTrials.gov: www.clinicaltrials.gov/ct2/search/advanced 2) [facility]: www.[facility]/research/clinical-trials/ 3) National [facility] [place]: www.cancer.gov/clinicaltrials/search Specimen: Cells CONTINUED ON NEXT PAGE DEPARTMENT OF PATHOLOGY, [address] [place] [address] Jeramy De Guzman M.D. Director [facility] # [id number] RUN DATE: 09/05/17 [facility] LAB LIVE PAGE 3 Patient: CONCHIS GARCIA [id number] (Continued) ADDENDUM (Continued) Tissue ID: [id number] Released By: Dimitri Jimenez, Ph.D. [phone] Laboratory Notes: 1. This test was developed and its performance characteristics determined by [facility] in a manner consistent with CLIA requirements. This test has not been cleared or approved by the U.S. Food and Drug Administration. [facility] - [address] [address] Addendum Signed (signature on file) Jennifer Davis [...] CONTINUED ON NEXT PAGE DEPARTMENT OF PATHOLOGY, [address] [place] [address] Jeramy De Guzman M.D. Director [facility] # [id number] RUN DATE: 09/05/17 [facility] LAB LIVE PAGE 4 Patient: CONCHIS GARCIA [id number] (Continued) FINAL DIAGNOSIS (Continued) differentiated; see comment. [...] 1109 END OF REPORT DEPARTMENT OF PATHOLOGY, [address] [place] [address] Jeramy De Guzman M.D. Director [facility] # [id number] 7 FUSION IDENTIFIED 8 Provided diagnosis: Lung adenocarcinoma The following fusion was identified: EML4-ALK No additional reportable alterations were identified within the tested genes. 9 ASSOCIATIONS BETWEEN ALK REARRANGEMENTS AND LUNG CANCER [...] N Engl J Med. 2009Feb 16;363(18):1693-703 (PMID 27394009) 3. J Clin Oncol. 2015 Mar 14 (PMID [id number]) ADDITIONAL INFORMATION Microscopic examination was performed by [...] and additional information about this test, see [email or web address] (Test ID LNGPR). CLINICAL CORRELATIONS Test results [...] developed and its performance characteristics determined by [facility] in a manner consistent with CLIA requirements. This test has not been cleared or approved by the U.S. Food and Drug Administration. 10 CLINICAL TRIALS Possible clinical trials of benefit for this patient can be found at the following sites: 1) ClinicalTrials.gov: www.clinicaltrials.gov/ct2/search/advanced 2) [facility]: www.[facility]/research/clinical-trials/ 3) [facility] [place]: www.cancer.gov/clinicaltrials/search 11 RESULT: Dimitri Jimenez, Ph.D. [phone] Test Performed by: [address] [address] Procedures Date Code Description Status 06/03/2018 01288 Inhalation TX For Acute Airway Obstruction Completed W/Nebulizer/Inhaler 11/07/2017 56036 ECHO Transthorasic Realtime 2D W Doppler & Color Flow Hosp Completed 11/07/2017 30634 EKG, Interpretation Only Completed 11/01/2017 03146 EKG, Interpretation Only Completed 10/25/2017 73947 EKG, Interpretation Only Completed 10/24/2017 01347 bronchoscopy (hospital service) Completed 10/24/2017 39060 bronchoscopy (hospital service) Completed 10/24/2017 59366 Remove Lung, Lobectomy Completed 10/24/2017 85635 Remove Lung, Lobectomy Completed 10/24/2017 58421 Remove Lung, Lobectomy Completed 10/24/2017 87214 Remove Lung, Lobectomy Completed 10/24/2017 79526 Tube,Thoracostomy,Incl Water S Completed 10/24/2017 70110 Tube,Thoracostomy,Incl Water S Completed 10/24/2017 37832 Lymphadenectomy Thoracic Regional Completed 10/24/2017 21131 Lymphadenectomy Thoracic Regional Completed 10/24/2017 98215 Lymphadenectomy Thoracic Regional Completed 10/24/2017 92280 Lymphadenectomy Thoracic Regional Completed 10/24/2017 04406 Injection For Nerve Block, Intercostal Nerve Mult Region Completed Block 10/24/2017 92135 Injection For Nerve Block, Intercostal Nerve Mult Region Completed Block 09/20/2017 19178 Diffusing Capacity Completed 09/20/2017 29355 Plethysmography Determination Lung Volumes & Per Airway Completed Resist 09/20/2017 41072 Pulmonary Function><Bronchodil Completed 09/04/2017 91057 Endobronchial Ultrasound=>3 Completed 08/30/2016 61465 Stress Test Completed 08/30/2016 04204 Myocardial Perfusion Imaging Tomographic (Spect) Multiple Completed Studies 08/23/2016 94780 ECHO Transthoracic, Real-Time 2D With Doppler And Color Completed Flow 08/20/2016 77555 EKG Tracing & Interpretation Completed Encounters Type Date Location Provider Dx Diagnosis Office Visit 04/04/2018 [facility] Ila Raygoza MD J30.9 Allergic rhinitis, 4:00p Medicine - unspecified [facility] M54.12 Radiculopathy, cervical region Office Visit 02/18/2018 10:00a [facility] Internal Ila Raygoza MD I10 Essential (primary) Medicine - [address] R07.82 Intercostal pain J45.909 Unspecified asthma, uncomplicated M25.571 Pain in right ankle and joints of right foot B37.2 Candidiasis of skin and nail 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 Escherichia coli Hospitalists [E. 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 Escherichia coli Hospitalists [E. 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, C34.31 Malignant Assoc,johnny Kelly. 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 other urinary Diseases catheter, initial encounter N30.90 Cystitis, unspecified without hematuria R78.81 Bacteremia I26.09 Other pulmonary embolism with acute cor pulmonale Office Visit 11/10/2017 [facility] Karyn Webster, A41.9 Sepsis, 10:29a Assjohnny iglesias M.D. 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 C34.31 Malignant neoplasm of lower lobe, right bronchus or lung E11.9 Type 2 diabetes mellitus without complications Office Visit 11/08/2017 10:28a Intensivists Ryan Cain T81.4xxA Infection DO following a procedure, initial encounter A41.9 Sepsis, unspecified organism J90 Pleural effusion, not elsewhere classified 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] Office Visit 11/07/2017 10:28a Intens[facility]ists Ryan Cain T81.4xxA Infection DO following a procedure, initial encounter A41.9 Sepsis, unspecified organism J90 Pleural effusion, not elsewhere classified 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] Office Visit 11/06/2017 10:27a Intensivists Ryan Cain T81.4xxA Infection DO following a procedure, initial encounter A41.9 Sepsis, unspecified organism I26.99 Other pulmonary embolism without acute cor pulmonale J90 Pleural effusion, not elsewhere classified Office Visit 11/02/2017 7:00a Surgical Dorothy Meir R06.02 Shortness of [facility] MD breath Z48.89 Encounter for other specified surgical aftercare Office Visit 11/02/2017 3:33p [facility] Emiliano Walker I10 Essential Assoc,johnny Giraldo MD (primary) Hospitalists hypertension C34.31 Malignant neoplasm of lower lobe, right bronchus or lung 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 E11.9 Type 2 diabetes mellitus without complications J44.9 Chronic obstructive pulmonary disease, unspecified Office Visit 11/01/2017 [facility] E11.9 Type 2 diabetes 3:33p Assoc,johnny Henriquez, HAND BENDER mellitus without Hospitalists complications J45.909 Unspecified asthma, uncomplicated I10 Essential (primary) hypertension Office Visit 10/31/2017 [facility] D64.9 Anemia, 3:32p Assoc,pc Martinez, HAND BENDER unspecified Hospitalists C34.31 Malignant neoplasm of lower lobe, right bronchus or lung E11.9 Type 2 diabetes mellitus without complications J45.909 Unspecified asthma, uncomplicated I10 Essential (primary) hypertension Office Visit 10/30/2017 [facility] D64.9 Anemia, 3:32p Assoc,pc Martinez, HAND BENDER unspecified Hospitalists C34.31 Malignant neoplasm of lower lobe, right bronchus or lung E11.9 Type 2 diabetes mellitus without complications J45.909 Unspecified asthma, uncomplicated I10 Essential (primary) hypertension Office Visit 10/29/2017 [facility] D64.9 Anemia, 3:31p Assoc,pc Martinez, HAND BENDER unspecified Hospitalists C34.31 Malignant neoplasm of lower lobe, right bronchus or lung E11.9 Type 2 diabetes mellitus without complications J45.909 Unspecified asthma, uncomplicated I10 Essential (primary) hypertension Office Visit 10/28/2017 [facility] D64.9 Anemia, 3:30p Assoc,johnny Pearson, HAND BENDER unspecified Hospitalists C34.31 Malignant neoplasm of lower lobe, right bronchus or lung E11.9 Type 2 diabetes mellitus without complications J45.909 Unspecified asthma, uncomplicated I10 Essential (primary) hypertension Office Visit 10/27/2017 [facility] D64.9 Anemia, 3:30p Assoc,johnny Pearson, HAND BENDER unspecified Hospitalists C34.31 Malignant neoplasm of lower lobe, right bronchus or lung E11.9 Type 2 diabetes mellitus without complications J45.909 Unspecified asthma, uncomplicated I10 Essential (primary) hypertension Office Visit 10/26/2017 [facility] D64.9 Anemia, 3:29p Assoc,pc Lili, HAND BENDER unspecified Hospitalists C34.31 Malignant neoplasm of lower lobe, right bronchus or lung E11.9 Type 2 diabetes mellitus without complications J45.909 Unspecified asthma, uncomplicated Office Visit 10/25/2017 [facility] Stacy Carpenter D64.9 Anemia, 3:28p Assoc,johnny Pearson NP unspecified Hospitalists E11.9 Type 2 diabetes mellitus without complications I10 Essential (primary) hypertension C34.31 Malignant neoplasm of lower lobe, right bronchus or lung Office Visit 10/24/2017 3:28p [facility] Catracho I10 Essential Assoc,johnny Garza N.PPepe (primary) Hospitalists hypertension J45.909 Unspecified asthma, uncomplicated Office Visit 09/27/2017 10:00a Surgical Tung Mcclellan C34.90 [facility] M.D. neoplasm of unsp part of unsp bronchus or lung Office Visit 09/13/2017 11:45a Pulmonology And Magda C34.90 [facility] neoplasm of unsp Product Manufacturing Professional part of unsp bronchus or lung E66.09 Other obesity due to excess calories Office Visit 08/23/2017 7:15a [facility] Magda C34.90 [facility] neoplasm of unsp Product Manufacturing Professional part of unsp bronchus or lung Office Visit 08/08/2017 8:30a Pulmonology And Magda R05 [facility]ough [facility] Claudio J98.4 Other disorders of lung E66.09 Other obesity due to excess calories Z68.38 Body mass index (BMI) 38.0-38.9, adult Office Visit 09/03/2016 1:00p [facility] Qutaanika S. I10 Essential Christine Stone (primary) hypertension E66.9 Obesity, unspecified I35.1 Nonrheumatic aortic (valve) insufficiency I34.0 Nonrheumatic mitral (valve) insufficiency Office Visit 08/20/2016 10:20a [facility] Qutaybeh S. R07.9 Chest pain, Cardiology Christine Stone unspecified I10 Essential (primary) hypertension E66.9 Obesity, unspecified R60.9 Edema, unspecified Z86.73 Prsnl hx of TIA (TIA), and cereb infrc w/o resid deficits E11.9 Type 2 diabetes mellitus without complications R94.31 Abnormal electrocardiogram [ECG] [EKG] Z68.37 Body mass index (BMI) 37.0-37.9, adult Office Visit 07/12/2014 [facility] 715.16 Osteoarthrosis 10:00a [facility] Luciano M.D. Localized Prim Lower Leg Office Visit 09/08/2008 [facility] 786.50 Pain Chest Unspec 2:30a johnny Lopez M.D. Hospitalists Office Visit 09/07/2008 [facility] 786.50 Pain Chest Unspec 3:30a johnny Lopez M.D. Hospitalists Plan of Treatment Future Appointment(s):09/02/2018 11:00 am - Ila Raygoza MD at [facility] Internal Medicine - Dxysylaxx00/20/2019 8:20 am - Ila Raygoza MD at [facility] Internal Medicine - [address]07/01/2018 - Ila Raygoza, MDM79.605 Pain in left legComments: To further evaluate your leg pain I have sent you to the ER for an ultrasound to rule out a blood clot.K21.9 Gastro-esophageal reflux disease without esophagitisComments:I have increased the dose of anti acid medication from 20 to 40
--- OUTSIDE RECORDS SUMMARY | 2018-07-01 17:23 | XMS REPORT | Continuity of Care Document ---
:1950 External Reference #:[id number] Author Name Raisa Sam Care Team Providers Name Role Phone Ila Raygoza M.D. 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 [employer] Tobacco Use Start: Unknown Never Smoked Cigarettes Smoking Status Reviewed: 06/03/18 Never Smoked Cigarettes ETOH Use Denies alcohol [...] Form Strength Qnty SIG Indications Ordering Provider Aerochamber Plus 06/03/19 Active Misc 1unit use [...] Idalmis nostril 2x/day Nystatin 02/19/20 Active Ointment [id number] 15gm apply to B37.2 Ila 18 t/GM affected MD Idalmis area bid for 7 days Tramadol HCL 02/19/20 Active Tablets 50mg 90tab 1 po R07.82 Ila 18 s every MD Idalmis 6-8 hours as needed for pain Diclofenac 02/19/20 Active Gel 1% 200gm apply to M25.571 Ila Sodium 18 R ankle MD Idalmis four times a day as needed for pain Omeprazole Active Capsules 20mg [address] mouth every day Multivitamin Active Tablets 1 by Unknown Adult [...] PO B. 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 0.1 MG Technetium TC Administered Injection You Brannon 99M 017 Christine Mullins Tetrofosmin, Per Unit Dose Up To 40 Millicuries Immunizations Description No Information Available Vital Signs Date Vital Result Comment 06/03/2018 8:48am Height 62 inches 5'2" Weight [...] Date Facility Test Result H/L Range Note Laboratory test 06/03/2018 [facility] Hemoglobin A1c 7.2 High 5-7 finding Wound 11/05/2017 [facility] Wound/Misc SEE RESULT 1 Culture/Sensi [address] [place] [address] Stain [phone] CBC Auto Diff 10/09/2017 [facility] White Blood 7.5 10^3/uL N 3.5-10.[address] [place] [address] [phone] Red Blood Count 4.61 10^6/uL N 4.00-5.40 [...] Cells % 0 Basic Metabolic Panel 10/09/2017 [facility] Sodium 141 mmol/L N 135-[address] [place] [address] [phone] Potassium 4.1 mmol/L N 3.5-5.0 Chloride 106 mmol/L N 101-111 Co2 Carbon Dioxide 29 mmol/L N 22-32 Anion Gap 6 mmol/L N 2-11 Glucose 113 mg/dL High 70-100 Blood Urea Nitrogen 10 mg/dL N 6-24 Creatinine 0.61 mg/dL N 0.51-0.95 BUN/Creatinine Ratio 16.4 N 8-20 Calcium 9.3 mg/dL N 8.6-10.3 Egfr Non- 98.1 >60 Egfr 118.7 >60 2 Type & Screen 10/09/2017 [facility] Patient Blood Type A Positive [address] [place] [address] [phone] Antibody Screen NEGATIVE Laboratory test 09/04/2017 [facility] Cytology SEE RESULT [address] Non-Software Test [place] [address] [phone] Laboratory test 08/28/2017 [facility] Point of Care 139 mg/dL High 70-[address] Glucose 0 [place], [place] [address] [phone] Platelet Count 08/20/2017 [facility] Platelet Count 200 10^3/uL N 150-[address] [place], [place] [address] [phone] Mean Platelet Volume 9.0 um3 N 7.4-10.4 Inr/Protime 08/20/2017 [facility] Inr 0.91 N 0.77-1.[address] [place] [address] [phone] Laboratory test 08/20/2017 [facility] Partial 31.6 seconds N 26.0-36.[address] [place] [address] PTT [phone] Lung Cancer 08/20/2017 [facility] LNGPR Result FUSION [address] [address] <SEE NOTE> [phone] LNGPR Result See Comment 6 LNGPR Interpretation See Comment 7 LNGPR Additional Information See Comment 8 LNGPR Specimen Cells LNGPR Tissue Id [id number] LNGPR Released By See Comment 9 Laboratory test 08/20/2017 [facility] Cytology SEE RESULT [address] Non-Software [place] [address] [phone] Inr/Protime 08/09/2017 [facility] Inr 0.95 N 0.77-[address]02 [place] [address] [phone] Platelet Count 08/09/2017 [facility] Platelet Count 241 10^3/uL N 150-[address] [place] [address] [phone] Mean Platelet Volume 9.2 um3 N 7.4-10.4 1 SEE RESULT BELOW Name: CONCHIS GARCIA : [address]: Tung Oscar MD Acct: [id number] Unit: [id number] AGE: 67 Location: [facility] Re11/05/17 SEX: F Status: REG REF SPEC: [id number] BECCA: 11/05/17-1130 [facility] DR: Tung Oscar MD REQ: [id number] RECD: 11/05/17 STATUS: COMP _ SOURCE: CHEST SPDESC: ORDERED: Culture Stain COMMENTS: [id number] Specimen Description right chest Procedure Result Reported [...] CONTINUED ON NEXT PAGE DEPARTMENT OF PATHOLOGY, [address] [place] [address] Jeramy De Guzman M.D. Director [place] # [id number] Patient: CONCHIS GARCIA [id number] (Continued) Specimen: [id number] Collected: 11/05/17-1130 Received: 11/05/17-1257 (Continued) Procedure Result Reported Site Wound/Misc Culture Final (continued) 11/09/17- 1219 1. STAPHYLOCOCCUS EPIDERMIDIS (continued) M.I.C. RX --------- ------ Imipenem-Deduced R * Ampicillin/Sulbactam-Deduced R Cefazolin-Deduced R * These antibiotics are not available in the [facility] Formulary Contact the Microbiology Department for any additional antibiotic reporting. * ML - Main Lab . END OF REPORT DEPARTMENT OF PATHOLOGY, [address] [place] [address] Jeramy De Guzman M.D. Director [facility] # [id number] 2 Because ethnic data is not always readily [...] 15-29 5 Kidney failure <15 (or dialysis) 3 SEE RESULT BELOW Name: JOHNCONCHIS : [address]: Magda Claudio MD Acct: [id number] Unit: [id number] AGE: 67 Location: [place] Re09/04/17 SEX: F Status: DEP SDC SPEC: [id number] BECCA: 09/04/17-1350 [facility] DR: Magda Claudio MD REQ: [id number] RECD: 09/04/17632 STATUS: SOUT _ ORDERED: FNA-IMG GUID BX/4, [...] CONTINUED ON NEXT PAGE DEPARTMENT OF PATHOLOGY, [address] [place] [address] Jeramy De Guzman M.D. Director [place] # [id number] RUN DATE: 09/05/17 [facility] LAB LIVE PAGE 2 Patient: CONCHIS GARCIA [id number] (Continued) CLINICAL HISTORY (Continued) CLINICAL HISTORY Recently [...] 1544 END OF REPORT DEPARTMENT OF PATHOLOGY, [address] [place] [address] Jeramy De Guzman M.D. Director [facility] # [id number] 4 Carpet Measurer: [id number] 5 FUSION IDENTIFIED 6 Provided diagnosis: Lung [...] Engl J Med. 2010 Feb 16;363(18):1693-703 (PMID 76321406) 3. J Clin Oncol. 2015 Mar 14 (PMID 82884756) ADDITIONAL INFORMATION Microscopic examination was performed by [...] and additional information about this test, see [email or web address] (Test ID LNGPR). CLINICAL CORRELATIONS Test results [...] developed and its performance characteristics determined by [facility] in a manner consistent with CLIA requirements. This test has not been cleared or approved by the U.S. Food and Drug Administration. 8 CLINICAL TRIALS Possible clinical trials of benefit for this patient can be found at the following sites: 1) ClinicalTrials.gov: www.clinicaltrials.gov/ct2/search/advanced 2) [facility]: www.[facility]/research/clinical-trials/ 3) [employer]: www.cancer.gov/clinicaltrials/search 9 RESULT: Dimitri Jimenez, Ph.D. [phone] Test Performed by: [address] [address] 10 SEE RESULT BELOW Name: SINDY GARCIAYSA : [address]: Magda Claudio MD Acct: [id number] Unit: [id number] AGE: 67 Location: Re08/20/17 SEX: F Status: REG REF SPEC: [id number] BECCA: 08/20/171320 [facility] DR: Magda Claudio MD REQ: [id number] RECD: 08/20/173249 STATUS: ANIL OSBORNE DR: Brayden Mckeon MD _ ORDERED: FNA-IMG GUID BX, LEVEL 4, CYTO ADEQ-1ST P, IMMUNO-FIRST, IMMUNO- ADDL/4, IMMUNO-QUANT Lung Panel with Rearrangement Tumor has been performed at [place], [place]. The testing reveals: Received: 23 Aug [...] N Engl J Med. 2009Feb 16;363(18):1693-703 (PMID [id number]) 3. J Clin Oncol. 2015 Mar 14 (PMID 03385223) ADDITIONAL INFORMATION Microscopic examination was performed by [...] CONTINUED ON NEXT PAGE DEPARTMENT OF PATHOLOGY, [address] [place] [address] Jeramy De Guzman M.D. Director [place] # [id number] RUN DATE: 09/05/17 [facility] LAB LIVE PAGE 2 Patient: CONCHIS GARCIA [id number] (Continued) ADDENDUM (Continued) Mutation nomenclature is based on build GRCh37 (hg19). Rearrangement nomenclature is based on a custom reference sequence using GRCh37 (hg19). For details about gene reference transcripts (GenBank accession numbers) and additional information about this test, see www.[email or web address] (Test ID LNGPR). CLINICAL CORRELATIONS Test results [...] the following sites: 1) ClinicalTrials.gov: www.clinicaltrials.gov/ct2/search/advanced 2) [facility]: www.bryant.[facility]/research/clinical-trials/ 3) [employer]: www.cancer.gov/clinicaltrials/search Specimen: Cells CONTINUED ON NEXT PAGE DEPARTMENT OF PATHOLOGY, [address] [place] [address] Jeramy De Guzman M.D. Director [facility] # [id number] RUN DATE: 09/05/17 [facility] LAB LIVE PAGE 3 Patient: CONCHIS GARCIA [id number] (Continued) ADDENDUM (Continued) Tissue ID: [id number] Released By: Dimitri Jimenez, Ph.D. [phone] Laboratory Notes: 1. This test was developed and its performance characteristics determined by [facility] in a manner consistent with CLIA requirements. This test has not been cleared or approved by the U.S. Food and Drug Administration. [address] [address] Addendum Signed (signature on file) Jennifer Davis [...] CONTINUED ON NEXT PAGE DEPARTMENT OF PATHOLOGY, [address] [place] [address] Jeramy De Guzman M.D. Director [facility] # [id number] RUN DATE: 09/05/17 [facility] LAB LIVE PAGE 4 Patient: ÁNGEL GARCIAA [id number] (Continued) FINAL DIAGNOSIS (Continued) differentiated; see comment. [...] 1109 END OF REPORT DEPARTMENT OF PATHOLOGY, [address] [place] [address] Jeramy De Guzman M.D. Director [facility] # [id number] Procedures Date Code Description Status 06/03/2018 80783 Inhalation [place] For Acute Airway Obstruction Completed W/Nebulizer/Inhaler 11/07/2017 52976 ECHO Transthorasic Realtime 2D W Doppler & Color Flow Hosp Completed 11/07/2017 01981 EKG, Interpretation Only Completed 11/01/2017 21275 EKG, Interpretation Only Completed 10/25/2017 48204 EKG, Interpretation Only Completed 10/24/2017 09544 bronchoscopy (hospital service) Completed 10/24/2017 17994 bronchoscopy (hospital service) Completed 10/24/2017 21512 Remove Lung, Lobectomy Completed 10/24/2017 03531 Remove Lung, Lobectomy Completed 10/24/2017 71855 Remove Lung, Lobectomy Completed 10/24/2017 97226 Remove Lung, Lobectomy Completed 10/24/2017 19212 Tube,Thoracostomy,Incl Water S Completed 10/24/2017 69678 Tube,Thoracostomy,Incl Water S Completed 10/24/2017 62298 Lymphadenectomy Thoracic Regional Completed 10/24/2017 30077 Lymphadenectomy Thoracic Regional Completed 10/24/2017 36481 Lymphadenectomy Thoracic Regional Completed 10/24/2017 67815 Lymphadenectomy Thoracic Regional Completed 10/24/2017 99580 Injection For Nerve Block, Intercostal Nerve Mult Region Completed Block 10/24/2017 95058 Injection For Nerve Block, Intercostal Nerve Mult Region Completed Block 09/20/2017 69612 Diffusing Capacity Completed 09/20/2017 45859 Plethysmography Determination Lung Volumes & Per Airway Completed Resist 09/20/2017 03899 Pulmonary Function><Bronchodil Completed 09/04/2017 83199 Endobronchial Ultrasound=>3 Completed 08/30/2016 23322 Stress Test Completed 08/30/2016 77768 Myocardial Perfusion Imaging Tomographic (Spect) Multiple Completed Studies 08/23/2016 46887 ECHO Transthoracic, Real-Time 2D With Doppler And Color Completed Flow 08/20/2016 76430 EKG Tracing & Interpretation Completed Encounters Type Date Location Provider Dx Diagnosis Office Visit 04/04/2018 Ganga Raygoza MD J30.9 Allergic rhinitis, 4:00p Medicine - unspecified [place] M54.12 Radiculopathy, cervical region Office Visit 02/18/2018 10:00a Ganga Raygoza MD I10 Essential (primary) Medicine - [address] R07.82 Intercostal pain J45.909 Unspecified asthma, uncomplicated M25.571 Pain in right ankle and joints of right foot B37.2 Candidiasis of skin and nail 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 Escherichia coli Hospitalists [E. 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 Escherichia coli Hospitalists [E. 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 C34.31 Malignant neoplasm of lower lobe, right bronchus or lung E11.9 Type 2 diabetes mellitus without complications Office Visit 11/08/2017 10:28a [facility] Ryan Cain, T81.4xxA Infection DO following a procedure, initial encounter A41.9 Sepsis, unspecified organism J90 Pleural effusion, not elsewhere classified 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] Office Visit 11/07/2017 10:28a [facility] Ryan Cain T81.4xxA Infection DO following a procedure, initial encounter A41.9 Sepsis, unspecified organism J90 Pleural effusion, not elsewhere classified 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] Office Visit 11/06/2017 10:27a [facility] Ryan Cain, T81.4xxA Infection DO following a procedure, initial encounter A41.9 Sepsis, unspecified organism I26.99 Other pulmonary embolism without acute cor pulmonale J90 Pleural effusion, not elsewhere classified Office Visit 11/02/2017 7:00a Surgical Dorothy Meir R06.02 [facility] MD breath Z48.89 Encounter for other specified surgical aftercare Office Visit 11/02/2017 3:33p [facility] Emiliano Walker I10 Essential Assoc,johnny Giraldo MD (primary) Hospitalists hypertension C34.31 Malignant neoplasm of lower lobe, right bronchus or lung 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 E11.9 Type 2 diabetes mellitus without complications J44.9 Chronic obstructive pulmonary disease, unspecified Office Visit 11/01/2017 [facility] E11.9 Type 2 diabetes 3:33p Assoc,johnny Henriquez NP mellitus without Hospitalists complications J45.909 Unspecified asthma, uncomplicated I10 Essential (primary) hypertension Office Visit 10/31/2017 [facility] D64.9 Anemia, 3:32p Assoc,johnny Henriquez, 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 Hospitalists C34.31 Malignant neoplasm of lower lobe, right bronchus or lung E11.9 Type 2 diabetes mellitus without complications J45.909 Unspecified asthma, uncomplicated I10 Essential (primary) hypertension Office Visit 10/30/2017 [facility] D64.9 Anemia, 3:32p Assoc,johnny Henriquez, 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 Hospitalists C34.31 Malignant neoplasm of lower lobe, right bronchus or lung E11.9 Type 2 diabetes mellitus without complications J45.909 Unspecified asthma, uncomplicated I10 Essential (primary) hypertension Office Visit 10/29/2017 [facility] D64.9 Anemia, 3:31p Assoc,johnny Henriquez, 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 Hospitalists C34.31 Malignant neoplasm of lower lobe, right bronchus or lung E11.9 Type 2 diabetes mellitus without complications J45.909 Unspecified asthma, uncomplicated I10 Essential (primary) hypertension Office Visit 10/28/2017 [facility] D64.9 Anemia, 3:30p Assoc,johnny Pearson, 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 Hospitalists C34.31 Malignant neoplasm of lower lobe, right bronchus or lung E11.9 Type 2 diabetes mellitus without complications J45.909 Unspecified asthma, uncomplicated I10 Essential (primary) hypertension Office Visit 10/27/2017 [facility] D64.9 Anemia, 3:30p Assoc,johnny Pearson, 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 Hospitalists C34.31 Malignant neoplasm of lower lobe, right bronchus or lung E11.9 Type 2 diabetes mellitus without complications J45.909 Unspecified asthma, uncomplicated I10 Essential (primary) hypertension Office Visit 10/26/2017 [facility] D64.9 Anemia, 3:29p Assoc,johnny Pearson, 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 Hospitalists C34.31 Malignant neoplasm of lower lobe, right bronchus or lung E11.9 Type 2 diabetes mellitus without complications J45.909 Unspecified asthma, uncomplicated Office Visit 10/25/2017 [facility] D64.9 Anemia, 3:28p Assoc,johnny Pearson, 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 Hospitalists E11.9 Type 2 diabetes mellitus without complications I10 Essential (primary) hypertension C34.31 Malignant neoplasm of lower lobe, right bronchus or lung Office Visit 10/24/2017 3:28p [facility] Catracho I10 Essential Assoc,johnny Garza, N.P. (primary) Hospitalists hypertension J45.909 Unspecified asthma, uncomplicated Office Visit 09/27/2017 10:00a Surgical Tung Mcclellan C34.90 [facility] M.D. neoplasm of unsp part of unsp bronchus or lung Office Visit 09/13/2017 11:45a [facility] Magda C34.90 [facility] neoplasm of unsp [place] part of unsp bronchus or lung E66.09 Other obesity due to excess calories Office Visit 08/23/2017 7:15a [facility] Magda C34.90 [facility] neoplasm of unsp [place] part of unsp bronchus or lung Office Visit 08/08/2017 8:30a Pulmonology [facility] Magda R05 [facility]ough [facility] J98.4 Other disorders of lung E66.09 Other obesity due to excess calories Z68.38 Body mass index (BMI) 38.0-38.9, adult Office Visit 09/03/2016 1:00p [place] [facility] Marissa SPepe I10 Essential Christine Stone (primary) hypertension E66.9 Obesity, unspecified I35.1 Nonrheumatic aortic (valve) insufficiency I34.0 Nonrheumatic mitral (valve) insufficiency Office Visit 08/20/2016 10:20a [place] Marissa SePpe R07.9 Chest pain, Cardiology Christine Stone unspecified [...] Localized Prim Lower Leg Office Visit 09/08/2008 [facility] 786.50 Pain Chest Unspec 2:30a johnny Lopez M.D. Hospitalists [facility] Unspec 3:30a johnny Lopez M.D. Hospitalists Plan of Treatment Future Appointment(s):09/02/2018 11:00 am - Ila Raygoza MD at [facility] - [address]07/09/2018 8:20 am - Ila Raygoza MD at [facility] - [address]06/03/2018 - Ila Raygoza MDI10 Essential (primary) hypertensionNew Medication:Losartan Potassium 50 mg - 1 by mouth every dayComments:I increased losartan to 50mg, please continue taking with hydrochlorothiazide for your blood pressureFollow up:3 ermtiwJ50.9 Type 2 diabetes mellitus without complicationsComments:Your diabetes is well controlled without medication, A1c is 7.2%, recheck in 6 months. You do not need to check your blood glucose levels at home but please avoid too many sweets and breadFollow up:3 months, 20 minJ45.901 Unspecified asthma with (acute ) exacerbationNew Medication:Aerochamber Plus - use with inhaler as directedFlovent HFA 110 mcg/Act - 2 inhalation twice a day, rinse mouth out after each useNew Orders:Nebulizer Treatment, Ordered: 06/03/18Comments:it is important that you use your Pulmicort inhaler every day in the morning and evening, even if you are not wheezing or coughing. Rinse your mouth out after each use with water.Use the Ventolin inhaler when coughing, wheezing or feeling chest tightnessre-schedule appointment with Dr. Mccartney30.9 Allergic rhinitis, unspecifiedComments:cont using cetirizine and nasal spray as stawyoY07.12 Radiculopathy, cervical regionComments:left arm pain is likely from a pinched nerve in the neck but may also be from arthritis. use tramadol as needed for severe pain Goals 06/03/2018 - Ila Raygoza MDE11.9 Type 2 diabetes mellitus without complicationsGoal Hemoglobin A1c is less than 7.0% in ages 18-74 Goal Hemoglobin A1c is between 7.0% and 8.0% in age over 75 Goal Blood pressure is less than 130/85. Cholesterol should be lowered by a high or moderate-dose statin.
[2018-07-01 20:05] VITALS: BP 139/79
== END | disposition home or self-care (01) ==
LOC: ED 16:19
DX: M79.605 Pain in left leg (principal); J45.909 Unspecified asthma, uncomplicated; I10 Essential (primary) hypertension; Z85.118 Personal history of other malignant neoplasm of bronchus and lung; E11.9 Type 2 diabetes mellitus without complications; E78.00 Pure hypercholesterolemia, unspecified; K21.9 Gastro-esophageal reflux disease without esophagitis; M25.462 Effusion, left knee; M17.12 Unilateral primary osteoarthritis, left knee
CPT/HCPCS: 99282

== ENCOUNTER 2018-09-13 03:07 | Emergency (ER) | payer MEDICARE, MEDICAID ==
--- OUTSIDE RECORDS SUMMARY | 2018-09-13 03:17 | XMS REPORT | Continuity of Care Document ---
:1950 External Reference #:[id number] Author Name Josy Olson Care Team Providers Name Role Phone Ila Raygoza M.D. Primary Care Physician Unavailable Payers Date Identification Numbers Payment Provider Subscriber Policy Number: [id number] Medicare Conchis Garcia PayID: [id number] [address] [place] [address] Policy Number: [id number] Medicaid Conchis Garcia Group Name: 1 1 [address] PayID: [id number] [place] [address] Advance Directives Description No Information Available Problems Active Problems Provider Date Essential hypertension Catracho Garza, N.PPepe Onset: 10/24/2017 Asthma without status asthmaticus Catracho Garza, NPili Onset: 10/24/2017 Anemia Stacy Pearson NP Onset: 10/25/2017 Malignant tumor of bronchus Stacy Pearson NP Onset: 10/25/2017 Type 2 diabetes mellitus Stacy Pearson NP Onset: 10/25/2017 Malignant neoplasm of lower lobe, Stacy Pearson NP Onset: 2017 bronchus or lung Chronic obstructive lung disease Emiliano Giraldo MD Onset: 2017 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 Onset: 11/10/2017 Acute cor pulmonale Karyn Webster M.D. Onset: 11/11/2017 Sepsis due to Escherichia coli [E. Nancy Palmer D.O. Onset: 11/13/2017 coli] Pulmonary embolism Nancy Palmer D.O. Onset: 11/13/2017 Contusion of chest Nancy Palmer D.O. 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 [employer] Tobacco Use Start: Unknown Never Smoked Cigarettes Smoking Status Reviewed: 09/02/18 Never Smoked Cigarettes ETOH Use Denies alcohol use Tobacco Use Start: Unknown Patient has never smoked Recreational Drug Use Denies Drug Use Exercise Type/Frequency Exercises rarely Allergies, Adverse Reactions, Alerts Active Allergies Reaction Severity Comments Date Tetanus Immune Globulin 07/12/2014 Tetanus Toxoids redness,swelling, hives 07/12/2014 Cortizone Injection Anaphylaxis Severe per pt 08/21/2016 Medications Active Medications SIG Qnty Indications Ordering Date Provider Terbinafine HCL one by mouth 90tabs B35.1 Ila Raygoza MD 250mg Tablets daily for 12 9 weeks Omeprazole take 1 capsule 90caps Ila Raygoza MD 40mg Capsules DR by mouth once a 9 day Aerochamber Plus use with inhaler 1units J45.901 Ila Raygoza MD Misc as directed 9 Losartan Potassium 1 by mouth every 30tabs I10 Ila Raygoza MD 50mg Tablets day 9 Flovent HFA 2 inhalation 12gm J45.901 Ila Raygoza MD 110mcg/Act Aerosol twice a day, 9 rinse mouth out after each use Cetirizine HCL 1 by mouth every 30tabs J30.9 Ila Raygoza MD 10mg Tablets day 8 Flonase Allergy Relief 2 sprays in each 9.900ml J30.9 Vy nostril at Christine Crystal 8 50mcg/Act Suspension bedtime Azelastine HCL (Nasal) 2 sprays in each 30ml J30.9 Ila Raygoza MD nostril 2x/day 8 137mcg/[place] Solution Tramadol HCL 1 po every 6-8 90tabs R07.82 Ila Raygoza MD 50mg Tablets hours as needed 8 for pain Nystatin apply to 15gm B37.2 Ila Raygoza MD 804427Vejp/GM Ointment affected area 8 bid for 7 days Multivitamin Adult 1 by mouth every Unknown Tablets day 0 Nitrostat dissolve 1 Unknown 0.3mg Tablets Sub tablet under the 0 tongue every 5 minutes up to 3 doses as needed replace every 12 months Ventolin HFA 2 puffs by mouth Unknown 108(90Base) four times a day 0 mcg/Act Aerosol as needed Hydrochlorothiazide 1 by mouth every 30tabs Ila Raygoza MD 12.5mg day 0 Tablets Montelukast Sodium 1 by mouth every Unknown 10mg Tablets day 0 History Medications Nortriptyline HCL one po at 30caps M54.12 Ila Raygoza MD 04/04/2018 - 10mg bedtime 06/03/2018 Capsules Diclofenac Sodium apply to R 200gm M25.571 Ila Raygoza MD 02/18/2018 - 1% ankle four 07/01/2018 Gel times a day as needed for pain Ketorolac apply to right 120gm M25.571 Ila Raygoza MD 02/18/2018 - Tromethamine ankle four 02/18/2018 2% Gel times a day as needed for pain Losartan Potassium 1 by mouth 30tabs I10 Ila Raygoza MD 02/18/2018 - 25mg daily 06/03/2018 Tablets Tramadol HCL 1 po q 8 hr 30tabs C34.31 Tung Oscar, 11/19/2017 - 50mg M.D. 02/18/2018 Tablets Hydrocodone-Acetamino 1 by mouth 20tabs C34.31 Tung Oscar, 2017 - phen every 4 hours M.D. Unknown 5-325mg Tablets prn. Percocet Take 1 Tab PO 10tabs Doreen B. 11/04/2017 - 7.5-325mg Q6H prn Pain Eckenrode, SAND BUFFER Unknown Tablets Vitamin C 1 by mouth Unknown 09/02/2016 - Capsules every day 08/07/2017 Amoxicillin t q 8 hrs for 7 Unknown - 500mg days 06/03/2018 Tablets Eliquis Take 1 Tablet Unknown - 5mg Tablets By Mouth Two 02/18/2018 Times Daily Pulmicort Flexhaler 2 puffs twice J45.901 Unknown - daily 06/03/2018 180mcg/Act Aerosol Symbicort 2 puff twice a Unknown - day Unknown 160-4.5mcg/Act Aerosol Nitroglycerin place one patch Unknown - 0.4mg/HR in the morning 08/19/2016 Patches 24HR and remove at night after 12 hours Vitamin D-1000 2 by mouth Unknown - Maximum Strength every day 08/19/2016 1000Unit Tablets Aspirin Adult Low 1 by mouth Unknown - Dose every day 12/19/2017 81mg Tablets Omeprazole 1 by mouth Unknown - 20mg every day 07/01/2018 Capsules Ibuprofen prn Unknown - 600mg Tablets 08/07/2017 Hyoscyamine Sulfate by mouth three Unknown - times a day as 08/19/2016 0.125mg Tablets needed Atenolol 1 by mouth Unknown - 25mg Tablets every day 02/18/2018 Tramadol HCL four times a Unknown - 50mg day as needed Unknown Tablets Medications Administered in Office Medication SIG Qnty Indications Ordering Provider Date Inj, Regadenoson, 0.1 MG You Mullins M.D. 08/30/2016 Injection Technetium TC 99M Tetrofosmin, You Mullins, M.D. 08/30/2016 Per Unit Dose Up To 40 Millicuries Injection Immunizations Description No Information Available Vital Signs Date Vital Result Comment 09/02/2018 10:53am Height 61 inches 5'1" Weight 200.00 lb Heart Rate 76 /min BP Systolic Sitting 140 mmHg BP Diastolic Sitting 84 mmHg BMI (Body Mass Index) 37.8 kg/m2 07/09/2018 3:34pm Height 61 inches 5'1" Weight 203.00 lb Heart Rate 85 /min BP Systolic 130 mmHg BP Diastolic 82 mmHg Respiratory Rate 18 /min Body Temperature 98.0 F Pain Level 8 BMI (Body Mass Index) 38.4 kg/m2 07/09/2018 8:13am Height 61 inches 5'1" Weight 203.00 lb Heart Rate 71 /min BP Systolic 147 mmHg BP Diastolic 83 mmHg Body Temperature 97.2 F O2 % BldC Oximetry 96 % BMI (Body Mass Index) 38.4 kg/m2 07/01/2018 3:24pm Height 62 inches 5'2" Weight [...] Test Result H/L Range Note Laboratory test 09/02/2018 [facility] Hemoglobin A1c 6.9 5-7 finding Lipid Profile 07/23/2018 [facility] Triglycerides 108 mg/dL 1 (Trig/Chol/HDL) [address] [place] [address] [phone] Cholesterol 176 mg/dL 2 HDL Cholesterol 45.0 mg/dL 3 LDL Cholesterol 109 mg/dL 4 Urine Microalbumin 07/23/2018 [facility] Ur Microalbumin < 15.[address] (mg/L) mg/[place] [address] [phone] Urine Creatinine 194.76 mg/dL Urine Microalbumin/Creatinine TNP <31 5 Comp Metabolic Panel 07/23/2018 [facility] Sodium 139 mmol/L N 135-[address] [place] [address] [phone] Potassium 4.0 mmol/L N 3.5-5.0 Chloride 103 mmol/L N 101-111 Co2 Carbon Dioxide 31 mmol/L N 22-32 Anion Gap 5 mmol/L N 2-11 Glucose 143 mg/dL High 70-100 Blood Urea Nitrogen 13 mg/dL N 6-24 Creatinine 0.61 mg/dL N 0.51-0.95 BUN/Creatinine Ratio 21.3 High 8-20 Calcium 9.4 mg/dL N 8.6-10.3 Total Protein 6.9 g/dL N 6.4-8.9 Albumin 4.0 g/dL N 3.2-5.2 Globulin 2.9 g/dL N 2-4 Albumin/Globulin Ratio 1.4 N 1-3 Total Bilirubin 0.50 mg/dL N 0.2-1.0 Alkaline Phosphatase 72 U/L N 34-104 Alt 12 U/L N 7-52 Ast 16 U/L N 13-39 Egfr Non- 97.8 >60 Egfr 118.4 >60 6 Hepatitis C Antibody 07/23/2018 [facility] HCV Index < 0.[address] [place] [address] [phone] Hepatitis C Antibody Nonreactive Nonreactive Hepatitis B 07/23/2018 [facility] Hepatitis B Not Immune Abnormal Immune [place] AB Titer [address] [place] [address] [phone] Hep B Surf AB Level < 3.10 mIU/mL >12 Laboratory 07/23/2018 [facility] Hepatitis B Reactive Abnormal Nonreactive 7 test finding [address] Surface [place] ([place] [address] <SEE NOTE> [phone] Hepatitis Bs Antigen Positive Abnormal Negative 8 Laboratory test 06/03/2018 [facility] Hemoglobin A1c 7.2 High 5-7 finding Wound 11/05/2017 [facility] Wound/Misc SEE RESULT 9 Culture/Sensi [address] [place] [address] Stain [phone] Type & Screen 10/09/2017 [facility] Patient Blood A Positive [address] [place] [address] [phone] Antibody Screen NEGATIVE Basic Metabolic Panel 10/09/2017 [facility] Sodium 141 mmol/L N 135-[address] [place] [address] [phone] Potassium 4.1 mmol/L N 3.5-5.0 Chloride 106 mmol/L N 101-111 Co2 Carbon Dioxide 29 mmol/L N 22-32 Anion Gap 6 mmol/L N 2-11 Glucose 113 mg/dL High 70-100 Blood Urea Nitrogen 10 mg/dL N 6-24 Creatinine 0.61 mg/dL N 0.51-0.95 BUN/Creatinine Ratio 16.4 N 8-20 Calcium 9.3 mg/dL N 8.6-10.3 Egfr Non- 98.1 >60 Egfr 118.7 >60 10 CBC Auto Diff 10/09/2017 [facility] White Blood 7.5 10^3/uL N 3.5-10.[address] [place] [address] [phone] Red Blood Count 4.61 10^6/uL N 4.00-5.40 [...] % 0 Laboratory test 09/04/2017 [facility] Cytology SEE RESULT [address] Non-Veneer [place] [address] [phone] Laboratory test 08/28/2017 [facility] Point of Care 139 mg/dL High 70-10 [address] Glucose 0 [place] [address] [phone] Laboratory test 08/20/2017 [facility] Partial 31.6 seconds N 26.0- finding [address] Thrombo Time 36.3 [place] [address] PTT [phone] Inr/Protime 08/20/2017 [facility] Inr 0.91 N 0.77- [address] 1.02 [place], [place] [address] [phone] Platelet Count 08/20/2017 [facility] Platelet 200 10^3/uL N 150-[address] Count 50 [place] [address] [phone] Mean Platelet Volume 9.0 um3 N 7.4-10.4 Lung Cancer 08/20/2017 [facility] LNGPR Result FUSION IDENTIFIE [address] Summary <SEE NOTE> [place] [address] [phone] LNGPR Result See Comment 14 LNGPR Interpretation See Comment 15 LNGPR Additional Information See Comment 16 LNGPR Specimen Cells LNGPR Tissue Id [id number] LNGPR Released By See Comment 17 Laboratory test 08/20/2017 [facility] Cytology SEE RESULT [address] Non-Veneer [place] [address] [phone] Platelet Count 08/09/2017 [facility] Platelet Count 241 10^3/uL N 150-[address] [place] [address] [phone] Mean Platelet Volume 9.2 um3 N 7.4-10.4 Inr/Protime 08/09/2017 [facility] Inr 0.95 N 0.77-1.[address] [place] [address] [phone] 1 Desirable: <150 Borderline High: 150-199 High: 200-499 Very High: >500 2 Desirable: <200 Borderline High: 200-239 High: >239 3 Low: <40 Desirable: 40-60 High: >60 4 Desirable: <100 Near Optimal: 100-129 Borderline High: 130-159 High: 160-189 Very High: >189 5 Unable to calculate due to low microalbumin 6 Because ethnic data is not always readily [...] 15-29 5 Kidney failure <15 (or dialysis) 7 Reactive (Prelim) Initial screening has determined that additional testing is required. Specimen has been sent to the reference laboratory for confirmation testing. 8 S/CO ratio is >100 on this specimen, and confirmatory test was not required per threading machine tender's instructions for use. However, such result may occasionally be false-positive. If there are discrepancies between this positive HBsAg result and results of other HBV serologic and/or molecular tests, contact the laboratory to request HBsAg confirmatory testing. Test Performed by: [facility] [address] [place] [address] 9 SEE RESULT BELOW Name: AMALIAJOSECONCHIS ONTIVEROS : [address]: Tung Oscar MD Acct: [id number] Unit: [id number] AGE: 67 Location: [facility] Re11/05/17 SEX: F Status: REG REF SPEC: [id number] BECCA: 11/05/17-[address] [facility] [address]: Tung Oscar MD REQ: [id number] RECD: 11/05/17-1256 STATUS: COMP _ SOURCE: CHEST SPDESC: ORDERED: Culture Stain COMMENTS: [id number] Specimen Description right chest Procedure Result Reported Site Wound/Misc Gram Stain Final 11/06/17732 ML 2+ Neutrophils 1+ Epithelial Cells 1+ [...] CONTINUED ON NEXT PAGE DEPARTMENT OF PATHOLOGY, [address] [place] [address] Jeramy De Guzman M.D. Director [place] # [id number] Patient: CONCHIS GARCIA [id number] (Continued) Specimen: [id number] Collected: 11/05/17-1130 Received: 11/05/17-1257 (Continued) Procedure Result Reported Site Wound/Misc Culture Final (continued) 11/09/17- 1219 1. STAPHYLOCOCCUS EPIDERMIDIS (continued) M.I.C. RX --------- ------ Imipenem-Deduced R * Ampicillin/Sulbactam-Deduced R Cefazolin-Deduced R * These antibiotics are not available in the [facility] Formulary Contact the Microbiology Department for any additional antibiotic reporting. * ML - Main Lab . END OF REPORT DEPARTMENT OF PATHOLOGY, [address] [place] [address] Jeramy De Guzman M.D. Director [facility] # [id number] 10 Because ethnic data is not always readily [...] 15-29 5 Kidney failure <15 (or dialysis) 11 SEE RESULT BELOW Name: CONCHIS GARCIA : [address]: Magda Claudio MD Acct: [id number] Unit: [id number] AGE: 67 Location: [place] Re09/04/17 SEX: F Status: STEPHANIE HERNANDZE SPEC: [id number] BECAC: 09/04/17-135[facility] DR: Magda Claudio MD REQ: [id number] RECD: 09/04/17 STATUS: SOUT _ ORDERED: FNA-IMG [...] CONTINUED ON NEXT PAGE DEPARTMENT OF PATHOLOGY, [address] [place] [address] Jeramy De Guzman M.D. Director [facility] # [id number] RUN DATE: 09/05/17 [facility] LAB LIVE PAGE 2 Patient: CONCHIS GARCIA [id number] (Continued) CLINICAL HISTORY (Continued) CLINICAL HISTORY Recently [...] 1544 END OF REPORT DEPARTMENT OF PATHOLOGY, [address] [place] [address] Jeramy De Guzman M.D. Director [facility] # [id number] 12 Director Of Social Work: [id number] FUSION IDENTIFIED 14 Provided diagnosis: Lung adenocarcinoma The following fusion was identified: EML4-ALK No additional reportable alterations were identified within the tested genes. 15 ASSOCIATIONS BETWEEN ALK REARRANGEMENTS AND LUNG CANCER [...] cancer.anisha.ac.uk/cancergenome/projects/cosmic/ 2. N Engl J Med. 2009Feb 16;363(18):1692-700 (PMID 20442632) 3. J Clin Oncol. 2015 Mar 14 (PMID 87595562) ADDITIONAL INFORMATION Microscopic examination was performed by [...] additional information about this test, see www.[place] (Test ID LNGPR). CLINICAL CORRELATIONS Test [...] developed and its performance characteristics determined by [facility] in a manner consistent with CLIA requirements. This test has not been cleared or approved by the U.S. Food and Drug Administration. 16 CLINICAL TRIALS Possible clinical trials of benefit for this patient can be found at the following sites: 1) ClinicalTrials.gov: www.clinicaltrials.gov/ct2/search/advanced 2) [facility]: www.[facility]/research/clinical-trials/ 3) [employer]: www.cancer.gov/clinicaltrials/search 17 RESULT: Dimitri Jimenez, Ph.D. [phone] Test Performed by: [place] [address] 18 SEE RESULT BELOW Name: CONCHIS GARCIA : [address]: Magda Claudio MD Acct: [id number] Unit: [id number] AGE: 67 Location: Re08/20/17 SEX: F Status: REG REF SPEC: [id number] BECCA: 08/20/[address] [facility] [address]: Magda Claudio MD REQ: [id number] RECD: 08/20/172 STATUS: ANIL OSBORNE DR: Brayden Mckeon MD _ ORDERED: FNA-IMG GUID BX, LEVEL 4, CYTO ADEQ-1ST P, IMMUNO-FIRST, IMMUNO- ADDL/4, IMMUNO-QUANT Lung Panel with Rearrangement Tumor has been performed at [place], [place]. The testing reveals: Received: 23 Aug [...] N Engl J Med. 2009Feb 16;363(18):1693-703 (PMID 46926414) 3. J Clin Oncol. 2015 Mar 14 (PMID 94295271) ADDITIONAL INFORMATION Microscopic examination was performed by [...] CONTINUED ON NEXT PAGE DEPARTMENT OF PATHOLOGY, [address] [place] [address] Jeramy De Guzman M.D. Director [facility] # [id number] RUN DATE: 09/05/17 [facility] LAB LIVE PAGE 2 Patient: CONCHIS GARCIA [id number] (Continued) ADDENDUM (Continued) Mutation nomenclature is based on build GRCh37 (hg19). Rearrangement nomenclature is based on a custom reference sequence using GRCh37 (hg19). For details about gene reference transcripts (GenBank accession numbers) and additional information about this test, see [email or web address] (Test ID LNGPR). CLINICAL CORRELATIONS Test results [...] the following sites: 1) ClinicalTrials.gov: www.clinicaltrials.gov/ct2/search/advanced 2) [facility]: www.[facility]/research/clinical-trials/ 3) National [employer]: www.cancer.gov/clinicaltrials/search Specimen: Cells CONTINUED ON NEXT PAGE DEPARTMENT OF PATHOLOGY, [address] [place] [place] [address] Jeramy De Guzman M.D. Director [place] # [id number] RUN DATE: 09/05/17 [facility] LAB LIVE PAGE 3 Patient: CONCHIS GARCIA [id number] (Continued) ADDENDUM (Continued) Tissue ID: [id number] Released By: Dimitri Jimenez, Ph.D. [phone] Laboratory Notes: 1. This test was developed and its performance characteristics determined by [facility] in a manner consistent with CLIA requirements. This test has not been cleared or approved by the U.S. Food and Drug Administration. [address] [address] Addendum Signed (signature on file) Jennifer Davis [...] CONTINUED ON NEXT PAGE DEPARTMENT OF PATHOLOGY, [address] [place] [address] Jeramy De Guzman M.D. Director [place] # [id number] RUN DATE: 09/05/17 [facility] LAB LIVE PAGE 4 Patient: CONCHIS GARCIA [id number] (Continued) FINAL DIAGNOSIS (Continued) differentiated; see comment. [...] 1109 END OF REPORT DEPARTMENT OF PATHOLOGY, [address] [place] [address] Jeramy De Guzman M.D. Director [facility] # [id number] Procedures Date Code Description Status 08/20/2018 659100900 Diabetic Retinal Eye Exam Completed 07/25/2018 160276644 Bone Mineral Density Test Completed 07/23/2018 83666307 Mammogram Completed 06/03/2018 86975 Inhalation TX For Acute Airway Obstruction Completed W/Nebulizer/Inhaler 11/07/2017 68441 ECHO Transthorasic Realtime 2D W Doppler & Color Flow Completed Hosp 11/07/2017 29985 EKG, Interpretation Only Completed 11/01/2017 02170 EKG, Interpretation Only Completed 10/25/2017 64574 EKG, Interpretation Only Completed 10/24/2017 88944 bronchoscopy (hospital service) Completed 10/24/2017 93294 bronchoscopy (hospital service) Completed 10/24/2017 62145 Remove Lung, Lobectomy Completed 10/24/2017 12913 Remove Lung, Lobectomy Completed 10/24/2017 30125 Remove Lung, Lobectomy Completed 10/24/2017 83371 Remove Lung, Lobectomy Completed 10/24/2017 40064 Tube,Thoracostomy,Incl Water S Completed 10/24/2017 47055 Tube,Thoracostomy,Incl Water S Completed 10/24/2017 87008 Lymphadenectomy Thoracic Regional Completed 10/24/2017 45710 Lymphadenectomy Thoracic Regional Completed 10/24/2017 00438 Lymphadenectomy Thoracic Regional Completed 10/24/2017 45278 Injection For Nerve Block, Intercostal Nerve Mult Completed Region Block 10/24/2017 47182 Injection For Nerve Block, Intercostal Nerve Mult Completed Region Block 10/24/2017 60147 Lymphadenectomy Thoracic Regional Completed 09/20/2017 78736 Diffusing Capacity Completed 09/20/2017 12430 Plethysmography Determination Lung Volumes & Per Completed Airway Resist 09/20/2017 05727 Pulmonary Function><Bronchodil Completed 09/04/2017 22507 Endobronchial Ultrasound=>3 Completed 08/30/2016 97586 Myocardial Perfusion Imaging Tomographic (Spect) Completed Multiple Studies 08/30/2016 60052 Stress Test Completed 08/23/2016 38793 ECHO Transthoracic, Real-Time 2D With Doppler And Completed Color Flow 08/20/2016 16109 EKG Tracing & Interpretation Completed 12/09/2012 47184621 Colonoscopy Completed Encounters Type Date Location Provider Dx Diagnosis Office Visit 07/09/2018 Orthopedic Dimitri F M25.562 Pain in left knee 3:00p [facility] Justus Whitlock MD Office Visit 07/01/2018 Ganga Raygoza MD M79.605 Pain in left leg 3:00p Medicine - [address] K21.9 Gastro-esophageal reflux disease without esophagitis Z86.711 Personal history of pulmonary embolism Office Visit 06/03/2018 8:40a Ganga Raygoza MD I10 Essential (primary) Medicine - [address] E11.9 Type 2 diabetes mellitus without complications J45.901 Unspecified asthma with (acute) exacerbation J30.9 Allergic rhinitis, unspecified M54.12 Radiculopathy, cervical region Office Visit 04/04/2018 4:00p Ganga Raygoza J30.9 Allergic rhinitis, Medicine - MD unspecified [place] M54.12 Radiculopathy, cervical region Office Visit 02/18/2018 10:00a Ganga Raygoza MD I10 Essential (primary) Medicine - [address] R07.82 Intercostal pain J45.909 Unspecified asthma, uncomplicated M25.571 Pain in right ankle and joints of right foot B37.2 Candidiasis of skin and nail 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 Escherichia coli Hospitalists [E. 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 neoplasm of Hospitalists lower lobe, right [...] with acute cor pulmonale Office Visit 11/10/2017 [facility], A41.9 Sepsis, 10:29a johnny Lopez M.D. 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 E11.9 Type 2 diabetes mellitus without complications J44.9 Chronic obstructive pulmonary disease, unspecified Office Visit 11/01/2017 [facility] E11.9 Type 2 diabetes 3:33p Assoc,johnny Henriquez, SAND BUFFER mellitus without Hospitalists complications J45.909 Unspecified asthma, uncomplicated I10 Essential (primary) hypertension Office Visit 10/31/2017 [facility] D64.9 Anemia, 3:32p Assoc,pc Martinez, SAND BUFFER unspecified Hospitalists C34.31 Malignant neoplasm of lower lobe, right bronchus or lung E11.9 Type 2 diabetes mellitus without complications J45.909 Unspecified asthma, uncomplicated I10 Essential (primary) hypertension Office Visit 10/30/2017 [facility] D64.9 Anemia, 3:32p Assoc,johnny Henriquez, SAND BUFFER unspecified Hospitalists C34.31 Malignant neoplasm of lower lobe, right bronchus or lung E11.9 Type 2 diabetes mellitus without complications J45.909 Unspecified asthma, uncomplicated I10 Essential (primary) hypertension Office Visit 10/29/2017 [facility] D64.9 Anemia, 3:31p Assoc,pc Martinez, SAND BUFFER unspecified Hospitalists C34.31 Malignant neoplasm of lower lobe, right bronchus or lung E11.9 Type 2 diabetes mellitus without complications J45.909 Unspecified asthma, uncomplicated I10 Essential (primary) hypertension Office Visit 10/28/2017 [facility] D64.9 Anemia, 3:30p Assoc,pc Lili, SAND BUFFER unspecified Hospitalists C34.31 Malignant neoplasm of lower lobe, right bronchus or lung E11.9 Type 2 diabetes mellitus without complications J45.909 Unspecified asthma, uncomplicated I10 Essential (primary) hypertension Office Visit 10/27/2017 [facility] D64.9 Anemia, 3:30p Assoc,pc Lili, SAND BUFFER unspecified Hospitalists C34.31 Malignant neoplasm of lower lobe, right bronchus or lung E11.9 Type 2 diabetes mellitus without complications J45.909 Unspecified asthma, uncomplicated I10 Essential (primary) hypertension Office Visit 10/26/2017 [facility] D64.9 Anemia, 3:29p Assoc,johnny Pearson, SAND BUFFER unspecified Hospitalists C34.31 Malignant neoplasm of lower lobe, right bronchus or lung E11.9 Type 2 diabetes mellitus without complications J45.909 Unspecified asthma, uncomplicated Office Visit 10/25/2017 [facility] D64.9 Anemia, 3:28p Assoc,johnny Pearson, SAND BUFFER unspecified Hospitalists E11.9 Type 2 diabetes mellitus without complications I10 Essential (primary) hypertension C34.31 Malignant neoplasm of lower lobe, right bronchus or lung Office Visit 10/24/2017 3:28p [facility] Catracho I10 Essential Assoc,pc Greg, N.P. (primary) Hospitalists hypertension J45.909 Unspecified asthma, uncomplicated Office Visit 09/27/2017 10:00a Surgical Tung Mcclellan C34.90 [facility] Oscar M.D. neoplasm of unsp part of unsp bronchus or lung Office Visit 09/13/2017 11:45a [facility] Magda C34.90 [facility] neoplasm of unsp [employer] [facility] part of unsp bronchus or lung E66.09 Other obesity due to excess calories Office Visit 08/23/2017 7:15a [facility] Magad C34.90 [facility] neoplasm of [facility] part of [facility] bronchus or lung Office Visit 08/08/2017 8:30a [facility]mon[facility] Magda R05 [facility] J98.4 Other disorders of lung E66.09 Other obesity due to excess calories Z68.38 Body mass index (BMI) 38.0-38.9, adult Office Visit 09/03/2016 1:00p [facility] Marissa S. I10 Essential Christine Stone (primary) hypertension E66.9 Obesity, unspecified I35.1 Nonrheumatic aortic (valve) insufficiency I34.0 Nonrheumatic mitral (valve) insufficiency Office Visit 08/20/2016 10:20a [place] Qupricila S. R07.9 Chest pain, Cardiology Christine Stone [...] Localized Prim Lower Leg Office Visit 09/08/2008 [facility] 786.50 Pain Chest Unspec 2:30a johnny Lopez M.D. Hospitalists Office Visit 09/07/2008 [facility] 786.50 Pain Chest Unspec 3:30a johnny Lopez M.D. Hospitalists Plan of Treatment Future Appointment(s):11/25/2018 4:20 pm - Ila Raygoza MD at [facility] Internal Fmofwzar39/14/2019 - Ila Raygoza MDE11.9 Type 2 diabetes mellitus without complicationsComments:You are meeting goal for blood sugar control. Changes to medications are not indicated. You shouldbe on a moderate-potency statin to prevent new or recurrent heart disease, which is common in diabetics.Follow up: 3 months, 20 minB19.10 Unspecified viral hepatitis B without hepatic comaNew Xrays:US Liver, Ordered: 09/02/18Referral:Arnaldo Cui MD, Infectious IifaneouJ83 Essential (primary) hypertensionComments:repeat BP is 130/76Your high blood pressure is in excellent control on your current management. Goals 09/02/2018 - Ila Raygoza MDE11.9 Type 2 diabetes mellitus without complicationsGoal Hemoglobin A1c is less than 7.0% in ages 18-74 Goal Hemoglobin A1c is between 7.0% and 8.0% in age over 75 Goal Blood pressure is less than 130/85. Cholesterol should be lowered by a high or moderate-dose statin.
--- OUTSIDE RECORDS SUMMARY | 2018-09-13 03:18 | XMS REPORT | Continuity of Care Document ---
:1950 External Reference #:[id number] Author Name Ryan Hooper M.D. Address [address] [place] [address] Care Team Providers Name Role Phone Ila Raygoza M.D. Care Team Information Event Marketing Coordinator Unavailable Ila Raygoza M.D. Primary Care Physician Unavailable Payers Date Identification Numbers Payment Provider Subscriber Policy Number: [id number] Medicare [place] Elena Garcia PayID: [id number] [address] [place] [id number] Advance Directives Description No Information Available Problems Active Problems Provider Date Acute cor pulmonale Onset: 11/11/2017 Anemia Onset: 10/25/2017 Asthma without status asthmaticus Onset: 10/24/2017 Chronic obstructive lung disease Onset: 11/02/2017 Contusion of chest Onset: 11/14/2017 Essential hypertension Onset: 10/24/2017 Malignant neoplasm of lower lobe, bronchus or lung Onset: 10/26/2017 Malignant tumor of bronchus Onset: 10/25/2017 Pulmonary embolism Onset: 11/13/2017 Secondary malignant neoplasm of intrathoracic lymph nodes Onset: 11/02/2017 Type 2 diabetes mellitus Onset: 10/25/2017 Family History Date Family Member(s) Observation Comments Father Cancer Mother Heart Disease Social History Type Date Description Comments Sex Unknown ETOH Use Never used alcohol Tobacco Use Start: Unknown Patient has never smoked Smoking Status Reviewed: 08/20/18 Patient has never smoked Allergies, Adverse Reactions, Alerts Active Allergies Reaction Severity Comments Date Cortizone Injection Free Text Severe 07/10/2018 Tetanus Immune Globulin 07/10/2018 Tetanus Toxoids 07/10/2018 Medications Active Medications SIG Qnty Indications Ordering Date Provider Omeprazole take 1 capsule 90caps Ila Raygoza 40mg Capsules DR by mouth once a M.D. 9 day Losartan Potassium 1 by mouth every 30tabs I10 Idalmis Ila 50mg Tablets day M.D. 9 Flovent HFA 2 inhalation 12units J45.901 Idalmis Ila 110mcg/Act Aerosol twice a day, M.D. 9 rinse mouth out after each use Cetirizine HCL 1 by mouth every 30tabs J30.9 Idalmis Ila 10mg Tablets day M.D. 8 Flonase Allergy Relief 2 sprays in each 9.900units J30.9 Idalmis Ila nostril at M.D. 8 50mcg/Act Suspension bedtime Azelastine HCL (Nasal) 2 sprays in each 30units J30.9 Idalmis Ila 0.1% nostril 2x/day M.D. 8 Solution Nystatin apply to 15units B37.2 Idalmis Ila 612277Fkbg/GM Ointment affected area M.D. 8 bid for 7 days Tramadol HCL 1 po every 6-8 90tabs R07.82 Idalmis Ila 50mg Tablets hours as needed M.D. 8 for pain Nitrostat dissolve 1 Unknown 0.3mg Tablets Sub tablet under the 0 tongue every 5 minutes up to 3 doses as needed replace every 12 months Ventolin HFA 2 puffs by mouth Unknown 108(90Base) four times a day 0 mcg/Act Aerosol as needed Hydrochlorothiazide 1 by mouth every Unknown 12.5mg day 0 Tablets Montelukast Sodium 1 by mouth every Unknown 10mg Tablets day 0 Immunizations Description No Information Available Vital Signs Date Vital Result Comment 08/20/2018 2:28pm Intraocular Pressure Right Eye 11 mmHg Intraocular Pressure Left Eye 11 mmHg Results Test Date Facility Test Result H/L Range Note Lab Results 06/03/2018 N2[facility] Import Hemoglobin A1c 7.2 1 High 5-7 Lab Results 11/05/2017 N[facility] Import Wound/Misc See Result 1 Culture-Gram Below Stain CBC Auto Diff 10/09/2017 [facility] Import White Blood 7.5 10^3/uL 3.5- 10.8 Count Red Blood Count 4.61 10^6/uL 4-5.4 Hemoglobin 13.9 g/dL 12-16 Hematocrit 41 % 35-47 Mean Corpuscular Volume 89 fL 80-97 Mean Corpuscular Hemoglobin 30 pg 27-31 Mean Corpuscular HGB Conc 34 g/dL 31-36 Red Cell Distribution Width 14 % 10.5-15 Platelet Count 190 10^3/uL 150-450 Mean Platelet Volume 8.9 um3 7.4-10.4 Abs Neutrophils 3.9 10^3/uL 1.5-7.7 Abs Lymphocytes 2.7 10^3/uL 1-4.8 Abs Monocytes 0.6 10^3/uL 0-0.8 Abs Eosinophils 0.3 10^3/uL 0-0.6 Abs Basophils 0 10^3/uL 0-0.2 Abs Nucleated RBC 0 10^3/uL Granulocyte % 51.7 % 38-83 Lymphocyte % 36.4 % 25-47 Monocyte % 8.0 % High 0-7 Eosinophil % 3.4 % 0-6 Basophil % 0.5 % 0-2 Nucleated Red Blood Cells % 0 1 Basic Metabolic Panel 10/09/2017 [facility] [facility] Sodium 141 mmol/L 135- 145 Potassium 4.1 mmol/L 3.5-5 Chloride 106 mmol/L 101-111 Co2 Carbon Dioxide 29 mmol/L 22-32 Anion Gap 6 mmol/L 2-11 Glucose 113 mg/dL High 70-100 Blood Urea Nitrogen 10 mg/dL 6-24 Creatinine 0.61 mg/dL 0.51-0.95 BUN/Creatinine Ratio 16.4 1 8-20 Calcium 9.3 mg/dL 8.6-10.3 Egfr Non- 98.1 1 Egfr 118.7 1 2 Type & Screen 10/09/2017 [facility] Import Patient Blood Type A Positive Antibody Screen Negative 1 SEE RESULT BELOW Name: ELENA GARCIA : [address]: Tung Oscar MD Acct: [id number] Unit: [id number] AGE: 67 Location: [facility] Re11/05/17 SEX: F Status: REG REF SPEC: [id number] BECCA: 11/05/17-1130 [facility] DR: Tung Oscar MD REQ: [id number] RECD: 11/05/17 STATUS: COMP _ SOURCE: CHEST SPDESC: ORDERED: Culture Stain COMMENTS: [id number] Specimen Description right chest Procedure Result Reported Site Wound/Misc Gram Stain Final 11/06/17- 0733 ML 2+ Neutrophils 1+ Epithelial Cells 1+ [...] CONTINUED ON NEXT PAGE DEPARTMENT OF PATHOLOGY, [address] [place] [address] Jeramy De Guzman M.D. Director [facility] # [id number] Patient: ELENA GARCIA [id number] (Continued) Specimen: [id number] Collected: 11/05/17-1130 Received: 11/05/17-1257 (Continued) Procedure Result Reported Site Wound/Misc Culture Final (continued) 11/09/17- 121 1. STAPHYLOCOCCUS EPIDERMIDIS (continued) M.I.C. RX --------- ------ Imipenem-Deduced R * Ampicillin/Sulbactam-Deduced R Cefazolin-Deduced R * These antibiotics are not available in the [facility] Formulary Contact the Microbiology Department for any additional antibiotic reporting. * ML - Main Lab . END OF REPORT DEPARTMENT OF PATHOLOGY, [address] [place] [address] Jeramy De Guzman M.D. Director [facility] # [id number] 2 Because ethnic data is not always [...] 15-29 5 Kidney failure <15 (or dialysis) Procedures Date Code Description Status 08/20/2018 04531 Ophthalmoscopy Initial Completed 08/20/2018 76738 Gonioscopy Completed 08/20/2018 93430 Refraction Completed 08/20/2018 06566 Eye Exam New Comprehensive Completed Encounters Description No Information Available Plan of Treatment 08/20/2018 - Ryan Hooper M.D.H25.13 Age-related nuclear cataract, bilateralFollow up:1 yrH40.033 Anatomical narrow angle, bilateralFollow up:1 yrE11.9 Type 2 diabetes mellitus without complicationsFollow up:1 yr
[2018-09-13] MEDS ORDERED: Ondansetron INJ* 2 MG/ML VIAL IV ONE (03:35)
[2018-09-13] MEDS ORDERED: Metoprolol Tartrate TAB* 50 mg PO ONE (03:38)
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
[2018-09-13 03:48] LABS: ABS Eosinophils 0.4 10^3/ul (0-0.6); ABS Lymphocytes 2.2 10^3/ul (1.0-4.8); ABS Monocytes 0.5 10^3/ul (0-0.8); ABS Neutrophils 3.1 10^3/ul (1.5-7.7); Eosinophil % 6.1 %; Hematocrit 41 % (35-47); Hemoglobin 13.3 g/dL (12.0-16.0); Lymphocyte % 35.1 %; Mean Corpuscular HGB Conc 33 g/dL (31-36); Mean Corpuscular Hemoglobin 28 pg (27-31); Mean Corpuscular Volume 85 fL (80-97); Mean Platelet Volume 8.7 fL (7.4-10.4); Platelet Count 221 10^3/uL (150-450); Red Blood Count 4.77 10^6 /uL (3.70-4.87); Red Cell Distribution Width 14 % (10.5-15); White Blood Count 6.3 10^3/uL (3.5-10.8)
[2018-09-13 04:03] LABS: Albumin 4.1 g/dL (3.2-5.2); Albumin/Globulin Ratio 1.3 (1-3); Calcium 9.5 mg/dL (8.6-10.3); EGFR African American 116.2 (>60); Globulin 3.2 g/dL (2-4); Potassium 3.5 mmol/L (3.5-5.0); Total Bilirubin 0.9 mg/dL (0.2-1.0); Total Protein 7.3 g/dL (6.4-8.9)
[2018-09-13] MEDS ORDERED: Losartan TAB* 25 MG PO ONE (04:14)
[2018-09-13 04:46] LABS: Urine Appearance Cloudy; Urine Bacteria 1+ (Absent); Urine Bilirubin Negative (Negative); Urine Blood 1+ (Negative); Urine Color Yellow; Urine Glucose Negative (Negative); Urine Ketones Negative (Negative); Urine Nitrite Negative (Negative); Urine Protein Negative (Negative); Urine Red Blood Cell 2+(6-10/hpf) (Absent); Urine Specific Gravity 1.009 (1.010-1.030); Urine Squamous Epithelial Cell Present (Absent); Urine Urobilinogen Negative (Negative); Urine White Blood Cell 1+(6-10/hpf) (Absent)
[2018-09-13] MEDS ORDERED: Acetaminophen TAB* 325 MG PO ONE (05:31)
[2018-09-13 07:16] VITALS: BP 129/78
== END 2018-09-13 07:16 | disposition home or self-care (01) ==
LOC: ED 03:07
DX: I10 Essential (primary) hypertension (principal); R11.2 Nausea with vomiting, unspecified; R51 Headache; E78.00 Pure hypercholesterolemia, unspecified; E11.9 Type 2 diabetes mellitus without complications; K21.9 Gastro-esophageal reflux disease without esophagitis
CPT/HCPCS: 36415; 80053; 81003; 81015; 85025; 87086; 93005; 96374; 99283; A9270-GY; J2405

== ENCOUNTER 2019-02-07 21:11 | Emergency (ER) | payer MEDICAID, MEDICARE ==
--- OUTSIDE RECORDS SUMMARY | 2019-02-07 21:38 | XMS REPORT | Continuity of Care Document ---
:1950 External Reference #:[id number] Author Name SYLVESTER Toussaint (transmitted by agent of provider Emilio Park) Address [address] [place] [address] Care Team Providers Name Role Phone Oneida Nieves MD Care Team Information Geosciences Faculty Member [phone] Emilio Park M.D. - Allergy & Care Team Information Geosciences Faculty Member Immunology Problems Active Problems Provider Date Essential hypertension Emilio Park M.D. Onset: 05/27/2017 Uncomplicated severe persistent asthma Emilio Park M.D. Onset: 05/27/2017 Allergic rhinitis due to pollen Emilio Park M.D. Onset: 05/27/2017 Social History Type Date Description Comments Sex Unknown ETOH Use Denies alcohol use Tobacco Use Start: Unknown Patient has never smoked Recreational Drug Use Denies Drug Use Allergies, Adverse Reactions, Alerts Active Allergies Reaction Severity Comments Date Cortisone Unconscious 05/27/2017 Medications Active Medications SIG Qnty Indications Ordering Date Provider Qvar Redihaler inhale 2 puffs 10.600gm Perla 02/06/2019 every 12 hours. SYLVESTER Kelly 40mcg/Act Aerosol rinse mouth after use. Montelukast Sodium 1 by mouth every 30tabs J45.50 Perla 08/09/2017 10mg day SYLVESTER Kelly Tablets Nitroglycerin Oneida Nieves 0.3mg MD [place] Tablets Sub Losartan Potassium Unknown 50mg Tablets Ranitidine HCL Unknown 150mg Tablets Fluticasone 1 squirt each Unknown Propionate nostril daily 50mcg/Act Suspension Flovent HFA 2 puff inhalation Unknown 110mcg/Act twice a day Aerosol Immunizations Description No Information Available Vital Signs Date Vital Result Comment 02/06/2019 10:17am Height 62 inches 5'2" Weight 206.00 lb Weight 93.442 kg Respiratory Rate 28 /min Heart Rate 74 /min O2 % BldC Oximetry 93 % BP Systolic 142 mmHg BP Diastolic 69 mmHg Asthma Control Test 5 BMI (Body Mass Index) 37.7 kg/m2 08/09/2017 11:17am Height 62 inches 5'2" Weight 209.00 lb Weight 94.802 kg Respiratory Rate 22 /min Heart Rate 69 /min O2 % BldC Oximetry 94 % BP Systolic 127 mmHg BP Diastolic 75 mmHg Asthma Control Test 14 BMI (Body Mass Index) 38.2 kg/m2 Results Description No Information Available Procedures Date Code Description Status 02/06/2019 55696 Ippb Completed Medical Devices Description No Information Available Encounters Type Date Location Provider Dx Diagnosis Office Visit 02/06/2019 [place] Terell Toussaint.[place] Severe persistent 10:20a SYLVESTER asthma with (acute) exacerbation J30.1 Allergic rhinitis due to pollen Assessments Date Code Description Provider 02/06/2019 [email or web address] Severe persistent asthma with (acute) Emilio Park M.D. exacerbation 02/06/2019 J45.51 Severe persistent asthma with (acute) BONG Toussaint exacerbation 02/06/2019 J30.1 Allergic rhinitis due to pollen Emilio Park M.D. 02/06/2019 J30.1 Allergic rhinitis due to pollen SYLVESTER Toussaint Plan of Treatment Future Appointment(s):08/07/2019 10:00 am - SYLVESTER Toussaint at [id number] - PATRICK ToussaintCJ45.51 Severe persistent asthma with (acute) bybouutsktgaD21.1 Allergic rhinitis due to pollenRecommendations:Continue all medications as prescribed.Refrain from wearing perfumes/scented colognes while visitingour office IPPB x2 Continue the Montelukast 1 daily Start the Qvar 40 mg 2 puffs twice day Continue the Albuterol 2 puffs every 4 hours as needed for cough, shortness of breath, wheezing or chest tightness. She needs to see Dr. Narvaez in followup Functional Status Description No Information Available Mental Status Description No Information Available Referrals Description No Information Available
[2019-02-07] MEDS ORDERED: Labetalol IV* 5 MG/ML 20 ML VIAL IV PUSH ONE (21:59)
[2019-02-07] MEDS ORDERED: NS 0.9% 1000 ML** 1,000 ML IV ONE (21:59)
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
[2019-02-07 22:41] LABS: ABS Eosinophils 0.2 10^3/ul (0-0.6); ABS Monocytes 0.6 10^3/ul (0-0.8); ABS Neutrophils 8.1 10^3/ul (1.5-7.7); Hematocrit 39 % (35-47); Hemoglobin 13.1 g/dL (12.0-16.0); Lymphocyte % 18.4 %; Mean Corpuscular HGB Conc 34 g/dL (31-36); Mean Corpuscular Hemoglobin 28 pg (27-31); Mean Corpuscular Volume 85 fL (80-97); Mean Platelet Volume 8.6 fL (7.4-10.4); Platelet Count 210 10^3/uL (150-450); Red Blood Count 4.61 10^6 /uL (3.70-4.87); Red Cell Distribution Width 14 % (10-15)
[2019-02-07 23:00] LABS: Albumin 3.7 g/dL (3.2-5.2); Albumin/Globulin Ratio 1.2 (1-3); BUN/Creatinine Ratio 26.2 (8-20); Calcium 8.8 mg/dL (8.6-10.3); EGFR African American 118.4 (>60); EGFR Non-African American 97.8 (>60); Globulin 3.2 g/dL (2-4); Potassium 3.5 mmol/L (3.5-5.0); Total Bilirubin 0.4 mg/dL (0.2-1.0); Total Protein 6.9 g/dL (6.4-8.9)
[2019-02-07] MEDS ORDERED: Acetaminophen TAB* 325 MG PO ONE (23:51)
[2019-02-08 02:24] VITALS: BP 141/88
== END 2019-02-08 02:29 | disposition home or self-care (01) ==
LOC: ED 21:11
DX: I10 Essential (primary) hypertension (principal); R51 Headache; R11.10 Vomiting, unspecified; E11.9 Type 2 diabetes mellitus without complications; I08.3 Combined rheumatic disorders of mitral, aortic and tricuspid valves; J45.909 Unspecified asthma, uncomplicated; K21.9 Gastro-esophageal reflux disease without esophagitis; Z88.5 Allergy status to narcotic agent; Z88.7 Allergy status to serum and vaccine; Z91.048 Other nonmedicinal substance allergy status
CPT/HCPCS: 36415; 70450; 80053; 85025; 96361; 96374; 99284; A9270-GY

== ENCOUNTER 2024-03-02 13:27 | Observation (INO) ==
[2024-03-02 14:31] LABS: ABS Basophils 0.1 10^3/uL (0.0-0.1); ABS Eosinophils 0.4 10^3/uL (0.0-0.5); ABS Monocytes 1.1 10^3/uL (0.0-0.9); ABS Neutrophils 6.3 10^3/uL (1.5-7.6); ABS Nucleated RBC 0.01 10^3/ul; Eosinophil % 3.8 %; Hematocrit 40.8 % (35-45); Hemoglobin 13.4 g/dL (11.5-14.3); Lymphocyte % 27.2 %; Mean Corpuscular Hemoglobin 26.7 pg (27-33); Mean Corpuscular Hgb Conc 32.8 g/dL (31-36); Mean Corpuscular Volume 81.6 fL (80-97); Mean Platelet Volume 9.3 fL (7.5-11.2); Nucleated Red Blood Cells % 0.1 %/100WBC (0.0-0.8); Platelet Count 282 10^3/uL (150-450); Red Blood Count 5.01 10^6/uL (3.63-4.92); Red Cell Distribution Width 15.4 % (12-17); White Blood Count 10.9 10^3/uL (3.8-11.8)
[2024-03-02 14:54] LABS: INR 1.14 (0.85-1.14)
[2024-03-02 14:57] LABS: High Sens Troponin Baseline 9 pg/mL (<15)
[2024-03-02 15:10] LABS: ALT 17 U/L (7-52); Albumin 3.7 g/dL (3.2-5.2); Albumin/Globulin Ratio 0.8 (1-3); Alkaline Phosphatase 74 U/L (35-149); Anion Gap 7 mmol/L (2-16); Blood Urea Nitrogen 38 mg/dL (6-24); CO2 Carbon Dioxide 37 mmol/L (22-32); Calcium 8.9 mg/dL (8.6-10.3); Chloride 88 mmol/L (101-111); Creatinine, Serum 0.89 mg/dL (0.51-0.95); Globulin 4.8 g/dL (2-4); Glucose 348 mg/dL (70-100); Sodium 132 mmol/L (135-145); Total Bilirubin 0.5 mg/dL (0.2-1.0); Total Protein 8.5 g/dL (6.4-8.9); eGFR CKD-EPI 68.8 (>60)
[2024-03-02 16:04] LABS: High Sensitivity Troponin 1 Hr 10 pg/mL (<15)
[2024-03-02 16:26] LABS: Potassium Redraw 3.4 mmol/L (3.5-5.0)
[2024-03-02] MEDS: NS 0.9% 1000 ml BAG 1,000 ML IV ONE (21:41)
[2024-03-02] MEDS ORDERED: Albuterol/Ipratropium NEB.SOL (2.5/0.5 MG) 3 ML NEB.SOLN ONE (23:57)
[2024-03-03] MEDS: Albuterol/Ipratropium NEB.SOL (2.5/0.5 MG) 3 ML NEB.SOLN INH PRN (00:07)
[2024-03-03] MEDS: Famotidine IV 10 MG/ML 2 ml VIAL (20 mg) IV SLOW PU ONE (00:16)
[2024-03-03] MEDS: Iodixanol 320 (CONTRAST) 100 ML SDV IV ONE (00:40)
[2024-03-03] MEDS ORDERED: Sulfur Hexaflouride MICROSPHR 25 MG VIAL IV PRN (03:55)
[2024-03-03] MEDS ORDERED: Dextrose 50% Syringe 50 ml 25 GM/50 ML SYRINGE IV PUSH PRN (05:04)
[2024-03-03] MEDS ORDERED: Morphine 2 MG/ML SYRINGE IV PRN (05:52)
[2024-03-03] MEDS ORDERED: Naloxone Nasal Spray 4 MG/0.1 ML NASAL.SPR INTRANASAL PRN (05:53)
[2024-03-03] MEDS: Aspirin EC 81 mg TAB.EC (enteric coated) PO SCH (06:03)
[2024-03-03] MEDS: Insulin GLARGINE 100 un/ml 10 ml VIAL SUBCUT SCH (06:05)
[2024-03-03 06:34] LABS: ABS Basophils 0.1 10^3/uL (0.0-0.1); ABS Eosinophils 0.3 10^3/uL (0.0-0.5); ABS Lymphocytes 2.3 10^3/uL (1.0-4.8); ABS Monocytes 0.8 10^3/uL (0.0-0.9); ABS Neutrophils 5.4 10^3/uL (1.5-7.6); ABS Nucleated RBC 0.01 10^3/ul; Eosinophil % 3.4 %; Hematocrit 36.8 % (35-45); Lymphocyte % 25.7 %; Mean Corpuscular Hemoglobin 26.8 pg (27-33); Mean Corpuscular Hgb Conc 32.6 g/dL (31-36); Mean Corpuscular Volume 82.4 fL (80-97); Mean Platelet Volume 9.1 fL (7.5-11.2); Nucleated Red Blood Cells % 0.1 %/100WBC (0.0-0.8); Platelet Count 242 10^3/uL (150-450); Red Blood Count 4.47 10^6/uL (3.63-4.92); Red Cell Distribution Width 15.2 % (12-17); White Blood Count 8.8 10^3/uL (3.8-11.8)
[2024-03-03 07:04] LABS: Albumin 3.3 g/dL (3.2-5.2); Albumin/Globulin Ratio 0.9 (1-3); Calcium 8.2 mg/dL (8.6-10.3); Creatinine, Serum 1.02 mg/dL (0.51-0.95); Globulin 3.8 g/dL (2-4); HDL Cholesterol 37.3 mg/dL; Magnesium 1.4 mg/dL (1.9-2.7); Potassium 3.4 mmol/L (3.5-5.0); Total Bilirubin 0.3 mg/dL (0.2-1.0); Total Protein 7.1 g/dL (6.4-8.9); eGFR CKD-EPI 58.5 (>60)
[2024-03-03] MEDS ORDERED: Albuterol HFA INHALER 8 gm MDI INH PRN (08:10)
[2024-03-03] MEDS: Potassium Chlor 20 meq TAB.ER PO ONE (10:11)
[2024-03-03] MEDS: Magnesium Sulf 4 GM/100 ML IV 4,000 MG/100 ML BAG IVPB ONE (10:11)
[2024-03-03] MEDS: NS 0.9% 1000 ml BAG 1,000 ML IV ONE (10:11)
[2024-03-03] MEDS: Mometasone/Formoter 200/5 MDI INH SCH (17:42)
[2024-03-03 17:49] LABS: TSH Ultra Thyroid Stim Horm 2.77 mcIU/mL (0.34-5.60)
[2024-03-03 18:00] LABS: Folate 15.19 ng/mL (5.90-24.80)
[2024-03-03] MEDS: Enoxaparin 40 MG/0.4 ML SYR SUBCUT SCH (22:08)
[2024-03-04 07:07] LABS: Hematocrit 36.8 % (35-45); Hemoglobin 11.8 g/dL (11.5-14.3); Mean Corpuscular Hemoglobin 26.8 pg (27-33); Mean Corpuscular Hgb Conc 32.2 g/dL (31-36); Mean Corpuscular Volume 83.3 fL (80-97); Mean Platelet Volume 9.1 fL (7.5-11.2); Platelet Count 222 10^3/uL (150-450); Red Blood Count 4.42 10^6/uL (3.63-4.92); Red Cell Distribution Width 15.3 % (12-17); White Blood Count 7.7 10^3/uL (3.8-11.8)
[2024-03-04 07:27] LABS: Calcium 8.6 mg/dL (8.6-10.3); Creatinine, Serum 0.77 mg/dL (0.51-0.95); Magnesium 2.1 mg/dL (1.9-2.7); Potassium 4.5 mmol/L (3.5-5.0); eGFR CKD-EPI 81.9 (>60)
[2024-03-04] MEDS: Insulin GLARGINE 100 un/ml 10 ml VIAL SUBCUT ONE (08:37)
[2024-03-04 09:02] LABS: Glucose Confirmatory 496 mg/dL (70-100)
[2024-03-04 13:11] LABS: Glucose Confirmatory 436 mg/dL (70-100)
[2024-03-04] MEDS: Lactated Ringers 1000 ml BAG 1,000 ML IV ONE (13:23)
[2024-03-04] MEDS ORDERED: NS 0.9% 1000 ml BAG 1,000 ML IV SCH (13:30)
[2024-03-04] MEDS: NS 0.9% 1000 ml BAG 1,000 ML IV SCH (13:31)
[2024-03-04] MEDS ORDERED: Dextrose 50% Syringe 50 ml 25 GM/50 ML SYRINGE IV PUSH PRN ×2 (13:45→14:59)
[2024-03-04 14:41] VITALS: BP 162/74
[2024-03-04 15:18] LABS: Glucose Confirmatory 483 mg/dL (70-100)
== END 2024-03-04 19:00 | disposition home or self-care (01) ==
LOC: ED 13:27 → EDHOLD 13:27 → SUATTDRO 03-03 03:55 → MEDTELE 03-03 05:10
PROVIDERS: ADMIT Internal Medicine; ATTEND Internal Medicine